=== PATIENT | female | born 1945 | race Caucasian/White ===

== ENCOUNTER 2017-03-13 08:06 | Inpatient (IN) | payer MEDICARE, MEDICAID ==
[~2017-03-13] VITALS: Ht 162.6 cm; Wt 52.6 kg
[~2017-03-13 08:06] MED LIST: ACETAMINOPHEN325 M1 ORAL; ADVAIR 250/501 PUFFS INH; ADVAIR 500-501 EACH INH; ATIVAN0.5 MG ORAL; ATORVASTATIN CA10 MG ORAL; AUGMENTIN 875-1 EAC1 ORAL; CARAFATE1 G1 GT; CARAFATE1 GM/10 M1 ORAL; CIPRO500 MG PO; COLACE100 MG ORAL; COLACE100 MG/10 NG; FLEET ENEMA133 ML RECTAL; FOLIC ACID1 MG ORAL; FOSAMAX70 MG ORAL; HEPARIN SO5000 UNIT2 SUBQ; HEPARIN SO5000 UNIT4 SQ; HYDROCHLOROTHIA25 MG PO; INVANZ1 GM IVPB; LEVAQUIN500 MG ORAL; LINZESS145 MCG PO; LIPITOR10 MG ORAL; LISINOPRIL10 MG ORAL; LORATADINE10 M1 PO; MAGNESIUM CITR296 M1 PO; MEDROL DOSEPAK4 MG ORAL; MEROPENEM500 MG IV; MIRALAX17 G2 ORAL; MORPHINE 44 MG/1 ML IM; MULTIVITAMINS1 EAC8 PO; MYLANTA II30 ML ORAL; NICODERM 21MG/241 EA TD; NICODERM TOPIC; NORCO 5-325 TA1 EACH ORAL; PREDNISONE20 M1 PO; PREDNISONE20 MG ORAL; PRO-STAT 64 LI887 ML PO; PROBIOTIC1 EAC2 PO; PROMETHAZINE-C118 M1 ORAL; PROTONIX40 MG ORAL; RANITIDINE HCL150 MG ORAL; SENNA8.6 M3 PO; SPIRIVA18 MCG INH; TRAMADOL HCL50 MG GT; VANCOMYCIN1 GM/2502 IVPB; VITAMIN B12-FO1 EAC1 PO; VITAMIN D22000 UNIT PO; VITAMIN D250000 UNI1 GT; XOPENEX0.5 MG HHN; XOPENEX1.25 MG/3 HHN; ZESTRIL20 MG ORAL
[2017-03-13] MEDS ORDERED: Solu-MEDROL 125mg Inj IVP ONE (08:15)
[2017-03-13] MEDS ORDERED: Levalbuterol Inh UD 1.25mg/0.5ml HHN ONE (08:15)
[2017-03-13] MEDS ORDERED: Ipratropium 0.02% Inh Soln 2.5ml UD HHN ONE (08:15)
--- NOTE | 2017-03-13 08:24 | Emergency Room Report ---
History of Present Illness General Chief Complaint: Dyspnea/Respdistress Source: Patient Present Illness HPI The patient presents with dyspnea. She has a history of COPD and has nebulizer and oxygen at home. Her oxygen saturations were 91% in the field. She refused albuterol treatments because it causes her to get to jitters. The patient is also withdrawing from alcohol and had some alcohol last night she is worried about withdrawing at this time and is a significant component. She drinks daily - Scotch- will not quantify. Denies SI or HI. The patient denies any fevers. The paramedics noted a ronchorous cough but she states it's not been productive. She denies any chest pain, nausea, vomiting, diarrhea. No dysuria. + recent weight loss. She's not been taking prednisone at this time. In the past when she is in the hospital she's been on Solu-Medrol Allergies: Coded Allergies: ADHESIVE (Unverified Allergy, Severe, 08/16/13) ADHESIVE TAPE (Verified Allergy, Unknown, SURGICAL TAPE - RASH, 07/28/11) ALBUTEROL (Verified Adverse Reaction, Unknown, ANXIETY, 07/28/11) Uncoded Allergies: METAL (?) (Allergy, Unknown, RASH, 07/28/11) metal (Allergy, Unknown, 03/30/15) Patient History Past Medical History: see triage record Past Surgical History: other - prior G tube Social History: Reports: alcohol use, smoking Social History Narrative at home Reviewed Nursing Documentation: PMH: Agreed, PSxH: Agreed Nursing Documentation-PMH Hx Cardiac Problems: No Hx Hypertension: No Hx Pacemaker: No Hx Asthma: Yes Hx COPD: Yes Hx Diabetes: No Hx Cancer: No Hx Gastrointestinal Problems: No Hx Dialysis: No History Of Psychiatric Problem: No Hx Neurological Problems: No Hx Cerebrovascular Accident: No Hx Seizures: No Hx Tremors: Yes Hx Vertigo: Yes Hx Dizziness: Yes Hx Syncope: Yes Hx Weakness: Yes Hx Fatigue: Yes Review of Systems All Other Systems: negative except mentioned in HPI Physical Exam Vital Signs Date Time Temp Pulse Resp B/P Pulse Ox O2 Delivery O2 Flow Rate FiO2 03/13/17 08:04 97.9 96 24 119/72 95 Nasal Cannula 2.0 Sp02 EP Interpretation: reviewed, abnormal - as interpreted by me = low General Appearance: no apparent distress, thin, Chronically Ill Head: normocephalic Eyes: bilateral eye PERRL, bilateral eye normal inspection ENT: moist mucus membranes Neck: supple Respiratory: chest non-tender, wheezing, expiration, inspiration Cardiovascular #1: regular rate, rhythm Cardiovascular #2: 2+ radial (R) Gastrointestinal: normal inspection, normal bowel sounds, non tender, no mass, non-distended Musculoskeletal: back normal, normal range of motion, no calf tenderness Neurologic: alert, oriented x3, grossly normal Psychiatric: anxious Skin: normal inspection, warm/dry Medical Decision Making Diagnostic Impression: Primary Impression: COPD exacerbation Additional Impression: Alcohol withdrawal Qualified Codes: F10.239 - Alcohol dependence with withdrawal, unspecified ER Course Patient presents with dyspnea with history of COPD. She also has a rhonchorous cough. Differential is acute myocardial infarction, COPD exacerbation, pneumonia, bronchitis, alcohol withdrawal, anxiety amongst others. Evaluation with be with blood cultures lactate and other labs. Also a chest x-ray and EKG will be obtained. EKG shows sinus rhythm with left axis deviation. Chest x-ray is COPD without infiltrate. Labs are significant for a white count with eosinophilia. In addition to that her blood alcohol is 41. The patient is improved but needs further treatment and observation for possible development of DTs. She is several comorbidities that puts her at high risk. Improved. Admit tele Dr. Bianchi. Laboratory Tests Test 03/13/17 08:13 White Blood Count 5.8 K/UL (4.8-10.8) Red Blood Count 3.89 M/UL (4.20-5.40) L Hemoglobin 13.0 G/DL (12.0-16.0) Hematocrit 40.7 % (37.0-47.0) Mean Corpuscular Volume 105 FL (80-99) H Mean Corpuscular Hemoglobin 33.5 PG (27.0-31.0) H Mean Corpuscular Hemoglobin Concent 32.0 G/DL (32.0-36.0) Red Cell Distribution Width 13.3 % (11.6-14.8) Platelet Count 205 K/UL (150-450) Mean Platelet Volume 7.3 FL (6.5-10.1) Neutrophils (%) (Auto) 51.3 % (45.0-75.0) Lymphocytes (%) (Auto) 32.4 % (20.0-45.0) Monocytes (%) (Auto) 11.8 % (1.0-10.0) H Eosinophils (%) (Auto) 3.3 % (0.0-3.0) H Basophils (%) (Auto) 1.3 % (0.0-2.0) Prothrombin Time 9.7 SEC (9.30-11.50) Prothrombin Time INR 1.0 (0.9-1.1) PTT 26 SEC (23-33) Sodium Level 131 mEQ/L (135-145) L Potassium Level 4.2 mEQ/L (3.4-4.9) Chloride Level 86 mEQ/L (98-107) L Carbon Dioxide Level 26 mEQ/L (20-30) Anion Gap 19 (5-15) H Blood Urea Nitrogen 10 mg/dL (7-23) Creatinine 0.6 mg/dL (0.5-0.9) Estimate Glomerular Filtration Rate > 60 mL/min (>60) Glucose Level 71 mg/dL (74-106) L Lactic Acid Level 2.10 mmol/L (0.66-2.22) Calcium Level 9.6 mg/dL (8.6-10.2) Total Bilirubin 1.0 mg/dL (0.0-1.2) Aspartate Amino Transferase (AST) 63 U/L (5-40) H Alanine Aminotransferase (ALT) 29 U/L (3-33) Alkaline Phosphatase 89 U/L (35-104) Total Creatine Kinase 29 U/L (26-140) Pro-B-Type Natriuretic Peptide 120 pg/mL (0-125) Total Protein 6.8 g/dL (6.6-8.7) Albumin 4.3 g/dL (3.5-5.2) Globulin 2.5 g/dL Albumin/Globulin Ratio 1.7 (1.0-2.7) Serum Alcohol 41 mg/dL EKG Diagnostic Results Rate: normal Rhythm: NSR ST Segments: no acute changes Rhythm Strip Diag. Results EP Interpretation: yes Rhythm: NSR, no PVC's, no ectopy Chest X-Ray Diagnostic Results EP Interpretation: Yes Findings: no consolidation, no effusion, no pneumothorax, other - COPD Number of Views: 1 Last Vital Signs Date Time Temp Pulse Resp B/P Pulse Ox O2 Delivery O2 Flow Rate FiO2 03/13/17 15:49 96.8 91 21 97/67 97 Nasal Cannula 2.0 03/13/17 09:12 98 Status: improved Disposition: ADMITTED INPATIENT Condition: Serious Referrals: YNES BIANCHI (PCP) Nahid Manzano M.D. March 13, 2017 08:24
[2017-03-13 08:38] LABS: BASOPHILS % (AUTO) 1.3 % (0.0-2.0); EOSINOPHILS % (AUTO) 3.3 % (0.0-3.0); LYMPHOCYTES % (AUTO) 32.4 % (20.0-45.0); MEAN CORPUSCULAR HEMOGLOBIN 33.5 PG (27.0-31.0); MEAN CORPUSCULAR VOLUME 105 FL (80-99); MEAN PLATELET VOLUME 7.3 FL (6.5-10.1); MONOCYTES % (AUTO) 11.8 % (1.0-10.0); NEUTROPHILS % (AUTO) 51.3 % (45.0-75.0); PLATELET COUNT 205 K/UL (150-450); RED BLOOD COUNT 3.89 M/UL (4.20-5.40); RED CELL DISTRIBUTION WIDTH 13.3 % (11.6-14.8); WHITE BLOOD COUNT 5.8 K/UL (4.8-10.8)
[2017-03-13 08:45] LABS: ALANINE AMINOTRANSFERASE 29 U/L (3-33); ALBUMIN/GLOBULIN RATIO 1.7 (1.0-2.7); ALCOHOL 41 mg/dL; ANION GAP 19 (5-15); ASPARTATE AMINO TRANSFERASE 63 U/L (5-40); CALCIUM 9.6 mg/dL (8.6-10.2); CARBON DIOXIDE 26 mEQ/L (20-30); CHLORIDE 86 mEQ/L (98-107); CREATININE 0.6 mg/dL (0.5-0.9); GLOMERULAR FILTRATION RATE > 60 mL/min (>60); HEMOLYSIS 4; POTASSIUM 4.2 mEQ/L (3.4-4.9); SODIUM 131 mEQ/L (135-145); TOTAL PROTEIN 6.8 g/dL (6.6-8.7)
[2017-03-13 08:47] LABS: REFLEX LACTIC ACID YES OR NO YES
[2017-03-13 09:00] VITALS: BP 107/73
[2017-03-13 09:02] LABS: PROTHROMBIN TIME 9.7 SEC (9.30-11.50)
[2017-03-13] MEDS ORDERED: LORazepam Inj 2mg/ml 1ml IV ONE (10:15)
[2017-03-13] MEDS ORDERED: Promethazine/Codeine 5ml UD ORAL PRN ×2 (11:45)
[2017-03-13] MEDS ORDERED: chlordiazePOXIDE 25mg Cap ORAL PRN (11:45)
[2017-03-13] MEDS ORDERED: Nitroglycerin Subl 0.4mg tab (Bottle Of 25) SL PRN (11:45)
[2017-03-13] MEDS ORDERED: Morphine Sulfate 2mg/ml Inj IVP PRN (11:45)
[2017-03-13] MEDS ORDERED: Ketorolac 30mg Inj IV PRN (11:45)
[2017-03-13 12:30] VITALS: BP 114/68
[2017-03-13] MEDS: Folic Acid 1 MG, Magnesium Sulfate 2,000 MG, Multivitamin - 12 Injection 10 ML in NS w/... IV SCH (13:15)
[2017-03-13] MEDS: Thiamine 100 MG ivpb IVPB SCH ×2 (13:15)
[2017-03-13] MEDS: Solu-MEDROL 125mg Inj IV SCH ×2 (13:15→18:22)
[2017-03-13] MEDS ORDERED: Piperacillin/Tazobactam 2.25 GM in D5W 55 ML IV SCH (14:00)
[2017-03-13] MEDS: Zosyn 3.375gm q8h **Extended infusion IVPB SCH ×4 (14:53→22:16)
[2017-03-13 15:49] VITALS: BP 97/67
[2017-03-13] MEDS ORDERED: Miralax 17gm pkt ORAL PRN (18:15)
[2017-03-13] MEDS ORDERED: Levalbuterol Inh UD 1.25mg/0.5ml HHN SCH (18:15)
[2017-03-13] MEDS: LORazepam Inj 2mg/ml 1ml IV PRN (18:22)
[2017-03-13] MEDS: Docusate 100mg cap ORAL SCH (18:36)
[2017-03-13 20:00] VITALS: BP 102/64
[2017-03-13] MEDS: Theophylline ER 100mg ORAL SCH (20:48)
[2017-03-13] MEDS: Heparin 5000 units/ml inj SUBQ SCH (20:48)
[2017-03-13] MEDS ORDERED: Ipratropium 0.02% Inh Soln 2.5ml UD ONE (20:59)
[2017-03-13] MEDS: Levalbuterol Inh UD 1.25mg/0.5ml HHN PRN (21:03)
--- NOTE | 2017-03-13 22:33 | History and Physical ---
History of Present Illness General Date patient seen: March 13, 2017 Reason for Hospitalization: Dyspnea/Respdistress Present Illness HPI 71 year old female with hx of a COPD and oxygen at home BIBA with CC of dyspnea She refused albuterol treatments from paramedics because it causes her to get to jitters. The patient is also withdrawing from alcohol and had some alcohol last night she is worried about withdrawing at this time. she was in mild respiratory failure and admitted to telemetry for further work up. Allergies: Coded Allergies: ADHESIVE (Unverified Allergy, Severe, 08/16/13) ADHESIVE TAPE (Verified Allergy, Unknown, SURGICAL TAPE - RASH, 07/28/11) ALBUTEROL (Verified Adverse Reaction, Unknown, ANXIETY, 07/28/11) Uncoded Allergies: METAL (?) (Allergy, Unknown, RASH, 07/28/11) metal (Allergy, Unknown, 03/30/15) Medication History Scheduled Alendronate Sodium* (Fosamax*), 70 MG ORAL QWEEK Atorvastatin Calcium* (Lipitor*), 10 MG ORAL BEDTIME Atorvastatin Calcium* (Lipitor*), 10 MG ORAL BEDTIME, (Reported) Docusate Sodium* (Colace*), 100 MG ORAL TWICE A DAY, (Reported) Ergocalciferol (Vitamin D2)* (Vitamin D*), 50,000 UNIT GT ONCE A WEEK, (Reported ) Ertapenem Sodium* (INVanz*), 1 GM IVPB Q24H Fluticasone/Salmeterol (Advair 500-50 Diskus), 1 PUFF INH Q12H, (Reported) Fluticasone/Salmeterol (Advair 250-50 Diskus), 1 PUFF INH EVERY 12 HOURS, ( Reported) Folic Acid* (Folic Acid*), 1 MG ORAL DAILY, (Reported) Heparin Sodium,Porcine/Pf (Heparin Sod 5,000 Unit/0.5 ml), 5,000 UNIT SQ BID, ( Reported) Levalbuterol HCl (Xopenex Concentrate), 1.25 MG HHN TIDRT Levalbuterol Hcl (Xopenex*), 1.25 MG HHN Q4H, (Reported) Lisinopril* (Zestril*), 20 MG ORAL DAILY, (Reported) Multivitamin With Minerals (Multivitamins With Minerals*), 1 EACH PO DAILY, ( Reported) Pantoprazole* (Protonix*), 40 MG ORAL Q12HR, (Reported) Sucralfate* (Carafate*), 1 GM GT FOUR TIMES A DAY, (Reported) Tiotropium Bailey* (Spiriva*), 1 PUFF INH DAILY, (Reported) Scheduled PRN Acetaminophen* (Acetaminophen 325MG Tablet*), 650 MG ORAL Q4H PRN for fever Codeine/Promethazine Hcl* (Promethazine-Codeine Syrup*), 5 ML ORAL EVERY 6 HOURS PRN for cough Linaclotide (Linzess), 145 MCG PO for Constipation, (Reported) Lorazepam* (Ativan*), 0.5 MG ORAL THREE TIMES A DAY PRN for For Anxiety, ( Reported) Tramadol Hcl* (Ultram*), 50 MG GT Q6H PRN for For Pain, (Reported) Discontinued Medications Al Hydroxide/mg Hydroxide (Mag-Al Plus Suspension), 30 ML ORAL Q6H PRN for dyspepsia Discontinued Reason: Therapy completed Amoxicillin/Potassium Clav 875-125* (Augmentin 875-125 Tablet*), 1 TAB ORAL TWICE A DAY Discontinued Reason: Therapy completed Codeine/Promethazine Hcl* (Promethazine-Codeine Syrup*), 5 ML ORAL Q6H PRN for For Cough, (Reported) Discontinued Reason: Therapy completed Ergocalciferol (Vitamin D2) (Vitamin D2), 50,000 UNIT PO ONCE A WEEK, (Reported) Discontinued Reason: Therapy completed Fluticasone/Salmeterol (Advair 250-50 Diskus), 1 PUFFS INH BID Discontinued Reason: Therapy completed Lactobacillus Acidophilus (Probiotic), 1 EACH PO BID Discontinued Reason: Therapy completed Levofloxacin* (Levaquin*), 500 MG ORAL DAILY Discontinued Reason: Therapy completed Lisinopril* (Lisinopril*), 20 MG ORAL DAILY, (Reported) Discontinued Reason: Therapy completed Methylprednisolone (Methylprednisolone*), 4 MG ORAL .as directed Discontinued Reason: Therapy completed Morphine Sulfate/Pf (Morphine 4 Mg/Ml Carpuject), 2 MG IM EVERY 12 HOURS PRN Discontinued Reason: Therapy completed Polyethylene Glycol 3350* (Miralax*), 17 GM ORAL BEDTIME Discontinued Reason: Therapy completed Prednisone (Prednisone), 20 MG PO DAILY Discontinued Reason: Therapy completed Prednisone* (Prednisone*), 40 MG ORAL DAILY Discontinued Reason: Therapy completed Ranitidine Hcl* (Zantac*), 150 MG ORAL TWICE A DAY Discontinued Reason: Therapy completed Sennosides (Senna), 8.6 MG PO DAILY PRN Discontinued Reason: Therapy completed Sucralfate (Carafate), 1 GM ORAL FOUR TIMES A DAY, (Reported) Discontinued Reason: Therapy completed Tiotropium Bailey* (Spiriva*), 1 PUFF INH DAILY, (Reported) Discontinued Reason: Therapy completed Patient History Healthcare decision maker Resuscitation status Full Code Advanced Directive on File Past Medical/Surgical History Past Medical/Surgical History: (1) HTN (hypertension) (2) Emphysema of lung (3) Anemia Review of Systems All Other Systems: negative except mentioned in HPI Physical Exam General Appearance: cachetic Lines, tubes and drains: peripheral, central line HEENT: normocephalic, atraumatic Neck: non-tender, normal alignment Respiratory/Chest: chest wall non-tender, lungs clear, normal breath sounds Cardiovascular/Chest: normal peripheral pulses, normal rate Abdomen: normal bowel sounds Genitourinary/Rectal: normal genital exam Extremities: normal range of motion, non-tender Neurologic: stencil cutter II-XII grossly normal Last 24 Hour Vital Signs Date Time Temp Pulse Resp B/P Pulse Ox O2 Delivery O2 Flow Rate FiO2 03/13/17 21:14 82 20 99 Nasal Cannula 2.0 28 03/13/17 21:13 78 20 96 Nasal Cannula 2.0 28 03/13/17 20:00 84 03/13/17 20:00 97.4 84 21 102/64 96 Nasal Cannula 2.0 03/13/17 19:30 94 Nasal Cannula 2.0 28 03/13/17 19:30 Nasal Cannula 2.0 28 03/13/17 15:49 96.8 91 21 97/67 97 Nasal Cannula 2.0 03/13/17 14:52 Nasal Cannula 2.0 03/13/17 14:52 Nasal Cannula 2.0 03/13/17 13:02 99 03/13/17 12:30 97.7 95 20 114/68 94 Nasal Cannula 2.0 03/13/17 12:02 20 96/64 94 Nasal Cannula 2.0 03/13/17 11:05 80 20 94 Nasal Cannula 2.0 03/13/17 09:12 Nasal Cannula 2.0 98 03/13/17 09:00 96 22 107/73 94 Nasal Cannula 2.0 03/13/17 08:31 89 22 100 3.0 32 03/13/17 08:21 32 03/13/17 08:21 89 27 Nasal Cannula 3.0 32 03/13/17 08:21 89 27 99 Nasal Cannula 3.0 32 03/13/17 08:04 97.9 96 24 119/72 95 Nasal Cannula 2.0 Laboratory Tests Test 03/13/17 08:13 03/13/17 10:30 White Blood Count 5.8 K/UL (4.8-10.8) Red Blood Count 3.89 M/UL (4.20-5.40) L Hemoglobin 13.0 G/DL (12.0-16.0) Hematocrit 40.7 % (37.0-47.0) Mean Corpuscular Volume 105 FL (80-99) H Mean Corpuscular Hemoglobin 33.5 PG (27.0-31.0) H Mean Corpuscular Hemoglobin Concent 32.0 G/DL (32.0-36.0) Red Cell Distribution Width 13.3 % (11.6-14.8) Platelet Count 205 K/UL (150-450) Mean Platelet Volume 7.3 FL (6.5-10.1) Neutrophils (%) (Auto) 51.3 % (45.0-75.0) Lymphocytes (%) (Auto) 32.4 % (20.0-45.0) Monocytes (%) (Auto) 11.8 % (1.0-10.0) H Eosinophils (%) (Auto) 3.3 % (0.0-3.0) H Basophils (%) (Auto) 1.3 % (0.0-2.0) Prothrombin Time 9.7 SEC (9.30-11.50) Prothromb Time International Ratio 1.0 (0.9-1.1) Activated Partial Thromboplast Time 26 SEC (23-33) Sodium Level 131 mEQ/L (135-145) L Potassium Level 4.2 mEQ/L (3.4-4.9) Chloride Level 86 mEQ/L (98-107) L Carbon Dioxide Level 26 mEQ/L (20-30) Anion Gap 19 (5-15) H Blood Urea Nitrogen 10 mg/dL (7-23) Creatinine 0.6 mg/dL (0.5-0.9) Estimat Glomerular Filtration Rate > 60 mL/min (>60) Glucose Level 71 mg/dL (74-106) L Lactic Acid Level 2.10 mmol/L (0.66-2.22) 1.40 mmol/L (0.66-2.22) Calcium Level 9.6 mg/dL (8.6-10.2) Total Bilirubin 1.0 mg/dL (0.0-1.2) Aspartate Amino Transf (AST/SGOT) 63 U/L (5-40) H Alanine Aminotransferase (ALT/SGPT) 29 U/L (3-33) Alkaline Phosphatase 89 U/L (35-104) Total Creatine Kinase 29 U/L (26-140) Pro-B-Type Natriuretic Peptide 120 pg/mL (0-125) Total Protein 6.8 g/dL (6.6-8.7) Albumin 4.3 g/dL (3.5-5.2) Globulin 2.5 g/dL Albumin/Globulin Ratio 1.7 (1.0-2.7) Serum Alcohol 41 mg/dL Height (Feet): 5 Height (Inches): 4.00 Weight (Pounds): 116 Medications Current Medications Medications (Trade) Dose Ordered Sig/Nahum Route PRN Reason Start Time Stop Time Status Last Admin Dose Admin Atorvastatin Calcium (Lipitor) 10 mg BEDTIME ORAL 03/13/17 21:00 04/12/17 20:59 Chlordiazepoxide 25 mg 25 mg Q6H PRN ORAL Agitation 03/13/17 11:45 03/20/17 11:44 Dextrose STAT PRN IV Hypoglycemia 03/13/17 11:45 04/12/17 11:44 Docusate Sodium (Colace) 100 mg THREE TIMES A DAY ORAL 03/13/17 19:00 04/12/17 18:59 03/13/17 18:36 Folic Acid/ Magnesium Sulfate/ Multivitamins/ Sodium Chloride (Folvite/ Magnesium Sulfate/ M.v.i.-12/NS w/ KCl 20mEq) 1,014.2 ml @ 125 mls/ hr Q24H IV 03/13/17 13:30 04/12/17 13:29 03/13/17 13:15 Heparin Sodium (Porcine) (Heparin 5000 units/ml) 5,000 units EVERY 12 HOURS SUBQ 03/13/17 21:00 04/12/17 20:59 03/13/17 20:48 Ketorolac Tromethamine (Toradol 30mg) 30 mg Q8H PRN IV Moderate Pain (Pain Scale 4-6) 03/13/17 11:45 03/18/17 11:44 Levalbuterol HCl (Xopenex) 1.25 mg Q4H PRN HHN Shortness of Breath 03/13/17 18:30 03/18/17 18:29 03/13/17 21:03 Lisinopril (Prinivil) 20 mg DAILY ORAL 03/14/17 09:00 04/13/17 08:59 Lorazepam (Ativan 2mg/ml 1ml) 0.5 mg Q4H PRN IV For Anxiety 03/13/17 11:45 03/20/17 11:44 03/13/17 18:22 Methylprednisolone Sodium Succinate (Solu-MEDROL) 60 mg EVERY 6 HOURS IV 03/13/17 12:00 04/12/17 11:59 03/13/17 18:22 Morphine Sulfate (Morphine Sulfate) 2 mg Q4H PRN IVP Severe Pain (Pain Scale 7-10) 03/13/17 11:45 03/20/17 11:44 Nitroglycerin (Ntg) 0.4 mg Q5M X 3 DOSES PRN SL Prn Chest Pain 03/13/17 11:45 04/12/17 11:44 Ondansetron HCl (Zofran) 4 mg Q6H PRN IVP Nausea & Vomiting 03/13/17 11:45 04/12/17 11:44 Piperacillin Sod/ Tazobactam Sod/ Dextrose (Zosyn/D5W) 110 ml @ 27.5 mls/hr EVERY 8 HOURS IVPB 03/13/17 14:00 03/18/17 13:59 03/13/17 22:16 Polyethylene Glycol (Miralax) 17 gm DAILYPRN PRN ORAL Constipation 03/13/17 18:15 04/12/17 18:14 Promethazine HCl/ Codeine (Phenergan with Codeine) 5 ml Q6H PRN ORAL For Cough 03/13/17 11:45 04/12/17 11:44 Temazepam (Restoril) 15 mg HSPRN PRN ORAL Insomnia 03/13/17 21:00 03/20/17 20:59 Theophylline (Aman-Dur) 100 mg EVERY 12 HOURS ORAL 03/13/17 21:00 04/12/17 20:59 03/13/17 20:48 Thiamine HCl 100 mg/Dextrose 56 ml @ 112 mls/hr Q24H IVPB 03/13/17 13:30 04/12/17 13:29 03/13/17 13:15 Assessment/Plan Problem List: (1) COPD exacerbation ICD Codes: J44.1 - Chronic obstructive pulmonary disease with (acute) exacerbation SNOMED: 662255366 (2) Alcohol withdrawal ICD Codes: F10.239 - Alcohol dependence with withdrawal, unspecified SNOMED: 482336369 Qualifiers: Qualified Codes: F10.239 - Alcohol dependence with withdrawal, unspecified (3) HTN (hypertension) ICD Codes: I10 - Essential (primary) hypertension SNOMED: 85435949 (4) Anemia ICD Codes: D64.9 - Anemia SNOMED: 419274952 (5) Emphysema of lung ICD Codes: J43.9 - Emphysema, unspecified SNOMED: 76477306 Assessment/Plan respiratory treatment IV steroids check sputum nicotine patch lilbirum fo rETOH withdrawl dvt prophylaxis YNES BREWSTER March 13, 2017 22:33
[2017-03-14] VITALS (8 sets, daily range): BP systolic 91–106; BP diastolic 56–73
[2017-03-14] MEDS: Solu-MEDROL 125mg Inj IV SCH ×3 (00:30→12:25)
[2017-03-14] MEDS: Zosyn 3.375gm q8h **Extended infusion IVPB SCH ×6 (05:29→22:29)
[2017-03-14] MEDS: LORazepam Inj 2mg/ml 1ml IV PRN ×4 (05:29→22:00)
[2017-03-14] MEDS ORDERED: Lisinopril 20mg tab ORAL SCH (09:00)
[2017-03-14] MEDS: Theophylline ER 100mg ORAL SCH ×2 (09:30→21:58)
[2017-03-14] MEDS: Docusate 100mg cap ORAL SCH ×3 (09:30→17:46)
[2017-03-14] MEDS: Heparin 5000 units/ml inj SUBQ SCH ×2 (09:33→21:59)
[2017-03-14] MEDS: Levalbuterol Inh UD 1.25mg/0.5ml HHN PRN ×2 (09:47→14:53)
--- NOTE | 2017-03-14 12:46 | Pulmonology Progress Note ---
Assessment/Plan Problems: (1) COPD exacerbation (2) Alcohol withdrawal (3) HTN (hypertension) (4) Anemia (5) Emphysema of lung Assessment/Plan improving decrease steroids check sputum monitor bp banana bag Subjective ROS Limited/Unobtainable: No Constitutional: Reports: no symptoms HEENT: Repors: no symptoms Respiratory: Reports: no symptoms Allergies: Coded Allergies: ADHESIVE (Unverified Allergy, Severe, 08/16/13) ADHESIVE TAPE (Verified Allergy, Unknown, SURGICAL TAPE - RASH, 07/28/11) ALBUTEROL (Verified Adverse Reaction, Unknown, ANXIETY, 07/28/11) Uncoded Allergies: METAL (?) (Allergy, Unknown, RASH, 07/28/11) metal (Allergy, Unknown, 03/30/15) Objective Last 24 Hour Vital Signs Date Time Temp Pulse Resp B/P Pulse Ox O2 Delivery O2 Flow Rate FiO2 03/14/17 11:52 97.0 92 20 95/62 95 Nasal Cannula 2.0 03/14/17 09:49 77 20 99 Nasal Cannula 2.0 03/14/17 09:48 76 20 96 Nasal Cannula 2.0 28 03/14/17 08:05 Nasal Cannula 2.0 28 03/14/17 08:05 96 Nasal Cannula 2.0 28 03/14/17 07:57 97.0 97 22 101/73 94 Nasal Cannula 2.0 03/14/17 04:00 83 03/14/17 04:00 96.1 81 20 106/70 94 Nasal Cannula 03/14/17 00:00 97.2 75 18 94/61 93 Room Air 03/14/17 00:00 73 03/13/17 21:14 82 20 99 Nasal Cannula 2.0 28 03/13/17 21:13 78 20 96 Nasal Cannula 2.0 28 03/13/17 20:00 84 03/13/17 20:00 97.4 84 21 102/64 96 Nasal Cannula 2.0 03/13/17 19:30 94 Nasal Cannula 2.0 28 03/13/17 19:30 Nasal Cannula 2.0 28 03/13/17 15:49 96.8 91 21 97/67 97 Nasal Cannula 2.0 03/13/17 14:52 Nasal Cannula 2.0 03/13/17 14:52 Nasal Cannula 2.0 03/13/17 13:02 99 Intake and Output 03/13/17 03/14/17 19:00 07:00 Intake Total 763.5 ml 615.8 ml Balance 763.5 ml 615.8 ml IV Total 763.5 ml 615.8 ml # Voids 2 1 # Bowel Movements 1 General Appearance: cachetic Respiratory/Chest: chest wall non-tender, lungs clear Breasts: no masses Cardiovascular: normal peripheral pulses, normal rate Abdomen: normal bowel sounds, soft, non tender Genitourinary: normal external genitalia Extremities: no clubbing Skin: no rash, no lesions Current Medications Medications (Trade) Dose Ordered Sig/Nahum Route PRN Reason Start Time Stop Time Status Last Admin Dose Admin Atorvastatin Calcium (Lipitor) 10 mg BEDTIME ORAL 03/13/17 21:00 04/12/17 20:59 Chlordiazepoxide 25 mg 25 mg Q6H PRN ORAL Agitation 03/13/17 11:45 03/20/17 11:44 Dextrose STAT PRN IV Hypoglycemia 03/13/17 11:45 04/12/17 11:44 Docusate Sodium (Colace) 100 mg THREE TIMES A DAY ORAL 03/13/17 19:00 04/12/17 18:59 03/14/17 12:24 Folic Acid/ Magnesium Sulfate/ Multivitamins/ Sodium Chloride (Folvite/ Magnesium Sulfate/ M.v.i.-12/NS w/ KCl 20mEq) 1,014.2 ml @ 125 mls/ hr Q24H IV 03/13/17 13:30 04/12/17 13:29 03/13/17 13:15 Heparin Sodium (Porcine) (Heparin 5000 units/ml) 5,000 units EVERY 12 HOURS SUBQ 03/13/17 21:00 04/12/17 20:59 03/14/17 09:33 Ketorolac Tromethamine (Toradol 30mg) 30 mg Q8H PRN IV Moderate Pain (Pain Scale 4-6) 03/13/17 11:45 03/18/17 11:44 Levalbuterol HCl (Xopenex) 1.25 mg Q4H PRN HHN Shortness of Breath 03/13/17 18:30 03/18/17 18:29 03/14/17 09:47 Lisinopril (Prinivil) 20 mg DAILY ORAL 03/14/17 09:00 04/13/17 08:59 Lorazepam (Ativan 2mg/ml 1ml) 0.5 mg Q4H PRN IV For Anxiety 03/13/17 11:45 03/20/17 11:44 03/14/17 12:25 Methylprednisolone Sodium Succinate (Solu-MEDROL) 60 mg EVERY 2 HOURS IV 03/14/17 14:00 04/13/17 13:59 UNV Morphine Sulfate (Morphine Sulfate) 2 mg Q4H PRN IVP Severe Pain (Pain Scale 7-10) 03/13/17 11:45 03/20/17 11:44 Nicotine (Nicoderm) 1 patch Q24H TDERMAL 03/14/17 12:00 04/13/17 11:59 03/14/17 12:24 Nitroglycerin (Ntg) 0.4 mg Q5M X 3 DOSES PRN SL Prn Chest Pain 03/13/17 11:45 04/12/17 11:44 Ondansetron HCl (Zofran) 4 mg Q6H PRN IVP Nausea & Vomiting 03/13/17 11:45 04/12/17 11:44 Piperacillin Sod/ Tazobactam Sod/ Dextrose (Zosyn/D5W) 110 ml @ 27.5 mls/hr EVERY 8 HOURS IVPB 03/13/17 14:00 03/18/17 13:59 03/14/17 05:29 Polyethylene Glycol (Miralax) 17 gm DAILYPRN PRN ORAL Constipation 03/13/17 18:15 04/12/17 18:14 Promethazine HCl/ Codeine (Phenergan with Codeine) 5 ml Q6H PRN ORAL For Cough 03/13/17 11:45 04/12/17 11:44 Temazepam (Restoril) 15 mg HSPRN PRN ORAL Insomnia 03/13/17 21:00 03/20/17 20:59 Theophylline (Aman-Dur) 100 mg EVERY 12 HOURS ORAL 03/13/17 21:00 04/12/17 20:59 03/14/17 09:30 Thiamine HCl 100 mg/Dextrose 56 ml @ 112 mls/hr Q24H IVPB 03/13/17 13:30 04/12/17 13:29 03/13/17 13:15 Tiotropium [place] (Spiriva Inhaler) 1 puff DAILY INH 03/15/17 09:00 04/14/17 08:59 YNES BREWSTER March 14, 2017 12:46
[2017-03-14] MEDS: Folic Acid 1 MG, Magnesium Sulfate 2,000 MG, Multivitamin - 12 Injection 10 ML in NS w/... IV SCH (13:48)
[2017-03-14] MEDS: Thiamine 100 MG ivpb IVPB SCH ×2 (13:48)
[2017-03-14] MEDS ORDERED: Solu-MEDROL 125mg Inj IV SCH (21:00)
[2017-03-15] MEDS ORDERED: Nitroglycerin Subl 0.4mg tab (Bottle Of 25) SL PRN (00:15)
[2017-03-15 01:13] VITALS: BP 104/68
[2017-03-15] MEDS: LORazepam Inj 2mg/ml 1ml IV PRN ×5 (02:08→23:31)
[2017-03-15] MEDS: Levalbuterol Inh UD 1.25mg/0.5ml HHN PRN ×4 (02:14→23:31)
[2017-03-15] MEDS ORDERED: Ketorolac 30mg Inj IV PRN (03:45)
[2017-03-15] MEDS ORDERED: Morphine Sulfate 2mg/ml Inj IVP PRN (03:45)
[2017-03-15] MEDS ORDERED: chlordiazePOXIDE 25mg Cap ORAL PRN (05:45)
[2017-03-15] MEDS ORDERED: Promethazine/Codeine 5ml UD ORAL PRN (05:45)
[2017-03-15] MEDS: Piperacillin/Tazobactam 3.375 GM in D5W 110 ML IVPB SCH ×3 (06:24→22:30)
[2017-03-15 08:15] VITALS: BP 84/48
[2017-03-15] MEDS: Lisinopril 20mg tab ORAL SCH (08:49)
[2017-03-15] MEDS ORDERED: Solu-MEDROL 125mg Inj IV SCH (09:00)
[2017-03-15] MEDS ORDERED: Tubing IV Secondary IV ONE (09:26)
[2017-03-15] MEDS ORDERED: NS 275ml ONE ×2 (09:26→22:29)
[2017-03-15] MEDS: Docusate 100mg cap ORAL SCH ×3 (09:46→18:36)
[2017-03-15] MEDS: Theophylline ER 100mg ORAL SCH ×2 (09:46→22:27)
[2017-03-15] MEDS: Heparin 5000 units/ml inj SUBQ SCH ×2 (09:47→22:28)
[2017-03-15 11:46] VITALS: BP 96/62
[2017-03-15] MEDS ORDERED: Folic Acid 1 MG, Magnesium Sulfate 2,000 MG, Multivitamin - 12 Injection 10 ML in NS w/... IV SCH (13:30)
[2017-03-15] MEDS ORDERED: Thiamine HCl 100 MG in D5W 55 ML IVPB SCH (13:30)
[2017-03-15 15:53] VITALS: BP 97/64
--- NOTE | 2017-03-15 17:41 | Cardiology Report ---
APPROVED REPORT EKG Measurement Heart [id number] Normal sinus rhythm Left axis deviation Anteroseptal infarct, age undetermined Abnormal ECG
[2017-03-15] MEDS ORDERED: Miralax 17gm pkt ORAL PRN (18:15)
[2017-03-15 20:00] VITALS: BP 84/49
[2017-03-16] VITALS (7 sets, daily range): BP systolic 84–101; BP diastolic 52–67
[2017-03-16] MEDS: Piperacillin/Tazobactam 3.375 GM in D5W 110 ML IVPB SCH ×2 (05:55→13:44)
[2017-03-16] MEDS: LORazepam Inj 2mg/ml 1ml IV PRN (05:55)
--- NOTE | 2017-03-16 08:19 | Pulmonology Progress Note ---
Assessment/Plan Assessment/Plan ASSESSMENT COPD exacerbation ETOH withdrawal emphysema HTN smoker PLAN OF CARE MS floor s/p banana bag Librium prn change IV thiamine and Folic acid to po O2 HHN prn taper steroids and change to po in am sputum cx , blood cx preliminary negative empiric abx CXR no acute process antitussive prn continue Theophylline monitor HH at baseline BP management with PAULY and optimize as needed PT eval and Rx if safe to return home DVT prophylaxis pain management Nicotine patch student success counselor on smoking cessations and abstinence from alcohol case discussed and evaluated by supervising physician Subjective Allergies: Coded Allergies: ADHESIVE (Unverified Allergy, Severe, 08/16/13) ADHESIVE TAPE (Verified Allergy, Unknown, SURGICAL TAPE - RASH, 07/28/11) ALBUTEROL (Verified Adverse Reaction, Unknown, ANXIETY, 07/28/11) Uncoded Allergies: METAL (?) (Allergy, Unknown, RASH, 07/28/11) metal (Allergy, Unknown, 03/30/15) Subjective denies SOB, chest pain still shaky and unsteady when walking admits to drinking 1/2 gallon scotch q week Objective Last 24 Hour Vital Signs Date Time Temp Pulse Resp B/P Pulse Ox O2 Delivery O2 Flow Rate FiO2 03/16/17 04:00 97.9 90 19 101/59 99 Room Air 03/16/17 00:00 97.0 91 18 91/57 92 Nasal Cannula 03/15/17 23:45 90 20 100 Nasal Cannula 2.0 03/15/17 23:32 91 18 97 Nasal Cannula 2.0 03/15/17 20:00 97.7 95 18 84/49 93 Room Air 03/15/17 18:52 98 Nasal Cannula 2.0 03/15/17 18:52 88 18 97 Nasal Cannula 2.0 03/15/17 18:52 Nasal Cannula 2.0 03/15/17 15:53 98.2 89 20 97/64 97 Nasal Cannula 2.0 89 03/15/17 11:46 97.5 87 23 96/62 97 Nasal Cannula 2.0 87 03/15/17 09:36 Nasal Cannula 03/15/17 09:35 Nasal Cannula 03/15/17 08:49 84/48 03/15/17 08:15 97.2 107 22 84/48 95 Nasal Cannula 2.0 107 Intake and Output 03/15/17 03/16/17 19:00 07:00 Intake Total 1458.5 ml 165.0 ml Balance 1458.5 ml 165.0 ml Intake Oral 820 ml IV Total 638.5 ml 165.0 ml # Voids 5 2 # Bowel Movements 1 General Appearance: no acute distress HEENT: normocephalic, atraumatic, anicteric, mucous membranes moist, PERRL Respiratory/Chest: decreased breath sounds Cardiovascular: normal peripheral pulses, normal rate, regular rhythm Abdomen: normal bowel sounds, soft, non tender Genitourinary: normal external genitalia Extremities: no edema, pedal pulses normal Neurologic/Psychiatric: abnormal gait - unsteady , alert, oriented x 3, responsive, normal mood/affect Musculoskeletal: normal muscle bulk Microbiology Date/Time Source Procedure Growth Status 03/13/17 10:30 Blood Blood Culture - Preliminary NO GROWTH AFTER 48 HOURS Resulted 03/13/17 14:00 Sputum Gram Stain - Final Resulted 03/13/17 14:00 Sputum Sputum Culture Pending Resulted Current Medications Medications (Trade) Dose Ordered Sig/Nahum Route PRN Reason Start Time Stop Time Status Last Admin Dose Admin Atorvastatin Calcium (Lipitor) 10 mg BEDTIME ORAL 03/15/17 21:00 04/14/17 20:59 03/15/17 22:27 Chlordiazepoxide (Librium) 25 mg Q6H PRN ORAL Agitation 03/15/17 05:45 03/22/17 05:44 Dextrose (Dextrose 50%) STAT PRN IV Hypoglycemia 03/15/17 11:45 04/14/17 11:44 Docusate Sodium (Colace) 100 mg THREE TIMES A DAY ORAL 03/15/17 09:00 04/14/17 08:59 03/15/17 18:36 Folic Acid 1 mg/ Magnesium Sulfate 2000 mg/ Multivitamins 10 ml/Sodium Chloride 1,014.2 ml @ 125 mls/ hr Q24H IV 03/15/17 13:30 04/14/17 13:29 03/15/17 13:46 Heparin Sodium (Porcine) (Heparin 5000 units/ml) 5,000 units EVERY 12 HOURS SUBQ 03/15/17 09:00 04/14/17 08:59 03/15/17 22:28 Ketorolac Tromethamine (Toradol 30mg) 30 mg Q8H PRN IV Moderate Pain (Pain Scale 4-6) 03/15/17 03:45 03/20/17 03:44 Levalbuterol HCl (Xopenex) 1.25 mg Q4H PRN HHN Shortness of Breath 03/15/17 02:30 03/20/17 02:29 03/15/17 23:31 Lisinopril (Prinivil) 20 mg DAILY ORAL 03/15/17 09:00 04/14/17 08:59 Lorazepam (Ativan 2mg/ml 1ml) 0.5 mg Q4H PRN IV For Anxiety 03/15/17 03:45 03/22/17 03:44 03/16/17 05:55 Methylprednisolone Sodium Succinate (Solu-MEDROL) 60 mg DAILY IV 03/16/17 09:00 04/15/17 08:59 Morphine Sulfate (Morphine Sulfate) 2 mg Q4H PRN IVP Severe Pain (Pain Scale 7-10) 03/15/17 03:45 03/22/17 03:44 Nicotine (Nicoderm) 1 patch Q24H TDERMAL 03/15/17 12:00 04/14/17 11:59 03/15/17 12:03 Nitroglycerin (Ntg) 0.4 mg Q5M X 3 DOSES PRN SL Prn Chest Pain 03/15/17 00:15 04/14/17 00:14 Ondansetron HCl (Zofran) 4 mg Q6H PRN IVP Nausea & Vomiting 03/15/17 05:45 04/14/17 05:44 Piperacillin Sod/ Tazobactam Sod 3.375 gm/Dextrose 110 ml @ 27.5 mls/hr EVERY 8 HOURS IVPB 03/15/17 06:00 03/22/17 05:59 03/16/17 05:55 Polyethylene Glycol (Miralax) 17 gm DAILYPRN PRN ORAL Constipation 03/15/17 18:15 04/14/17 18:14 Promethazine HCl/ Codeine (Phenergan with Codeine) 5 ml Q6H PRN ORAL For Cough 03/15/17 05:45 04/14/17 05:44 Temazepam (Restoril) 15 mg HSPRN PRN ORAL Insomnia 03/15/17 21:00 03/22/17 20:59 Theophylline (Aman-Dur) 100 mg EVERY 12 HOURS ORAL 03/15/17 09:00 04/14/17 08:59 03/15/17 22:27 Thiamine HCl/ Dextrose (Vitamin B1/D5W) 56 ml @ 112 mls/hr Q24H IVPB 03/15/17 13:30 04/14/17 13:29 03/15/17 13:46 Tiotropium [place] (Spiriva Inhaler) 1 puff DAILY INH 03/15/17 09:00 04/14/17 08:59 Ramon ([facility])Haylie NP March 16, 2017 08:19
[2017-03-16] MEDS: Docusate 100mg cap ORAL SCH ×3 (08:34→17:51)
[2017-03-16] MEDS: Theophylline ER 100mg ORAL SCH ×2 (08:34→20:43)
[2017-03-16] MEDS: Heparin 5000 units/ml inj SUBQ SCH ×2 (08:38→20:45)
[2017-03-16] MEDS: Lisinopril 20mg tab ORAL SCH (09:00)
[2017-03-16] MEDS ORDERED: Solu-MEDROL 125mg Inj IV SCH (09:00)
[2017-03-16] MEDS: Augmentin 875mg Tab ORAL SCH (17:51)
[2017-03-16] MEDS: Levalbuterol Inh UD 1.25mg/0.5ml HHN PRN (18:11)
[2017-03-16] MEDS: LORazepam 0.5mg tab ORAL PRN (23:39)
[2017-03-17] VITALS (8 sets, daily range): BP systolic 91–120; BP diastolic 50–76
[2017-03-17] MEDS: Levalbuterol Inh UD 1.25mg/0.5ml HHN PRN (03:54)
[2017-03-17 06:35] LABS: BASOPHILS % (AUTO) 0.9 % (0.0-2.0); LYMPHOCYTES % (AUTO) 33.6 % (20.0-45.0); MEAN CORPUSCULAR HGB CONC 32.1 G/DL (32.0-36.0); MEAN CORPUSCULAR VOLUME 106 FL (80-99); MEAN PLATELET VOLUME 7.5 FL (6.5-10.1); MONOCYTES % (AUTO) 10.8 % (1.0-10.0); NEUTROPHILS % (AUTO) 51.7 % (45.0-75.0); PLATELET COUNT 179 K/UL (150-450); RED CELL DISTRIBUTION WIDTH 13.5 % (11.6-14.8); WHITE BLOOD COUNT 5.9 K/UL (4.8-10.8)
[2017-03-17 06:47] LABS: ALANINE AMINOTRANSFERASE 27 U/L (3-33); ALBUMIN/GLOBULIN RATIO 1.7 (1.0-2.7); ANION GAP 11 (5-15); ASPARTATE AMINO TRANSFERASE 50 U/L (5-40); CALCIUM 8.9 mg/dL (8.6-10.2); CARBON DIOXIDE 31 mEQ/L (20-30); CHLORIDE 100 mEQ/L (98-107); CREATININE 0.5 mg/dL (0.5-0.9); GLOMERULAR FILTRATION RATE > 60 mL/min (>60); HEMOLYSIS 9; SODIUM 142 mEQ/L (135-145)
[2017-03-17] MEDS: Lisinopril 20mg tab ORAL SCH (09:00)
[2017-03-17] MEDS ORDERED: PredniSONE 20mg tab ORAL SCH (09:00)
[2017-03-17] MEDS: Docusate 100mg cap ORAL SCH ×3 (09:05→18:00)
[2017-03-17] MEDS: Thiamine 100mg tab ORAL SCH (09:05)
[2017-03-17] MEDS: Augmentin 875mg Tab ORAL SCH ×2 (09:06→20:38)
[2017-03-17] MEDS: Theophylline ER 100mg ORAL SCH ×2 (09:06→20:39)
[2017-03-17] MEDS: Heparin 5000 units/ml inj SUBQ SCH ×2 (09:08→20:44)
[2017-03-17] MEDS: LORazepam 0.5mg tab ORAL PRN ×2 (12:01→18:00)
--- NOTE | 2017-03-17 12:27 | Pulmonology Progress Note ---
Assessment/Plan Assessment/Plan ASSESSMENT COPD exacerbation ETOH withdrawal emphysema HTN smoker PLAN OF CARE MS floor s/p banana bag Librium prn po thiamine and Folic acid O2 HHN prn taper po steroids sputum cx , blood cx preliminary negative empiric abx CXR no acute process antitussive prn continue Theophylline monitor HH at baseline BP management with PAULY and optimize as needed PT eval and Rx if safe to return home DVT prophylaxis pain management Nicotine patch financial counselor on smoking cessations and abstinence from alcohol with referral to AA ( declined) dc tomorrow case discussed and evaluated by supervising physician Subjective Allergies: Coded Allergies: ADHESIVE (Unverified Allergy, Severe, 08/16/13) ADHESIVE TAPE (Verified Allergy, Unknown, SURGICAL TAPE - RASH, 07/28/11) ALBUTEROL (Verified Adverse Reaction, Unknown, ANXIETY, 07/28/11) Uncoded Allergies: METAL (?) (Allergy, Unknown, RASH, 07/28/11) metal (Allergy, Unknown, 03/30/15) Subjective denies SOB, chest pain still unsteady when walking , tremors /shakiness gradually resolving admits to drinking 1/2 gallon scotch q week Objective Last 24 Hour Vital Signs Date Time Temp Pulse Resp B/P Pulse Ox O2 Delivery O2 Flow Rate FiO2 03/17/17 11:53 97.5 89 19 118/67 95 Nasal Cannula 2.0 03/17/17 08:59 97.0 90 19 91/58 95 Nasal Cannula 2.0 03/17/17 08:32 88 20 98 Nasal Cannula 2.0 28 03/17/17 08:31 85 20 98 Nasal Cannula 2.0 28 03/17/17 08:31 Nasal Cannula 2.0 28 03/17/17 08:31 98 Nasal Cannula 2.0 28 03/17/17 04:03 88 18 99 Nasal Cannula 2.0 28 03/17/17 04:00 97.7 90 19 112/72 93 Nasal Cannula 03/17/17 03:54 89 18 97 Nasal Cannula 2.0 28 03/17/17 00:00 97.3 95 18 108/76 95 Nasal Cannula 03/16/17 20:00 97.7 89 18 95/61 95 Nasal Cannula 03/16/17 18:12 Nasal Cannula 2.0 28 03/16/17 18:12 97 Nasal Cannula 2.0 28 03/16/17 18:05 84 18 100 Nasal Cannula 2.0 28 03/16/17 18:00 86 18 97 Nasal Cannula 2.0 28 03/16/17 16:00 97.0 94 20 91/67 95 Nasal Cannula 2.0 Intake and Output 03/16/17 03/17/17 19:00 07:00 Intake Total 720 ml Balance 720 ml Intake Oral 720 ml # Voids 4 2 Objective General Appearance: no acute distress HEENT: normocephalic, atraumatic, anicteric, mucous membranes moist, PERRL Respiratory/Chest: decreased breath sounds Cardiovascular: normal peripheral pulses, normal rate, regular rhythm Abdomen: normal bowel sounds, soft, non tender Genitourinary: normal external genitalia Extremities: no edema, pedal pulses normal Neurologic/Psychiatric: abnormal gait - unsteady , alert, oriented x 3, responsive, normal mood/affect Musculoskeletal: normal muscle bulk Laboratory Tests 03/17/17 05:35: White Blood Count 5.9, Red Blood Count 3.10L, Hemoglobin 10.5L, Hematocrit 32.9L , Mean Corpuscular Volume 106H, Mean Corpuscular Hemoglobin 34.0H, Mean Corpuscular Hemoglobin Concent 32.1, Red Cell Distribution Width 13.5, Platelet Count 179, Mean Platelet Volume 7.5, Neutrophils (%) (Auto) 51.7, Lymphocytes (% ) (Auto) 33.6, Monocytes (%) (Auto) 10.8H, Eosinophils (%) (Auto) 3.0, Basophils (%) (Auto) 0.9, Sodium Level 142, Potassium Level 4.0, Chloride Level 100, Carbon Dioxide Level 31H, Anion Gap 11, Blood Urea Nitrogen 8, Creatinine 0.5, Estimat Glomerular Filtration Rate > 60, Glucose Level 87, Calcium Level 8.9, Total Bilirubin 0.3, Aspartate Amino Transf (AST/SGOT) 50H, Alanine Aminotransferase (ALT/SGPT) 27, Alkaline Phosphatase 50, Total Protein 5.0L, Albumin 3.2L, Globulin 1.8, Albumin/Globulin Ratio 1.7 Current Medications Medications (Trade) Dose Ordered Sig/Nahum Route PRN Reason Start Time Stop Time Status Last Admin Dose Admin Amoxicillin/ Clavulanate Potassium (Augmentin) 875 mg EVERY 12 HOURS ORAL 03/16/17 18:00 03/23/17 17:59 03/17/17 09:06 Atorvastatin Calcium (Lipitor) 10 mg BEDTIME ORAL 03/15/17 21:00 04/14/17 20:59 03/15/17 22:27 Chlordiazepoxide (Librium) 25 mg Q6H PRN ORAL Agitation 03/15/17 05:45 03/22/17 05:44 Dextrose (Dextrose 50%) STAT PRN IV Hypoglycemia 03/15/17 11:45 04/14/17 11:44 Docusate Sodium (Colace) 100 mg THREE TIMES A DAY ORAL 03/15/17 09:00 04/14/17 08:59 03/17/17 12:01 Folic Acid (Folate) 1 mg DAILY ORAL 03/17/17 09:00 04/16/17 08:59 03/17/17 09:06 Heparin Sodium (Porcine) (Heparin 5000 units/ml) 5,000 units EVERY 12 HOURS SUBQ 03/15/17 09:00 04/14/17 08:59 03/17/17 09:08 Ketorolac Tromethamine (Toradol 30mg) 30 mg Q8H PRN IV Moderate Pain (Pain Scale 4-6) 03/15/17 03:45 03/20/17 03:44 Levalbuterol HCl (Xopenex) 1.25 mg Q4H PRN HHN Shortness of Breath 03/15/17 02:30 03/20/17 02:29 03/17/17 03:54 Lisinopril (Prinivil) 20 mg DAILY ORAL 03/15/17 09:00 04/14/17 08:59 Lorazepam (Ativan) 0.5 mg Q4H PRN ORAL For Anxiety 03/16/17 15:45 03/23/17 15:44 03/17/17 12:01 Morphine Sulfate (Morphine Sulfate) 2 mg Q4H PRN IVP Severe Pain (Pain Scale 7-10) 03/15/17 03:45 03/22/17 03:44 Nicotine (Nicoderm) 1 patch Q24H TDERMAL 03/15/17 12:00 04/14/17 11:59 03/17/17 12:01 Nitroglycerin (Ntg) 0.4 mg Q5M X 3 DOSES PRN SL Prn Chest Pain 03/15/17 00:15 04/14/17 00:14 Ondansetron HCl (Zofran) 4 mg Q6H PRN IVP Nausea & Vomiting 03/15/17 05:45 04/14/17 05:44 Polyethylene Glycol (Miralax) 17 gm DAILYPRN PRN ORAL Constipation 03/15/17 18:15 04/14/17 18:14 Prednisone (predniSONE) 60 mg DAILY ORAL 03/17/17 09:00 04/16/17 08:59 03/17/17 09:05 Promethazine HCl/ Codeine (Phenergan with Codeine) 5 ml Q6H PRN ORAL For Cough 03/15/17 05:45 04/14/17 05:44 Temazepam (Restoril) 15 mg HSPRN PRN ORAL Insomnia 03/15/17 21:00 03/22/17 20:59 Theophylline (Aman-Dur) 100 mg EVERY 12 HOURS ORAL 03/15/17 09:00 04/14/17 08:59 03/17/17 09:06 Thiamine HCl (Vitamin B1) 100 mg DAILY ORAL 03/17/17 09:00 04/16/17 08:59 03/17/17 09:05 Tiotropium [place] (Spiriva Inhaler) 1 puff DAILY INH 03/15/17 09:00 04/14/17 08:59 03/17/17 08:31 [facility] Russell NP March 17, 2017 12:27
[2017-03-18] VITALS: BP 127/76
[2017-03-18] MEDS: Levalbuterol Inh UD 1.25mg/0.5ml HHN PRN ×2 (03:16→14:09)
[2017-03-18 04:00] VITALS: BP 116/70
[2017-03-18 08:00] VITALS: BP 91/51
[2017-03-18] MEDS ORDERED: PredniSONE 20mg tab ORAL SCH (09:00)
[2017-03-18] MEDS: Lisinopril 20mg tab ORAL SCH (09:00)
[2017-03-18] MEDS: Theophylline ER 100mg ORAL SCH (09:02)
[2017-03-18] MEDS: Docusate 100mg cap ORAL SCH ×2 (09:02→12:18)
[2017-03-18] MEDS: Thiamine 100mg tab ORAL SCH (09:02)
[2017-03-18] MEDS: Augmentin 875mg Tab ORAL SCH (09:02)
[2017-03-18] MEDS: LORazepam 0.5mg tab ORAL PRN (09:03)
[2017-03-18] MEDS: Heparin 5000 units/ml inj SUBQ SCH (09:03)
--- NOTE | 2017-03-18 11:28 | Pulmonology Progress Note ---
Assessment/Plan Assessment/Plan ASSESSMENT COPD exacerbation ETOH withdrawal emphysema HTN smoker PLAN OF CARE MS floor s/p banana bag Librium prn po thiamine and Folic acid O2 HHN prn taper po steroids sputum cx , blood cx preliminary negative empiric abx CXR no acute process antitussive prn continue Theophylline monitor HH at baseline BP management with PAULY and optimize as needed PT eval and Rx if safe to return home DVT prophylaxis pain management Nicotine patch grief counselor on smoking cessations and abstinence from alcohol with referral to AA ( declined) dc today scripts provided for oral steroids with tapering and inhalers lactulose x1 prior to dc , no BM , hx of chronci constipation, home on Linzess ( has at home) case discussed and evaluated by supervising physician Subjective Allergies: Coded Allergies: ADHESIVE (Unverified Allergy, Severe, 08/16/13) ADHESIVE TAPE (Verified Allergy, Unknown, SURGICAL TAPE - RASH, 07/28/11) ALBUTEROL (Verified Adverse Reaction, Unknown, ANXIETY, 07/28/11) Uncoded Allergies: METAL (?) (Allergy, Unknown, RASH, 07/28/11) metal (Allergy, Unknown, 03/30/15) Subjective denies SOB, chest pain tremors /shakiness resolved ambulates Objective Last 24 Hour Vital Signs Date Time Temp Pulse Resp B/P Pulse Ox O2 Delivery O2 Flow Rate FiO2 03/18/17 09:00 91/51 03/18/17 08:00 97.5 100 20 91/51 93 Nasal Cannula 2.0 03/18/17 07:58 Nasal Cannula 2.0 28 03/18/17 07:11 86 20 95 Nasal Cannula 2.0 28 03/18/17 07:10 86 20 95 Nasal Cannula 2.0 28 03/18/17 07:09 95 Nasal Cannula 2.0 28 03/18/17 04:00 97.7 86 20 116/70 94 Nasal Cannula 2.0 03/18/17 03:25 84 18 99 Nasal Cannula 2.0 28 03/18/17 03:17 85 18 97 Nasal Cannula 2.0 28 03/18/17 00:00 97.9 74 20 127/76 95 Nasal Cannula 2.0 03/17/17 20:00 98.2 83 20 120/71 96 Nasal Cannula 03/17/17 19:07 99 Nasal Cannula 2.0 28 03/17/17 19:07 Nasal Cannula 2.0 28 03/17/17 15:58 97.0 75 20 101/65 95 Nasal Cannula 2.0 03/17/17 11:53 97.5 89 19 118/67 95 Nasal Cannula 2.0 Intake and Output 03/17/17 03/18/17 19:00 07:00 Intake Total 720 ml Balance 720 ml Intake Oral 720 ml # Voids 4 4 # Bowel Movements 1 Objective General Appearance: no acute distress HEENT: normocephalic, atraumatic, anicteric, mucous membranes moist, PERRL Respiratory/Chest: decreased breath sounds Cardiovascular: normal peripheral pulses, normal rate, regular rhythm Abdomen: normal bowel sounds, soft, non tender Genitourinary: normal external genitalia Extremities: no edema, pedal pulses normal Neurologic/Psychiatric: abnormal gait - unsteady , alert, oriented x 3, responsive, normal mood/affect Musculoskeletal: normal muscle bulk Current Medications Medications (Trade) Dose Ordered Sig/Nahum Route PRN Reason Start Time Stop Time Status Last Admin Dose Admin Amoxicillin/ Clavulanate Potassium (Augmentin) 875 mg EVERY 12 HOURS ORAL 03/16/17 18:00 03/23/17 17:59 03/18/17 09:02 Atorvastatin Calcium (Lipitor) 10 mg BEDTIME ORAL 03/15/17 21:00 04/14/17 20:59 03/15/17 22:27 Chlordiazepoxide (Librium) 25 mg Q6H PRN ORAL Agitation 03/15/17 05:45 03/22/17 05:44 Dextrose (Dextrose 50%) STAT PRN IV Hypoglycemia 03/15/17 11:45 04/14/17 11:44 Docusate Sodium (Colace) 100 mg THREE TIMES A DAY ORAL 03/15/17 09:00 04/14/17 08:59 03/18/17 09:02 Folic Acid (Folate) 1 mg DAILY ORAL 03/17/17 09:00 04/16/17 08:59 03/18/17 09:02 Heparin Sodium (Porcine) (Heparin 5000 units/ml) 5,000 units EVERY 12 HOURS SUBQ 03/15/17 09:00 04/14/17 08:59 03/18/17 09:03 Ketorolac Tromethamine (Toradol 30mg) 30 mg Q8H PRN IV Moderate Pain (Pain Scale 4-6) 03/15/17 03:45 03/20/17 03:44 Lactulose (Cephulac) 45 gm ONCE ONCE ORAL 03/18/17 12:00 03/18/17 12:01 Levalbuterol HCl (Xopenex) 1.25 mg Q4H PRN HHN Shortness of Breath 03/15/17 02:30 03/20/17 02:29 03/18/17 03:16 Lisinopril (Prinivil) 20 mg DAILY ORAL 03/15/17 09:00 04/14/17 08:59 Lorazepam (Ativan) 0.5 mg Q4H PRN ORAL For Anxiety 03/16/17 15:45 03/23/17 15:44 03/18/17 09:03 Morphine Sulfate (Morphine Sulfate) 2 mg Q4H PRN IVP Severe Pain (Pain Scale 7-10) 03/15/17 03:45 03/22/17 03:44 Nicotine (Nicoderm) 1 patch Q24H TDERMAL 03/15/17 12:00 04/14/17 11:59 03/17/17 12:01 Nitroglycerin (Ntg) 0.4 mg Q5M X 3 DOSES PRN SL Prn Chest Pain 03/15/17 00:15 04/14/17 00:14 Ondansetron HCl (Zofran) 4 mg Q6H PRN IVP Nausea & Vomiting 03/15/17 05:45 04/14/17 05:44 Polyethylene Glycol (Miralax) 17 gm DAILYPRN PRN ORAL Constipation 03/15/17 18:15 04/14/17 18:14 Prednisone (predniSONE) 50 mg DAILY ORAL 03/18/17 09:00 04/17/17 08:59 03/18/17 09:03 Promethazine HCl/ Codeine (Phenergan with Codeine) 5 ml Q6H PRN ORAL For Cough 03/15/17 05:45 04/14/17 05:44 Temazepam (Restoril) 15 mg HSPRN PRN ORAL Insomnia 03/15/17 21:00 03/22/17 20:59 Theophylline (Aman-Dur) 100 mg EVERY 12 HOURS ORAL 03/15/17 09:00 04/14/17 08:59 03/18/17 09:02 Thiamine HCl (Vitamin B1) 100 mg DAILY ORAL 03/17/17 09:00 04/16/17 08:59 03/18/17 09:02 Tiotropium [place] (Spiriva Inhaler) 1 puff DAILY INH 03/15/17 09:00 04/14/17 08:59 03/18/17 07:10 Ramon ([facility])Haylie NP March 18, 2017 11:28
[2017-03-18 12:00] VITALS: BP 109/69
[2017-03-18] MEDS ORDERED: Lactulose 20gm/30ml UDC ORAL ONE (12:00)
[2017-03-18 16:00] VITALS: BP 104/70
--- NOTE | 2017-03-19 14:29 | Discharge Summary ---
Discharge Summary Hospital Course Date of Admission March 13, 2017 at 08:26 Date of Discharge March 18, 2017 at 16:53 Admitting Diagnosis COPD EXACEBRATION HPI Miguelina Mills is a 71 year old female who was admitted on March 13, 2017 at 08: 26 for Chronic Obstructive Pulmonary Disease Exacerbation Hospital Course dc summary #[id number] Discharge Medications Continued Medications: Alendronate Sodium* (Fosamax*) 70 Mg Tab 70 MG ORAL QWEEK, #4 TAB Atorvastatin Calcium* (Lipitor*) 10 Mg Tablet 10 MG ORAL BEDTIME, #30 TAB Docusate Sodium* (Colace*) 100 Mg Capsule 100 MG ORAL TWICE A DAY, CAP Ergocalciferol (Vitamin D2)* (Vitamin D*) 50,000 Unit Capsule 46215 UNIT GT ONCE A WEEK, CAP Fluticasone/Salmeterol (Advair 500-50 Diskus) 1 Each Disk.w.dev 1 PUFF INH Q12H Folic Acid* (Folic Acid*) 1 Mg Tablet 1 MG ORAL DAILY, TAB Linaclotide (Linzess) 145 Mcg Capsule 145 MCG PO PRN for Constipation, CAP Lorazepam* (Ativan*) 0.5 Mg Tablet 0.5 MG ORAL THREE TIMES A DAY PRN for For Anxiety, TAB Sucralfate* (Carafate*) 1 Gm Tablet 1 GM GT FOUR TIMES A DAY Tiotropium [place]* (Spiriva*) 18 Mcg Cap.w.dev 1 PUFF INH DAILY, EA Discharge Condition Upon Discharge: stable Discharge Disposition Patient was discharged to Home (01) Discharge Diagnoses: Ramon (Haylie Grant NP March 19, 2017 14:29
--- NOTE | 2017-03-20 11:31 | Discharge Summary 2 SIG ---
DATE OF ADMISSION: 03/13/2017 DATE OF DISCHARGE: 03/18/2017 The patient admitted under Dr. Bianchi REASON FOR ADMISSION: This is a 71-year-old female, presented with dyspnea to the emergency department. The patient has underlying history of COPD, emphysema, chronically oxygen dependent and still smoker. Her oxygen saturation was 91% in the field. She refused albuterol treatment because it causes her to get the jitter. She usually takes Xopenex. The patient was also withdrawn from alcohol and had some alcohol last night and worried about withdrawal and that is a significant component. The patient drinks daily Scotch about half gallon a week. She denies suicidal or homicidal ideation. She denied fever. The patient with a productive cough. No hemoptysis and no wheezing. Occasional chest tightness. The patient denied chest pain, nausea, vomiting, diarrhea, or dysuria. Emergency room workup revealed the patient was afebrile. Vital signs were stable. No leukocytosis. Initially stable hemoglobin and hematocrit. Sodium 131, chloride 86, anion gap 19, stable renal parameters. Lactic acid within normal limits 2.1. Glucose level within normal limits. AST 63, ALT 29, CK 29, proBNP 120, and serum alcohol of 41. EKG revealed normal sinus rhythm. No acute changes. Chest x-ray was consistent with COPD. The patient was admitted for further management. ADMITTING DIAGNOSES: Includes 1. Chronic obstructive pulmonary disease exacerbation. 2. Alcohol withdrawal. 3. smoker. HOSPITAL STAY: The patient was admitted. The patient was started on supplemental oxygen and pulmonary toilet. The patient was started on the banana bag. Librium was provided as needed for withdrawal with anxiety. Sputum culture was negative. Blood cultures were negative. The patient was on empiric antibiotics, which were discontinued. Again chest x-ray revealed no acute process, but shows chronic changes compatible with COPD. The patient was on theophylline and antitussive provided as needed. Next day, hemoglobin had small trend down. No further trend down. Hemoglobin and hematocrit remained at the baseline. The patient was offered nicotine patch, which she accepted. Pain management provided as needed. The patient was working with physical therapy. The patient initially shaky and unsteady, but after a few days steady and to go home. DVT prophylaxis provided. The patient was counseled on smoking cessation and abstinence from the alcohol with referral to alcoholic which she declined. Scripts provided for oral steroids with tapering and inhaler. The patient has a history of chronic constipation getting for chronic constipation. No bowel movement. As per, the patient lactulose x1 given along with the other bowel regimen medication. The patient was stable to have bowel movement. The patient was discharged home. DISCHARGE DIAGNOSES: 1. Acute chronic obstructive pulmonary disease exacerbation and emphysema. Acute alcohol withdrawal. Of note, banana bag discontinued. The patient to be continued on oral folic acid and thiamine. 2. Hypertension, of note, blood pressure was stable without any antihypertensive regimen. Hold PAULY inhibitor for now and follow up with the primary medical doctor. 3. Smoker. 4. Constipation, resolved. 5. Anemia, stable at baseline. DISCHARGE MEDICATIONS: See medication reconciliation list. DISCHARGE INSTRUCTIONS: The patient discharged home. Follow up with primary medical doctor. Robbie Bianchi M.D. I have been assigned to dictate discharge summary on this account and I was not involved in the patient's management. Haylie CastrowmchealthYvonne N.PMere DR: Yojana JOB#: [id number] CC:
== END 2017-03-18 16:53 | disposition home or self-care (01) | DRG 191 ==
LOC: EDBD 08:06 → EDBEDREQ 08:14 → EMR 08:21 → 2E 08:26 → EDBEDREQ 09:25 → 4E 03-14 23:54
DX: J44.1 Chronic obstructive pulmonary disease with (acute) exacerbation (principal); F10.239 Alcohol dependence with withdrawal, unspecified; Z99.81 Dependence on supplemental oxygen; D64.9 Anemia, unspecified; I10 Essential (primary) hypertension; Z88.8 Allergy status to other drugs, medicaments and biological substances; F17.200 Nicotine dependence, unspecified, uncomplicated; K59.09 Other constipation
CPT/HCPCS: 36415; 71010; 80053; 80329; 82550; 83605; 83880; 85025; 85610; 85730; 87040; 87070; 87205; 93005; 94640; 94664; 94760

== ENCOUNTER 2017-05-23 20:10 | Inpatient (IN) | payer MEDICARE, MEDICAID ==
[~2017-05-23] VITALS: Ht 165.1 cm; Wt 54.0 kg
--- NOTE | 2017-05-23 20:07 | Emergency Room Report ---
History of Present Illness General Source: Patient, EMS Present Illness HPI 71YOF known COPD, on 3L NC at home, c/o SOB for 2 days with chills and "mild cough." Still smoking Denies chest pain, ABd pain, urinary complaints PMD is Dr Bianchi Allergies: Coded Allergies: ADHESIVE (Unverified Allergy, Severe, 08/16/13) ADHESIVE TAPE (Verified Allergy, Unknown, SURGICAL TAPE - RASH, 07/28/11) ALBUTEROL (Verified Adverse Reaction, Unknown, ANXIETY, 07/28/11) Uncoded Allergies: METAL (?) (Allergy, Unknown, RASH, 07/28/11) metal (Allergy, Unknown, 03/30/15) Patient History Past Medical History: COPD Past Surgical History: none Pertinent Family History: none Social History: Denies: alcohol use, drug use, smoking Now: No Immunizations: UTD Reviewed Nursing Documentation: PMH: Agreed, PSxH: Agreed Review of Systems All Other Systems: negative except mentioned in HPI Physical Exam Sp02 EP Interpretation: reviewed, normal General Appearance: normal inspection, well appearing, no apparent distress, alert, GCS 15, non-toxic Head: normocephalic, atraumatic Eyes: bilateral eye EOMI, bilateral eye PERRL ENT: normal ENT inspection, hearing grossly normal, normal voice Neck: normal inspection, full range of motion, supple, no bony tend Respiratory: normal inspection, lungs clear, normal breath sounds, no respiratory distress, no retraction, decreased breath sounds, accessory muscle use, wheezing Cardiovascular #1: regular rate, rhythm, no edema Gastrointestinal: normal inspection, normal bowel sounds, non tender, soft, no guarding, no hernia Genitourinary: no CVA tenderness Musculoskeletal: normal inspection, back normal, normal range of motion, Beatriz' s Sign negative Neurologic: normal inspection, alert, oriented x3, responsive, intervention manager III-XII nml as tested, motor strength/tone normal, speech normal Psychiatric: normal inspection, judgement/insight normal, mood/affect normal Skin: normal inspection, normal color, no rash Lymphatic: normal inspection Medical Decision Making Medicare Attestation I Jayden French MD hereby attest that the medical record entry for date of service, 10/02/16 accurately reflects signatures/notations that I made in my capacity as MD when I treated/diagnosed the above listed Medicare beneficiary. I attest that this information is true, accurate and complete to the best of my knowledge. I understand that any falsification, omission, or concealment of material fact may subject me to administrative, civil, or criminal liability. This patient warrants hospital admission for extreme of age and has a condition that cannot be treated as outpatient. Diagnostic Impression: Primary Impression: SOB (shortness of breath) ER Course COPD exac - VSS. Afebrile - Labs: H&H stable. No leuks. AG elevated but no other significant metabolic abnormalities - CXR: No lobar PNA. Improved with nebs, steroids, azithro Blood Cx pending No fever or leuks or obvious PNA so additional Abx not given Endorsed to Dr Bianchi at 825pm for tele admit EKG Diagnostic Results Rate: tachycardiac Rhythm: NSR ST Segments: no acute changes ASA given to the pt in ED: No Rhythm Strip Diag. Results EP Interpretation: yes Rate: 105 Rhythm: NSR, no PVC's, no ectopy Chest X-Ray Diagnostic Results Chest X-Ray Diagnostic Results : Chest X-Ray Ordered: Yes # of Views/Limited/Complete: 1 View Indication: Shortness of Breath EP Interpretation: Yes Interpretation: no consolidation, no pneumothorax Impression: No acute disease Interpreting ER Provider: Electronically signed by Dr French Status: improved Disposition: ADMITTED INPATIENT Condition: Serious JAYDEN FRENCH M.D. May 23, 2017 20:07
[2017-05-23] MEDS ORDERED: Solu-MEDROL 125mg Inj IVP ONE (20:15)
[2017-05-23] MEDS ORDERED: Azithromycin 500 MG in NS 275 ML IV ONE (20:15)
[2017-05-23] MEDS ORDERED: Levalbuterol Inh UD 1.25mg/0.5ml HHN ONE (20:15)
[2017-05-23] MEDS: Ipratropium 0.02% Inh Soln 2.5ml UD HHN SCH ×3 (20:24→20:41)
[2017-05-23] MEDS ORDERED: Azithromycin 500mg Inj IV ONE (20:50)
[2017-05-23 21:00] VITALS: BP 89/63
[2017-05-23 21:01] LABS: EOSINOPHILS % (AUTO) 3.3 % (0.0-3.0); MEAN CORPUSCULAR HGB CONC 32.1 G/DL (32.0-36.0); MEAN CORPUSCULAR VOLUME 109 FL (80-99); MEAN PLATELET VOLUME 6.7 FL (6.5-10.1); MONOCYTES % (AUTO) 9.5 % (1.0-10.0); NEUTROPHILS % (AUTO) 37.1 % (45.0-75.0); PLATELET COUNT 242 K/UL (150-450); RED BLOOD COUNT 3.78 M/UL (4.20-5.40); RED CELL DISTRIBUTION WIDTH 13.8 % (11.6-14.8); WHITE BLOOD COUNT 6.3 K/UL (4.8-10.8)
[2017-05-23] MEDS ORDERED: LORazepam 0.5mg tab ORAL ONE (21:15)
[2017-05-23 21:21] LABS: TROPONIN I < 0.30 ng/mL (<=0.30)
[2017-05-23 21:24] LABS: ALANINE AMINOTRANSFERASE 15 U/L (3-33); ALBUMIN/GLOBULIN RATIO 1.7 (1.0-2.7); ANION GAP 27 (5-15); ASPARTATE AMINO TRANSFERASE 45 U/L (5-40); CARBON DIOXIDE 21 mEQ/L (20-30); CHLORIDE 87 mEQ/L (98-107); CREATININE 0.8 mg/dL (0.5-0.9); GLOMERULAR FILTRATION RATE > 60 mL/min (>60); HEMOLYSIS 6; POTASSIUM 4.5 mEQ/L (3.4-4.9); SODIUM 135 mEQ/L (135-145); TOTAL PROTEIN 7.3 g/dL (6.6-8.7)
[2017-05-23 21:35] LABS: CKMB 1.8 ng/mL (< 3.8)
[2017-05-23 22:02] VITALS: BP 91/68
[2017-05-23] MEDS ORDERED: CLARITIN10 M2 ORAL (22:14)
[2017-05-24 00:01] VITALS: BP 99/58
[2017-05-24] MEDS ORDERED: Ketorolac 30mg Inj IV PRN ×2 (00:15→00:30)
[2017-05-24] MEDS ORDERED: traMADol 50mg tab ORAL PRN (00:15)
[2017-05-24] MEDS ORDERED: LORazepam 0.5mg tab ORAL PRN (00:15)
[2017-05-24] MEDS ORDERED: Nitroglycerin Subl 0.4mg tab (Bottle Of 25) SL PRN (00:15)
[2017-05-24] MEDS ORDERED: Morphine Sulfate 2mg/ml Inj IVP PRN (00:15)
[2017-05-24] MEDS ORDERED: LORazepam Inj 2mg/ml 1ml IV PRN (00:15)
[2017-05-24] MEDS ORDERED: Promethazine/Codeine 5ml UD ORAL PRN (00:15)
[2017-05-24] MEDS ORDERED: Zosyn 3.375gm q8h **Extended infusion IVPB SCH ×2 (02:00)
[2017-05-24 03:58] VITALS: BP 91/57
[2017-05-24] MEDS ORDERED: Zosyn 3.375gm inj ONE (04:07)
[2017-05-24] MEDS: Zosyn 3.375gm q8h **Extended infusion IVPB SCH ×6 (04:32→21:08)
[2017-05-24] MEDS ORDERED: Piperacillin/Tazobactam 2.25 GM in D5W 55 ML IV SCH (06:00)
[2017-05-24 07:44] VITALS: BP 101/65
[2017-05-24] MEDS: Solu-MEDROL 125mg Inj IV SCH ×3 (07:54→17:47)
[2017-05-24] MEDS: Theophylline ER 100mg ORAL SCH ×3 (08:25→21:08)
[2017-05-24] MEDS: Sucralfate 1gm tab ORAL SCH ×5 (08:25→21:09)
[2017-05-24] MEDS: Heparin 5000 units/ml inj SUBQ SCH ×2 (08:26→21:21)
[2017-05-24] MEDS ORDERED: Docusate 100mg cap ORAL SCH (09:00)
[2017-05-24] MEDS: Lisinopril 20mg tab ORAL SCH (09:00)
[2017-05-24] MEDS: LORazepam 0.5mg tab ORAL PRN ×3 (09:13→18:20)
[2017-05-24] MEDS: DuoNeb 0.5-3(2.5)mg/3ml neb HHN PRN ×2 (09:38→20:04)
[2017-05-24 11:54] VITALS: BP 91/59
--- NOTE | 2017-05-24 13:43 | Diagnostic Imaging Report ---
Indications: Shortness of breath Technique: Portable AP chest Findings: Comparison: 03/13/17 Cardiac silhouette remains normal in size. Pulmonary vasculature remains within normal limits. Lungs remain symmetrically hyperinflated. Lungs and pleura remain clear. Mild calcification of the aortic arch, chronic posttraumatic deformity proximal left humerus, epigastric surgical clips again noted.. IMPRESSION: No evidence of acute disease, unchanged Stable chronic changes as described
--- NOTE | 2017-05-24 14:41 | History and Physical ---
History of Present Illness General Date patient seen: May 24, 2017 Reason for Hospitalization: Dyspnea/Respdistress Present Illness HPI 71 year old female with hx of [id number], htn, still smoking, presented to hospital with CC of abdominal pain, sob, constipation for 10 days, chest tightness with productive cough. Getting SOB on slight movement. Allergies: Coded Allergies: ADHESIVE (Unverified Allergy, Severe, 08/16/13) ADHESIVE TAPE (Verified Allergy, Unknown, SURGICAL TAPE - RASH, 07/28/11) ALBUTEROL (Verified Adverse Reaction, Unknown, ANXIETY, 07/28/11) Uncoded Allergies: METAL (?) (Allergy, Unknown, RASH, 07/28/11) metal (Allergy, Unknown, 03/30/15) Medication History Scheduled Alendronate Sodium* (Fosamax*), 70 MG ORAL QWEEK Atorvastatin Calcium* (Lipitor*), 10 MG ORAL BEDTIME Atorvastatin Calcium* (Lipitor*), 10 MG ORAL BEDTIME, (Reported) Docusate Sodium* (Colace*), 100 MG ORAL TWICE A DAY, (Reported) Ergocalciferol (Vitamin D2)* (Vitamin D*), 50,000 UNIT GT ONCE A WEEK, (Reported ) Ertapenem Sodium* (INVanz*), 1 GM IVPB Q24H Fluticasone/Salmeterol (Advair 500-50 Diskus), 1 PUFF INH Q12H, (Reported) Fluticasone/Salmeterol (Advair 250-50 Diskus), 1 PUFF INH EVERY 12 HOURS, ( Reported) Folic Acid* (Folic Acid*), 1 MG ORAL DAILY, (Reported) Heparin Sodium,Porcine/Pf (Heparin Sod 5,000 Unit/0.5 ml), 5,000 UNIT SQ BID, ( Reported) Levalbuterol HCl (Xopenex Concentrate), 1.25 MG HHN TIDRT Levalbuterol Hcl (Xopenex*), 1.25 MG HHN Q4H, (Reported) Lisinopril* (Zestril*), 20 MG ORAL DAILY, (Reported) Loratadine (Claritin), 10 MG ORAL DAILY, (Reported) Multivitamin With Minerals (Multivitamins With Minerals*), 1 EACH PO DAILY, ( Reported) Pantoprazole* (Protonix*), 40 MG ORAL Q12HR, (Reported) Sucralfate* (Carafate*), 1 GM GT FOUR TIMES A DAY, (Reported) Tiotropium Cortez* (Spiriva*), 1 PUFF INH DAILY, (Reported) Scheduled PRN Acetaminophen* (Acetaminophen 325MG Tablet*), 650 MG ORAL Q4H PRN for fever Codeine/Promethazine Hcl* (Promethazine-Codeine Syrup*), 5 ML ORAL EVERY 6 HOURS PRN for cough Linaclotide (Linzess), 145 MCG PO for Constipation, (Reported) Lorazepam* (Ativan*), 0.5 MG ORAL THREE TIMES A DAY PRN for For Anxiety, ( Reported) Tramadol Hcl* (Ultram*), 50 MG GT Q6H PRN for For Pain, (Reported) Patient History Healthcare decision maker Resuscitation status Advanced Directive on File No Past Medical/Surgical History Past Medical/Surgical History: (1) HTN (hypertension) (2) Emphysema of lung (3) A-fib Review of Systems Respiratory: Reports: cough, shortness of breath Gastrointestinal: Reports: constipation Musculoskeletal: Reports: no symptoms Skin: Reports: no symptoms Physical Exam General Appearance: cachetic Lines, tubes and drains: peripheral HEENT: normocephalic, atraumatic Neck: non-tender, normal alignment Respiratory/Chest: chest wall non-tender, lungs clear, decreased breath sounds , rhonchi - left, rhonchi - right Breasts: no masses Cardiovascular/Chest: normal peripheral pulses Abdomen: normal bowel sounds, non tender Genitourinary/Rectal: normal genital exam Extremities: normal range of motion Skin Exam: normal pigmentation Last 24 Hour Vital Signs Date Time Temp Pulse Resp B/P Pulse Ox O2 Delivery O2 Flow Rate FiO2 05/24/17 12:00 89 05/24/17 11:54 97.0 89 20 91/59 95 Nasal Cannula 2.0 05/24/17 09:47 93 18 97 Nasal Cannula 2.0 05/24/17 09:39 95 20 96 Nasal Cannula 2.0 05/24/17 09:00 101/65 05/24/17 08:00 96 05/24/17 07:58 Nasal Cannula 2.0 28 05/24/17 07:55 96 Nasal Cannula 2.0 28 05/24/17 07:44 97.0 100 20 101/65 96 Nasal Cannula 2.0 05/24/17 06:45 97 20 Nasal Cannula 2.0 05/24/17 04:00 94 05/24/17 03:58 97.8 69 17 91/57 96 Nasal Cannula 3.0 05/24/17 01:00 97 Nasal Cannula 2.0 28 05/24/17 01:00 Nasal Cannula 2.0 28 05/24/17 00:01 96.6 49 18 99/58 97 Nasal Cannula 3.0 05/24/17 00:00 98 05/23/17 23:00 107 05/23/17 22:35 100 15 99/61 100 Nasal Cannula 2.0 05/23/17 22:02 100 20 91/68 100 Nasal Cannula 2.0 05/23/17 21:00 102 22 Nasal Cannula 2.0 05/23/17 21:00 98.0 105 21 89/63 100 Nasal Cannula 2.0 05/23/17 20:41 Nasal Cannula 3.0 32 05/23/17 20:40 105 19 100 Nasal Cannula 3.0 32 05/23/17 20:40 Nasal Cannula 3.0 32 05/23/17 20:30 105 26 100 Nasal Cannula 3.0 32 05/23/17 20:29 106 26 100 Nasal Cannula 3.0 32 05/23/17 20:20 107 21 Nasal Cannula 3.0 32 05/23/17 20:20 107 21 100 Nasal Cannula 3.0 32 05/23/17 20:11 98.4 73 20 114/73 100 Simple Mask Intake and Output 05/23/17 05/24/17 19:00 07:00 Intake Total 1275 ml Output Total 0 ml Balance 1275 ml Intake Oral 0 ml IV Total 1275 ml Output Urine Total 0 ml # Voids 1 Laboratory Tests Test 05/23/17 20:45 White Blood Count 6.3 K/UL (4.8-10.8) Red Blood Count 3.78 M/UL (4.20-5.40) L Hemoglobin 13.2 G/DL (12.0-16.0) Hematocrit 41.2 % (37.0-47.0) Mean Corpuscular Volume 109 FL (80-99) H Mean Corpuscular Hemoglobin 35.0 PG (27.0-31.0) H Mean Corpuscular Hemoglobin Concent 32.1 G/DL (32.0-36.0) Red Cell Distribution Width 13.8 % (11.6-14.8) Platelet Count 242 K/UL (150-450) Mean Platelet Volume 6.7 FL (6.5-10.1) Neutrophils (%) (Auto) 37.1 % (45.0-75.0) L Lymphocytes (%) (Auto) 48.0 % (20.0-45.0) H Monocytes (%) (Auto) 9.5 % (1.0-10.0) Eosinophils (%) (Auto) 3.3 % (0.0-3.0) H Basophils (%) (Auto) 2.0 % (0.0-2.0) Sodium Level 135 mEQ/L (135-145) Potassium Level 4.5 mEQ/L (3.4-4.9) Chloride Level 87 mEQ/L (98-107) L Carbon Dioxide Level 21 mEQ/L (20-30) Anion Gap 27 (5-15) H Blood Urea Nitrogen 9 mg/dL (7-23) Creatinine 0.8 mg/dL (0.5-0.9) Estimat Glomerular Filtration Rate > 60 mL/min (>60) Glucose Level 86 mg/dL (74-106) Calcium Level 10.0 mg/dL (8.6-10.2) Total Bilirubin 0.9 mg/dL (0.0-1.2) Aspartate Amino Transf (AST/SGOT) 45 U/L (5-40) H Alanine Aminotransferase (ALT/SGPT) 15 U/L (3-33) Alkaline Phosphatase 99 U/L (35-104) Total Creatine Kinase 29 U/L (26-140) Creatine Kinase MB 1.8 ng/mL (< 3.8) Creatine Kinase MB Relative Index 6.2 Troponin I < 0.30 ng/mL (<=0.30) Pro-B-Type Natriuretic Peptide 192 pg/mL (0-125) H Total Protein 7.3 g/dL (6.6-8.7) Albumin 4.6 g/dL (3.5-5.2) Globulin 2.7 g/dL Albumin/Globulin Ratio 1.7 (1.0-2.7) Height (Feet): 5 Height (Inches): 5.00 Weight (Pounds): 119 Medications Current Medications Medications (Trade) Dose Ordered Sig/Nahum Route PRN Reason Start Time Stop Time Status Last Admin Dose Admin Albuterol/ Ipratropium (DuoNeb 0.5-3(2.5)mg/3ml) 3 ml Q4H PRN HHN dyspnea 05/24/17 00:15 8 00:14 05/24/17 09:38 Atorvastatin Calcium (Lipitor) 10 mg BEDTIME ORAL 05/24/17 21:00 06/23/17 20:59 Cetylpyridinium Chloride (Cepacol) 1 lozenge Q2H PRN DOMINGA sore throat 05/24/17 12:30 06/23/17 12:29 05/24/17 12:45 Dextrose (Dextrose 50%) STAT PRN IV Hypoglycemia 05/24/17 00:15 06/23/17 00:14 Docusate Sodium (Colace) 100 mg TWICE A DAY ORAL 05/24/17 09:00 06/23/17 08:59 05/24/17 08:25 Heparin Sodium (Porcine) (Heparin 5000 units/ml) 5,000 units EVERY 12 HOURS SUBQ 05/24/17 09:00 06/23/17 08:59 05/24/17 08:26 Ketorolac Tromethamine 15 mg 15 mg Q6H PRN IV moderate pain 4-6 05/24/17 00:30 05/29/17 00:14 Lisinopril (Prinivil) 20 mg DAILY ORAL 05/24/17 09:00 06/23/17 08:59 Lorazepam (Ativan 2mg/ml 1ml) 0.5 mg Q4H PRN IV For Anxiety 05/24/17 08:15 05/31/17 08:14 Lorazepam (Ativan) 0.5 mg TIDPRN PRN ORAL For Anxiety 05/24/17 07:00 05/31/17 06:59 05/24/17 13:33 Methylprednisolone Sodium Succinate (Solu-MEDROL) 60 mg EVERY 6 HOURS IV 05/24/17 06:00 06/23/17 05:59 05/24/17 12:45 Morphine Sulfate (Morphine Sulfate) 2 mg Q4H PRN IVP severe pain 7-10 05/24/17 00:15 05/31/17 00:14 Nicotine (Nicoderm) 1 patch DAILY@0800 TDERMAL 05/24/17 08:15 06/23/17 08:14 05/24/17 08:24 Nitroglycerin (Ntg) 0.4 mg Q5M X 3 DOSES PRN SL Prn Chest Pain 05/24/17 00:15 06/23/17 00:14 Ondansetron HCl (Zofran) 4 mg Q6H PRN IVP Nausea & Vomiting 05/24/17 00:15 06/23/17 00:14 Piperacillin Sod/ Tazobactam Sod/ Dextrose (Zosyn/D5W) 110 ml @ 27.5 mls/hr Q8H IVPB 05/24/17 04:00 05/31/17 03:59 05/24/17 12:44 Promethazine HCl/ Codeine (Phenergan with Codeine) 5 ml Q6H PRN ORAL cough 05/24/17 00:15 06/23/17 00:14 Sucralfate (Carafate) 1 gm FOUR TIMES A DAY ORAL 05/24/17 09:00 06/23/17 08:59 Temazepam (Restoril) 15 mg HSPRN PRN ORAL Insomnia 05/24/17 00:15 05/31/17 00:14 Theophylline (Aman-Dur) 100 mg EVERY 12 HOURS ORAL 05/24/17 09:00 06/23/17 08:59 Tramadol HCl (Ultram) 50 mg Q6H PRN ORAL Breakthrough Pain 05/24/17 00:15 05/31/17 00:14 Assessment/Plan Problem List: (1) Acute respiratory failure ICD Codes: J96.00 - Acute respiratory failure, unspecified whether with hypoxia or hypercapnia SNOMED: 60529766 (2) COPD exacerbation ICD Codes: J44.1 - Obstructive chronic bronchitis with exacerbation SNOMED: 165176358 (3) HTN (hypertension) ICD Codes: I10 - Essential (primary) hypertension SNOMED: 28185097 (4) Constipation ICD Codes: K59.00 - Constipation, unspecified SNOMED: 25329632 (5) Protein-calorie malnutrition, severe ICD Codes: E43 - Unspecified severe protein-calorie malnutrition SNOMED: 329655540 (6) Emphysema of lung ICD Codes: J43.9 - Emphysema, unspecified SNOMED: 35337011 (7) Nicotine addiction ICD Codes: F17.200 - Nicotine dependence, unspecified, uncomplicated SNOMED: 52842559 Assessment/Plan respiratory treatment Iv steroids iv abx chest pt laxatives Nicotine patch YNES BREWSTER May 24, 2017 14:41
[2017-05-24 15:38] VITALS: BP 128/79
[2017-05-24] MEDS: Docusate 100mg cap ORAL SCH (17:47)
[2017-05-24] MEDS: Miralax 17gm pkt ORAL SCH (18:15)
[2017-05-24 20:23] VITALS: BP 100/65
[2017-05-24] MEDS: LORazepam Inj 2mg/ml 1ml IV PRN (21:51)
[2017-05-25] VITALS: BP 119/75
[2017-05-25] MEDS: Solu-MEDROL 125mg Inj IV SCH ×4 (00:06→18:08)
[2017-05-25] MEDS: DuoNeb 0.5-3(2.5)mg/3ml neb HHN PRN (00:39)
[2017-05-25] MEDS: LORazepam Inj 2mg/ml 1ml IV PRN ×4 (01:53→17:53)
[2017-05-25] MEDS: Zosyn 3.375gm q8h **Extended infusion IVPB SCH ×6 (03:35→21:35)
[2017-05-25 04:00] VITALS: BP 97/59
[2017-05-25 08:15] VITALS: BP 124/85
[2017-05-25] MEDS: Docusate 100mg cap ORAL SCH ×3 (08:41→18:08)
[2017-05-25] MEDS: Sucralfate 1gm tab ORAL SCH ×4 (08:41→21:35)
[2017-05-25] MEDS: Theophylline ER 100mg ORAL SCH ×2 (08:41→21:36)
[2017-05-25] MEDS: Heparin 5000 units/ml inj SUBQ SCH ×2 (08:47→21:38)
[2017-05-25] MEDS: Lisinopril 20mg tab ORAL SCH (09:00)
[2017-05-25 11:46] VITALS: BP 106/73
--- NOTE | 2017-05-25 11:54 | Consultation ---
Consult Note Consult Note ID CONSULT: Dict# [id number] Assessment/Plan ASSESSMENT: 71 y/o female with: // GPC clusters bacteremia /, m/l contaminant - C&S pending // Afebrile without leukocytosis ( on steroids ) // COPD exacerbation // Chronic hypoxemic respiratory failure, home O2-dependent // Constipation // HTN // No ABX allergies // Full Code PLAN: - continue zosyn d# 2 / 5 - taper steroids per pulm - f/u cultures - monitor CBC, temperatures - monitor CXR Thanks! Will follow BRIDGER WALLACE May 25, 2017 11:54
[2017-05-25] MEDS: Levalbuterol Inh UD 1.25mg/0.5ml HHN SCH ×2 (13:15→22:08)
--- NOTE | 2017-05-25 14:23 | Consultation ---
History of Present Illness General Chief Complaint: Dyspnea/Respdistress Present Illness HPI 1 year old female with hx of [id number], htn, still smoking, presented to hospital with CC of abdominal pain, sob, pw anxiety and depressive sxs. 5-7 glasses of scotch daily, feels lonely. mixes alcohol with ativan. the pt is hopeless. agreed to take prozac. educated her about ativan Allergies: Coded Allergies: ADHESIVE (Unverified Allergy, Severe, 08/16/13) ADHESIVE TAPE (Verified Allergy, Unknown, SURGICAL TAPE - RASH, 07/28/11) ALBUTEROL (Verified Adverse Reaction, Unknown, ANXIETY, 07/28/11) Uncoded Allergies: METAL (?) (Allergy, Unknown, RASH, 07/28/11) metal (Allergy, Unknown, 03/30/15) Medication History Scheduled Alendronate Sodium* (Fosamax*), 70 MG ORAL QWEEK Atorvastatin Calcium* (Lipitor*), 10 MG ORAL BEDTIME Atorvastatin Calcium* (Lipitor*), 10 MG ORAL BEDTIME, (Reported) Docusate Sodium* (Colace*), 100 MG ORAL TWICE A DAY, (Reported) Ergocalciferol (Vitamin D2)* (Vitamin D*), 50,000 UNIT GT ONCE A WEEK, (Reported ) Ertapenem Sodium* (INVanz*), 1 GM IVPB Q24H Fluticasone/Salmeterol (Advair 500-50 Diskus), 1 PUFF INH Q12H, (Reported) Fluticasone/Salmeterol (Advair 250-50 Diskus), 1 PUFF INH EVERY 12 HOURS, ( Reported) Folic Acid* (Folic Acid*), 1 MG ORAL DAILY, (Reported) Heparin Sodium,Porcine/Pf (Heparin Sod 5,000 Unit/0.5 ml), 5,000 UNIT SQ BID, ( Reported) Levalbuterol HCl (Xopenex Concentrate), 1.25 MG HHN TIDRT Levalbuterol Hcl (Xopenex*), 1.25 MG HHN Q4H, (Reported) Lisinopril* (Zestril*), 20 MG ORAL DAILY, (Reported) Loratadine (Claritin), 10 MG ORAL DAILY, (Reported) Multivitamin With Minerals (Multivitamins With Minerals*), 1 EACH PO DAILY, ( Reported) Pantoprazole* (Protonix*), 40 MG ORAL Q12HR, (Reported) Sucralfate* (Carafate*), 1 GM GT FOUR TIMES A DAY, (Reported) Tiotropium Clayton* (Spiriva*), 1 PUFF INH DAILY, (Reported) Scheduled PRN Acetaminophen* (Acetaminophen 325MG Tablet*), 650 MG ORAL Q4H PRN for fever Codeine/Promethazine Hcl* (Promethazine-Codeine Syrup*), 5 ML ORAL EVERY 6 HOURS PRN for cough Linaclotide (Linzess), 145 MCG PO for Constipation, (Reported) Lorazepam* (Ativan*), 0.5 MG ORAL THREE TIMES A DAY PRN for For Anxiety, ( Reported) Tramadol Hcl* (Ultram*), 50 MG GT Q6H PRN for For Pain, (Reported) Patient History History Provided By: Patient, Medical Record, PMD Healthcare decision maker Resuscitation status Advanced Directive on File No Past Medical/Surgical History Past Medical/Surgical History: (1) ACS (acute coronary syndrome) (2) Ileus (3) acute lower urinary tract infection (4) Hypovolemic shock (5) Tachycardia (6) Leukocytosis (7) Hypoalbuminemia (8) Hyperglycemia (9) UGI bleed (10) Respiratory distress (11) Cellulitis (12) Ventilator dependent (13) Pleural effusion (14) Cellulitis (15) Sepsis (16) Leukocytosis (17) Abdominal pain (18) On tube feeding diet (19) Cholelithiasis (20) Respiratory distress (21) Pelvic mass in female (22) Tobacco abuse (23) Anemia (24) SBO (small bowel obstruction) (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 (26) Abdominal pain (27) Constipation (28) Dysphagia (29) Abdominal pain (30) Respiratory distress (31) Status post tracheostomy (32) Anemia (33) COPD exacerbation (34) SOB (shortness of breath) (35) Dyspnea (36) Emphysema of lung (37) A-fib (38) HTN (hypertension) (39) Acute respiratory failure (40) COPD exacerbation (41) Protein-calorie malnutrition, severe (42) Constipation (43) Nicotine addiction Review of Systems Psychiatric: Reports: anxiety, depressed feelings, emotional problems, prior hx Physical Exam General Appearance: alert, mild distress, thin Neurologic: alert, oriented x 3, responsive, depressed affect Last 24 Hour Vital Signs Date Time Temp Pulse Resp B/P Pulse Ox O2 Delivery O2 Flow Rate FiO2 05/25/17 13:22 97 18 97 Nasal Cannula 2.0 05/25/17 13:14 93 20 94 Nasal Cannula 2.0 05/25/17 11:46 97.6 91 20 106/73 96 Nasal Cannula 2.0 05/25/17 09:00 124/85 05/25/17 08:15 97.7 103 20 124/85 97 Nasal Cannula 2.0 05/25/17 07:06 103 20 Nasal Cannula 2.0 05/25/17 07:06 98 Nasal Cannula 2.0 05/25/17 07:06 Nasal Cannula 2.0 05/25/17 04:00 97.9 89 20 97/59 96 Nasal Cannula 05/25/17 00:49 90 16 97 Nasal Cannula 2.0 05/25/17 00:38 91 18 95 Nasal Cannula 2.0 05/25/17 00:00 97.3 90 21 119/75 93 Nasal Cannula 05/24/17 20:23 97.9 90 19 100/65 94 Nasal Cannula 2.0 05/24/17 20:15 93 18 98 Nasal Cannula 2.0 05/24/17 20:10 92 18 Nasal Cannula 2.0 05/24/17 20:07 Nasal Cannula 2.0 05/24/17 20:06 96 Nasal Cannula 2.0 05/24/17 20:06 92 18 96 Nasal Cannula 2.0 05/24/17 16:00 90 05/24/17 15:38 98.6 91 20 128/79 100 Room Air Intake and Output 05/24/17 05/25/17 19:00 07:00 Intake Total 880 ml 216.3 ml Output Total 300 ml Balance 880 ml -83.7 ml Intake Oral 880 ml IV Total 216.3 ml Output Urine Total 300 ml # Bowel Movements 1 1 Height (Feet): 5 Height (Inches): 5.00 Weight (Pounds): 119 Medications Current Medications Medications (Trade) Dose Ordered Sig/Nahum Route PRN Reason Start Time Stop Time Status Last Admin Dose Admin Albuterol/ Ipratropium (DuoNeb 0.5-3(2.5)mg/3ml) 3 ml Q4H PRN HHN dyspnea 05/24/17 00:15 05/29/17 00:14 05/25/17 00:39 Atorvastatin Calcium (Lipitor) 10 mg BEDTIME ORAL 05/24/17 21:00 06/23/17 20:59 05/24/17 21:09 Cetirizine HCl (ZyrTEC) 10 mg DAILY ORAL 05/25/17 13:00 06/24/17 12:59 05/25/17 13:24 Cetylpyridinium Chloride (Cepacol) 1 lozenge Q2H PRN DOMINGA sore throat 05/24/17 12:30 06/23/17 12:29 05/24/17 12:45 Dextrose (Dextrose 50%) STAT PRN IV Hypoglycemia 05/24/17 00:15 06/23/17 00:14 Docusate Sodium (Colace) 100 mg THREE TIMES A DAY ORAL 05/24/17 18:00 06/23/17 17:59 05/25/17 13:10 Heparin Sodium (Porcine) (Heparin 5000 units/ml) 5,000 units EVERY 12 HOURS SUBQ 05/24/17 09:00 06/23/17 08:59 05/25/17 08:47 Ketorolac Tromethamine 15 mg 15 mg Q6H PRN IV moderate pain 4-6 05/24/17 00:30 05/29/17 00:14 Levalbuterol HCl (Xopenex) 1.25 mg TIDRT HHN 05/25/17 13:00 05/30/17 12:59 05/25/17 13:15 Lisinopril (Prinivil) 20 mg DAILY ORAL 05/24/17 09:00 06/23/17 08:59 Lorazepam (Ativan 2mg/ml 1ml) 0.5 mg Q4H PRN IV For Anxiety 05/24/17 08:15 05/31/17 08:14 05/25/17 13:38 Lorazepam (Ativan) 0.5 mg TIDPRN PRN ORAL For Anxiety 05/24/17 07:00 05/31/17 06:59 05/24/17 18:20 Methylprednisolone Sodium Succinate (Solu-MEDROL) 60 mg EVERY 6 HOURS IV 05/24/17 06:00 06/23/17 05:59 05/25/17 13:11 Mineral Oil (Fleet's Mineral Oil Enema) 133 ml EVERY OTHER DAY RECTAL 05/26/17 09:00 06/25/17 08:59 Morphine Sulfate (Morphine Sulfate) 2 mg Q4H PRN IVP severe pain 7-05/24/17 00:15 05/31/17 00:14 Nicotine (Nicoderm) 1 patch DAILY@0800 TDERMAL 05/24/17 08:15 06/23/17 08:14 05/25/17 08:42 Nitroglycerin (Ntg) 0.4 mg Q5M X 3 DOSES PRN SL Prn Chest Pain 05/24/17 00:15 06/23/17 00:14 Ondansetron HCl (Zofran) 4 mg Q6H PRN IVP Nausea & Vomiting 05/24/17 00:15 06/23/17 00:14 Piperacillin Sod/ Tazobactam Sod/ Dextrose (Zosyn/D5W) 110 ml @ 27.5 mls/hr Q8H IVPB 05/24/17 04:00 05/31/17 03:59 05/25/17 13:12 Polyethylene Glycol (Miralax) 17 gm BEDTIME ORAL 05/24/17 21:00 06/23/17 20:59 05/24/17 18:15 Promethazine HCl/ Codeine (Phenergan with Codeine) 5 ml Q6H PRN ORAL cough 05/24/17 00:15 06/23/17 00:14 Sennosides (Senokot) 8.6 mg DAILY ORAL 05/25/17 09:00 06/24/17 08:59 05/25/17 08:41 Sucralfate (Carafate) 1 gm FOUR TIMES A DAY ORAL 05/24/17 09:00 06/23/17 08:59 05/25/17 13:10 Temazepam (Restoril) 15 mg HSPRN PRN ORAL Insomnia 05/24/17 00:15 05/31/17 00:14 Theophylline (Aman-Dur) 100 mg EVERY 12 HOURS ORAL 05/24/17 09:00 06/23/17 08:59 05/25/17 08:41 Tiotropium Clayton (Spiriva Inhaler) 1 puff DAILY INH 05/25/17 14:00 06/24/17 13:59 Tramadol HCl (Ultram) 50 mg Q6H PRN ORAL Breakthrough Pain 05/24/17 00:15 05/31/17 00:14 Assessment/Plan Status: stable Assessment/Plan alcohol depen mdd fluoxetine 20mg qam changed ativan iv to Juvenal Palmer M.D. May 25, 2017 14:23
[2017-05-25 15:44] VITALS: BP 102/65
--- NOTE | 2017-05-25 19:55 | Pulmonology Progress Note ---
Assessment/Plan Problems: (1) Acute respiratory failure (2) COPD exacerbation (3) HTN (hypertension) (4) Constipation (5) Protein-calorie malnutrition, severe (6) Emphysema of lung (7) Nicotine addiction Assessment/Plan improving check sputum steroids symptomatic treatment pt/ot Subjective ROS Limited/Unobtainable: No Constitutional: Reports: no symptoms HEENT: Repors: no symptoms Respiratory: Reports: no symptoms Allergies: Coded Allergies: ADHESIVE (Unverified Allergy, Severe, 08/16/13) ADHESIVE TAPE (Verified Allergy, Unknown, SURGICAL TAPE - RASH, 07/28/11) ALBUTEROL (Verified Adverse Reaction, Unknown, ANXIETY, 07/28/11) Uncoded Allergies: METAL (?) (Allergy, Unknown, RASH, 07/28/11) metal (Allergy, Unknown, 03/30/15) Objective Last 24 Hour Vital Signs Date Time Temp Pulse Resp B/P Pulse Ox O2 Delivery O2 Flow Rate FiO2 05/25/17 15:44 97.6 107 19 102/65 95 Nasal Cannula 2.0 05/25/17 13:22 97 18 97 Nasal Cannula 2.0 05/25/17 13:14 93 20 94 Nasal Cannula 2.0 05/25/17 11:46 97.6 91 20 106/73 96 Nasal Cannula 2.0 05/25/17 09:00 124/85 05/25/17 08:15 97.7 103 20 124/85 97 Nasal Cannula 2.0 05/25/17 07:06 103 20 Nasal Cannula 2.0 05/25/17 07:06 98 Nasal Cannula 2.0 05/25/17 07:06 Nasal Cannula 2.0 05/25/17 04:00 97.9 89 20 97/59 96 Nasal Cannula 05/25/17 00:49 90 16 97 Nasal Cannula 2.0 05/25/17 00:38 91 18 95 Nasal Cannula 2.0 05/25/17 00:00 97.3 90 21 119/75 93 Nasal Cannula 05/24/17 20:23 97.9 90 19 100/65 94 Nasal Cannula 2.0 05/24/17 20:15 93 18 98 Nasal Cannula 2.0 05/24/17 20:10 92 18 Nasal Cannula 2.0 05/24/17 20:07 Nasal Cannula 2.0 05/24/17 20:06 96 Nasal Cannula 2.0 28 05/24/17 20:06 92 18 96 Nasal Cannula 2.0 28 Intake and Output 05/24/17 05/25/17 19:00 07:00 Intake Total 880 ml 216.3 ml Output Total 300 ml Balance 880 ml -83.7 ml Intake Oral 880 ml IV Total 216.3 ml Output Urine Total 300 ml # Bowel Movements 1 1 General Appearance: cachetic HEENT: normocephalic, atraumatic Respiratory/Chest: chest wall non-tender, lungs clear Breasts: no masses Cardiovascular: normal peripheral pulses Abdomen: normal bowel sounds, soft, non tender Genitourinary: normal external genitalia Skin: no rash 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 Lymphatic: no neck adenopathy Microbiology Date/Time Source Procedure Growth Status 05/23/17 20:30 Blood Blood Culture - Preliminary NO GROWTH AFTER 24 HOURS Resulted 05/23/17 20:30 Blood Blood Culture - Preliminary Resulted Current Medications Medications (Trade) Dose Ordered Sig/Nahum Route PRN Reason Start Time Stop Time Status Last Admin Dose Admin Al Hydroxide/Mg Hydroxide (Mylanta) 30 ml Q8H PRN ORAL Dyspepsia/Upset stomach 05/25/17 19:45 06/24/17 19:44 Albuterol/ Ipratropium (DuoNeb 0.5-3(2.5)mg/3ml) 3 ml Q4H PRN HHN dyspnea 05/24/17 00:15 05/29/17 00:14 05/25/17 00:39 Atorvastatin Calcium (Lipitor) 10 mg BEDTIME ORAL 05/24/17 21:00 06/23/17 20:59 05/24/17 21:09 Cetirizine HCl (ZyrTEC) 10 mg DAILY ORAL 05/25/17 13:00 06/24/17 12:59 05/25/17 13:24 Cetylpyridinium Chloride (Cepacol) 1 lozenge Q2H PRN DOMINGA sore throat 05/24/17 12:30 06/23/17 12:29 05/24/17 12:45 Dextrose (Dextrose 50%) STAT PRN IV Hypoglycemia 05/24/17 00:15 06/23/17 00:14 Docusate Sodium (Colace) 100 mg THREE TIMES A DAY ORAL 05/24/17 18:00 06/23/17 17:59 05/25/17 18:08 Fluoxetine HCl (PROzac) 20 mg DAILY ORAL 05/25/17 16:00 06/24/17 15:59 05/25/17 18:08 Heparin Sodium (Porcine) (Heparin 5000 units/ml) 5,000 units EVERY 12 HOURS SUBQ 05/24/17 09:00 06/23/17 08:59 05/25/17 08:47 Ketorolac Tromethamine 15 mg 15 mg Q6H PRN IV moderate pain 4-6 05/24/17 00:30 05/29/17 00:14 Levalbuterol HCl (Xopenex) 1.25 mg TIDRT HHN 05/25/17 13:00 05/30/17 12:59 05/25/17 13:15 Lisinopril (Prinivil) 20 mg DAILY ORAL 05/24/17 09:00 06/23/17 08:59 Lorazepam (Ativan 2mg/ml 1ml) 0.5 mg Q4H PRN IV For Anxiety 05/24/17 08:15 05/31/17 08:14 05/25/17 17:53 Lorazepam (Ativan) 0.5 mg TIDPRN PRN ORAL For Anxiety 05/24/17 07:00 05/31/17 06:59 05/24/17 18:20 Methylprednisolone Sodium Succinate (Solu-MEDROL) 60 mg EVERY 6 HOURS IV 05/24/17 06:00 06/23/17 05:59 05/25/17 18:08 Mineral Oil (Fleet's Mineral Oil Enema) 133 ml EVERY OTHER DAY RECTAL 05/26/17 09:00 06/25/17 08:59 Morphine Sulfate (Morphine Sulfate) 2 mg Q4H PRN IVP severe pain 7-10 05/24/17 00:15 05/31/17 00:14 Nicotine (Nicoderm) 1 patch DAILY@0800 TDERMAL 05/24/17 08:15 06/23/17 08:14 05/25/17 08:42 Nitroglycerin (Ntg) 0.4 mg Q5M X 3 DOSES PRN SL Prn Chest Pain 05/24/17 00:15 06/23/17 00:14 Ondansetron HCl (Zofran) 4 mg Q6H PRN IVP Nausea & Vomiting 05/24/17 00:15 06/23/17 00:14 Piperacillin Sod/ Tazobactam Sod/ Dextrose (Zosyn/D5W) 110 ml @ 27.5 mls/hr Q8H IVPB 05/24/17 04:00 05/31/17 03:59 05/25/17 13:12 Polyethylene Glycol (Miralax) 17 gm BEDTIME ORAL 05/24/17 21:00 06/23/17 20:59 05/24/17 18:15 Promethazine HCl/ Codeine (Phenergan with Codeine) 5 ml Q6H PRN ORAL cough 05/24/17 00:15 06/23/17 00:14 Sennosides (Senokot) 8.6 mg DAILY ORAL 05/25/17 09:00 06/24/17 08:59 05/25/17 08:41 Sucralfate (Carafate) 1 gm FOUR TIMES A DAY ORAL 05/24/17 09:00 06/23/17 08:59 05/25/17 18:08 Temazepam (Restoril) 15 mg HSPRN PRN ORAL Insomnia 05/24/17 00:15 05/31/17 00:14 Theophylline (Aman-Dur) 100 mg EVERY 12 HOURS ORAL 05/24/17 09:00 06/23/17 08:59 05/25/17 08:41 Tiotropium [place] (Spiriva Inhaler) 1 puff DAILY INH 05/25/17 14:00 06/24/17 13:59 Tramadol HCl (Ultram) 50 mg Q6H PRN ORAL Breakthrough Pain 05/24/17 00:15 05/31/17 00:14 YNES BREWSTER May 25, 2017 19:55
[2017-05-25 20:00] VITALS: BP 93/62
[2017-05-25] MEDS: Miralax 17gm pkt ORAL SCH (21:36)
--- NOTE | 2017-05-25 22:32 | Consultation ---
DATE OF CONSULTATION: 05/25/2017 REQUESTING PHYSICIAN: Robbie Bianchi M.D. REASON FOR CONSULTATION: Bacteremia. HISTORY OF PRESENT ILLNESS: This is a 71-year-old female with a history of chronic oxygen dependent respiratory failure and chronic obstructive pulmonary disease admitted on 05/23/2017 with shortness of breath and cough. Chest x-ray shows no acute cardiopulmonary findings and stable chronic changes. She is afebrile without leukocytosis. A surveillance blood cultures are growing gram-positive cocci in 1/4 bottles and the patient has been started on empiric Zosyn and steroids. ID now consulted to assist in management. PAST MEDICAL HISTORY: 1. Oxygen-dependent chronic obstructive pulmonary disease. 2. Hypertension. 3. Chronic hypoxemic respiratory failure. FAMILY HISTORY: Reviewed and noncontributory. SOCIAL HISTORY: The patient is still smoking. Lives locally. ALLERGIES: 1. Tape. 2. Albuterol. 3. Metal. MEDICATIONS: 1. Zosyn day #2. 2. Solu-Medrol. 3. Lipitor. 4. Senokot. 5. MiraLAX. 6. Colace. 7. Lisinopril. 8. Carafate. 9. Heparin. 10. Theophylline. 11. Nicotine patch. REVIEW OF SYSTEMS: As per the history of present illness. Ten systems reviewed. All pertinent positives and negatives noted. PHYSICAL EXAMINATION: VITAL SIGNS: Maximum temperature 98.6, blood pressure 124/85, heart rate 103, respiratory rate 20, and saturating 97% on two liters nasal cannula. GENERAL: No apparent distress, nontoxic appearing. HEENT: No thrush or oral lesions. CARDIOVASCULAR: Regular rate and rhythm. No murmurs. PULMONARY: Distant breath sounds. No rhonchi. ABDOMEN: Bowel sounds present. Soft, nondistended, and nontender. EXTREMITIES: No edema. SKIN: No rash. NEUROLOGICAL: Alert and oriented x3, nonfocal. LABORATORY DATA: White blood cell count 6.3, hemoglobin 13.2, platelets 242,000. Sodium 135, potassium 4.5, chloride 87, bicarbonate 21, BUN 9, and creatinine 0.8. Troponin negative x1. BNP 192. MICROBIOLOGY: 1. 05/23/2017, blood culture gram-positive cocci in 1/4 bottles. 2. 05/23/2017, sputum culture pending. IMAGIN05/23/2017, chest x-ray no acute cardiopulmonary findings, stable chronic changes. ASSESSMENT: 1. Gram-positive cocci in clusters and bacteremia in 1/4 bottles, most likely contaminant. Culture and sensitivity is pending. 2. Afebrile without leukocytosis, on steroids. 3. Chronic obstructive pulmonary disease exacerbation. 4. Chronic hypoxemic respiratory failure, home oxygen dependent. 5. Constipation. 6. Hypertension. 7. No antibiotic allergies. 8. Full Code. PLAN: 1. Continue Zosyn day #12/03 2. Taper steroids per Pulmonary. 3. Followup cultures. 4. Monitor CBC and temperatures. 5. Monitor chest x-ray. Thank you. We will follow. Gordon Waller M.D. DR: Corbin JOB#: [id number] CC: Robbie Bianchi M.D.; Fax#: [phone] Boles M.D; Fax#: [phone]
[2017-05-26] VITALS: BP 97/63
[2017-05-26] MEDS: Solu-MEDROL 125mg Inj IV SCH ×3 (00:32→13:22)
[2017-05-26] MEDS: LORazepam Inj 2mg/ml 1ml IV PRN ×4 (03:00→21:03)
[2017-05-26] MEDS: Zosyn 3.375gm q8h **Extended infusion IVPB SCH ×6 (03:58→20:17)
[2017-05-26 04:00] VITALS: BP 107/75
[2017-05-26] MEDS: Levalbuterol Inh UD 1.25mg/0.5ml HHN SCH ×3 (07:35→19:00)
[2017-05-26 08:00] VITALS: BP 99/66
[2017-05-26 08:05] LABS: MEAN CORPUSCULAR HEMOGLOBIN 36.5 PG (27.0-31.0); MEAN CORPUSCULAR HGB CONC 33.8 G/DL (32.0-36.0); MEAN CORPUSCULAR VOLUME 108 FL (80-99); MEAN PLATELET VOLUME 7.2 FL (6.5-10.1); PLATELET COUNT 152 K/UL (150-450); RED BLOOD COUNT 3.02 M/UL (4.20-5.40); RED CELL DISTRIBUTION WIDTH 13.4 % (11.6-14.8); WHITE BLOOD COUNT 4.4 K/UL (4.8-10.8)
[2017-05-26 08:16] LABS: ALANINE AMINOTRANSFERASE 9 U/L (3-33); ALBUMIN/GLOBULIN RATIO 1.8 (1.0-2.7); ANION GAP 13 (5-15); ASPARTATE AMINO TRANSFERASE 20 U/L (5-40); CARBON DIOXIDE 28 mEQ/L (20-30); CHLORIDE 95 mEQ/L (98-107); CREATININE 0.7 mg/dL (0.5-0.9); GLOMERULAR FILTRATION RATE > 60 mL/min (>60); HEMOLYSIS 6; POTASSIUM 3.7 mEQ/L (3.4-4.9); SODIUM 136 mEQ/L (135-145); TOTAL PROTEIN 5.5 g/dL (6.6-8.7)
[2017-05-26] MEDS: Docusate 100mg cap ORAL SCH ×3 (08:37→18:14)
[2017-05-26] MEDS: Sucralfate 1gm tab ORAL SCH ×4 (08:37→21:27)
[2017-05-26] MEDS: Theophylline ER 100mg ORAL SCH ×2 (08:39→21:27)
[2017-05-26] MEDS: Heparin 5000 units/ml inj SUBQ SCH ×2 (08:42→21:28)
[2017-05-26] MEDS: Lisinopril 20mg tab ORAL SCH (08:43)
[2017-05-26] MEDS: Fleet's Mineral Oil Enema RECTAL SCH (09:00)
[2017-05-26 10:32] LABS: BAND NEUTROPHILS % (MANUAL) 0 % (0-8); BASOPHILS % (MANUAL) 0 % (0-2); EOSINOPHILS % (MANUAL) 2 % (0-3); LYMPHOCYTES % (MANUAL) 11 % (20-45); NEUTROPHILS % (MANUAL) 83 % (45-75); PLATELET ESTIMATE ADEQUATE; PLATELET MORPHOLOGY NORMAL; TOTAL CELLS COUNTED 100
--- NOTE | 2017-05-26 10:32 | Diagnostic Imaging Report ---
Indication: DYSPNEA Technique: One view of the chest Comparison: 05/23/2017 Findings: The lungs are mildly hyperinflated. The lungs and pleural spaces are clear. Heart size is normal. Old healed left humeral fracture deformity is noted. No significant interim change Impression: No acute process.
[2017-05-26 12:00] VITALS: BP 99/72
[2017-05-26] MEDS ORDERED: Tubing IV Secondary IV ONE (13:55)
[2017-05-26] MEDS ORDERED: NS 275ml ONE (13:55)
[2017-05-26 16:27] VITALS: BP 99/74
--- NOTE | 2017-05-26 16:31 | Pulmonology Progress Note ---
Assessment/Plan Problems: (1) Acute respiratory failure (2) COPD exacerbation (3) HTN (hypertension) (4) Constipation (5) Protein-calorie malnutrition, severe (6) Emphysema of lung (7) Nicotine addiction Assessment/Plan improving check sputum joselito steroids symptomatic treatment abx by iD pt/ot Subjective ROS Limited/Unobtainable: No Allergies: Coded Allergies: ADHESIVE (Unverified Allergy, Severe, 08/16/13) ADHESIVE TAPE (Verified Allergy, Unknown, SURGICAL TAPE - RASH, 07/28/11) ALBUTEROL (Verified Adverse Reaction, Unknown, ANXIETY, 07/28/11) Uncoded Allergies: METAL (?) (Allergy, Unknown, RASH, 07/28/11) metal (Allergy, Unknown, 03/30/15) Objective Last 24 Hour Vital Signs Date Time Temp Pulse Resp B/P Pulse Ox O2 Delivery O2 Flow Rate FiO2 05/26/17 16:27 97.0 93 20 99/74 95 Nasal Cannula 2.0 05/26/17 13:20 93 18 100 Nasal Cannula 2.0 05/26/17 13:13 84 18 96 Nasal Cannula 2.0 05/26/17 12:00 97.7 101 18 99/72 96 Nasal Cannula 2.0 05/26/17 11:16 96.3 05/26/17 08:43 99/66 05/26/17 08:00 97.2 90 20 99/66 95 Nasal Cannula 2.0 05/26/17 07:30 96 18 100 Nasal Cannula 2.0 05/26/17 07:25 88 20 Nasal Cannula 2.0 05/26/17 07:25 96 Nasal Cannula 2.0 05/26/17 07:25 Nasal Cannula 2.0 05/26/17 07:25 88 18 96 Nasal Cannula 2.0 05/26/17 04:00 96.3 87 18 107/75 94 Nasal Cannula 2.0 05/26/17 00:00 97.7 87 16 97/63 94 Room Air 05/25/17 22:10 86 20 Nasal Cannula 2.0 05/25/17 22:09 96 Nasal Cannula 2.0 05/25/17 20:00 97.0 87 16 93/62 96 Room Air 05/25/17 19:56 99 18 100 Nasal Cannula 2.0 05/25/17 19:47 Nasal Cannula 2.0 05/25/17 19:46 86 16 96 Nasal Cannula 2.0 Intake and Output 05/25/17 05/26/17 19:00 07:00 Intake Total 830.0 ml 442.5 ml Balance 830.0 ml 442.5 ml Intake Oral 720 ml 240 ml IV Total 110.0 ml 202.5 ml # Voids 2 # Bowel Movements 1 Objective General Appearance: cachetic HEENT: normocephalic, atraumatic Respiratory/Chest: chest wall non-tender, lungs clear Breasts: no masses Cardiovascular: normal peripheral pulses Abdomen: normal bowel sounds, soft, non tender Genitourinary: normal external genitalia Skin: no rash 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 Lymphatic: no neck adenopathy Microbiology Date/Time Source Procedure Growth Status 05/23/17 20:30 Blood Blood Culture - Preliminary NO GROWTH AFTER 48 HOURS Resulted 05/23/17 20:30 Blood Blood Culture - Preliminary Staphylococcus Sp Coag Neg Resulted Laboratory Tests 05/26/17 06:25: White Blood Count 4.4L, Red Blood Count 3.02L, Hemoglobin 11.0L, Hematocrit 32.6L, Mean Corpuscular Volume 108H, Mean Corpuscular Hemoglobin 36.5H, Mean Corpuscular Hemoglobin Concent 33.8, Red Cell Distribution Width 13.4, Platelet Count 152, Mean Platelet Volume 7.2, Neutrophils (%) (Auto) , Lymphocytes (%) ( Auto) , Monocytes (%) (Auto) , Eosinophils (%) (Auto) , Basophils (%) (Auto) , Differential Total Cells Counted 100, Neutrophils % (Manual) 83H, Lymphocytes % (Manual) 11L, Monocytes % (Manual) 4, Eosinophils % (Manual) 2, Basophils % ( Manual) 0, Band Neutrophils 0, Platelet Estimate Adequate, Platelet Morphology Normal, Red Blood Cell Morphology Normal, Sodium Level 136, Potassium Level 3.7 , Chloride Level 95L, Carbon Dioxide Level 28, Anion Gap 13, Blood Urea Nitrogen 9, Creatinine 0.7, Estimat Glomerular Filtration Rate > 60, Glucose Level 169H, Calcium Level 9.0, Total Bilirubin 0.5, Aspartate Amino Transf (AST/ SGOT) 20, Alanine Aminotransferase (ALT/SGPT) 9, Alkaline Phosphatase 58, Pro-B- Type Natriuretic Peptide 527H, Total Protein 5.5L, Albumin 3.6, Globulin 1.9, Albumin/Globulin Ratio 1.8 Current Medications Medications (Trade) Dose Ordered Sig/Nahum Route PRN Reason Start Time Stop Time Status Last Admin Dose Admin Al Hydroxide/Mg Hydroxide (Mylanta) 30 ml Q8H PRN ORAL Dyspepsia/Upset stomach 05/25/17 19:45 06/24/17 19:44 Albuterol/ Ipratropium (DuoNeb 0.5-3(2.5)mg/3ml) 3 ml Q4H PRN HHN dyspnea 05/24/17 00:15 05/29/17 00:14 05/25/17 00:39 Atorvastatin Calcium (Lipitor) 10 mg BEDTIME ORAL 05/24/17 21:00 06/23/17 20:59 05/25/17 21:36 Cetirizine HCl (ZyrTEC) 10 mg DAILY ORAL 05/25/17 13:00 06/24/17 12:59 05/26/17 08:39 Cetylpyridinium Chloride (Cepacol) 1 lozenge Q2H PRN DOMINGA sore throat 05/24/17 12:30 06/23/17 12:29 05/26/17 08:39 Dextrose (Dextrose 50%) STAT PRN IV Hypoglycemia 05/24/17 00:15 06/23/17 00:14 Docusate Sodium (Colace) 100 mg THREE TIMES A DAY ORAL 05/24/17 18:00 06/23/17 17:59 05/26/17 13:56 Fluoxetine HCl (PROzac) 20 mg DAILY ORAL 05/25/17 16:00 06/24/17 15:59 05/26/17 08:39 Heparin Sodium (Porcine) (Heparin 5000 units/ml) 5,000 units EVERY 12 HOURS SUBQ 05/24/17 09:00 06/23/17 08:59 05/26/17 08:42 Ketorolac Tromethamine 15 mg 15 mg Q6H PRN IV moderate pain 4-6 05/24/17 00:30 05/29/17 00:14 Levalbuterol HCl (Xopenex) 1.25 mg TIDRT HHN 05/25/17 13:00 05/30/17 12:59 05/26/17 13:12 Lisinopril (Prinivil) 20 mg DAILY ORAL 05/24/17 09:00 06/23/17 08:59 Lorazepam (Ativan 2mg/ml 1ml) 0.5 mg Q4H PRN IV For Anxiety 05/24/17 08:15 05/31/17 08:14 05/26/17 16:13 Lorazepam (Ativan) 0.5 mg TIDPRN PRN ORAL For Anxiety 05/24/17 07:00 05/31/17 06:59 05/24/17 18:20 Methylprednisolone Sodium Succinate (Solu-MEDROL) 60 mg EVERY 6 HOURS IV 05/24/17 06:00 06/23/17 05:59 05/26/17 13:22 Mineral Oil (Fleet's Mineral Oil Enema) 133 ml EVERY OTHER DAY RECTAL 05/26/17 09:00 06/25/17 08:59 Morphine Sulfate (Morphine Sulfate) 2 mg Q4H PRN IVP severe pain 7-05/24/17 00:15 05/31/17 00:14 Nicotine (Nicoderm) 1 patch DAILY@0800 TDERMAL 05/24/17 08:15 06/23/17 08:14 05/26/17 08:36 Nitroglycerin (Ntg) 0.4 mg Q5M X 3 DOSES PRN SL Prn Chest Pain 05/24/17 00:15 06/23/17 00:14 Ondansetron HCl (Zofran) 4 mg Q6H PRN IVP Nausea & Vomiting 05/24/17 00:15 06/23/17 00:14 Piperacillin Sod/ Tazobactam Sod/ Dextrose (Zosyn/D5W) 110 ml @ 27.5 mls/hr Q8H IVPB 05/24/17 04:00 05/31/17 03:59 05/26/17 13:22 Polyethylene Glycol (Miralax) 17 gm BEDTIME ORAL 05/24/17 21:00 06/23/17 20:59 05/25/17 21:36 Promethazine HCl/ Codeine (Phenergan with Codeine) 5 ml Q6H PRN ORAL cough 05/24/17 00:15 06/23/17 00:14 05/26/17 08:36 Sennosides (Senokot) 8.6 mg DAILY ORAL 05/25/17 09:00 06/24/17 08:59 05/26/17 08:39 Sucralfate (Carafate) 1 gm FOUR TIMES A DAY ORAL 05/24/17 09:00 06/23/17 08:59 05/26/17 13:56 Temazepam (Restoril) 15 mg HSPRN PRN ORAL Insomnia 05/24/17 00:15 05/31/17 00:14 Theophylline (Aman-Dur) 100 mg EVERY 12 HOURS ORAL 05/24/17 09:00 06/23/17 08:59 05/26/17 08:39 Tiotropium [place] (Spiriva Inhaler) 1 puff DAILY INH 05/25/17 14:00 06/24/17 13:59 05/26/17 07:37 Tramadol HCl (Ultram) 50 mg Q6H PRN ORAL Breakthrough Pain 05/24/17 00:15 05/31/17 00:14 05/26/17 08:38 YNES BREWSTER May 26, 2017 16:31
--- NOTE | 2017-05-26 18:47 | General Progress Note ---
Assessment/Plan Status: stable Assessment/Plan Alcohol dependence. anxiety d/o. depression -prozac 20mg qam -ativan for alcohol w/d Subjective Constitutional: Reports: weakness Neurologic/Psychiatric: Reports: anxiety, emotional problems Allergies: Coded Allergies: ADHESIVE (Unverified Allergy, Severe, 08/16/13) ADHESIVE TAPE (Verified Allergy, Unknown, SURGICAL TAPE - RASH, 07/28/11) ALBUTEROL (Verified Adverse Reaction, Unknown, ANXIETY, 07/28/11) Uncoded Allergies: METAL (?) (Allergy, Unknown, RASH, 07/28/11) metal (Allergy, Unknown, 03/30/15) All Systems: reviewed and negative except above Objective Last 24 Hour Vital Signs Date Time Temp Pulse Resp B/P Pulse Ox O2 Delivery O2 Flow Rate FiO2 05/26/17 16:27 97.0 93 20 99/74 95 Nasal Cannula 2.0 05/26/17 13:20 93 18 100 Nasal Cannula 2.0 05/26/17 13:13 84 18 96 Nasal Cannula 2.0 05/26/17 12:00 97.7 101 18 99/72 96 Nasal Cannula 2.0 05/26/17 11:16 96.3 05/26/17 08:43 99/66 05/26/17 08:00 97.2 90 20 99/66 95 Nasal Cannula 2.0 05/26/17 07:30 96 18 100 Nasal Cannula 2.0 05/26/17 07:25 88 20 Nasal Cannula 2.0 05/26/17 07:25 96 Nasal Cannula 2.0 05/26/17 07:25 Nasal Cannula 2.0 05/26/17 07:25 88 18 96 Nasal Cannula 2.0 05/26/17 04:00 96.3 87 18 107/75 94 Nasal Cannula 2.0 05/26/17 00:00 97.7 87 16 97/63 94 Room Air 05/25/17 22:10 86 20 Nasal Cannula 2.0 05/25/17 22:09 96 Nasal Cannula 2.0 05/25/17 20:00 97.0 87 16 93/62 96 Room Air 05/25/17 19:56 99 18 100 Nasal Cannula 2.0 05/25/17 19:47 Nasal Cannula 2.0 05/25/17 19:46 86 16 96 Nasal Cannula 2.0 Intake and Output 05/25/17 05/26/17 19:00 07:00 Intake Total 830.0 ml 442.5 ml Balance 830.0 ml 442.5 ml Intake Oral 720 ml 240 ml IV Total 110.0 ml 202.5 ml # Voids 2 # Bowel Movements 1 Laboratory Tests 05/26/17 06:25: White Blood Count 4.4L, Red Blood Count 3.02L, Hemoglobin 11.0L, Hematocrit 32.6L, Mean Corpuscular Volume 108H, Mean Corpuscular Hemoglobin 36.5H, Mean Corpuscular Hemoglobin Concent 33.8, Red Cell Distribution Width 13.4, Platelet Count 152, Mean Platelet Volume 7.2, Neutrophils (%) (Auto) , Lymphocytes (%) ( Auto) , Monocytes (%) (Auto) , Eosinophils (%) (Auto) , Basophils (%) (Auto) , Differential Total Cells Counted 100, Neutrophils % (Manual) 83H, Lymphocytes % (Manual) 11L, Monocytes % (Manual) 4, Eosinophils % (Manual) 2, Basophils % ( Manual) 0, Band Neutrophils 0, Platelet Estimate Adequate, Platelet Morphology Normal, Red Blood Cell Morphology Normal, Sodium Level 136, Potassium Level 3.7 , Chloride Level 95L, Carbon Dioxide Level 28, Anion Gap 13, Blood Urea Nitrogen 9, Creatinine 0.7, Estimat Glomerular Filtration Rate > 60, Glucose Level 169H, Calcium Level 9.0, Total Bilirubin 0.5, Aspartate Amino Transf (AST/ SGOT) 20, Alanine Aminotransferase (ALT/SGPT) 9, Alkaline Phosphatase 58, Pro-B- Type Natriuretic Peptide 527H, Total Protein 5.5L, Albumin 3.6, Globulin 1.9, Albumin/Globulin Ratio 1.8 Height (Feet): 5 Height (Inches): 5.00 Weight (Pounds): 119 General Appearance: no apparent distress, alert, thin Neurologic: alert, oriented x 3, responsive, depressed affect Juvenal Alvarado M.D. May 26, 2017 18:47
[2017-05-26] MEDS: DuoNeb 0.5-3(2.5)mg/3ml neb HHN PRN (19:20)
[2017-05-26 19:55] VITALS: BP 104/70
[2017-05-26] MEDS: Miralax 17gm pkt ORAL SCH (21:27)
[2017-05-27] VITALS (7 sets, daily range): BP systolic 91–107; BP diastolic 57–95
[2017-05-27] MEDS: LORazepam Inj 2mg/ml 1ml IV PRN (01:53)
[2017-05-27] MEDS: Zosyn 3.375gm q8h **Extended infusion IVPB SCH ×6 (03:11→20:36)
[2017-05-27] MEDS: DuoNeb 0.5-3(2.5)mg/3ml neb HHN PRN (05:27)
[2017-05-27] MEDS: Levalbuterol Inh UD 1.25mg/0.5ml HHN SCH ×3 (08:03→19:29)
[2017-05-27] MEDS: Docusate 100mg cap ORAL SCH ×3 (08:26→17:14)
[2017-05-27] MEDS: Sucralfate 1gm tab ORAL SCH ×4 (08:26→21:50)
[2017-05-27] MEDS: Theophylline ER 100mg ORAL SCH ×2 (08:26→21:50)
[2017-05-27] MEDS: Lisinopril 20mg tab ORAL SCH (08:27)
[2017-05-27] MEDS: Heparin 5000 units/ml inj SUBQ SCH ×2 (08:29→21:58)
[2017-05-27] MEDS: Solu-MEDROL 125mg Inj IV SCH (10:12)
--- NOTE | 2017-05-27 13:32 | Infectious Diseases Prog Note ---
Assessment/Plan Assessment/Plan A; COPD exacerbation Positive blood culture/ contamination Nicotine dependence Chronic respiratory failure P; Continue Zosyn Subjective ROS Limited/Unobtainable: No Respiratory: Reports: productive cough, shortness of breath Gastrointestinal/Abdominal: Reports: no symptoms Genitourinary: Reports: no symptoms Allergies: Coded Allergies: ADHESIVE (Unverified Allergy, Severe, 08/16/13) ADHESIVE TAPE (Verified Allergy, Unknown, SURGICAL TAPE - RASH, 07/28/11) ALBUTEROL (Verified Adverse Reaction, Unknown, ANXIETY, 07/28/11) Uncoded Allergies: METAL (?) (Allergy, Unknown, RASH, 07/28/11) metal (Allergy, Unknown, 03/30/15) Objective Vital Signs Last 24 Hour Vital Signs Date Time Temp Pulse Resp B/P Pulse Ox O2 Delivery O2 Flow Rate FiO2 05/27/17 12:00 97.3 100 20 107/72 95 Nasal Cannula 2.0 05/27/17 08:27 97/63 05/27/17 08:00 97.5 100 20 98/57 94 Nasal Cannula 3.0 05/27/17 07:46 116 20 98 Nasal Cannula 2.0 05/27/17 07:46 Nasal Cannula 2.0 05/27/17 07:36 114 23 94 Nasal Cannula 2.0 05/27/17 07:35 94 Nasal Cannula 2.0 05/27/17 05:37 105 18 98 Nasal Cannula 2.0 05/27/17 05:27 106 20 95 Nasal Cannula 2.0 05/27/17 04:30 102/71 05/27/17 04:00 97.5 96 20 91/67 Room Air 05/27/17 00:00 97.7 97 20 107/69 94 Nasal Cannula 2.0 05/26/17 19:55 97.0 100 20 104/70 95 Room Air 05/26/17 19:26 96 20 98 Nasal Cannula 2.0 05/26/17 19:22 Nasal Cannula 2.0 05/26/17 19:22 91 18 95 Nasal Cannula 2.0 05/26/17 19:22 95 Nasal Cannula 2.0 05/26/17 19:22 91 20 Nasal Cannula 2.0 05/26/17 16:27 97.0 93 20 99/74 95 Nasal Cannula 2.0 Height (Feet): 5 Height (Inches): 5.00 Weight (Pounds): 119 General Appearance: cachetic HEENT: mucous membranes moist Respiratory/Chest: decreased breath sounds, other - kyphosis Cardiovascular: tachycardia Abdomen: soft, non tender Extremities: no edema Neurologic/Psychiatric: alert, responsive Current Medications Medications (Trade) Dose Ordered Sig/Nahum Route PRN Reason Start Time Stop Time Status Last Admin Dose Admin Al Hydroxide/Mg Hydroxide (Mylanta) 30 ml Q8H PRN ORAL Dyspepsia/Upset stomach 05/25/17 19:45 06/24/17 19:44 Albuterol/ Ipratropium (DuoNeb 0.5-3(2.5)mg/3ml) 3 ml Q4H PRN HHN dyspnea 05/24/17 00:15 05/29/17 00:14 05/27/17 05:27 Atorvastatin Calcium (Lipitor) 10 mg BEDTIME ORAL 05/24/17 21:00 06/23/17 20:59 05/26/17 21:27 Cetirizine HCl (ZyrTEC) 10 mg DAILY ORAL 05/25/17 13:00 06/24/17 12:59 05/27/17 08:26 Cetylpyridinium Chloride (Cepacol) 1 lozenge Q2H PRN DOMINGA sore throat 05/24/17 12:30 06/23/17 12:29 05/26/17 08:39 Dextrose STAT PRN IV Hypoglycemia 05/24/17 00:15 06/23/17 00:14 Docusate Sodium (Colace) 100 mg THREE TIMES A DAY ORAL 05/24/17 18:00 06/23/17 17:59 05/27/17 08:26 Fluoxetine HCl (PROzac) 20 mg DAILY ORAL 05/25/17 16:00 06/24/17 15:59 05/26/17 08:39 Heparin Sodium (Porcine) (Heparin 5000 units/ml) 5,000 units EVERY 12 HOURS SUBQ 05/24/17 09:00 06/23/17 08:59 05/27/17 08:29 Levalbuterol HCl (Xopenex) 1.25 mg TIDRT HHN 05/25/17 13:00 05/30/17 12:59 05/27/17 08:03 Lisinopril (Prinivil) 20 mg DAILY ORAL 05/24/17 09:00 06/23/17 08:59 Lorazepam (Ativan 2mg/ml 1ml) 0.5 mg Q4H PRN IV For Anxiety 05/24/17 08:15 05/31/17 08:14 05/27/17 01:53 Lorazepam (Ativan) 0.5 mg TIDPRN PRN ORAL For Anxiety 05/24/17 07:00 05/31/17 06:59 05/24/17 18:20 Methylprednisolone Sodium Succinate (Solu-MEDROL) 60 mg DAILY IV 05/27/17 09:00 06/26/17 08:59 05/27/17 10:12 Mineral Oil (Fleet's Mineral Oil Enema) 133 ml EVERY OTHER DAY RECTAL 05/26/17 09:00 06/25/17 08:59 Morphine Sulfate (Morphine Sulfate) 2 mg Q4H PRN IVP severe pain 7-05/24/17 00:15 05/31/17 00:14 Nicotine (Nicoderm) 1 patch DAILY@0800 TDERMAL 05/24/17 08:15 06/23/17 08:14 05/27/17 08:26 Nitroglycerin (Ntg) 0.4 mg Q5M X 3 DOSES PRN SL Prn Chest Pain 05/24/17 00:15 06/23/17 00:14 Ondansetron HCl (Zofran) 4 mg Q6H PRN IVP Nausea & Vomiting 05/24/17 00:15 06/23/17 00:14 Piperacillin Sod/ Tazobactam Sod/ Dextrose (Zosyn/D5W) 110 ml @ 27.5 mls/hr Q8H IVPB 05/24/17 04:00 05/31/17 03:59 05/27/17 12:38 Polyethylene Glycol (Miralax) 17 gm BEDTIME ORAL 05/24/17 21:00 06/23/17 20:59 05/26/17 21:27 Promethazine HCl/ Codeine (Phenergan with Codeine) 5 ml Q6H PRN ORAL cough 05/24/17 00:15 06/23/17 00:14 05/26/17 08:36 Sennosides (Senokot) 8.6 mg DAILY ORAL 05/25/17 09:00 06/24/17 08:59 05/27/17 08:26 Sucralfate (Carafate) 1 gm FOUR TIMES A DAY ORAL 05/24/17 09:00 06/23/17 08:59 05/27/17 08:26 Temazepam (Restoril) 15 mg HSPRN PRN ORAL Insomnia 05/24/17 00:15 05/31/17 00:14 Theophylline (Aman-Dur) 100 mg EVERY 12 HOURS ORAL 05/24/17 09:00 06/23/17 08:59 05/27/17 08:26 Tiotropium [place] (Spiriva Inhaler) 1 puff DAILY INH 05/25/17 14:00 06/24/17 13:59 05/27/17 08:03 Tramadol HCl (Ultram) 50 mg Q6H PRN ORAL Breakthrough Pain 05/24/17 00:15 05/31/17 00:14 05/26/17 08:38 LISA MARCUS May 27, 2017 13:32
--- NOTE | 2017-05-27 14:27 | Pulmonology Progress Note ---
Assessment/Plan Problems: (1) Acute respiratory failure (2) COPD exacerbation (3) HTN (hypertension) (4) Constipation (5) Protein-calorie malnutrition, severe (6) Emphysema of lung (7) Nicotine addiction Assessment/Plan improving check sputum joselito steroids symptomatic treatment abx by iD pt/ot dc planning Subjective ROS Limited/Unobtainable: No Interval Events: poor appetite Allergies: Coded Allergies: ADHESIVE (Unverified Allergy, Severe, 08/16/13) ADHESIVE TAPE (Verified Allergy, Unknown, SURGICAL TAPE - RASH, 07/28/11) ALBUTEROL (Verified Adverse Reaction, Unknown, ANXIETY, 07/28/11) Uncoded Allergies: METAL (?) (Allergy, Unknown, RASH, 07/28/11) metal (Allergy, Unknown, 03/30/15) Objective Last 24 Hour Vital Signs Date Time Temp Pulse Resp B/P Pulse Ox O2 Delivery O2 Flow Rate FiO2 05/27/17 13:48 106 20 Nasal Cannula 2.0 05/27/17 13:37 100 20 Nasal Cannula 2.0 05/27/17 12:00 97.3 100 20 107/72 95 Nasal Cannula 2.0 05/27/17 08:27 97/63 05/27/17 08:00 97.5 100 20 98/57 94 Nasal Cannula 3.0 05/27/17 07:46 116 20 98 Nasal Cannula 2.0 05/27/17 07:46 Nasal Cannula 2.0 05/27/17 07:36 114 23 94 Nasal Cannula 2.0 05/27/17 07:35 94 Nasal Cannula 2.0 05/27/17 05:37 105 18 98 Nasal Cannula 2.0 05/27/17 05:27 106 20 95 Nasal Cannula 2.0 05/27/17 04:30 102/71 05/27/17 04:00 97.5 96 20 91/67 Room Air 05/27/17 00:00 97.7 97 20 107/69 94 Nasal Cannula 2.0 05/26/17 19:55 97.0 100 20 104/70 95 Room Air 05/26/17 19:26 96 20 98 Nasal Cannula 2.0 05/26/17 19:22 Nasal Cannula 2.0 05/26/17 19:22 91 18 95 Nasal Cannula 2.0 05/26/17 19:22 95 Nasal Cannula 2.0 28 05/26/17 19:22 91 20 Nasal Cannula 2.0 28 05/26/17 16:27 97.0 93 20 99/74 95 Nasal Cannula 2.0 Intake and Output 05/26/17 05/27/17 19:00 07:00 Intake Total 600 ml 552.5 ml Balance 600 ml 552.5 ml Intake Oral 600 ml 360 ml IV Total 192.5 ml # Voids 2 2 Objective General Appearance: cachetic HEENT: normocephalic, atraumatic Respiratory/Chest: chest wall non-tender, lungs clear Breasts: no masses Cardiovascular: normal peripheral pulses Abdomen: normal bowel sounds, soft, non tender Genitourinary: normal external genitalia Skin: no rash 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 Lymphatic: no neck adenopathy Current Medications Medications (Trade) Dose Ordered Sig/Nahum Route PRN Reason Start Time Stop Time Status Last Admin Dose Admin Al Hydroxide/Mg Hydroxide (Mylanta) 30 ml Q8H PRN ORAL Dyspepsia/Upset stomach 05/25/17 19:45 06/24/17 19:44 Albuterol/ Ipratropium (DuoNeb 0.5-3(2.5)mg/3ml) 3 ml Q4H PRN HHN dyspnea 05/24/17 00:15 05/29/17 00:14 05/27/17 05:27 Atorvastatin Calcium (Lipitor) 10 mg BEDTIME ORAL 05/24/17 21:00 06/23/17 20:59 05/26/17 21:27 Cetirizine HCl (ZyrTEC) 10 mg DAILY ORAL 05/25/17 13:00 06/24/17 12:59 05/27/17 08:26 Cetylpyridinium Chloride (Cepacol) 1 lozenge Q2H PRN DOMINGA sore throat 05/24/17 12:30 06/23/17 12:29 05/26/17 08:39 Dextrose STAT PRN IV Hypoglycemia 05/24/17 00:15 06/23/17 00:14 Docusate Sodium (Colace) 100 mg THREE TIMES A DAY ORAL 05/24/17 18:00 06/23/17 17:59 05/27/17 13:57 Fluoxetine HCl (PROzac) 20 mg DAILY ORAL 05/25/17 16:00 06/24/17 15:59 05/26/17 08:39 Heparin Sodium (Porcine) (Heparin 5000 units/ml) 5,000 units EVERY 12 HOURS SUBQ 05/24/17 09:00 06/23/17 08:59 05/27/17 08:29 Levalbuterol HCl (Xopenex) 1.25 mg TIDRT HHN 05/25/17 13:00 05/30/17 12:59 05/27/17 13:43 Lisinopril (Prinivil) 20 mg DAILY ORAL 05/24/17 09:00 06/23/17 08:59 Lorazepam (Ativan 2mg/ml 1ml) 0.5 mg Q4H PRN IV For Anxiety 05/24/17 08:15 05/31/17 08:14 05/27/17 01:53 Lorazepam (Ativan) 0.5 mg TIDPRN PRN ORAL For Anxiety 05/24/17 07:00 05/31/17 06:59 05/24/17 18:20 Methylprednisolone Sodium Succinate (Solu-MEDROL) 60 mg DAILY IV 05/27/17 09:00 06/26/17 08:59 05/27/17 10:12 Mineral Oil (Fleet's Mineral Oil Enema) 133 ml EVERY OTHER DAY RECTAL 05/26/17 09:00 06/25/17 08:59 Morphine Sulfate (Morphine Sulfate) 2 mg Q4H PRN IVP severe pain 7-05/24/17 00:15 05/31/17 00:14 Nicotine (Nicoderm) 1 patch DAILY@0800 TDERMAL 05/24/17 08:15 06/23/17 08:14 05/27/17 08:26 Nitroglycerin (Ntg) 0.4 mg Q5M X 3 DOSES PRN SL Prn Chest Pain 05/24/17 00:15 06/23/17 00:14 Ondansetron HCl (Zofran) 4 mg Q6H PRN IVP Nausea & Vomiting 05/24/17 00:15 06/23/17 00:14 Piperacillin Sod/ Tazobactam Sod/ Dextrose (Zosyn/D5W) 110 ml @ 27.5 mls/hr Q8H IVPB 05/24/17 04:00 05/31/17 03:59 05/27/17 12:38 Polyethylene Glycol (Miralax) 17 gm BEDTIME ORAL 05/24/17 21:00 06/23/17 20:59 05/26/17 21:27 Promethazine HCl/ Codeine (Phenergan with Codeine) 5 ml Q6H PRN ORAL cough 05/24/17 00:15 06/23/17 00:14 05/26/17 08:36 Sennosides (Senokot) 8.6 mg DAILY ORAL 05/25/17 09:00 06/24/17 08:59 05/27/17 08:26 Sucralfate (Carafate) 1 gm FOUR TIMES A DAY ORAL 05/24/17 09:00 06/23/17 08:59 05/27/17 13:57 Temazepam (Restoril) 15 mg HSPRN PRN ORAL Insomnia 05/24/17 00:15 05/31/17 00:14 Theophylline (Aman-Dur) 100 mg EVERY 12 HOURS ORAL 05/24/17 09:00 06/23/17 08:59 05/27/17 08:26 Tiotropium [place] (Spiriva Inhaler) 1 puff DAILY INH 05/25/17 14:00 06/24/17 13:59 05/27/17 08:03 Tramadol HCl (Ultram) 50 mg Q6H PRN ORAL Breakthrough Pain 05/24/17 00:15 05/31/17 00:14 05/26/17 08:38 YNES BREWSTER May 27, 2017 14:27
--- NOTE | 2017-05-27 21:18 | General Progress Note ---
Assessment/Plan Assessment/Plan Alcohol dependence. anxiety d/o. depression -prozac 20mg qam -ativan for alcohol w/d Subjective Neurologic/Psychiatric: Reports: anxiety, depressed, emotional problems Allergies: Coded Allergies: ADHESIVE (Unverified Allergy, Severe, 08/16/13) ADHESIVE TAPE (Verified Allergy, Unknown, SURGICAL TAPE - RASH, 07/28/11) ALBUTEROL (Verified Adverse Reaction, Unknown, ANXIETY, 07/28/11) Uncoded Allergies: METAL (?) (Allergy, Unknown, RASH, 07/28/11) metal (Allergy, Unknown, 03/30/15) All Systems: reviewed and negative except above Subjective spoke about her excessive drinking and smoking Objective Last 24 Hour Vital Signs Date Time Temp Pulse Resp B/P Pulse Ox O2 Delivery O2 Flow Rate FiO2 05/27/17 20:13 96 Nasal Cannula 2.0 05/27/17 20:13 94 18 Nasal Cannula 2.0 05/27/17 20:13 Nasal Cannula 2.0 05/27/17 20:13 94 18 Nasal Cannula 2.0 05/27/17 20:00 97.9 92 20 104/59 97 Nasal Cannula 2.0 05/27/17 16:00 97.3 94 20 100/95 95 Room Air 05/27/17 13:48 106 20 Nasal Cannula 2.0 05/27/17 13:37 100 20 Nasal Cannula 2.0 05/27/17 12:00 97.3 100 20 107/72 95 Nasal Cannula 2.0 05/27/17 08:27 97/63 05/27/17 08:00 97.5 100 20 98/57 94 Nasal Cannula 3.0 05/27/17 07:46 116 20 98 Nasal Cannula 2.0 05/27/17 07:46 Nasal Cannula 2.0 05/27/17 07:36 114 23 94 Nasal Cannula 2.0 05/27/17 07:35 94 Nasal Cannula 2.0 05/27/17 05:37 105 18 98 Nasal Cannula 2.0 05/27/17 05:27 106 20 95 Nasal Cannula 2.0 05/27/17 04:30 102/71 05/27/17 04:00 97.5 96 20 91/67 Room Air 05/27/17 00:00 97.7 97 20 107/69 94 Nasal Cannula 2.0 Intake and Output 05/26/17 05/27/17 19:00 07:00 Intake Total 600 ml 552.5 ml Balance 600 ml 552.5 ml Intake Oral 600 ml 360 ml IV Total 192.5 ml # Voids 2 2 Height (Feet): 5 Height (Inches): 5.00 Weight (Pounds): 119 General Appearance: no apparent distress, alert, thin Neurologic: alert, oriented x 3, responsive, depressed affect Juvenal Alvarado M.D. May 27, 2017 21:18
[2017-05-27] MEDS: Miralax 17gm pkt ORAL SCH (21:50)
[2017-05-28] VITALS: BP 104/63
[2017-05-28] MEDS: Zosyn 3.375gm q8h **Extended infusion IVPB SCH ×6 (03:10→21:39)
[2017-05-28 04:00] VITALS: BP 109/77
[2017-05-28 07:03] LABS: BASOPHILS % (AUTO) 0.7 % (0.0-2.0); EOSINOPHILS % (AUTO) 1.4 % (0.0-3.0); LYMPHOCYTES % (AUTO) 45.5 % (20.0-45.0); MEAN CORPUSCULAR HEMOGLOBIN 36.9 PG (27.0-31.0); MEAN CORPUSCULAR HGB CONC 33.7 G/DL (32.0-36.0); MEAN CORPUSCULAR VOLUME 109 FL (80-99); MEAN PLATELET VOLUME 7.3 FL (6.5-10.1); MONOCYTES % (AUTO) 7.9 % (1.0-10.0); NEUTROPHILS % (AUTO) 44.5 % (45.0-75.0); PLATELET COUNT 151 K/UL (150-450); RED BLOOD COUNT 3.25 M/UL (4.20-5.40); WHITE BLOOD COUNT 6.4 K/UL (4.8-10.8)
[2017-05-28] MEDS: Levalbuterol Inh UD 1.25mg/0.5ml HHN SCH ×3 (07:34→19:07)
[2017-05-28 08:28] LABS: ALANINE AMINOTRANSFERASE 19 U/L (3-33); ALBUMIN/GLOBULIN RATIO 2.3 (1.0-2.7); ANION GAP 9 (5-15); ASPARTATE AMINO TRANSFERASE 48 U/L (5-40); CALCIUM 9.1 mg/dL (8.6-10.2); CARBON DIOXIDE 33 mEQ/L (20-30); CHLORIDE 94 mEQ/L (98-107); CREATININE 0.6 mg/dL (0.5-0.9); GLOMERULAR FILTRATION RATE > 60 mL/min (>60); HEMOLYSIS 10; POTASSIUM 3.2 mEQ/L (3.4-4.9); SODIUM 136 mEQ/L (135-145); TOTAL PROTEIN 5.4 g/dL (6.6-8.7)
[2017-05-28] MEDS: Fleet's Mineral Oil Enema RECTAL SCH ×2 (09:00→09:35)
[2017-05-28] MEDS: Solu-MEDROL 125mg Inj IV SCH (09:25)
[2017-05-28] MEDS: Sucralfate 1gm tab ORAL SCH ×4 (09:25→21:00)
[2017-05-28] MEDS: Docusate 100mg cap ORAL SCH ×3 (09:26→17:59)
[2017-05-28] MEDS: Theophylline ER 100mg ORAL SCH ×2 (09:26→21:39)
[2017-05-28] MEDS: Heparin 5000 units/ml inj SUBQ SCH ×2 (09:30→21:45)
[2017-05-28] MEDS: Lisinopril 20mg tab ORAL SCH (09:30)
--- NOTE | 2017-05-28 09:46 | Infectious Diseases Prog Note ---
Assessment/Plan Assessment/Plan ASSESSMENT: 71 y/o female with: // CONS bacteremia 1/, c/w contaminant // Afebrile without leukocytosis ( on steroids ) // COPD exacerbation // Chronic hypoxemic respiratory failure, home O2-dependent // Constipation // HTN // Tobacco abuse // No ABX allergies // Full Code PLAN: - limit zosyn after today d# 5 / 5, monitor pt off of ABX - taper steroids per pulm - f/u cultures - monitor CBC, temperatures - monitor CXR Subjective Allergies: Coded Allergies: ADHESIVE (Unverified Allergy, Severe, 08/16/13) ADHESIVE TAPE (Verified Allergy, Unknown, SURGICAL TAPE - RASH, 07/28/11) ALBUTEROL (Verified Adverse Reaction, Unknown, ANXIETY, 07/28/11) Uncoded Allergies: METAL (?) (Allergy, Unknown, RASH, 07/28/11) metal (Allergy, Unknown, 03/30/15) Subjective remains afebrile. no new complaint Objective Vital Signs Last 24 Hour Vital Signs Date Time Temp Pulse Resp B/P Pulse Ox O2 Delivery O2 Flow Rate FiO2 05/28/17 07:40 96 18 Nasal Cannula 2.0 05/28/17 07:35 97 Nasal Cannula 2.0 05/28/17 07:35 Nasal Cannula 2.0 05/28/17 07:35 95 16 Nasal Cannula 2.0 05/28/17 04:00 97.2 93 20 109/77 95 Nasal Cannula 2.0 05/28/17 00:00 97.5 92 20 104/63 96 Room Air 05/27/17 20:13 96 Nasal Cannula 2.0 05/27/17 20:13 94 18 Nasal Cannula 2.0 05/27/17 20:13 Nasal Cannula 2.0 05/27/17 20:13 94 18 Nasal Cannula 2.0 05/27/17 20:00 97.9 92 20 104/59 97 Nasal Cannula 2.0 05/27/17 16:00 97.3 94 20 100/95 95 Room Air 05/27/17 13:48 106 20 Nasal Cannula 2.0 05/27/17 13:37 100 20 Nasal Cannula 2.0 05/27/17 12:00 97.3 100 20 107/72 95 Nasal Cannula 2.0 Height (Feet): 5 Height (Inches): 5.00 Weight (Pounds): 119 General Appearance: no acute distress Respiratory/Chest: no respiratory distress Cardiovascular: normal rate, regular rhythm Abdomen: normal bowel sounds, soft, non tender, non distended Laboratory Tests Test 05/28/17 06:10 White Blood Count 6.4 K/UL (4.8-10.8) Red Blood Count 3.25 M/UL (4.20-5.40) L Hemoglobin 12.0 G/DL (12.0-16.0) Hematocrit 35.5 % (37.0-47.0) L Mean Corpuscular Volume 109 FL (80-99) H Mean Corpuscular Hemoglobin 36.9 PG (27.0-31.0) H Mean Corpuscular Hemoglobin Concent 33.7 G/DL (32.0-36.0) Red Cell Distribution Width 13.0 % (11.6-14.8) Platelet Count 151 K/UL (150-450) Mean Platelet Volume 7.3 FL (6.5-10.1) Neutrophils (%) (Auto) 44.5 % (45.0-75.0) L Lymphocytes (%) (Auto) 45.5 % (20.0-45.0) H Monocytes (%) (Auto) 7.9 % (1.0-10.0) Eosinophils (%) (Auto) 1.4 % (0.0-3.0) Basophils (%) (Auto) 0.7 % (0.0-2.0) Sodium Level 136 mEQ/L (135-145) Potassium Level 3.2 mEQ/L (3.4-4.9) L Chloride Level 94 mEQ/L (98-107) L Carbon Dioxide Level 33 mEQ/L (20-30) H Anion Gap 9 (5-15) Blood Urea Nitrogen 10 mg/dL (7-23) Creatinine 0.6 mg/dL (0.5-0.9) Estimat Glomerular Filtration Rate > 60 mL/min (>60) Glucose Level 82 mg/dL (74-106) Calcium Level 9.1 mg/dL (8.6-10.2) Total Bilirubin 0.4 mg/dL (0.0-1.2) Aspartate Amino Transf (AST/SGOT) 48 U/L (5-40) H Alanine Aminotransferase (ALT/SGPT) 19 U/L (3-33) Alkaline Phosphatase 52 U/L (35-104) Pro-B-Type Natriuretic Peptide 545 pg/mL (0-125) H Total Protein 5.4 g/dL (6.6-8.7) L Albumin 3.8 g/dL (3.5-5.2) Globulin 1.6 g/dL Albumin/Globulin Ratio 2.3 (1.0-2.7) Current Medications Medications (Trade) Dose Ordered Sig/Nahum Route PRN Reason Start Time Stop Time Status Last Admin Dose Admin Al Hydroxide/Mg Hydroxide (Mylanta) 30 ml Q8H PRN ORAL Dyspepsia/Upset stomach 05/25/17 19:45 06/24/17 19:44 Albuterol/ Ipratropium (DuoNeb 0.5-3(2.5)mg/3ml) 3 ml Q4H PRN HHN dyspnea 05/24/17 00:15 05/29/17 00:14 05/27/17 05:27 Atorvastatin Calcium (Lipitor) 10 mg BEDTIME ORAL 05/24/17 21:00 06/23/17 20:59 05/27/17 21:50 Cetirizine HCl (ZyrTEC) 10 mg DAILY ORAL 05/25/17 13:00 06/24/17 12:59 05/27/17 08:26 Cetylpyridinium Chloride (Cepacol) 1 lozenge Q2H PRN DOMINGA sore throat 05/24/17 12:30 06/23/17 12:29 05/26/17 08:39 Dextrose STAT PRN IV Hypoglycemia 05/24/17 00:15 06/23/17 00:14 Docusate Sodium (Colace) 100 mg THREE TIMES A DAY ORAL 05/24/17 18:00 06/23/17 17:59 05/27/17 17:14 Fluoxetine HCl (PROzac) 20 mg DAILY ORAL 05/25/17 16:00 06/24/17 15:59 05/26/17 08:39 Heparin Sodium (Porcine) (Heparin 5000 units/ml) 5,000 units EVERY 12 HOURS SUBQ 05/24/17 09:00 06/23/17 08:59 05/27/17 21:58 Levalbuterol HCl (Xopenex) 1.25 mg TIDRT HHN 05/25/17 13:00 05/30/17 12:59 05/28/17 07:34 Lisinopril (Prinivil) 20 mg DAILY ORAL 05/24/17 09:00 06/23/17 08:59 Lorazepam (Ativan 2mg/ml 1ml) 0.5 mg Q4H PRN IV For Anxiety 05/24/17 08:15 05/31/17 08:14 05/27/17 01:53 Lorazepam (Ativan) 0.5 mg TIDPRN PRN ORAL For Anxiety 05/24/17 07:00 05/31/17 06:59 05/24/17 18:20 Methylprednisolone Sodium Succinate (Solu-MEDROL) 60 mg DAILY IV 05/27/17 09:00 06/26/17 08:59 05/27/17 10:12 Mineral Oil (Fleet's Mineral Oil Enema) 133 ml EVERY OTHER DAY RECTAL 05/26/17 09:00 06/25/17 08:59 Morphine Sulfate (Morphine Sulfate) 2 mg Q4H PRN IVP severe pain 7-05/24/17 00:15 05/31/17 00:14 Nicotine (Nicoderm) 1 patch DAILY@0800 TDERMAL 05/24/17 08:15 06/23/17 08:14 05/27/17 08:26 Nitroglycerin (Ntg) 0.4 mg Q5M X 3 DOSES PRN SL Prn Chest Pain 05/24/17 00:15 06/23/17 00:14 Ondansetron HCl (Zofran) 4 mg Q6H PRN IVP Nausea & Vomiting 05/24/17 00:15 06/23/17 00:14 Piperacillin Sod/ Tazobactam Sod/ Dextrose (Zosyn/D5W) 110 ml @ 27.5 mls/hr Q8H IVPB 05/24/17 04:00 05/31/17 03:59 05/28/17 03:10 Polyethylene Glycol (Miralax) 17 gm BEDTIME ORAL 05/24/17 21:00 06/23/17 20:59 05/27/17 21:50 Promethazine HCl/ Codeine (Phenergan with Codeine) 5 ml Q6H PRN ORAL cough 05/24/17 00:15 06/23/17 00:14 05/26/17 08:36 Sennosides (Senokot) 8.6 mg DAILY ORAL 05/25/17 09:00 06/24/17 08:59 05/27/17 08:26 Sucralfate (Carafate) 1 gm FOUR TIMES A DAY ORAL 05/24/17 09:00 06/23/17 08:59 05/27/17 21:50 Temazepam (Restoril) 15 mg HSPRN PRN ORAL Insomnia 05/24/17 00:15 05/31/17 00:14 Theophylline (Aman-Dur) 100 mg EVERY 12 HOURS ORAL 05/24/17 09:00 06/23/17 08:59 05/27/17 21:50 Tiotropium [place] (Spiriva Inhaler) 1 puff DAILY INH 05/25/17 14:00 06/24/17 13:59 05/27/17 08:03 Tramadol HCl (Ultram) 50 mg Q6H PRN ORAL Breakthrough Pain 05/24/17 00:15 05/31/17 00:14 05/26/17 08:38 BRIDGER WALLACE May 28, 2017 09:46
--- NOTE | 2017-05-28 11:02 | Diagnostic Imaging Report ---
Indication: DYSPNEA Technique: One view of the chest Comparison: 05/26/2017 Findings: Lungs and pleural spaces are clear. Heart size is normal. Surgical staple line is seen in the epigastric region Impression: No acute process. No significant interim change
[2017-05-28 12:00] VITALS: BP 106/61
[2017-05-28 16:00] VITALS: BP 98/58
[2017-05-28] MEDS: Lactulose 20gm/30ml UDC ORAL SCH (17:59)
[2017-05-28] MEDS ORDERED: Docusate 100mg cap ORAL SCH (18:00)
[2017-05-28] MEDS: LORazepam 0.5mg tab ORAL PRN (19:51)
--- NOTE | 2017-05-28 19:55 | General Progress Note ---
Assessment/Plan Status: stable, progressing Assessment/Plan Alcohol dependence. anxiety d/o. depression -prozac 20mg qam -ativan for alcohol w/d Subjective Neurologic/Psychiatric: Reports: anxiety, depressed, emotional problems Allergies: Coded Allergies: ADHESIVE (Unverified Allergy, Severe, 08/16/13) ADHESIVE TAPE (Verified Allergy, Unknown, SURGICAL TAPE - RASH, 07/28/11) ALBUTEROL (Verified Adverse Reaction, Unknown, ANXIETY, 07/28/11) Uncoded Allergies: METAL (?) (Allergy, Unknown, RASH, 07/28/11) metal (Allergy, Unknown, 03/30/15) Subjective the pt is doing well. less anxious. Objective Last 24 Hour Vital Signs Date Time Temp Pulse Resp B/P Pulse Ox O2 Delivery O2 Flow Rate FiO2 05/28/17 16:00 97.5 94 18 98/58 99 Nasal Cannula 05/28/17 13:46 91 18 Nasal Cannula 2.0 05/28/17 13:37 94 16 Nasal Cannula 2.0 05/28/17 12:00 97.7 90 14 106/61 96 Room Air 05/28/17 09:30 93/56 05/28/17 07:40 96 18 Nasal Cannula 2.0 05/28/17 07:35 97 Nasal Cannula 2.0 05/28/17 07:35 Nasal Cannula 2.0 05/28/17 07:35 95 16 Nasal Cannula 2.0 05/28/17 04:00 97.2 93 20 109/77 95 Nasal Cannula 2.0 05/28/17 00:00 97.5 92 20 104/63 96 Room Air 05/27/17 20:13 96 Nasal Cannula 2.0 05/27/17 20:13 94 18 Nasal Cannula 2.0 05/27/17 20:13 Nasal Cannula 2.0 05/27/17 20:13 94 18 Nasal Cannula 2.0 05/27/17 20:00 97.9 92 20 104/59 97 Nasal Cannula 2.0 Intake and Output 05/27/17 05/28/17 19:00 07:00 Intake Total 387.5 ml 525.0 ml Balance 387.5 ml 525.0 ml Intake Oral 360 ml 360 ml IV Total 27.5 ml 165.0 ml # Voids 2 Laboratory Tests 05/28/17 06:10: White Blood Count 6.4, Red Blood Count 3.25L, Hemoglobin 12.0, Hematocrit 35.5L , Mean Corpuscular Volume 109H, Mean Corpuscular Hemoglobin 36.9H, Mean Corpuscular Hemoglobin Concent 33.7, Red Cell Distribution Width 13.0, Platelet Count 151, Mean Platelet Volume 7.3, Neutrophils (%) (Auto) 44.5L, Lymphocytes ( %) (Auto) 45.5H, Monocytes (%) (Auto) 7.9, Eosinophils (%) (Auto) 1.4, Basophils (%) (Auto) 0.7, Sodium Level 136, Potassium Level 3.2L, Chloride Level 94L, Carbon Dioxide Level 33H, Anion Gap 9, Blood Urea Nitrogen 10, Creatinine 0.6, Estimat Glomerular Filtration Rate > 60, Glucose Level 82, Calcium Level 9.1, Total Bilirubin 0.4, Aspartate Amino Transf (AST/SGOT) 48H, Alanine Aminotransferase (ALT/SGPT) 19, Alkaline Phosphatase 52, Pro-B-Type Natriuretic Peptide 545H, Total Protein 5.4L, Albumin 3.8, Globulin 1.6, Albumin /Globulin Ratio 2.3 Height (Feet): 5 Height (Inches): 5.00 Weight (Pounds): 119 General Appearance: no apparent distress, alert, thin Neurologic: alert, oriented x 3, responsive, depressed affect Juvenal Alvarado M.D. May 28, 2017 19:55
[2017-05-28 20:00] VITALS: BP 108/62
[2017-05-28] MEDS: Miralax 17gm pkt ORAL SCH (21:00)
[2017-05-28] MEDS ORDERED: Miralax 17gm pkt ORAL SCH (21:00)
--- NOTE | 2017-05-28 21:52 | Pulmonology Progress Note ---
Assessment/Plan Problems: (1) Acute respiratory failure (2) COPD exacerbation (3) HTN (hypertension) (4) Constipation (5) Protein-calorie malnutrition, severe (6) Emphysema of lung (7) Nicotine addiction Assessment/Plan improving start laxatives check sputum joselito steroids symptomatic treatment abx by iD pt/ot dc planning Subjective ROS Limited/Unobtainable: No Interval Events: improvng, still constipated Allergies: Coded Allergies: ADHESIVE (Unverified Allergy, Severe, 08/16/13) ADHESIVE TAPE (Verified Allergy, Unknown, SURGICAL TAPE - RASH, 07/28/11) ALBUTEROL (Verified Adverse Reaction, Unknown, ANXIETY, 07/28/11) Uncoded Allergies: METAL (?) (Allergy, Unknown, RASH, 07/28/11) metal (Allergy, Unknown, 03/30/15) Objective Last 24 Hour Vital Signs Date Time Temp Pulse Resp B/P Pulse Ox O2 Delivery O2 Flow Rate FiO2 05/28/17 20:48 91 18 Nasal Cannula 2.0 05/28/17 20:48 92 16 Nasal Cannula 2.0 05/28/17 20:44 Nasal Cannula 2.0 05/28/17 20:44 95 Nasal Cannula 2.0 05/28/17 20:00 97.5 95 20 108/62 94 Nasal Cannula 05/28/17 16:00 97.5 94 18 98/58 99 Nasal Cannula 05/28/17 13:46 91 18 Nasal Cannula 2.0 05/28/17 13:37 94 16 Nasal Cannula 2.0 05/28/17 12:00 97.7 90 14 106/61 96 Room Air 05/28/17 09:30 93/56 05/28/17 07:40 96 18 Nasal Cannula 2.0 05/28/17 07:35 97 Nasal Cannula 2.0 05/28/17 07:35 Nasal Cannula 2.0 05/28/17 07:35 95 16 Nasal Cannula 2.0 05/28/17 04:00 97.2 93 20 109/77 95 Nasal Cannula 2.0 05/28/17 00:00 97.5 92 20 104/63 96 Room Air Intake and Output 05/27/17 05/28/17 19:00 07:00 Intake Total 387.5 ml 525.0 ml Balance 387.5 ml 525.0 ml Intake Oral 360 ml 360 ml IV Total 27.5 ml 165.0 ml # Voids 2 Objective General Appearance: cachetic HEENT: normocephalic, atraumatic Respiratory/Chest: chest wall non-tender, lungs clear Breasts: no masses Cardiovascular: normal peripheral pulses Abdomen: normal bowel sounds, soft, non tender Genitourinary: normal external genitalia Skin: no rash 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 normal Lymphatic: no neck adenopathy General Appearance: WD/WN HEENT: normocephalic, atraumatic Respiratory/Chest: chest wall non-tender, lungs clear, normal breath sounds Cardiovascular: normal peripheral pulses, normal rate Abdomen: normal bowel sounds, soft, non tender Genitourinary: normal external genitalia Extremities: no cyanosis Skin: no rash 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 normal, no motor/sensory deficits Laboratory Tests 05/28/17 06:10: White Blood Count 6.4, Red Blood Count 3.25L, Hemoglobin 12.0, Hematocrit 35.5L , Mean Corpuscular Volume 109H, Mean Corpuscular Hemoglobin 36.9H, Mean Corpuscular Hemoglobin Concent 33.7, Red Cell Distribution Width 13.0, Platelet Count 151, Mean Platelet Volume 7.3, Neutrophils (%) (Auto) 44.5L, Lymphocytes ( %) (Auto) 45.5H, Monocytes (%) (Auto) 7.9, Eosinophils (%) (Auto) 1.4, Basophils (%) (Auto) 0.7, Sodium Level 136, Potassium Level 3.2L, Chloride Level 94L, Carbon Dioxide Level 33H, Anion Gap 9, Blood Urea Nitrogen 10, Creatinine 0.6, Estimat Glomerular Filtration Rate > 60, Glucose Level 82, Calcium Level 9.1, Total Bilirubin 0.4, Aspartate Amino Transf (AST/SGOT) 48H, Alanine Aminotransferase (ALT/SGPT) 19, Alkaline Phosphatase 52, Pro-B-Type Natriuretic Peptide 545H, Total Protein 5.4L, Albumin 3.8, Globulin 1.6, Albumin /Globulin Ratio 2.3 Current Medications Medications (Trade) Dose Ordered Sig/Nahum Route PRN Reason Start Time Stop Time Status Last Admin Dose Admin Al Hydroxide/Mg Hydroxide (Mylanta) 30 ml Q8H PRN ORAL Dyspepsia/Upset stomach 05/25/17 19:45 06/24/17 19:44 Albuterol/ Ipratropium (DuoNeb 0.5-3(2.5)mg/3ml) 3 ml Q4H PRN HHN dyspnea 05/24/17 00:15 05/29/17 00:14 05/27/17 05:27 Atorvastatin Calcium (Lipitor) 10 mg BEDTIME ORAL 05/24/17 21:00 06/23/17 20:59 05/27/17 21:50 Cetirizine HCl (ZyrTEC) 10 mg DAILY ORAL 05/25/17 13:00 06/24/17 12:59 05/28/17 09:27 Cetylpyridinium Chloride (Cepacol) 1 lozenge Q2H PRN DOMINGA sore throat 05/24/17 12:30 06/23/17 12:29 05/26/17 08:39 Dextrose STAT PRN IV Hypoglycemia 05/24/17 00:15 06/23/17 00:14 Docusate Sodium (Colace) 100 mg THREE TIMES A DAY ORAL 05/24/17 18:00 06/23/17 17:59 05/28/17 17:59 Fluoxetine HCl (PROzac) 20 mg DAILY ORAL 05/25/17 16:00 06/24/17 15:59 05/26/17 08:39 Heparin Sodium (Porcine) (Heparin 5000 units/ml) 5,000 units EVERY 12 HOURS SUBQ 05/24/17 09:00 06/23/17 08:59 05/28/17 09:30 Lactulose (Cephulac) 30 gm THREE TIMES A DAY ORAL 05/28/17 18:00 06/27/17 17:59 05/28/17 17:59 Levalbuterol HCl (Xopenex) 1.25 mg TIDRT HHN 05/25/17 13:00 05/30/17 12:59 05/28/17 19:07 Lisinopril (Prinivil) 20 mg DAILY ORAL 05/24/17 09:00 06/23/17 08:59 Lorazepam (Ativan 2mg/ml 1ml) 0.5 mg Q4H PRN IV For Anxiety 05/24/17 08:15 05/31/17 08:14 05/27/17 01:53 Lorazepam (Ativan) 0.5 mg TIDPRN PRN ORAL For Anxiety 05/24/17 07:00 05/31/17 06:59 05/28/17 19:51 Methylprednisolone Sodium Succinate (Solu-MEDROL) 60 mg DAILY IV 05/27/17 09:00 06/26/17 08:59 05/28/17 09:25 Mineral Oil (Fleet's Mineral Oil Enema) 133 ml EVERY OTHER DAY RECTAL 05/26/17 09:00 06/25/17 08:59 Mineral Oil (Fleet's Mineral Oil Enema) 133 ml EVERY OTHER DAY RECTAL 05/30/17 09:00 06/29/17 08:59 Morphine Sulfate (Morphine Sulfate) 2 mg Q4H PRN IVP severe pain 05-0705/24/17 00:15 05/31/17 00:14 Nicotine (Nicoderm) 1 patch DAILY@0800 TDERMAL 05/24/17 08:15 06/23/17 08:14 05/28/17 09:27 Nitroglycerin (Ntg) 0.4 mg Q5M X 3 DOSES PRN SL Prn Chest Pain 05/24/17 00:15 06/23/17 00:14 Ondansetron HCl (Zofran) 4 mg Q6H PRN IVP Nausea & Vomiting 05/24/17 00:15 06/23/17 00:14 Piperacillin Sod/ Tazobactam Sod/ Dextrose (Zosyn/D5W) 110 ml @ 27.5 mls/hr Q8H IVPB 05/24/17 04:00 05/28/17 23:59 05/28/17 12:11 Polyethylene Glycol (Miralax) 17 gm BEDTIME ORAL 05/24/17 21:00 06/23/17 20:59 05/27/17 21:50 Promethazine HCl/ Codeine (Phenergan with Codeine) 5 ml Q6H PRN ORAL cough 05/24/17 00:15 06/23/17 00:14 05/26/17 08:36 Sennosides (Senokot) 8.6 mg DAILY ORAL 05/25/17 09:00 06/24/17 08:59 05/28/17 09:25 Sucralfate (Carafate) 1 gm FOUR TIMES A DAY ORAL 05/24/17 09:00 06/23/17 08:59 05/28/17 17:59 Temazepam (Restoril) 15 mg HSPRN PRN ORAL Insomnia 05/24/17 00:15 05/31/17 00:14 Theophylline (Aman-Dur) 100 mg EVERY 12 HOURS ORAL 05/24/17 09:00 06/23/17 08:59 05/28/17 09:26 Tiotropium P[place]ell (Spiriva Inhaler) 1 puff DAILY INH 05/25/17 14:00 06/24/17 13:59 05/28/17 10:08 Tramadol HCl (Ultram) 50 mg Q6H PRN ORAL Breakthrough Pain 05/24/17 00:15 05/31/17 00:14 05/26/17 08:38 YNES BREWSTER May 28, 2017 21:52
[2017-05-29] VITALS: BP 108/73
[2017-05-29 04:00] VITALS: BP 111/63
[2017-05-29 07:38] VITALS: BP 115/70
[2017-05-29] MEDS: Levalbuterol Inh UD 1.25mg/0.5ml HHN SCH ×2 (07:42→13:00)
[2017-05-29] MEDS: Solu-MEDROL 125mg Inj IV SCH (08:39)
[2017-05-29] MEDS: Theophylline ER 100mg ORAL SCH (08:39)
[2017-05-29] MEDS: Sucralfate 1gm tab ORAL SCH ×2 (08:39→13:00)
[2017-05-29] MEDS: Lactulose 20gm/30ml UDC ORAL SCH ×2 (08:39→13:00)
[2017-05-29] MEDS: Docusate 100mg cap ORAL SCH ×2 (08:39→13:00)
[2017-05-29] MEDS: Heparin 5000 units/ml inj SUBQ SCH (08:40)
[2017-05-29] MEDS: Lisinopril 20mg tab ORAL SCH (08:41)
[2017-05-29] MEDS: LORazepam 0.5mg tab ORAL PRN (10:20)
[2017-05-29 11:24] VITALS: BP 97/65
--- NOTE | 2017-05-29 14:30 | Infectious Diseases Prog Note ---
Assessment/Plan Assessment/Plan ASSESSMENT: 71 y/o female with: // CONS bacteremia 11/01 - another BCx now positive GPC clusters ( C&S pending ) // Afebrile without leukocytosis ( on steroids ) // COPD exacerbation // Chronic hypoxemic respiratory failure, home O2-dependent // Constipation // HTN // Tobacco abuse // No ABX allergies // Full Code PLAN: - monitor pt off of ABX for now ( 05/28 SP zosyn d# 5 / 5 ) - taper steroids per pulm - f/u final cultures - monitor CBC, temperatures - monitor CXR Subjective Allergies: Coded Allergies: ADHESIVE (Unverified Allergy, Severe, 08/16/13) ADHESIVE TAPE (Verified Allergy, Unknown, SURGICAL TAPE - RASH, 07/28/11) ALBUTEROL (Verified Adverse Reaction, Unknown, ANXIETY, 07/28/11) Uncoded Allergies: METAL (?) (Allergy, Unknown, RASH, 07/28/11) metal (Allergy, Unknown, 03/30/15) Subjective remains afebrile. no new complaint another BCx + Objective Vital Signs Last 24 Hour Vital Signs Date Time Temp Pulse Resp B/P Pulse Ox O2 Delivery O2 Flow Rate FiO2 05/29/17 13:00 Nasal Cannula 05/29/17 13:00 Nasal Cannula 05/29/17 11:24 98.2 87 20 97/65 95 Nasal Cannula 2.0 05/29/17 08:41 115/70 05/29/17 07:38 97.8 89 20 115/70 97 Nasal Cannula 2.0 05/29/17 07:30 102 18 Nasal Cannula 2.0 05/29/17 07:25 96 Nasal Cannula 2.0 05/29/17 07:25 Nasal Cannula 2.0 28 05/29/17 07:25 100 16 Nasal Cannula 2.0 05/29/17 04:00 97.7 81 20 111/63 94 Room Air 05/29/17 00:00 97.7 82 20 108/73 96 Room Air 05/28/17 20:48 91 18 Nasal Cannula 2.0 05/28/17 20:48 92 16 Nasal Cannula 2.0 05/28/17 20:44 Nasal Cannula 2.0 05/28/17 20:44 95 Nasal Cannula 2.0 05/28/17 20:00 97.5 95 20 108/62 94 Nasal Cannula 05/28/17 16:00 97.5 94 18 98/58 99 Nasal Cannula Height (Feet): 5 Height (Inches): 5.00 Weight (Pounds): 119 General Appearance: no acute distress Respiratory/Chest: no respiratory distress Cardiovascular: normal rate, regular rhythm Abdomen: normal bowel sounds, soft, non tender, non distended Current Medications Medications (Trade) Dose Ordered Sig/Nahum Route PRN Reason Start Time Stop Time Status Last Admin Dose Admin Al Hydroxide/Mg Hydroxide (Mylanta) 30 ml Q8H PRN ORAL Dyspepsia/Upset stomach 05/25/17 19:45 06/24/17 19:44 Atorvastatin Calcium (Lipitor) 10 mg BEDTIME ORAL 05/24/17 21:00 06/23/17 20:59 05/28/17 21:39 Cetirizine HCl (ZyrTEC) 10 mg DAILY ORAL 05/25/17 13:00 06/24/17 12:59 05/29/17 08:38 Cetylpyridinium Chloride (Cepacol) 1 lozenge Q2H PRN DOMINGA sore throat 05/24/17 12:30 06/23/17 12:29 05/26/17 08:39 Dextrose (Dextrose 50%) STAT PRN IV Hypoglycemia 05/24/17 00:15 06/23/17 00:14 Docusate Sodium (Colace) 100 mg THREE TIMES A DAY ORAL 05/24/17 18:00 06/23/17 17:59 05/29/17 08:39 Fluoxetine HCl (PROzac) 20 mg DAILY ORAL 05/25/17 16:00 06/24/17 15:59 05/26/17 08:39 Heparin Sodium (Porcine) (Heparin 5000 units/ml) 5,000 units EVERY 12 HOURS SUBQ 05/24/17 09:00 06/23/17 08:59 05/29/17 08:40 Lactulose (Cephulac) 30 gm THREE TIMES A DAY ORAL 05/28/17 18:00 06/27/17 17:59 05/29/17 08:39 Levalbuterol HCl (Xopenex) 1.25 mg TIDRT HHN 05/25/17 13:00 05/30/17 12:59 05/29/17 07:42 Lisinopril (Prinivil) 20 mg DAILY ORAL 05/24/17 09:00 06/23/17 08:59 Lorazepam (Ativan 2mg/ml 1ml) 0.5 mg Q4H PRN IV For Anxiety 05/24/17 08:15 05/31/17 08:14 05/27/17 01:53 Lorazepam (Ativan) 0.5 mg TIDPRN PRN ORAL For Anxiety 05/24/17 07:00 05/31/17 06:59 05/29/17 10:20 Methylprednisolone Sodium Succinate (Solu-MEDROL) 60 mg DAILY IV 05/27/17 09:00 06/26/17 08:59 05/29/17 08:39 Mineral Oil (Fleet's Mineral Oil Enema) 133 ml EVERY OTHER DAY RECTAL 05/26/17 09:00 06/25/17 08:59 Mineral Oil (Fleet's Mineral Oil Enema) 133 ml EVERY OTHER DAY RECTAL 05/30/17 09:00 06/29/17 08:59 Morphine Sulfate (Morphine Sulfate) 2 mg Q4H PRN IVP severe pain 7-05/24/17 00:15 05/31/17 00:14 Nicotine (Nicoderm) 1 patch DAILY@0800 TDERMAL 05/24/17 08:15 06/23/17 08:14 05/29/17 08:41 Nitroglycerin (Ntg) 0.4 mg Q5M X 3 DOSES PRN SL Prn Chest Pain 05/24/17 00:15 06/23/17 00:14 Ondansetron HCl (Zofran) 4 mg Q6H PRN IVP Nausea & Vomiting 05/24/17 00:15 06/23/17 00:14 Polyethylene Glycol (Miralax) 17 gm BEDTIME ORAL 05/24/17 21:00 06/23/17 20:59 05/27/17 21:50 Promethazine HCl/ Codeine (Phenergan with Codeine) 5 ml Q6H PRN ORAL cough 05/24/17 00:15 06/23/17 00:14 05/26/17 08:36 Sennosides (Senokot) 8.6 mg DAILY ORAL 05/25/17 09:00 06/24/17 08:59 05/29/17 08:39 Sucralfate (Carafate) 1 gm FOUR TIMES A DAY ORAL 05/24/17 09:00 06/23/17 08:59 05/29/17 08:39 Temazepam (Restoril) 15 mg HSPRN PRN ORAL Insomnia 05/24/17 00:15 05/31/17 00:14 Theophylline (Aman-Dur) 100 mg EVERY 12 HOURS ORAL 05/24/17 09:00 06/23/17 08:59 05/29/17 08:39 Tiotropium [place] (Spiriva Inhaler) 1 puff DAILY INH 05/25/17 14:00 06/24/17 13:59 05/29/17 09:22 Tramadol HCl (Ultram) 50 mg Q6H PRN ORAL Breakthrough Pain 05/24/17 00:15 05/31/17 00:14 05/26/17 08:38 BRIDGER WALLACE May 29, 2017 14:30
[2017-05-29 14:40] VITALS: BP 105/68
--- NOTE | 2017-05-29 15:45 | General Progress Note ---
Assessment/Plan Assessment/Plan Alcohol dependence. anxiety d/o. depression -prozac 20mg qam -ativan for alcohol w/d Subjective Allergies: Coded Allergies: ADHESIVE (Unverified Allergy, Severe, 08/16/13) ADHESIVE TAPE (Verified Allergy, Unknown, SURGICAL TAPE - RASH, 07/28/11) ALBUTEROL (Verified Adverse Reaction, Unknown, ANXIETY, 07/28/11) Uncoded Allergies: METAL (?) (Allergy, Unknown, RASH, 07/28/11) metal (Allergy, Unknown, 03/30/15) Subjective the pt is doing well. less anxious. does not want to take prozac. advised her not to mix ativan with alcohol didnt give ativan script Objective Last 24 Hour Vital Signs Date Time Temp Pulse Resp B/P Pulse Ox O2 Delivery O2 Flow Rate FiO2 05/29/17 14:40 98.0 82 20 105/68 95 Nasal Cannula 2.0 05/29/17 13:00 Nasal Cannula 05/29/17 13:00 Nasal Cannula 05/29/17 11:24 98.2 87 20 97/65 95 Nasal Cannula 2.0 05/29/17 08:41 115/70 05/29/17 07:38 97.8 89 20 115/70 97 Nasal Cannula 2.0 05/29/17 07:30 102 18 Nasal Cannula 2.0 28 05/29/17 07:25 96 Nasal Cannula 2.0 28 05/29/17 07:25 Nasal Cannula 2.0 28 05/29/17 07:25 100 16 Nasal Cannula 2.0 28 05/29/17 04:00 97.7 81 20 111/63 94 Room Air 05/29/17 00:00 97.7 82 20 108/73 96 Room Air 05/28/17 20:48 91 18 Nasal Cannula 2.0 28 05/28/17 20:48 92 16 Nasal Cannula 2.0 05/28/17 20:44 Nasal Cannula 2.0 28 05/28/17 20:44 95 Nasal Cannula 2.0 28 05/28/17 20:00 97.5 95 20 108/62 94 Nasal Cannula 05/28/17 16:00 97.5 94 18 98/58 99 Nasal Cannula Intake and Output 05/28/17 05/29/17 19:00 07:00 Intake Total 110.0 ml 350.0 ml Balance 110.0 ml 350.0 ml Intake Oral 240 ml IV Total 110.0 ml 110.0 ml # Voids 3 3 # Bowel Movements 1 Height (Feet): 5 Height (Inches): 5.00 Weight (Pounds): 119 Juvenal Alvarado M.D. May 29, 2017 15:44
--- NOTE | 2017-05-29 15:58 | Pulmonology Progress Note ---
Assessment/Plan Problems: (1) Acute respiratory failure (2) COPD exacerbation (3) HTN (hypertension) (4) Constipation (5) Protein-calorie malnutrition, severe (6) Emphysema of lung (7) Nicotine addiction Assessment/Plan improving start laxatives check sputum joselito steroids fast symptomatic treatment dc planning for today Subjective ROS Limited/Unobtainable: No Interval Events: was seen ealier today, ready to be discharged Allergies: Coded Allergies: ADHESIVE (Unverified Allergy, Severe, 08/16/13) ADHESIVE TAPE (Verified Allergy, Unknown, SURGICAL TAPE - RASH, 07/28/11) ALBUTEROL (Verified Adverse Reaction, Unknown, ANXIETY, 07/28/11) Uncoded Allergies: METAL (?) (Allergy, Unknown, RASH, 07/28/11) metal (Allergy, Unknown, 03/30/15) Objective Last 24 Hour Vital Signs Date Time Temp Pulse Resp B/P Pulse Ox O2 Delivery O2 Flow Rate FiO2 05/29/17 14:40 98.0 82 20 105/68 95 Nasal Cannula 2.0 05/29/17 13:00 Nasal Cannula 05/29/17 13:00 Nasal Cannula 05/29/17 11:24 98.2 87 20 97/65 95 Nasal Cannula 2.0 05/29/17 08:41 115/70 05/29/17 07:38 97.8 89 20 115/70 97 Nasal Cannula 2.0 05/29/17 07:30 102 18 Nasal Cannula 2.0 05/29/17 07:25 96 Nasal Cannula 2.0 28 05/29/17 07:25 Nasal Cannula 2.0 28 05/29/17 07:25 100 16 Nasal Cannula 2.0 05/29/17 04:00 97.7 81 20 111/63 94 Room Air 05/29/17 00:00 97.7 82 20 108/73 96 Room Air 05/28/17 20:48 91 18 Nasal Cannula 2.0 05/28/17 20:48 92 16 Nasal Cannula 2.0 05/28/17 20:44 Nasal Cannula 2.0 05/28/17 20:44 95 Nasal Cannula 2.0 28 05/28/17 20:00 97.5 95 20 108/62 94 Nasal Cannula 05/28/17 16:00 97.5 94 18 98/58 99 Nasal Cannula Intake and Output 05/28/17 05/29/17 19:00 07:00 Intake Total 110.0 ml 350.0 ml Balance 110.0 ml 350.0 ml Intake Oral 240 ml IV Total 110.0 ml 110.0 ml # Voids 3 3 # Bowel Movements 1 Objective General Appearance: cachetic HEENT: normocephalic, atraumatic Respiratory/Chest: chest wall non-tender, lungs clear Breasts: no masses Cardiovascular: normal peripheral pulses Abdomen: normal bowel sounds, soft, non tender Genitourinary: normal external genitalia Skin: no rash Neurologic/Psychiatric: concrete sculptor II-XII grossly normal Lymphatic: no neck adenopathy YNES BREWSTER May 29, 2017 15:58
[2017-05-30] MEDS ORDERED: Fleet's Mineral Oil Enema RECTAL SCH (09:00)
--- NOTE | 2017-05-31 15:56 | Discharge Summary ---
Discharge Summary Hospital Course Date of Admission May 23, 2017 at 21:01 Date of Discharge May 29, 2017 at 14:40 Admitting Diagnosis copd exacerbation HPI Miguelina Mills is a 71 year old female who was admitted on May 23, 2017 at 21: 01 for Chronic Obstructive Pulmonary Disease Exacerbation Hospital Course [id number] Discharge Discharge Disposition Patient was discharged to Home (01) Discharge Diagnoses: Eufemia Daily NP May 31, 2017 15:56
--- NOTE | 2017-06-01 04:00 | Discharge Summary 2 SIG ---
DATE OF ADMISSION: 05/23/2017 DATE OF DISCHARGE: 05/29/2017 CONSULTANTS: 1. Juvenal Alvarado M.D. 2. Gordon Waller M.D. BRIEF HOSPITAL COURSE: The patient is a 71-year-old female with history of end-stage chronic obstructive pulmonary disease, hypertension, and smoker, who presented to the hospital with a chief complaint of abdominal pain, shortness of breath, and constipation for 10 days with chest tightness and productive cough. She has a known chronic obstructive pulmonary disease and has been on 3 liters nasal cannula at home. On evaluation at ED, there was no leukocytosis. Chest x-ray showed no evidence of acute disease. She was given nebulizer treatments and was admitted to Med/Surg for acute chronic obstructive pulmonary disease exacerbation. She was started on IV Zosyn and steroids. Blood culture showed coagulase-negative Staph 1/4. She was also seen by Dr. Alvarado, as the patient presented with anxiety and depressive symptoms and with history of alcohol dependency. She was started on fluoxetine 20 mg and was given Ativan for alcohol withdrawal symptoms. She was advised not to mix Ativan with alcohol. The patient had been refusing to take Prozac. Steroids were tapered. She was given laxatives for constipation. She was eventually discharged home, follow-up with PMD. FINAL DIAGNOSES: 1. Acute chronic obstructive pulmonary disease in exacerbation. 2. Hypertension. 3. Constipation. 4. Severe protein-calorie malnutrition. 5. Emphysema of the lung. 6. Nicotine addiction. 7. Alcohol dependency. 8. Major depressive disorder. 9. Anxiety disorder. 10. Coagulase-negative Staph bacteremia. Robbie Bianchi M.D. I have been assigned to dictate discharge summary on this account and I was not involved in the patient's management. Eufemia Daily N.P. DR: SYBIL JOB#: [id number] CC: ZARIA
== END 2017-05-29 14:40 | disposition home or self-care (01) | DRG 190 ==
LOC: EDBD 20:10 → EMR 20:32 → EDBEDREQ 20:56 → 2E 21:01 → EDBEDREQ 21:31 → 2E 22:33 → 4E 05-24 23:12
DX: J44.1 Chronic obstructive pulmonary disease with (acute) exacerbation (principal); E43 Unspecified severe protein-calorie malnutrition; J96.21 Acute and chronic respiratory failure with hypoxia; I48.91 Unspecified atrial fibrillation; B95.7 Other staphylococcus as the cause of diseases classified elsewhere; J96.11 Chronic respiratory failure with hypoxia; Z68.1 Body mass index [BMI] 19.9 or less, adult; K59.00 Constipation, unspecified; I10 Essential (primary) hypertension; F17.200 Nicotine dependence, unspecified, uncomplicated; Z88.8 Allergy status to other drugs, medicaments and biological substances; F32.9 Major depressive disorder, single episode, unspecified; F41.9 Anxiety disorder, unspecified; F10.20 Alcohol dependence, uncomplicated
CPT/HCPCS: 36415; 71010; 80053; 82550; 82553; 83880; 84484; 85007; 85025; 87040; 87181; 93005; 94640; 94664; 94760; J7620; J8499

== ENCOUNTER 2017-08-19 08:58 | Inpatient (IN) | payer MEDICARE, MEDICAID ==
[~2017-08-19] VITALS: Ht 165.1 cm; Wt 49.0 kg
[~2017-08-19 08:58] MED LIST changes: +CLARITIN10 M2 ORAL
[2017-08-19 12:00] VITALS: BP 89/63
[2017-08-19] MEDS ORDERED: LORazepam Inj 2mg/ml 1ml IV PRN (12:00)
[2017-08-19] MEDS ORDERED: Zolpidem 5mg tab ORAL PRN (12:00)
[2017-08-19] MEDS ORDERED: Mylanta II UD 30ml ORAL PRN (12:00)
[2017-08-19] MEDS ORDERED: chlordiazePOXIDE 25mg Cap ORAL PRN (12:00)
[2017-08-19] MEDS ORDERED: Miralax 17gm pkt ORAL PRN (12:00)
--- NOTE | 2017-08-19 14:42 | Neurology Progress Note ---
Impression/Recommendations Problems: (1) ETOH abuse (2) pending DT (3) Nicotine addiction (4) Protein-calorie malnutrition, severe (5) COPD exacerbation Status: unchanged Recommendations @ [id number] YASMANI AMBROCIO Aug 19, 2017 14:42
[2017-08-19] MEDS ORDERED: Lisinopril 20mg tab ORAL PRN (15:30)
[2017-08-19 16:00] VITALS: BP 85/57
[2017-08-19] MEDS ORDERED: Folic Acid 1 MG, Magnesium Sulfate 2,000 MG, Multivitamin - 12 Injection 10 ML in NS w/... IV SCH (17:00)
[2017-08-19] MEDS: Thiamine 100mg in D5W 55ml IVPB SCH (17:17)
[2017-08-19] MEDS ORDERED: Sucralfate 1gm tab GT SCH (18:00)
--- NOTE | 2017-08-19 18:26 | History and Physical ---
History of Present Illness General Date patient seen: Aug 19, 2017 Reason for Hospitalization: delirium Present Illness HPI 71 year old female with hx of end-stage COPD, on home oxygen, cachectic was taken by paramedics because of pending Delirium. She drinks daily and wanted to stop drinking, but then she got anxious that she might get chills, and tremors. she was evaluated at [facility] and was found that she has bronchitis as well. she is transferred to [facility] for further evaluation. Allergies: Coded Allergies: ADHESIVE (Unverified Allergy, Severe, 08/16/13) ADHESIVE TAPE (Verified Allergy, Unknown, SURGICAL TAPE - RASH, 07/28/11) ALBUTEROL (Verified Adverse Reaction, Unknown, ANXIETY, 07/28/11) Uncoded Allergies: METAL (?) (Allergy, Unknown, RASH, 07/28/11) metal (Allergy, Unknown, 03/30/15) Medication History Scheduled Alendronate Sodium* (Fosamax*), 70 MG ORAL QWEEK Atorvastatin Calcium* (Lipitor*), 10 MG ORAL BEDTIME Atorvastatin Calcium* (Lipitor*), 10 MG ORAL BEDTIME, (Reported) Docusate Sodium* (Colace*), 100 MG ORAL TWICE A DAY, (Reported) Ergocalciferol (Vitamin D2)* (Vitamin D*), 50,000 UNIT GT ONCE A WEEK, (Reported ) Ertapenem Sodium* (INVanz*), 1 GM IVPB Q24H Fluticasone/Salmeterol (Advair 500-50 Diskus), 1 PUFF INH Q12H, (Reported) Fluticasone/Salmeterol (Advair 250-50 Diskus), 1 PUFF INH EVERY 12 HOURS, ( Reported) Folic Acid* (Folic Acid*), 1 MG ORAL DAILY, (Reported) Heparin Sodium,Porcine/Pf (Heparin Sod 5,000 Unit/0.5 ml), 5,000 UNIT SQ BID, ( Reported) Levalbuterol HCl (Xopenex Concentrate), 1.25 MG HHN TIDRT Levalbuterol Hcl (Xopenex*), 1.25 MG HHN Q4H, (Reported) Lisinopril* (Zestril*), 20 MG ORAL DAILY, (Reported) Loratadine (Claritin), 10 MG ORAL DAILY, (Reported) Multivitamin With Minerals (Multivitamins With Minerals*), 1 EACH PO DAILY, ( Reported) Pantoprazole* (Protonix*), 40 MG ORAL Q12HR, (Reported) Sucralfate* (Carafate*), 1 GM GT FOUR TIMES A DAY, (Reported) Tiotropium [place]* (Spiriva*), 1 PUFF INH DAILY, (Reported) Scheduled PRN Acetaminophen* (Acetaminophen 325MG Tablet*), 650 MG ORAL Q4H PRN for fever Codeine/Promethazine Hcl* (Promethazine-Codeine Syrup*), 5 ML ORAL EVERY 6 HOURS PRN for cough Linaclotide (Linzess), 145 MCG PO for Constipation, (Reported) Lorazepam* (Ativan*), 0.5 MG ORAL THREE TIMES A DAY PRN for For Anxiety, ( Reported) Tramadol Hcl* (Ultram*), 50 MG GT Q6H PRN for For Pain, (Reported) Patient History Healthcare decision maker Resuscitation status Full Code Advanced Directive on File Past Medical/Surgical History Past Medical/Surgical History: (1) EtOH dependence (2) Emphysema of lung (3) Status post tracheostomy (4) Nicotine addiction (5) Depression Review of Systems Constitutional: Reports: malaise, weakness Eye: Reports: no symptoms ENT: Reports: no symptoms Respiratory: Reports: shortness of breath, sputum Cardiovascular: Reports: no symptoms Gastrointestinal: Reports: no symptoms Genitourinary: Reports: no symptoms Musculoskeletal: Reports: no symptoms Neurological: Reports: no symptoms Physical Exam Lines, tubes and drains: peripheral HEENT: normocephalic, anicteric Neck: non-tender, normal alignment Respiratory/Chest: chest wall non-tender, normal breath sounds, no respiratory distress Cardiovascular/Chest: normal peripheral pulses, normal rate Abdomen: normal bowel sounds Genitourinary/Rectal: normal genital exam, heme negative stool Extremities: normal range of motion Neurologic: superintendent commissary II-XII grossly normal Lymphatic: anterior cervical Last 24 Hour Vital Signs Date Time Temp Pulse Resp B/P (MAP) Pulse Ox O2 Delivery O2 Flow Rate FiO2 08/19/17 16:00 97.2 96 20 85/57 96 Nasal Cannula 2.0 08/19/17 12:00 96.4 98 20 89/63 96 Room Air Intake and Output 08/19/17 08/20/17 19:00 07:00 Intake Total 200 ml Balance 200 ml Intake Oral 200 ml Height (Feet): 5 Height (Inches): 5.00 Weight (Pounds): 108 Medications Current Medications Medications (Trade) Dose Ordered Sig/Nahum Route PRN Reason Start Time Stop Time Status Last Admin Dose Admin Acetaminophen (Tylenol) 650 mg Q4H PRN ORAL fever 08/19/17 12:00 09/18/17 11:59 Al Hydroxide/Mg Hydroxide (Mylanta II) 30 ml Q6H PRN ORAL dyspepsia 08/19/17 12:00 09/18/17 11:59 Chlordiazepoxide (Librium) 25 mg Q6H PRN ORAL Agitation 08/19/17 12:00 08/26/17 11:59 Dextrose (Dextrose 50%) STAT PRN IV Hypoglycemia 08/19/17 12:00 09/18/17 11:59 Folic Acid 1 mg/ Magnesium Sulfate 2000 mg/ Multivitamins 10 ml/Sodium Chloride 1,014.2 ml @ 124.876 mls/hr Q24H IV 08/19/17 17:00 09/18/17 16:59 08/19/17 17:16 Heparin Sodium (Porcine) (Heparin 5000 units/ml) 5,000 units EVERY 12 HOURS SUBQ 08/19/17 21:00 09/18/17 20:59 Lisinopril (Prinivil) 20 mg DAILYPRN PRN ORAL SBP > 150 08/19/17 15:30 09/18/17 15:29 Lorazepam (Ativan 2mg/ml 1ml) 0.5 mg Q1H PRN IV seizures 08/19/17 14:45 08/26/17 14:44 Morphine Sulfate (Morphine Sulfate) 1 mg Q4H PRN IVP For Pain 4-10 08/19/17 12:00 08/26/17 11:59 Ondansetron HCl (Zofran) 4 mg Q6H PRN IVP Nausea & Vomiting 08/19/17 12:00 09/18/17 11:59 Pantoprazole (Protonix) 40 mg Q12HR ORAL 08/19/17 21:00 09/18/17 20:59 Polyethylene Glycol (Miralax) 17 gm HSPRN PRN ORAL Constipation 08/19/17 12:00 11/21/17 11:59 Sucralfate (Carafate) 1 gm FOUR TIMES A DAY GT 08/19/17 18:00 09/18/17 17:59 08/19/17 17:17 Thiamine HCl 100 mg/Dextrose 56 ml @ 112 mls/hr Q24H IVPB 08/19/17 17:00 09/18/17 16:59 08/19/17 17:17 Zolpidem Tartrate (Ambien) 5 mg HSPRN PRN ORAL Insomnia 08/19/17 12:00 08/26/17 11:59 Assessment/Plan Problem List: (1) COPD exacerbation ICD Codes: J44.1 - Obstructive chronic bronchitis with exacerbation SNOMED: 878293259 (2) Anemia ICD Codes: D64.9 - Anemia SNOMED: 052003082 (3) pending DT (4) ETOH abuse ICD Codes: F10.10 - Alcohol abuse, uncomplicated SNOMED: 87303666 (5) Generalized weakness ICD Codes: R53.1 - Weakness SNOMED: 46777081 (6) Protein-calorie malnutrition, severe ICD Codes: E43 - Unspecified severe protein-calorie malnutrition SNOMED: 106314127 Assessment/Plan respiratory treatment [facility] bag neuro and psych evaluation YNES BREWSTER Aug 19, 2017 18:26
[2017-08-19 20:00] VITALS: BP 90/53
[2017-08-19] MEDS: Heparin 5000 units/ml inj SUBQ SCH (21:00)
[2017-08-19] MEDS: Sucralfate 1gm tab ORAL SCH (21:10)
[2017-08-19] MEDS: LORazepam Inj 2mg/ml 1ml IV PRN (21:23)
[2017-08-19] MEDS ORDERED: [UNRECOGNIZED DRUG - OTHER] INH SCH (22:00)
[2017-08-20] VITALS (7 sets, daily range): BP systolic 80–100; BP diastolic 53–57
--- NOTE | 2017-08-20 00:30 | Consultation ---
DATE OF CONSULTATION: 08/19/2017 NEUROLOGICAL CONSULTATION CONSULTING PHYSICIAN: Marcus Fierro M.D. REQUESTING PHYSICIAN: Robbie Bianchi M.D. HISTORY OF PRESENT ILLNESS: This 71-year-old female seen in neurological consultation to evaluate the impending delirium, inability to ambulate, and profound generalized weakness. The patient informed me that she has a long-term history of COPD. She is on 2 liters of oxygen daily. In addition, she developed significant alcohol abuse in the last year and half. She usually uses continuously whiskey, which is diluted with water. She noticed when she would stop drinking, she would get confused, hallucinating, and shaking. To avoid such condition, she would have to keep drinking daily. She developed profound generalized weakness and inability to ambulate over the last few months. So, she is bedridden at least for the last 6 weeks. Her caregiver comes for 3 hours a day, helps her with activities. The patient decided that this "no longer can continue". With this, she called paramedics, was brought to [facility] Emergency Room where her blood pressure was 84/63, heart rate of 105, but pulse oximetry was 100%. She was described with no neurological deficit. Laboratory work was obtained revealing CBC studies with mild anemia, hemoglobin 11.9, and hematocrit 32.1. Chemistry panel with total bilirubin 1.7, anion gap of 24, sodium 130, and chloride 86. Normal liver enzymes. The patient was described as being agitated and restless. She was brought to this facility for further assessment and treatment. PAST MEDICAL HISTORY: The patient has a history of COPD, history of profound weight loss, lack of appetite, generalized weakness, inability to ambulate in the last few months, and alcohol abuse. She is a smoker approximately pack per day. She denies any seizure activities. The patient was recently diagnosed with depression and placed on Prozac. SOCIAL HISTORY: The patient lives alone. She has a daughter, who is in [place]. She has a caregiver that comes for 3 hours a day. FAMILY HISTORY: Noncontributory. REVIEW OF SYSTEMS: Generalized weakness, lack of appetite, food causing her nausea. Denies urine or bowel incontinence. No abdominal pain or discomfort. PHYSICAL EXAMINATION: GENERAL: A well-developed, cachectic female, currently weighing 108 pounds. VITAL SIGNS: Stable. Blood pressure 94/67 and respirations 18. HEENT: Head, normocephalic. No evidence of trauma. Eyes, ears, and throat are clear. NECK: Supple. No meningeal signs. MUSCULOSKELETAL: There is swelling, acute tenderness, and some redness in the left forearm region. Diffuse tenderness when palpated or examined her upper and lower extremities. Deep tendon reflexes depressed bilaterally. Plantar responses flexor. Sensory examination normal to pin sensation. Reduced proprioception in both feet. Strength 5/5 in both upper extremities, 3/5 both lower extremities. Gait not tested. IMPRESSION: 1. Alcohol abuse, rule out impending delirium tremens. 2. Nicotine dependency. 3. Cachexia with significant generalized weakness, inability to ambulate. 4. Depression. 5. Chronic obstructive pulmonary disease. RECOMMENDATIONS: Delirium protocol including banana bag. She is on Librium 25 mg q.6 h. p.r.n., lorazepam p.r.n. for seizures, pantoprazole, MiraLax, Carafate, and p.r.n. Ambien. Obtain nutritional evaluation to start on nutritional support. Meanwhile, she is on normal diet. I will follow with you. Thank you for allowing me to see this interesting patient in neurological consultation. Marcus Fierro M.D. DR: [facility] JOB#: [id number] CC:
[2017-08-20 08:18] LABS: MEAN CORPUSCULAR HEMOGLOBIN 35.5 PG (27.0-31.0); MEAN CORPUSCULAR HGB CONC 32.6 G/DL (32.0-36.0); MEAN CORPUSCULAR VOLUME 109 FL (80-99); MEAN PLATELET VOLUME 6.7 FL (6.5-10.1); PLATELET COUNT 239 K/UL (150-450); RED BLOOD COUNT 2.75 M/UL (4.20-5.40); RED CELL DISTRIBUTION WIDTH 15.1 % (11.6-14.8); WHITE BLOOD COUNT 5.2 K/UL (4.8-10.8)
[2017-08-20 08:38] LABS: INR 0.9 (0.9-1.1); PROTHROMBIN TIME 9.4 SEC (9.30-11.50)
[2017-08-20 08:41] LABS: ALANINE AMINOTRANSFERASE 25 U/L (12-78); ALBUMIN/GLOBULIN RATIO 0.7 (1.0-2.7); ANION GAP 3 mmol/L (5-15); ASPARTATE AMINO TRANSFERASE 20 U/L (15-37); CALCIUM 7.4 MG/DL (8.5-10.1); CARBON DIOXIDE 30 MMOL/L (21-32); CHLORIDE 104 MMOL/L (98-107); CREATININE 0.4 MG/DL (0.55-1.30); GLOMERULAR FILTRATION RATE > 60 mL/min (>60); POTASSIUM 3.3 MMOL/L (3.5-5.1); SODIUM 137 MMOL/L (136-145); TOTAL PROTEIN 4.7 G/DL (6.4-8.2)
[2017-08-20] MEDS ORDERED: Lisinopril 20mg tab ORAL SCH (09:00)
[2017-08-20] MEDS: Sucralfate 1gm tab ORAL SCH ×4 (09:17→20:48)
[2017-08-20] MEDS: Heparin 5000 units/ml inj SUBQ SCH ×2 (09:18→20:51)
[2017-08-20 09:22] LABS: FOLIC ACID 18.6 NG/ML (3.1-17.5)
[2017-08-20 09:33] LABS: LACTATE DEHYDROGENASE 142 U/L (81-234)
[2017-08-20] MEDS: LORazepam Inj 2mg/ml 1ml IV PRN (09:34)
--- NOTE | 2017-08-20 09:46 | Diagnostic Imaging Report ---
Indication: DYSPNEA Technique: One view of the chest Comparison: 05/28/2017 Findings: There is blunting of left costophrenic sulcus. The lungs and pleural spaces are otherwise clear. Heart size is normal. Surgical anastomotic randall are seen in the epigastric region. Impression: Left costophrenic angle blunting, could indicate a small pleural effusion No other acute process
[2017-08-20 09:49] LABS: ERYTHROCYTE SEDIMENTATION RATE 27 MM/HR (0-30); PATH BLOOD SMEAR/OMC SENT TO PATHOLOGIST
[2017-08-20 09:57] LABS: BAND NEUTROPHILS % (MANUAL) 0 % (0-8); BASOPHILS % (MANUAL) 0 % (0-2); EOSINOPHILS % (MANUAL) 0 % (0-3); LYMPHOCYTES % (MANUAL) 19 % (20-45); NEUTROPHILS % (MANUAL) 75 % (45-75); PLATELET ESTIMATE ADEQUATE; TOTAL CELLS COUNTED 100
[2017-08-20 09:58] LABS: ANISOCYTOSIS 1+; MACROCYTES 1+; PLATELET MORPHOLOGY NORMAL
[2017-08-20 10:09] LABS: IRON 40 ug/dL (50-175); TOTAL IRON BINDING CAPACITY 93 ug/dL (250-450)
[2017-08-20 10:38] LABS: RETICULOCYTE COUNT 1.1 % (0.0-2.0)
--- NOTE | 2017-08-20 11:53 | Pulmonology Progress Note ---
Assessment/Plan Problems: (1) COPD exacerbation (2) Anemia (3) pending DT (4) ETOH abuse (5) Generalized weakness (6) Protein-calorie malnutrition, severe Assessment/Plan slightly better wants spiriav and Advair check sputum psych and neuro to see. Subjective ROS Limited/Unobtainable: No Interval Events: constipated, still feeling weak Constitutional: Reports: no symptoms Allergies: Coded Allergies: ADHESIVE (Unverified Allergy, Severe, 08/16/13) ADHESIVE TAPE (Verified Allergy, Unknown, SURGICAL TAPE - RASH, 07/28/11) ALBUTEROL (Verified Adverse Reaction, Unknown, ANXIETY, 07/28/11) Uncoded Allergies: METAL (?) (Allergy, Unknown, RASH, 07/28/11) metal (Allergy, Unknown, 03/30/15) Objective Last 24 Hour Vital Signs Date Time Temp Pulse Resp B/P (MAP) Pulse Ox O2 Delivery O2 Flow Rate FiO2 08/20/17 09:45 100 18 Nasal Cannula 2.0 28 08/20/17 09:40 100 20 99 Nasal Cannula 2.0 28 08/20/17 09:40 100 18 99 Nasal Cannula 28 08/20/17 09:40 28 08/20/17 08:00 96.9 101 19 100/56 96 Nasal Cannula 3.0 08/20/17 06:00 96.4 95 20 92/55 96 Nasal Cannula 3.0 08/20/17 04:00 96.4 95 20 80/53 96 Nasal Cannula 3.0 08/20/17 04:00 90 08/20/17 00:00 97.7 92 20 85/54 98 3.0 08/20/17 00:00 92 08/19/17 20:00 97.3 93 20 90/53 100 Nasal Cannula 3.0 08/19/17 16:00 94 08/19/17 16:00 97.2 96 20 85/57 96 Nasal Cannula 2.0 08/19/17 12:00 96.4 98 20 89/63 96 Room Air Intake and Output 08/20/17 08/21/17 19:00 07:00 # Bowel Movements 1 General Appearance: cachetic HEENT: normocephalic, atraumatic Respiratory/Chest: chest wall non-tender, decreased breath sounds Cardiovascular: normal peripheral pulses, normal rate Abdomen: normal bowel sounds, soft, non tender Genitourinary: normal external genitalia 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 normal Lymphatic: no neck adenopathy Laboratory Tests 08/20/17 07:35: White Blood Count 5.2, Red Blood Count 2.75L, Hemoglobin 9.8L, Hematocrit 30.0L , Mean Corpuscular Volume 109H, Mean Corpuscular Hemoglobin 35.5H, Mean Corpuscular Hemoglobin Concent 32.6, Red Cell Distribution Width 15.1H, Platelet Count 239, Mean Platelet Volume 6.7, Neutrophils (%) (Auto) , Lymphocytes (%) (Auto) , Monocytes (%) (Auto) , Eosinophils (%) (Auto) , Basophils (%) (Auto) , Differential Total Cells Counted 100, Neutrophils % ( Manual) 75, Lymphocytes % (Manual) 19L, Monocytes % (Manual) 6, Eosinophils % ( Manual) 0, Basophils % (Manual) 0, Band Neutrophils 0, Platelet Estimate Adequate, Platelet Morphology Normal, Anisocytosis 1+, Macrocytosis 1+, Erythrocyte Sedimentation Rate 27, Reticulocyte Count 1.1, Prothrombin Time 9.4 , Prothromb Time International Ratio 0.9, Activated Partial Thromboplast Time 29 , Sodium Level 137, Potassium Level 3.3L, Chloride Level 104, Carbon Dioxide Level 30, Anion Gap 3L, Blood Urea Nitrogen 5L, Creatinine 0.4L, Estimat Glomerular Filtration Rate > 60, Glucose Level 179H, Calcium Level 7.4L, Iron Level 40L, Total Iron Binding Capacity 93L, Percent Iron Saturation 43, Unsaturated Iron Binding 53L, Total Bilirubin 0.5, Aspartate Amino Transf (AST/ SGOT) 20, Alanine Aminotransferase (ALT/SGPT) 25, Alkaline Phosphatase 104, Lactate Dehydrogenase 142, Pro-B-Type Natriuretic Peptide 818H, Total Protein 4.7L, Albumin 2.0L, Globulin 2.7, Albumin/Globulin Ratio 0.7L, Vitamin B12 Level 564, Folate 18.6H Current Medications Medications (Trade) Dose Ordered Sig/Nahum Route PRN Reason Start Time Stop Time Status Last Admin Dose Admin Acetaminophen (Tylenol) 650 mg Q4H PRN ORAL fever 08/19/17 12:00 09/18/17 11:59 Al Hydroxide/Mg Hydroxide (Mylanta II) 30 ml Q6H PRN ORAL dyspepsia 08/19/17 12:00 09/18/17 11:59 Chlordiazepoxide (Librium) 25 mg Q6H PRN ORAL Agitation 08/19/17 12:00 08/26/17 11:59 Dextrose (Dextrose 50%) STAT PRN IV Hypoglycemia 08/19/17 12:00 09/18/17 11:59 Folic Acid 1 mg/ Magnesium Sulfate 2000 mg/ Multivitamins 10 ml/Sodium Chloride 1,014.2 ml @ 124.876 mls/hr Q24H IV 08/19/17 17:00 09/18/17 16:59 08/19/17 17:16 Heparin Sodium (Porcine) (Heparin 5000 units/ml) 5,000 units EVERY 12 HOURS SUBQ 08/19/17 21:00 09/18/17 20:59 08/20/17 09:18 Iron Sucrose 100 mg/Sodium Chloride 60 ml @ 240 mls/hr BEDTIME IVPB 08/20/17 21:00 08/24/17 21:14 UNV Lisinopril (Prinivil) 20 mg DAILYPRN PRN ORAL SBP > 150 08/19/17 15:30 09/18/17 15:29 Lorazepam (Ativan 2mg/ml 1ml) 0.5 mg Q1H PRN IV seizures 08/19/17 14:45 08/26/17 14:44 08/20/17 09:34 Morphine Sulfate (Morphine Sulfate) 1 mg Q4H PRN IVP For Pain 4-10 08/19/17 12:00 08/26/17 11:59 Nicotine (Nicoderm) 1 patch Q24H TDERMAL 08/19/17 21:00 09/18/17 20:59 08/19/17 21:11 Ondansetron HCl (Zofran) 4 mg Q6H PRN IVP Nausea & Vomiting 08/19/17 12:00 09/18/17 11:59 Pantoprazole (Protonix) 40 mg Q12HR ORAL 08/19/17 21:00 09/18/17 20:59 08/20/17 09:16 Polyethylene Glycol (Miralax) 17 gm HSPRN PRN ORAL Constipation 08/19/17 12:00 09/18/17 11:59 Potassium Chloride 100 ml @ 100 mls/hr Q1HR IVPB 08/20/17 12:00 08/20/17 15:59 Sucralfate (Carafate) 1 gm FOUR TIMES A DAY ORAL 08/19/17 21:00 09/18/17 20:59 08/20/17 09:17 Thiamine HCl 100 mg/Dextrose 56 ml @ 112 mls/hr Q24H IVPB 08/19/17 17:00 09/18/17 16:59 08/19/17 17:17 Zolpidem Tartrate (Ambien) 5 mg HSPRN PRN ORAL Insomnia 08/19/17 12:00 08/26/17 11:59 08/20/17 03:01 YNES BREWSTER Aug 20, 2017 11:53
--- NOTE | 2017-08-20 12:18 | Wound Care Consultation ---
Wound Assessment Wound Assessment #1: Wound Number: 1 Wound Present on Admission: Yes New Wound: No Status Change of Wound: No Wound Location Body Site Modif: mid Wound Location Body Site: sacral Wound Type: pressure ulcer Reina Test: Does not Reina Pressure Ulcer Stage: Unstageable Wound Thickness: Full Thickness Wound Length: 7.5 Wound Width: 6.0 Wound Depth: utd Percent of Wound [place]/Red: 30 Percent of Wound Bed Yellow/Wh: 70 Wound Drainage Description: Serosanguineous Wound Drainage Amount: Moderate Wound Drainage Odor: None/Absent Tissue Surrounding Wound: Macerated Wound General Appearance: Reddened, Draining, Necrotic Wound Assessment #2: Wound Number: 2 Wound Present on Admission: Yes New Wound: No Status Change of Wound: No Wound Location Body Site Modif: mid Wound Location Body Site: sacral Wound Type: pressure ulcer Reina Test: Does not Reina Pressure Ulcer Stage: III - scattered Wound Thickness: Full Thickness Percent of Wound [place]/Red: 100 Other Colors Identified: surrounding tissue noted maroon in color at risk for further skin breakdown Wound Drainage Description: Serosanguineous Wound Drainage Amount: Moderate Wound Drainage Odor: None/Absent Tissue Surrounding Wound: Macerated Wound General Appearance: Reddened, Draining Wound Assessment #3: Wound Number: 3 Wound Present on Admission: Yes New Wound: No Status Change of Wound: No Wound Location Body Site Modif: left Wound Location Body Site: heel - extending to lateral side entire foot Wound Type: pressure ulcer Reina Test: Does not Reina Pressure Ulcer Stage: Deep Tissue Injury Wound Thickness: Full Thickness Wound Length: 13.0 Wound Width: 5.0 Wound Depth: utd Percent of Wound Purple/Maroon: 100 Wound Drainage Amount: None Wound Drainage Odor: None/Absent Tissue Surrounding Wound: Erythemic Wound General Appearance: Reddened Wound Assessment #4: Wound Number: 4 Wound Present on Admission: Yes New Wound: No Status Change of Wound: No Wound Location Body Site Modif: right Wound Location Body Site: heel - extending to lateral side of foot Wound Type: pressure ulcer Reina Test: Does not Reina Pressure Ulcer Stage: Deep Tissue Injury Wound Thickness: Full Thickness Wound Length: 13.0 Wound Width: 5.0 Wound Depth: utd Percent of Wound Purple/Maroon: 100 Wound Drainage Amount: None Wound Drainage Odor: None/Absent Tissue Surrounding Wound: Erythemic Wound General Appearance: Reddened Wound Comment #1 Mid Sacral unstageable pressure ulcer. #2 Sacral scattered stage 3 with surrounding tissue sdti. #3 right heel extending to lateral side of foot deep tissue injury. #4 left heel extending to lateral side of foot deep tissue injury. Upon assessment patient refused having any heel protectors or any preventative offloading measures on feet, explained risks and benefits, stated " i don't want anything on my feet". Recommendation. -Local wound care as ordered. -Apply low air loss mattress for wound care management and prevention. -Keep clean and dry. -Optimize nutrition. -Avoid shear and friction. -Heel protectors. -Offload affected pressure sites. -Turn and reposition. -Assess and notify MD for any further changes in skin. -Encourage repositioning. ZARIA MONTOYA Aug 20, 2017 12:18
[2017-08-20] MEDS: Docusate 100mg cap ORAL SCH ×2 (12:58→18:07)
[2017-08-20] MEDS: Lactulose 20gm/30ml UDC ORAL SCH ×2 (12:58→18:08)
[2017-08-20] MEDS ORDERED: Advair 250/50 Inhaler - 14 dose INH SCH ×2 (13:00→22:00)
[2017-08-20] MEDS: Morphine Sulfate 2mg/ml Inj IVP PRN ×2 (13:11→17:58)
[2017-08-20] MEDS: Thiamine 100mg in D5W 55ml IVPB SCH (18:15)
[2017-08-20] MEDS ORDERED: Albuterol/Ipratropium 3ml neb HHN SCH (19:00)
[2017-08-20] MEDS: Albuterol/Ipratropium 3ml neb HHN SCH ×2 (19:10→23:00)
[2017-08-20] MEDS ORDERED: chlordiazePOXIDE 25mg Cap ORAL PRN (19:30)
[2017-08-20] MEDS ORDERED: Mylanta II UD 30ml ORAL PRN (19:30)
[2017-08-20] MEDS ORDERED: Morphine Sulfate 2mg/ml Inj IVP PRN (19:30)
[2017-08-20] MEDS ORDERED: LORazepam Inj 2mg/ml 1ml IV PRN (19:30)
[2017-08-20] MEDS ORDERED: Zolpidem 5mg tab ORAL PRN (19:30)
[2017-08-20] MEDS ORDERED: Lisinopril 20mg tab ORAL PRN (19:30)
[2017-08-20] MEDS: Iron Sucrose 100 MG in NS 55 ML IV SCH (20:48)
[2017-08-20] MEDS: Miralax 17gm pkt ORAL SCH (20:49)
[2017-08-20] MEDS ORDERED: Iron Sucrose 100 MG in NS 55 ML IV SCH (21:00)
[2017-08-20] MEDS ORDERED: Miralax 17gm pkt ORAL PRN (21:00)
[2017-08-20] MEDS ORDERED: Miralax 17gm pkt ORAL SCH (21:00)
[2017-08-20] MEDS: Advair 250/50 Inhaler - 14 dose INH SCH (22:00)
[2017-08-21] MEDS: Albuterol/Ipratropium 3ml neb HHN SCH ×6 (03:00→23:00)
[2017-08-21 04:00] VITALS: BP 90/52
[2017-08-21] MEDS: Heparin 5000 units/ml inj SUBQ SCH ×2 (08:20→21:04)
[2017-08-21] MEDS: Lactulose 20gm/30ml UDC ORAL SCH ×4 (08:22→17:32)
[2017-08-21] MEDS: Docusate 100mg cap ORAL SCH ×4 (08:22→17:32)
[2017-08-21] MEDS: Sucralfate 1gm tab ORAL SCH ×5 (08:23→21:00)
[2017-08-21] MEDS: Sennosides 8.6mg ORAL SCH (08:24)
[2017-08-21] MEDS ORDERED: Sennosides 8.6mg ORAL SCH (09:00)
[2017-08-21] MEDS: Advair 250/50 Inhaler - 14 dose INH SCH ×3 (10:00→23:25)
[2017-08-21 12:15] VITALS: BP 103/75
[2017-08-21] MEDS ORDERED: LORazepam 0.5mg tab ORAL PRN (14:15)
[2017-08-21] MEDS ORDERED: Tubing IV Secondary IV ONE (14:23)
--- NOTE | 2017-08-21 14:44 | Pulmonology Progress Note ---
Assessment/Plan Problems: (1) COPD exacerbation (2) Anemia (3) pending DT (4) ETOH abuse (5) Generalized weakness (6) Protein-calorie malnutrition, severe Assessment/Plan slightly better wants michael and Adv check sputum psych and neuro to see. doesn't eat enough considering PEG tube , Dr. vazquez informed. Subjective ROS Limited/Unobtainable: No Constitutional: Reports: no symptoms HEENT: Repors: no symptoms Respiratory: Reports: no symptoms Cardiovascular: Reports: no symptoms Allergies: Coded Allergies: ADHESIVE (Unverified Allergy, Severe, 08/16/13) ADHESIVE TAPE (Verified Allergy, Unknown, SURGICAL TAPE - RASH, 07/28/11) ALBUTEROL (Verified Adverse Reaction, Unknown, ANXIETY, 07/28/11) Uncoded Allergies: METAL (?) (Allergy, Unknown, RASH, 07/28/11) metal (Allergy, Unknown, 03/30/15) Objective Last 24 Hour Vital Signs Date Time Temp Pulse Resp B/P (MAP) Pulse Ox O2 Delivery O2 Flow Rate FiO2 08/21/17 14:33 103 18 96 Nasal Cannula 2.0 08/21/17 12:15 97.5 105 21 103/75 97 Nasal Cannula 2.0 08/21/17 11:28 100 18 99 Nasal Cannula 2.0 08/21/17 11:09 96 18 96 Nasal Cannula 2.0 08/21/17 07:17 99 18 100 Nasal Cannula 2.0 08/21/17 07:05 98 18 99 Nasal Cannula 2.0 08/21/17 07:05 Nasal Cannula 2.0 08/21/17 07:05 99 Nasal Cannula 2.0 08/21/17 04:00 97.7 97 20 90/52 98 Nasal Cannula 2.0 08/21/17 03:36 Nasal Cannula 2.0 08/21/17 03:35 Nasal Cannula 2.0 08/20/17 23:00 Nasal Cannula 2.0 08/20/17 23:00 Nasal Cannula 2.0 08/20/17 20:00 97.2 100 19 86/57 100 Nasal Cannula 2.0 08/20/17 19:08 98 Nasal Cannula 2.0 08/20/17 19:08 Nasal Cannula 2.0 08/20/17 19:06 110 20 99 Nasal Cannula 2.0 28 08/20/17 19:05 108 20 98 Nasal Cannula 2.0 28 08/20/17 15:33 98.0 101 18 94/56 95 Room Air Intake and Output 08/21/17 08/22/17 19:00 07:00 # Voids 3 # Bowel Movements 1 General Appearance: WD/WN Respiratory/Chest: chest wall non-tender, lungs clear Breasts: no masses Cardiovascular: normal peripheral pulses, normal rate Abdomen: normal bowel sounds, soft, non tender, no scars Extremities: no cyanosis Skin: no lesions Lymphatic: no neck adenopathy Current Medications Medications (Trade) Dose Ordered Sig/Nahum Route PRN Reason Start Time Stop Time Status Last Admin Dose Admin Acetaminophen (Tylenol) 650 mg Q4H PRN ORAL fever 08/20/17 19:30 09/18/17 19:29 Al Hydroxide/Mg Hydroxide (Mylanta II) 30 ml Q6H PRN ORAL dyspepsia 08/20/17 19:30 09/19/17 19:29 Albuterol/ Ipratropium (DuoNeb 0.5-3(2.5)mg/3ml) 3 ml Q4HRT HHN 08/20/17 23:00 08/25/17 22:59 08/21/17 14:34 Chlordiazepoxide (Librium) 25 mg Q6H PRN ORAL Agitation 08/20/17 19:30 08/27/17 19:29 Dextrose (Dextrose 50%) STAT PRN IV Hypoglycemia 08/20/17 19:30 09/19/17 19:29 Docusate Sodium (Colace) 100 mg THREE TIMES A DAY ORAL 08/21/17 09:00 09/19/17 12:59 08/21/17 12:35 Folic Acid 1 mg/ Magnesium Sulfate 2000 mg/ Multivitamins 10 ml/Sodium Chloride 1,014.2 ml @ 124.876 mls/hr Q24H IV 08/21/17 17:00 09/18/17 16:59 Heparin Sodium (Porcine) (Heparin 5000 units/ml) 5,000 units EVERY 12 HOURS SUBQ 08/20/17 21:00 09/18/17 20:59 08/20/17 20:51 Iron Sucrose 100 mg/Sodium Chloride 60 ml @ 240 mls/hr BEDTIME IV 08/20/17 21:00 08/24/17 21:01 08/20/17 20:48 Lactulose (Cephulac) 30 gm THREE TIMES A DAY ORAL 08/21/17 09:00 09/19/17 12:59 Lisinopril (Prinivil) 20 mg DAILYPRN PRN ORAL SBP > 150 08/20/17 19:30 09/19/17 19:29 Lorazepam (Ativan 2mg/ml 1ml) 0.5 mg Q1H PRN IV seizures 08/20/17 19:30 08/26/17 19:29 08/20/17 20:47 Lorazepam (Ativan) 0.5 mg Q6H PRN ORAL For Anxiety 08/21/17 14:15 08/28/17 14:14 Mineral Oil (Fleet's Mineral Oil Enema) 133 ml EVERY OTHER DAY RECTAL 08/22/17 09:00 09/21/17 08:59 Morphine Sulfate (Morphine Sulfate) 1 mg Q4H PRN IVP For Pain 4-10 08/20/17 19:30 08/26/17 19:29 Nicotine (Nicoderm) 1 patch Q24H TDERMAL 08/20/17 21:00 09/18/17 20:59 08/20/17 20:49 Ondansetron HCl (Zofran) 4 mg Q6H PRN IVP Nausea & Vomiting 08/20/17 19:30 09/19/17 19:29 Pantoprazole (Protonix) 40 mg Q12HR ORAL 08/20/17 21:00 09/18/17 20:59 08/21/17 08:23 Polyethylene Glycol (Miralax) 17 gm BEDTIME ORAL 08/20/17 21:00 09/19/17 20:59 08/20/17 20:49 Polyethylene Glycol (Miralax) 17 gm HSPRN PRN ORAL Constipation 08/20/17 21:00 09/19/17 20:59 Salmeterol Xinafoate/ Fluticasone (Advair 250/50 Diskus) 1 puffs BIDRT INH 08/20/17 22:00 09/19/17 12:59 Sennosides (Senokot) 8.6 mg DAILY ORAL 08/21/17 09:00 09/20/17 08:59 08/21/17 08:24 Sucralfate (Carafate) 1 gm FOUR TIMES A DAY ORAL 08/20/17 21:00 09/18/17 20:59 08/21/17 12:35 Thiamine HCl 100 mg/Dextrose 56 ml @ 112 mls/hr Q24H IVPB 08/21/17 17:00 09/18/17 16:59 Tiotropium [place] (Spiriva Inhaler) 1 puff BIDRT INH 08/20/17 22:00 09/19/17 12:29 Zolpidem Tartrate (Ambien) 5 mg HSPRN PRN ORAL Insomnia 08/20/17 19:30 08/27/17 19:29 YNES BREWSTER Aug 21, 2017 14:44
--- NOTE | 2017-08-21 15:43 | GI Initial Consult Note ---
ShereenDai Rodrigo N.P. 08/21/17 1543: History of Present Illness General Date patient seen: Aug 21, 2017 Time patient seen: 15:38 Referring physician: YNES DIA Reason for Consultation: PEG EVALUATION Present Illness HPI 71 year old female with hx of end-stage COPD, on home oxygen, cachectic was taken by paramedics because of pending Delirium. She drinks daily and wanted to stop drinking, but then she got anxious that she might get chills, and tremors. [facility] and was found that she has bronchitis as well. [place] [facility] GI consulted for PEG evaluation. HPI as noted above. Pt seen on floor, awake A &Ox3 NAD with no active s/sx of N/V/D. ST evaluation noted patient recommended to have mcc non oral feeding. Patient presents today with anemia and dysphagia. The patient states she's had a GT in the past and wants to have time to think about having another one placed. Home Meds Active Scripts Codeine/Promethazine Hcl* (PROMETHAZINE-CODEINE SYRUP*) 118 Ml Syrup, 5 ML ORAL EVERY 6 HOURS Y for cough, #15 OZ Prov:Haylie Navarro NP (Vanchtein) 02/29/16 Atorvastatin Calcium* (LIPITOR*) 10 Mg Tablet, 10 MG ORAL BEDTIME, #30 TAB Prov:Haylie Navarro NP (Vanchtein) 02/29/16 Ertapenem Sodium* (INVanz*) 1 Gm Vial.port, 1 GM IVPB Q24H, #10 VIAL Prov:Haylie Navarro NP (Vanchtein) 05/26/15 Levalbuterol HCl (Xopenex Concentrate) 0.5 Mg Inha, 1.25 MG HHN TIDRT, #30 UNIT Prov:Haylie Navarro NP (Vanchtein) 05/26/15 Acetaminophen* (ACETAMINOPHEN 325MG TABLET*) 325 Mg Tab, 650 MG ORAL Q4H Y for fever, #30 TAB Prov:Haylie Navarro NP (Vanchtein) 05/26/15 Alendronate Sodium* (FOSAMAX*) 70 Mg Tab, 70 MG ORAL QWEEK, #4 TAB Prov:Haylie Navarro NP (Vanchtein) 05/26/15 Reported Medications Loratadine (CLARITIN) 10 Mg Capsule, 10 MG ORAL DAILY, CAP 05/23/17 Linaclotide (LINZESS) 145 Mcg Capsule, 145 MCG PO Y for Constipation, CAP 06/30/16 Atorvastatin Calcium* (LIPITOR*) 10 Mg Tablet, 10 MG ORAL BEDTIME, TAB 06/30/16 Levalbuterol Hcl (XOPENEX*) 1.25 Mg/3 Ml Vial.neb, 1.25 MG HHN Q4H for 30 Days, VIAL 02/26/16 Fluticasone/Salmeterol (Advair 250-50 Diskus) 1 Puffs Puffs, 1 PUFF INH EVERY 12 HOURS, EA 02/26/16 Tiotropium [place]* (SPIRIVA*) 18 Mcg Cap.w.dev, 1 PUFF INH DAILY, EA 02/26/16 Ergocalciferol (Vitamin D2)* (VITAMIN D*) 50,000 Unit Capsule, 71303 UNIT GT ONCE A WEEK, CAP 06/16/15 Tramadol Hcl* (ULTRAM*) 50 Mg Tablet, 50 MG GT Q6H Y for For Pain, #30 TAB 0 Refills 05/12/15 Lorazepam* (ATIVAN*) 0.5 Mg Tablet, 0.5 MG ORAL THREE TIMES A DAY Y for For Anxiety, TAB 05/12/15 Sucralfate* (CARAFATE*) 1 Gm Tablet, 1 GM GT FOUR TIMES A DAY 08/16/13 Pantoprazole* (PROTONIX*) 40 Mg Tablet.dr, 40 MG ORAL Q12HR, #30 TAB 0 Refills 08/16/13 Heparin Sodium,Porcine/Pf (Heparin Sod 5,000 Unit/0.5 ml) 5,000 Unit/0.5 Ml Disp.syrin, 5000 UNIT SQ BID 08/16/13 Folic Acid* (FOLIC ACID*) 1 Mg Tablet, 1 MG ORAL DAILY, TAB 08/16/13 Docusate Sodium* (COLACE*) 100 Mg Capsule, 100 MG ORAL TWICE A DAY, CAP 08/16/13 Fluticasone/Salmeterol (Advair 500-50 Diskus) 1 Each Disk.w.dev, 1 PUFF INH Q12H 12/01/12 Lisinopril* (ZESTRIL*) 20 Mg Tablet, 20 MG ORAL DAILY, #10 TAB Take 1 tablet by mouth every day. 10/24/12 Multivitamin With Minerals (MULTIVITAMINS WITH MINERALS*) 1 Each Tablet, 1 EACH PO DAILY, TAB 10/24/12 Med list reviewed/reconciled: Yes Allergies: Coded Allergies: ADHESIVE (Unverified Allergy, Severe, 08/16/13) ADHESIVE TAPE (Verified Allergy, Unknown, SURGICAL TAPE - RASH, 07/28/11) ALBUTEROL (Verified Adverse Reaction, Unknown, ANXIETY, 07/28/11) Uncoded Allergies: METAL (?) (Allergy, Unknown, RASH, 07/28/11) metal (Allergy, Unknown, 03/30/15) Patient History History Provided By: Patient PMH Narrative (1) EtOH dependence (2) Emphysema of lung (3) Status post tracheostomy (4) Nicotine addiction (5) Depression Social History: Reports: smoking Review of Systems All Other Systems: negative except mentioned in HPI Physical Exam Vital Signs Date Time Temp Pulse Resp B/P (MAP) Pulse Ox O2 Delivery O2 Flow Rate FiO2 08/19/17 12:00 96.4 98 20 89/63 96 Room Air 08/19/17 16:00 2.0 08/20/17 09:40 28 General Appearance: no apparent distress, alert, thin Head: normocephalic EENT: normal ENT inspection Neck: supple Respiratory: normal breath sounds, no respiratory distress Cardiovascular: normal rate Gastrointestinal: normal inspection, non tender, soft Neurologic: alert, oriented x3 Psychiatric: normal inspection, judgement/insight normal Skin: normal inspection, normal color, no rash, warm/dry Lymphatic: normal inspection, no adenopathy Current Medications Current Medications Medications (Trade) Dose Ordered Sig/Nahum Route PRN Reason Start Time Stop Time Status Last Admin Dose Admin Acetaminophen (Tylenol) 650 mg Q4H PRN ORAL fever 08/20/17 19:30 09/18/17 19:29 Al Hydroxide/Mg Hydroxide (Mylanta II) 30 ml Q6H PRN ORAL dyspepsia 08/20/17 19:30 09/19/17 19:29 Albuterol/ Ipratropium (DuoNeb 0.5-3(2.5)mg/3ml) 3 ml Q4HRT HHN 08/20/17 23:00 08/25/17 22:59 08/21/17 14:34 Chlordiazepoxide (Librium) 25 mg Q6H PRN ORAL Agitation 08/20/17 19:30 08/27/17 19:29 Dextrose (Dextrose 50%) STAT PRN IV Hypoglycemia 08/20/17 19:30 09/19/17 19:29 Docusate Sodium (Colace) 100 mg THREE TIMES A DAY ORAL 08/21/17 09:00 09/19/17 12:59 08/21/17 12:35 Folic Acid 1 mg/ Magnesium Sulfate 2000 mg/ Multivitamins 10 ml/Sodium Chloride 1,014.2 ml @ 124.876 mls/hr Q24H IV 08/21/17 17:00 09/18/17 16:59 Heparin Sodium (Porcine) (Heparin 5000 units/ml) 5,000 units EVERY 12 HOURS SUBQ 08/20/17 21:00 09/18/17 20:59 08/20/17 20:51 Iron Sucrose 100 mg/Sodium Chloride 60 ml @ 240 mls/hr BEDTIME IV 08/20/17 21:00 08/24/17 21:01 08/20/17 20:48 Lactulose (Cephulac) 30 gm THREE TIMES A DAY ORAL 08/21/17 09:00 09/19/17 12:59 Lisinopril (Prinivil) 20 mg DAILYPRN PRN ORAL SBP > 150 08/20/17 19:30 09/19/17 19:29 Lorazepam (Ativan 2mg/ml 1ml) 0.5 mg Q1H PRN IV seizures 08/20/17 19:30 08/26/17 19:29 08/20/17 20:47 Lorazepam (Ativan) 0.5 mg Q6H PRN ORAL For Anxiety 08/21/17 14:15 08/28/17 14:14 08/21/17 14:49 Mineral Oil (Fleet's Mineral Oil Enema) 133 ml EVERY OTHER DAY RECTAL 08/22/17 09:00 09/21/17 08:59 Morphine Sulfate (Morphine Sulfate) 1 mg Q4H PRN IVP For Pain 4-10 08/20/17 19:30 08/26/17 19:29 Nicotine (Nicoderm) 1 patch Q24H TDERMAL 08/20/17 21:00 09/18/17 20:59 08/20/17 20:49 Ondansetron HCl (Zofran) 4 mg Q6H PRN IVP Nausea & Vomiting 08/20/17 19:30 09/19/17 19:29 Pantoprazole (Protonix) 40 mg Q12HR ORAL 08/20/17 21:00 09/18/17 20:59 08/21/17 08:23 Polyethylene Glycol (Miralax) 17 gm BEDTIME ORAL 08/20/17 21:00 09/19/17 20:59 08/20/17 20:49 Polyethylene Glycol (Miralax) 17 gm HSPRN PRN ORAL Constipation 08/20/17 21:00 09/19/17 20:59 Salmeterol Xinafoate/ Fluticasone (Advair 250/50 Diskus) 1 puffs BIDRT INH 08/20/17 22:00 09/19/17 12:59 Sennosides (Senokot) 8.6 mg DAILY ORAL 08/21/17 09:00 09/20/17 08:59 08/21/17 08:24 Sucralfate (Carafate) 1 gm FOUR TIMES A DAY ORAL 08/20/17 21:00 09/18/17 20:59 08/21/17 12:35 Thiamine HCl 100 mg/Dextrose 56 ml @ 112 mls/hr Q24H IVPB 08/21/17 17:00 09/18/17 16:59 Tiotropium [place] (Spiriva Inhaler) 1 puff BIDRT INH 08/20/17 22:00 09/19/17 12:29 Zolpidem Tartrate (Ambien) 5 mg HSPRN PRN ORAL Insomnia 08/20/17 19:30 08/27/17 19:29 GI: Plan Problems: (1) Encounter for PEG (percutaneous endoscopic gastrostomy) (2) Generalized weakness (3) Anemia (4) Protein-calorie malnutrition, severe (5) Dysphagia Plan ST evaluation reviewed >> WILL CONSIDER PEG PLACEMENT PRIMARY SOURCE OF NUTRITION/HYDRATION. - diet for oral grat PEG, patient refuses to have one placed at this time states she would like the day to consider it. OB stool r/o GI bleed monitor H&H, prn transfusions bowel regime ppi fu labs Discussed with Dr. Reddy. Thank you for this patient referral, we will follow. FRANCY REDDY 08/22/17 0927: History of Present Illness Present Illness Home Meds Active Scripts Codeine/Promethazine Hcl* (PROMETHAZINE-CODEINE SYRUP*) 118 Ml Syrup, 5 ML ORAL EVERY 6 HOURS Y for cough, #15 OZ Prov:Ramon CastroBurke Rehabilitation HospitalHaylie Russell NP 02/29/16 Atorvastatin Calcium* (LIPITOR*) 10 Mg Tablet, 10 MG ORAL BEDTIME, #30 TAB Prov:Ramon CastroMorgan Stanley Children'S HospitalHaylie adamson NP 02/29/16 Ertapenem Sodium* (INVanz*) 1 Gm Vial.port, 1 GM IVPB Q24H, #10 VIAL Prov:Ramon CastroBur[facility] HospitalHaylie Russell NP 05/26/15 Levalbuterol HCl (Xopenex Concentrate) 0.5 Mg Inha, 1.25 MG HHN TIDRT, #30 UNIT Prov:Ramon CastroBur[facility] HospitalHaylie Russell NP 05/26/15 Acetaminophen* (ACETAMINOPHEN 325MG TABLET*) 325 Mg Tab, 650 MG ORAL Q4H Y for fever, #30 TAB Prov:Ramon CastroBur[facility] HospitalHaylie Russell NP 05/26/15 Alendronate Sodium* (FOSAMAX*) 70 Mg Tab, 70 MG ORAL QWEEK, #4 TAB Prov:Ramon CastroBurke Rehabilitation HospitalHaylie Russell NP 05/26/15 Reported Medications Loratadine (CLARITIN) 10 Mg Capsule, 10 MG ORAL DAILY, CAP 05/23/17 Linaclotide (LINZESS) 145 Mcg Capsule, 145 MCG PO Y for Constipation, CAP 06/30/16 Atorvastatin Calcium* (LIPITOR*) 10 Mg Tablet, 10 MG ORAL BEDTIME, TAB 06/30/16 Levalbuterol Hcl (XOPENEX*) 1.25 Mg/3 Ml Vial.neb, 1.25 MG HHN Q4H for 30 Days, VIAL 02/26/16 Fluticasone/Salmeterol (Advair 250-50 Diskus) 1 Puffs Puffs, 1 PUFF INH EVERY 12 HOURS, EA 02/26/16 Tiotropium [place]* (SPIRIVA*) 18 Mcg Cap.w.dev, 1 PUFF INH DAILY, EA 02/26/16 Ergocalciferol (Vitamin D2)* (VITAMIN D*) 50,000 Unit Capsule, 97900 UNIT GT ONCE A WEEK, CAP 06/16/15 Tramadol Hcl* (ULTRAM*) 50 Mg Tablet, 50 MG GT Q6H Y for For Pain, #30 TAB 0 Refills 05/12/15 Lorazepam* (ATIVAN*) 0.5 Mg Tablet, 0.5 MG ORAL THREE TIMES A DAY Y for For Anxiety, TAB 05/12/15 Sucralfate* (CARAFATE*) 1 Gm Tablet, 1 GM GT FOUR TIMES A DAY 08/16/13 Pantoprazole* (PROTONIX*) 40 Mg Tablet.dr, 40 MG ORAL Q12HR, #30 TAB 0 Refills 08/16/13 Heparin Sodium,Porcine/Pf (Heparin Sod 5,000 Unit/0.5 ml) 5,000 Unit/0.5 Ml Disp.syrin, 5000 UNIT SQ BID 08/16/13 Folic Acid* (FOLIC ACID*) 1 Mg Tablet, 1 MG ORAL DAILY, TAB 08/16/13 Docusate Sodium* (COLACE*) 100 Mg Capsule, 100 MG ORAL TWICE A DAY, CAP 08/16/13 Fluticasone/Salmeterol (Advair 500-50 Diskus) 1 Each Disk.w.dev, 1 PUFF INH Q12H 12/01/12 Lisinopril* (ZESTRIL*) 20 Mg Tablet, 20 MG ORAL DAILY, #10 TAB Take 1 tablet by mouth every day. 10/24/12 Multivitamin With Minerals (MULTIVITAMINS WITH MINERALS*) 1 Each Tablet, 1 EACH PO DAILY, TAB 10/24/12 Allergies: Coded Allergies: ADHESIVE (Unverified Allergy, Severe, 08/16/13) ADHESIVE TAPE (Verified Allergy, Unknown, SURGICAL TAPE - RASH, 07/28/11) ALBUTEROL (Verified Adverse Reaction, Unknown, ANXIETY, 07/28/11) Uncoded Allergies: METAL (?) (Allergy, Unknown, RASH, 07/28/11) metal (Allergy, Unknown, 03/30/15) GI: Plan Plan The patient was seen and examined at bedside and all new and available data was reviewed in the patients chart. I agree with the above findings, impression and plan. (Patient seen earlier today. Signature stamp does not reflect patient encounter time.). - MD Shereen FlahertyBanner Md [facility] Center Rodrigo Conn Aug 21, 2017 15:43 FRANCY REDDY Aug 22, 2017 09:27
[2017-08-21 15:44] VITALS: BP 90/49
[2017-08-21] MEDS: Folic Acid 1 MG, Magnesium Sulfate 2,000 MG, Multivitamin - 12 Injection 10 ML in NS w/... IV SCH (17:23)
[2017-08-21] MEDS: Thiamine HCl 100 MG in D5W 55 ML IVPB SCH (17:29)
--- NOTE | 2017-08-21 19:34 | Consultation ---
History of Present Illness General Referring physician: YNES DIA Reason for Consultation: PEG EVALUATION Present Illness HPI 71-year-old female with alcohol use, delirium, inability to ambulate, and profound generalized weakness. The patient informed me that she has a long- term history of COPD. she developed significant alcohol abuse in the last year and half. She usually uses continuously whiskey, which is diluted with water. She noticed when she would stop drinking, she would get confused, hallucinating, and shaking. To avoid such condition, she would have to keep drinking daily. the pt is severely anxious Allergies: Coded Allergies: ADHESIVE (Unverified Allergy, Severe, 08/16/13) ADHESIVE TAPE (Verified Allergy, Unknown, SURGICAL TAPE - RASH, 07/28/11) ALBUTEROL (Verified Adverse Reaction, Unknown, ANXIETY, 07/28/11) Uncoded Allergies: METAL (?) (Allergy, Unknown, RASH, 07/28/11) metal (Allergy, Unknown, 03/30/15) Medication History Scheduled Alendronate Sodium* (Fosamax*), 70 MG ORAL QWEEK Atorvastatin Calcium* (Lipitor*), 10 MG ORAL BEDTIME Atorvastatin Calcium* (Lipitor*), 10 MG ORAL BEDTIME, (Reported) Docusate Sodium* (Colace*), 100 MG ORAL TWICE A DAY, (Reported) Ergocalciferol (Vitamin D2)* (Vitamin D*), 50,000 UNIT GT ONCE A WEEK, (Reported ) Ertapenem Sodium* (INVanz*), 1 GM IVPB Q24H Fluticasone/Salmeterol (Advair 500-50 Diskus), 1 PUFF INH Q12H, (Reported) Fluticasone/Salmeterol (Advair 250-50 Diskus), 1 PUFF INH EVERY 12 HOURS, ( Reported) Folic Acid* (Folic Acid*), 1 MG ORAL DAILY, (Reported) Heparin Sodium,Porcine/Pf (Heparin Sod 5,000 Unit/0.5 ml), 5,000 UNIT SQ BID, ( Reported) Levalbuterol HCl (Xopenex Concentrate), 1.25 MG HHN TIDRT Levalbuterol Hcl (Xopenex*), 1.25 MG HHN Q4H, (Reported) Lisinopril* (Zestril*), 20 MG ORAL DAILY, (Reported) Loratadine (Claritin), 10 MG ORAL DAILY, (Reported) Multivitamin With Minerals (Multivitamins With Minerals*), 1 EACH PO DAILY, ( Reported) Pantoprazole* (Protonix*), 40 MG ORAL Q12HR, (Reported) Sucralfate* (Carafate*), 1 GM GT FOUR TIMES A DAY, (Reported) Tiotropium Kevin* (Spiriva*), 1 PUFF INH DAILY, (Reported) Scheduled PRN Acetaminophen* (Acetaminophen 325MG Tablet*), 650 MG ORAL Q4H PRN for fever Codeine/Promethazine Hcl* (Promethazine-Codeine Syrup*), 5 ML ORAL EVERY 6 HOURS PRN for cough Linaclotide (Linzess), 145 MCG PO for Constipation, (Reported) Lorazepam* (Ativan*), 0.5 MG ORAL THREE TIMES A DAY PRN for For Anxiety, ( Reported) Tramadol Hcl* (Ultram*), 50 MG GT Q6H PRN for For Pain, (Reported) Patient History History Provided By: Patient, Medical Record, PMD Healthcare decision maker Resuscitation status Full Code Advanced Directive on File Past Medical/Surgical History Past Medical/Surgical History: (1) A-fib (2) HTN (hypertension) (3) Acute respiratory failure (4) Constipation (5) Hypovolemic shock (6) Cholelithiasis (7) Anemia (8) Cellulitis (9) Cellulitis (10) Dyspnea (11) Respiratory distress (12) Respiratory distress (13) Respiratory distress (14) Hyperglycemia (15) Ileus (16) Leukocytosis (17) Leukocytosis (18) Pleural effusion (19) Tachycardia (20) Hypoalbuminemia (21) Sepsis (22) SBO (small bowel obstruction) (23) Abdominal pain (24) UGI bleed (25) Ventilator dependent (26) ACS (acute coronary syndrome) (27) COPD exacerbation (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 (29) Pelvic mass in female (30) On tube feeding diet (31) Abdominal pain (32) Abdominal pain (33) Constipation (34) acute lower urinary tract infection (35) Nicotine addiction (36) COPD exacerbation (37) Protein-calorie malnutrition, severe (38) pending DT (39) Emphysema of lung (40) Depression (41) Status post tracheostomy (42) EtOH dependence (43) Anemia (44) Generalized weakness (45) Tobacco abuse (46) Dysphagia (47) Encounter for PEG (percutaneous endoscopic gastrostomy) Review of Systems Psychiatric: Reports: prior hx, anxiety, depressed feelings, emotional problems , hallucinations Physical Exam General Appearance: no apparent distress, alert, thin Neurologic: alert, oriented x 3, responsive, depressed affect Last 24 Hour Vital Signs Date Time Temp Pulse Resp B/P (MAP) Pulse Ox O2 Delivery O2 Flow Rate FiO2 08/21/17 15:44 97.6 104 20 90/49 97 Nasal Cannula 2.0 08/21/17 14:44 106 20 99 Nasal Cannula 2.0 28 08/21/17 14:33 103 18 96 Nasal Cannula 2.0 28 08/21/17 12:15 97.5 105 21 103/75 97 Nasal Cannula 2.0 08/21/17 11:28 100 18 99 Nasal Cannula 2.0 28 08/21/17 11:09 96 18 96 Nasal Cannula 2.0 28 08/21/17 07:17 99 18 100 Nasal Cannula 2.0 28 08/21/17 07:05 98 18 99 Nasal Cannula 2.0 28 08/21/17 07:05 Nasal Cannula 2.0 28 08/21/17 07:05 99 Nasal Cannula 2.0 28 08/21/17 04:00 97.7 97 20 90/52 98 Nasal Cannula 2.0 08/21/17 03:36 Nasal Cannula 2.0 28 08/21/17 03:35 Nasal Cannula 2.0 28 08/20/17 23:00 Nasal Cannula 2.0 28 08/20/17 23:00 Nasal Cannula 2.0 28 08/20/17 20:00 97.2 100 19 86/57 100 Nasal Cannula 2.0 28 Intake and Output 08/21/17 08/22/17 19:00 07:00 Intake Total 200 ml Output Total 250 ml Balance -50 ml Intake Oral 200 ml Output Urine Total 250 ml # Voids 3 # Bowel Movements 2 Height (Feet): 5 Height (Inches): 5.00 Weight (Pounds): 108 Medications Current Medications Medications (Trade) Dose Ordered Sig/Nahum Route PRN Reason Start Time Stop Time Status Last Admin Dose Admin Acetaminophen (Tylenol) 650 mg Q4H PRN ORAL fever 08/20/17 19:30 09/18/17 19:29 Al Hydroxide/Mg Hydroxide (Mylanta II) 30 ml Q6H PRN ORAL dyspepsia 08/20/17 19:30 09/19/17 19:29 Albuterol/ Ipratropium (DuoNeb 0.5-3(2.5)mg/3ml) 3 ml Q4HRT HHN 08/20/17 23:00 08/25/17 22:59 08/21/17 14:34 Chlordiazepoxide (Librium) 25 mg Q6H PRN ORAL Agitation 08/20/17 19:30 08/27/17 19:29 Dextrose (Dextrose 50%) STAT PRN IV Hypoglycemia 08/20/17 19:30 09/19/17 19:29 Docusate Sodium (Colace) 100 mg THREE TIMES A DAY ORAL 08/21/17 09:00 09/19/17 12:59 08/21/17 12:35 Folic Acid 1 mg/ Magnesium Sulfate 2000 mg/ Multivitamins 10 ml/Sodium Chloride 1,014.2 ml @ 124.876 mls/hr Q24H IV 08/21/17 17:00 09/18/17 16:59 08/21/17 17:23 Heparin Sodium (Porcine) (Heparin 5000 units/ml) 5,000 units EVERY 12 HOURS SUBQ 08/20/17 21:00 09/18/17 20:59 08/20/17 20:51 Iron Sucrose 100 mg/Sodium Chloride 60 ml @ 240 mls/hr BEDTIME IV 08/20/17 21:00 08/24/17 21:01 08/20/17 20:48 Lactulose (Cephulac) 30 gm THREE TIMES A DAY ORAL 08/21/17 09:00 09/19/17 12:59 Lisinopril (Prinivil) 20 mg DAILYPRN PRN ORAL SBP > 150 08/20/17 19:30 09/19/17 19:29 Lorazepam (Ativan 2mg/ml 1ml) 0.5 mg Q1H PRN IV seizures 08/20/17 19:30 08/26/17 19:29 08/20/17 20:47 Lorazepam (Ativan) 0.5 mg Q6H PRN ORAL For Anxiety 08/21/17 14:15 08/28/17 14:14 08/21/17 14:49 Mineral Oil (Fleet's Mineral Oil Enema) 133 ml EVERY OTHER DAY RECTAL 08/22/17 09:00 09/21/17 08:59 Morphine Sulfate (Morphine Sulfate) 1 mg Q4H PRN IVP For Pain 4-10 08/20/17 19:30 08/26/17 19:29 Nicotine (Nicoderm) 1 patch Q24H TDERMAL 08/20/17 21:00 09/18/17 20:59 08/20/17 20:49 Ondansetron HCl (Zofran) 4 mg Q6H PRN IVP Nausea & Vomiting 08/20/17 19:30 09/19/17 19:29 Pantoprazole (Protonix) 40 mg Q12HR ORAL 08/20/17 21:00 09/18/17 20:59 08/21/17 08:23 Polyethylene Glycol (Miralax) 17 gm BEDTIME ORAL 08/20/17 21:00 09/19/17 20:59 08/20/17 20:49 Polyethylene Glycol (Miralax) 17 gm HSPRN PRN ORAL Constipation 08/20/17 21:00 09/19/17 20:59 Salmeterol Xinafoate/ Fluticasone (Advair 250/50 Diskus) 1 puffs BIDRT INH 08/20/17 22:00 09/19/17 12:59 Sennosides (Senokot) 8.6 mg DAILY ORAL 08/21/17 09:00 09/20/17 08:59 08/21/17 08:24 Sucralfate (Carafate) 1 gm FOUR TIMES A DAY ORAL 08/20/17 21:00 09/18/17 20:59 08/21/17 12:35 Thiamine HCl 100 mg/Dextrose 56 ml @ 112 mls/hr Q24H IVPB 08/21/17 17:00 09/18/17 16:59 08/21/17 17:29 Tiotropium Kevin (Spiriva Inhaler) 1 puff BIDRT INH 08/20/17 22:00 09/19/17 12:29 Zolpidem Tartrate (Ambien) 5 mg HSPRN PRN ORAL Insomnia 08/20/17 19:30 08/27/17 19:29 Assessment/Plan Status: unchanged Assessment/Plan mdd alcohol dependecne -lexapro 10mg -busoar 5mg bid -valium 10q 3hr prn dc Juvenal Walls dc, M.D. Aug 21, 2017 19:34
[2017-08-21 20:11] VITALS: BP 84/59
[2017-08-21] MEDS: Miralax 17gm pkt ORAL SCH (21:00)
[2017-08-21] MEDS: Iron Sucrose 100 MG in NS 55 ML IV SCH (21:01)
[2017-08-22 00:05] VITALS: BP 88/60
[2017-08-22] MEDS: Albuterol/Ipratropium 3ml neb HHN SCH ×6 (03:00→23:00)
[2017-08-22 04:27] VITALS: BP 90/72
[2017-08-22] MEDS: Advair 250/50 Inhaler - 14 dose INH SCH ×2 (06:42→19:58)
[2017-08-22 08:00] VITALS: BP 83/66
[2017-08-22] MEDS: BusPIRone 5mg Tab ORAL SCH ×3 (08:16→18:00)
[2017-08-22] MEDS: Sucralfate 1gm tab ORAL SCH ×4 (08:16→20:57)
[2017-08-22] MEDS: Sennosides 8.6mg ORAL SCH (08:16)
[2017-08-22] MEDS: Docusate 100mg cap ORAL SCH ×3 (08:16→18:00)
[2017-08-22] MEDS: Lactulose 20gm/30ml UDC ORAL SCH ×3 (08:17→18:00)
[2017-08-22] MEDS: Heparin 5000 units/ml inj SUBQ SCH ×2 (08:20→20:58)
[2017-08-22 08:37] LABS: BASOPHILS % (AUTO) 0.4 % (0.0-2.0); LYMPHOCYTES % (AUTO) 11.7 % (20.0-45.0); MEAN CORPUSCULAR HGB CONC 32.7 G/DL (32.0-36.0); MEAN CORPUSCULAR VOLUME 110 FL (80-99); MEAN PLATELET VOLUME 6.4 FL (6.5-10.1); MONOCYTES % (AUTO) 5.9 % (1.0-10.0); PLATELET COUNT 245 K/UL (150-450); RED BLOOD COUNT 2.92 M/UL (4.20-5.40); RED CELL DISTRIBUTION WIDTH 15.2 % (11.6-14.8); WHITE BLOOD COUNT 12.3 K/UL (4.8-10.8)
[2017-08-22] MEDS ORDERED: Fleet's Mineral Oil Enema RECTAL SCH (09:00)
[2017-08-22 09:02] LABS: ANION GAP 6 mmol/L (5-15); CALCIUM 8.2 MG/DL (8.5-10.1); CARBON DIOXIDE 26 MMOL/L (21-32); CHLORIDE 108 MMOL/L (98-107); CREATININE 0.2 MG/DL (0.55-1.30); GLOMERULAR FILTRATION RATE > 60 mL/min (>60); POTASSIUM 4.2 MMOL/L (3.5-5.1); SODIUM 140 MMOL/L (136-145)
[2017-08-22] MEDS: Fleet's Mineral Oil Enema RECTAL SCH (09:02)
[2017-08-22 12:00] VITALS: BP 76/51
[2017-08-22 12:19] LABS: OTHERS PATHOLOGIST COMMENT
--- NOTE | 2017-08-22 14:38 | GI Progress Note ---
Assessment/Plan Problems: (1) Gastrostomy tube dependent ICD Codes: Z93.1 - Gastrostomy tube dependent SNOMED: 718892637 (2) Abdominal pain (3) Hypoalbuminemia ICD Codes: E88.09 - Hypoalbuminemia SNOMED: 198874101 (4) Dysphagia ICD Codes: R13.10 - Dysphagia, unspecified SNOMED: 39949729, 935441003 (5) Anemia ICD Codes: D64.9 - Anemia SNOMED: 262984667 (6) Protein-calorie malnutrition, severe ICD Codes: E43 - Unspecified severe protein-calorie malnutrition SNOMED: 582177854 Status: unchanged Status Narrative Discussed with Dr. Sinha. Assessment/Plan ST evaluation reviewed >> PEG PLACEMENT PRIMARY SOURCE OF NUTRITION/ HYDRATION. - diet for oral grat PEG tentatively scheduled for tomorrow if patient agrees, she is still indecisive at this time >> now DNR/DNI. - diet now, NPO @ MN. - hold all blood thinners tonight. monitor H&H, prn transfusions bowel regime ppi fu labs The patient was seen and examined at bedside and all new and available data was reviewed in the patients chart. I agree with the above findings, impression and plan. (Patient seen earlier today. Signature stamp does not reflect patient encounter time.). - Bethany Sinha MD Subjective Gastrointestinal/Abdominal: Reports: no symptoms Objective Last 24 Hour Vital Signs Date Time Temp Pulse Resp B/P (MAP) Pulse Ox O2 Delivery O2 Flow Rate FiO2 08/22/17 12:00 97.6 100 19 76/51 93 Nasal Cannula 2.0 08/22/17 10:56 113 20 98 Nasal Cannula 2.0 08/22/17 10:42 104 20 Nasal Cannula 2.0 08/22/17 08:00 98.2 115 36 83/66 92 Nasal Cannula 2.0 08/22/17 06:50 114 20 98 Nasal Cannula 2.0 08/22/17 06:47 110 22 Nasal Cannula 2.0 08/22/17 06:47 Nasal Cannula 2.0 08/22/17 06:40 110 22 91 Nasal Cannula 2.0 08/22/17 06:39 91 Nasal Cannula 2.0 08/22/17 04:27 98.2 95 18 90/72 95 Room Air 08/22/17 03:40 Nasal Cannula 2.0 28 08/22/17 03:39 Nasal Cannula 2.0 28 08/22/17 00:05 98.1 92 17 88/60 97 Nasal Cannula 2.0 08/21/17 23:17 Nasal Cannula 2.0 28 08/21/17 23:14 Nasal Cannula 2.0 28 08/21/17 20:11 97.9 102 20 84/59 96 Nasal Cannula 2.0 08/21/17 19:51 101 20 96 Nasal Cannula 2.0 28 08/21/17 19:51 108 20 98 Nasal Cannula 2.0 28 08/21/17 19:50 Nasal Cannula 2.0 28 08/21/17 19:50 96 Nasal Cannula 2.0 28 08/21/17 15:44 97.6 104 20 90/49 97 Nasal Cannula 2.0 08/21/17 14:44 106 20 99 Nasal Cannula 2.0 28 Intake and Output 08/22/17 08/23/17 19:00 07:00 Intake Total 150 ml Balance 150 ml Intake Oral 150 ml # Bowel Movements 3 Laboratory Tests Test 08/22/17 07:30 White Blood Count 12.3 K/UL (4.8-10.8) H Red Blood Count 2.92 M/UL (4.20-5.40) L Hemoglobin 10.5 G/DL (12.0-16.0) L Hematocrit 32.2 % (37.0-47.0) L Mean Corpuscular Volume 110 FL (80-99) H Mean Corpuscular Hemoglobin 36.0 PG (27.0-31.0) H Mean Corpuscular Hemoglobin Concent 32.7 G/DL (32.0-36.0) Red Cell Distribution Width 15.2 % (11.6-14.8) H Platelet Count 245 K/UL (150-450) Mean Platelet Volume 6.4 FL (6.5-10.1) L Neutrophils (%) (Auto) 82.0 % (45.0-75.0) H Lymphocytes (%) (Auto) 11.7 % (20.0-45.0) L Monocytes (%) (Auto) 5.9 % (1.0-10.0) Eosinophils (%) (Auto) 0.0 % (0.0-3.0) Basophils (%) (Auto) 0.4 % (0.0-2.0) Sodium Level 140 MMOL/L (136-145) Potassium Level 4.2 MMOL/L (3.5-5.1) Chloride Level 108 MMOL/L (98-107) H Carbon Dioxide Level 26 MMOL/L (21-32) Anion Gap 6 mmol/L (5-15) Blood Urea Nitrogen 9 mg/dL (7-18) Creatinine 0.2 MG/DL (0.55-1.30) L Estimat Glomerular Filtration Rate > 60 mL/min (>60) Glucose Level 158 MG/DL (74-106) H Calcium Level 8.2 MG/DL (8.5-10.1) L Phosphorus Level 1.0 MG/DL (2.5-4.9) L Magnesium Level 2.0 MG/DL (1.8-2.4) Height (Feet): 5 Height (Inches): 5.00 Weight (Pounds): 108 General Appearance: WD/WN, no apparent distress, alert Cardiovascular: normal rate Respiratory/Chest: normal breath sounds, no respiratory distress Abdominal Exam: normal bowel sounds, non tender, soft Dai Regan NEnrique Aug 22, 2017 14:38 FRANCY SINHA Aug 23, 2017 07:23
--- NOTE | 2017-08-22 15:14 | Pulmonology Progress Note ---
Assessment/Plan Problems: (1) COPD exacerbation (2) Anemia (3) pending DT (4) ETOH abuse (5) Generalized weakness (6) Protein-calorie malnutrition, severe Assessment/Plan albumin 25% to support BP wants spiriva and Advair Ns bolus check sputum doesn't eat enough doesn't want PEG Subjective ROS Limited/Unobtainable: No Interval Events: feels week, doen't want to be moved to telemetry, wants to be DNr Allergies: Coded Allergies: ADHESIVE (Unverified Allergy, Severe, 08/16/13) ADHESIVE TAPE (Verified Allergy, Unknown, SURGICAL TAPE - RASH, 07/28/11) ALBUTEROL (Verified Adverse Reaction, Unknown, ANXIETY, 07/28/11) Uncoded Allergies: METAL (?) (Allergy, Unknown, RASH, 07/28/11) metal (Allergy, Unknown, 03/30/15) Objective Last 24 Hour Vital Signs Date Time Temp Pulse Resp B/P (MAP) Pulse Ox O2 Delivery O2 Flow Rate FiO2 08/22/17 15:00 100 20 Nasal Cannula 2.0 08/22/17 12:00 97.6 100 19 76/51 93 Nasal Cannula 2.0 08/22/17 10:56 113 20 98 Nasal Cannula 2.0 08/22/17 10:42 104 20 Nasal Cannula 2.0 08/22/17 08:00 98.2 115 36 83/66 92 Nasal Cannula 2.0 08/22/17 06:50 114 20 98 Nasal Cannula 2.0 08/22/17 06:47 110 22 Nasal Cannula 2.0 08/22/17 06:47 Nasal Cannula 2.0 08/22/17 06:40 110 22 91 Nasal Cannula 2.0 08/22/17 06:39 91 Nasal Cannula 2.0 08/22/17 04:27 98.2 95 18 90/72 95 Room Air 08/22/17 03:40 Nasal Cannula 2.0 08/22/17 03:39 Nasal Cannula 2.0 08/22/17 00:05 98.1 92 17 88/60 97 Nasal Cannula 2.0 08/21/17 23:17 Nasal Cannula 2.0 08/21/17 23:14 Nasal Cannula 2.0 08/21/17 20:11 97.9 102 20 84/59 96 Nasal Cannula 2.0 08/21/17 19:51 101 20 96 Nasal Cannula 2.0 28 08/21/17 19:51 108 20 98 Nasal Cannula 2.0 28 08/21/17 19:50 Nasal Cannula 2.0 28 08/21/17 19:50 96 Nasal Cannula 2.0 28 08/21/17 15:44 97.6 104 20 90/49 97 Nasal Cannula 2.0 Intake and Output 08/22/17 08/23/17 19:00 07:00 Intake Total 150 ml Balance 150 ml Intake Oral 150 ml # Bowel Movements 3 General Appearance: cachetic HEENT: normocephalic, atraumatic Respiratory/Chest: chest wall non-tender, normal breath sounds Breasts: no masses Cardiovascular: normal peripheral pulses Abdomen: normal bowel sounds, soft, non tender Genitourinary: normal external genitalia Skin: no rash Laboratory Tests 08/22/17 07:30: White Blood Count 12.3H, Red Blood Count 2.92L, Hemoglobin 10.5L, Hematocrit 32.2L, Mean Corpuscular Volume 110H, Mean Corpuscular Hemoglobin 36.0H, Mean Corpuscular Hemoglobin Concent 32.7, Red Cell Distribution Width 15.2H, Platelet Count 245, Mean Platelet Volume 6.4L, Neutrophils (%) (Auto) 82.0H, Lymphocytes (%) (Auto) 11.7L, Monocytes (%) (Auto) 5.9, Eosinophils (%) (Auto) 0.0, Basophils (%) (Auto) 0.4, Sodium Level 140, Potassium Level 4.2, Chloride Level 108H, Carbon Dioxide Level 26, Anion Gap 6, Blood Urea Nitrogen 9, Creatinine 0.2L, Estimat Glomerular Filtration Rate > 60, Glucose Level 158H, Calcium Level 8.2L, Phosphorus Level 1.0L, Magnesium Level 2.0 Current Medications Medications (Trade) Dose Ordered Sig/Nahum Route PRN Reason Start Time Stop Time Status Last Admin Dose Admin Acetaminophen (Tylenol) 650 mg Q4H PRN ORAL fever 08/20/17 19:30 09/18/17 19:29 Al Hydroxide/Mg Hydroxide (Mylanta II) 30 ml Q6H PRN ORAL dyspepsia 08/20/17 19:30 09/19/17 19:29 Albumin Human 50 ml @ 50 mls/hr ONCE ONCE IV 10/25/17 15:00 08/22/17 15:59 Albuterol/ Ipratropium (DuoNeb 0.5-3(2.5)mg/3ml) 3 ml Q4HRT HHN 08/20/17 23:00 08/25/17 22:59 08/22/17 15:04 Buspirone HCl (Buspar) 5 mg THREE TIMES A DAY ORAL 08/22/17 09:00 09/21/17 08:59 08/22/17 08:16 Cefoxitin Sodium 1 gm/Dextrose 55 ml @ 110 mls/hr ONCE ONCE IV 08/23/17 07:30 08/23/17 07:59 Dextrose (Dextrose 50%) STAT PRN IV Hypoglycemia 08/20/17 19:30 09/19/17 19:29 Diazepam (Valium) 10 mg Q3H PRN ORAL anxiety / alcohol withdrawal 08/21/17 19:30 08/28/17 19:29 08/22/17 08:15 Docusate Sodium (Colace) 100 mg THREE TIMES A DAY ORAL 08/21/17 09:00 09/19/17 12:59 08/22/17 08:16 Escitalopram Oxalate (Lexapro) 10 mg DAILY ORAL 08/22/17 09:00 09/21/17 08:59 08/22/17 08:16 Folic Acid 1 mg/ Magnesium Sulfate 2000 mg/ Multivitamins 10 ml/Sodium Chloride 1,014.2 ml @ 124.876 mls/hr Q24H IV 08/21/17 17:00 09/18/17 16:59 08/21/17 17:23 Heparin Sodium (Porcine) (Heparin 5000 units/ml) 5,000 units EVERY 12 HOURS SUBQ 08/20/17 21:00 09/18/17 20:59 08/22/17 08:20 Iron Sucrose 100 mg/Sodium Chloride 60 ml @ 240 mls/hr BEDTIME IV 08/20/17 21:00 08/24/17 21:01 08/21/17 21:01 Lactulose (Cephulac) 30 gm THREE TIMES A DAY ORAL 08/21/17 09:00 09/19/17 12:59 08/22/17 08:17 Lisinopril (Prinivil) 20 mg DAILYPRN PRN ORAL SBP > 150 08/20/17 19:30 09/19/17 19:29 Mineral Oil (Fleet's Mineral Oil Enema) 133 ml EVERY OTHER DAY RECTAL 08/22/17 09:00 09/21/17 08:59 08/22/17 09:02 Morphine Sulfate (Morphine Sulfate) 1 mg Q4H PRN IVP For Pain 4-10 08/20/17 19:30 08/26/17 19:29 Nicotine (Nicoderm) 1 patch Q24H TDERMAL 08/20/17 21:00 09/18/17 20:59 08/21/17 21:02 Ondansetron HCl (Zofran) 4 mg Q6H PRN IVP Nausea & Vomiting 08/20/17 19:30 09/19/17 19:29 Pantoprazole (Protonix) 40 mg Q12HR ORAL 08/20/17 21:00 09/18/17 20:59 08/22/17 08:16 Polyethylene Glycol (Miralax) 17 gm BEDTIME ORAL 08/20/17 21:00 09/19/17 20:59 08/20/17 20:49 Polyethylene Glycol (Miralax) 17 gm HSPRN PRN ORAL Constipation 08/20/17 21:00 09/19/17 20:59 Salmeterol Xinafoate/ Fluticasone (Advair 250/50 Diskus) 1 puffs BIDRT INH 08/20/17 22:00 09/19/17 12:59 08/22/17 06:42 Sennosides (Senokot) 8.6 mg DAILY ORAL 08/21/17 09:00 09/20/17 08:59 08/22/17 08:16 Sucralfate (Carafate) 1 gm FOUR TIMES A DAY ORAL 08/20/17 21:00 09/18/17 20:59 08/22/17 08:16 Thiamine HCl 100 mg/Dextrose 56 ml @ 112 mls/hr Q24H IVPB 08/21/17 17:00 09/18/17 16:59 08/21/17 17:29 Tiotropium [place] (Spiriva Inhaler) 1 puff BIDRT INH 08/20/17 22:00 09/19/17 12:29 08/22/17 06:42 YNES BREWSTER Aug 22, 2017 15:14
[2017-08-22 16:00] VITALS: BP 69/46
[2017-08-22] MEDS: Thiamine HCl 100 MG in D5W 55 ML IVPB SCH (18:08)
[2017-08-22] MEDS: Folic Acid 1 MG, Magnesium Sulfate 2,000 MG, Multivitamin - 12 Injection 10 ML in NS w/... IV SCH (18:08)
[2017-08-22 20:33] VITALS: BP 71/50
[2017-08-22] MEDS: Iron Sucrose 100 MG in NS 55 ML IV SCH (20:56)
[2017-08-22] MEDS: Miralax 17gm pkt ORAL SCH (20:57)
--- NOTE | 2017-08-22 22:22 | Geriatric Progress Note ---
Assessment/Plan Assessment/Plan Alcohol depence and withdrawal mdd cont current meds referred to reflection Discussed with: patient Subjective Interval Events the pt is weak and has anxiety Mood/Memory: Reports: prior hx, anxiety, depressed feelings, emotional problems Sleep: Reports: doesn't sleep well Geriatric Geriatric Last 24 Hour Vital Signs Date Time Temp Pulse Resp B/P (MAP) Pulse Ox O2 Delivery O2 Flow Rate FiO2 08/22/17 20:33 97.3 94 18 71/50 94 Nasal Cannula 2.0 08/22/17 20:00 106 20 93 Nasal Cannula 2.0 28 08/22/17 19:59 Nasal Cannula 2.0 28 08/22/17 19:59 101 20 92 Nasal Cannula 2.0 28 08/22/17 19:59 92 Nasal Cannula 2.0 28 08/22/17 16:00 96.2 102 20 69/46 95 Nasal Cannula 2.0 08/22/17 15:20 105 20 98 Nasal Cannula 2.0 28 08/22/17 15:00 100 20 Nasal Cannula 2.0 28 08/22/17 12:00 97.6 100 19 76/51 93 Nasal Cannula 2.0 08/22/17 10:56 113 20 98 Nasal Cannula 2.0 28 08/22/17 10:42 104 20 Nasal Cannula 2.0 28 08/22/17 08:00 98.2 115 36 83/66 92 Nasal Cannula 2.0 08/22/17 06:50 114 20 98 Nasal Cannula 2.0 28 08/22/17 06:47 110 22 Nasal Cannula 2.0 28 08/22/17 06:47 Nasal Cannula 2.0 28 08/22/17 06:40 110 22 91 Nasal Cannula 2.0 28 08/22/17 06:39 91 Nasal Cannula 2.0 28 08/22/17 04:27 98.2 95 18 90/72 95 Room Air 08/22/17 03:40 Nasal Cannula 2.0 28 08/22/17 03:39 Nasal Cannula 2.0 28 08/22/17 00:05 98.1 92 17 88/60 97 Nasal Cannula 2.0 08/21/17 23:17 Nasal Cannula 2.0 28 08/21/17 23:14 Nasal Cannula 2.0 28 Intake and Output 08/22/17 08/23/17 19:00 07:00 Intake Total 450 ml Balance 450 ml Intake Oral 450 ml # Voids 1 # Bowel Movements 4 Laboratory Tests Test 08/22/17 07:30 White Blood Count 12.3 K/UL (4.8-10.8) H Red Blood Count 2.92 M/UL (4.20-5.40) L Hemoglobin 10.5 G/DL (12.0-16.0) L Hematocrit 32.2 % (37.0-47.0) L Mean Corpuscular Volume 110 FL (80-99) H Mean Corpuscular Hemoglobin 36.0 PG (27.0-31.0) H Mean Corpuscular Hemoglobin Concent 32.7 G/DL (32.0-36.0) Red Cell Distribution Width 15.2 % (11.6-14.8) H Platelet Count 245 K/UL (150-450) Mean Platelet Volume 6.4 FL (6.5-10.1) L Neutrophils (%) (Auto) 82.0 % (45.0-75.0) H Lymphocytes (%) (Auto) 11.7 % (20.0-45.0) L Monocytes (%) (Auto) 5.9 % (1.0-10.0) Eosinophils (%) (Auto) 0.0 % (0.0-3.0) Basophils (%) (Auto) 0.4 % (0.0-2.0) Sodium Level 140 MMOL/L (136-145) Potassium Level 4.2 MMOL/L (3.5-5.1) Chloride Level 108 MMOL/L (98-107) H Carbon Dioxide Level 26 MMOL/L (21-32) Anion Gap 6 mmol/L (5-15) Blood Urea Nitrogen 9 mg/dL (7-18) Creatinine 0.2 MG/DL (0.55-1.30) L Estimat Glomerular Filtration Rate > 60 mL/min (>60) Glucose Level 158 MG/DL (74-106) H Calcium Level 8.2 MG/DL (8.5-10.1) L Phosphorus Level 1.0 MG/DL (2.5-4.9) L Magnesium Level 2.0 MG/DL (1.8-2.4) Current Medications Medications (Trade) Dose Ordered Sig/Nahum Route PRN Reason Start Time Stop Time Status Last Admin Dose Admin Acetaminophen (Tylenol) 650 mg Q4H PRN ORAL fever 08/20/17 19:30 09/18/17 19:29 Al Hydroxide/Mg Hydroxide (Mylanta II) 30 ml Q6H PRN ORAL dyspepsia 08/20/17 19:30 09/19/17 19:29 Albuterol/ Ipratropium (Albuterol/ Ipratropium) 3 ml Q4HRT HHN 08/20/17 23:00 08/25/17 22:59 08/22/17 19:58 Buspirone HCl (Buspar) 5 mg THREE TIMES A DAY ORAL 08/22/17 09:00 09/21/17 08:59 08/22/17 08:16 Cefoxitin Sodium 1 gm/Dextrose 55 ml @ 110 mls/hr ONCE ONCE IV 08/23/17 07:30 08/23/17 07:59 Dextrose (Dextrose 50%) STAT PRN IV Hypoglycemia 08/20/17 19:30 09/19/17 19:29 Diazepam (Valium) 10 mg Q3H PRN ORAL anxiety / alcohol withdrawal 08/21/17 19:30 08/28/17 19:29 08/22/17 08:15 Docusate Sodium (Colace) 100 mg THREE TIMES A DAY ORAL 08/21/17 09:00 09/19/17 12:59 08/22/17 08:16 Escitalopram Oxalate (Lexapro) 10 mg DAILY ORAL 08/22/17 09:00 09/21/17 08:59 08/22/17 08:16 Folic Acid 1 mg/ Magnesium Sulfate 2000 mg/ Multivitamins 10 ml/Sodium Chloride 1,014.2 ml @ 124.876 mls/hr Q24H IV 08/21/17 17:00 09/18/17 16:59 08/22/17 18:08 Heparin Sodium (Porcine) (Heparin 5000 units/ml) 5,000 units EVERY 12 HOURS SUBQ 08/20/17 21:00 09/18/17 20:59 08/22/17 20:58 Iron Sucrose 100 mg/Sodium Chloride 60 ml @ 240 mls/hr BEDTIME IV 08/20/17 21:00 08/24/17 21:01 08/22/17 20:56 Lactulose (Cephulac) 30 gm THREE TIMES A DAY ORAL 08/21/17 09:00 09/19/17 12:59 08/22/17 08:17 Lisinopril (Prinivil) 20 mg DAILYPRN PRN ORAL SBP > 150 08/20/17 19:30 09/19/17 19:29 Mineral Oil (Fleet's Mineral Oil Enema) 133 ml EVERY OTHER DAY RECTAL 08/22/17 09:00 09/21/17 08:59 08/22/17 09:02 Morphine Sulfate (Morphine Sulfate) 1 mg Q4H PRN IVP For Pain 4-10 08/20/17 19:30 08/26/17 19:29 Nicotine (Nicoderm) 1 patch Q24H TDERMAL 08/20/17 21:00 09/18/17 20:59 08/22/17 20:56 Ondansetron HCl (Zofran) 4 mg Q6H PRN IVP Nausea & Vomiting 08/20/17 19:30 09/19/17 19:29 Pantoprazole (Protonix) 40 mg Q12HR ORAL 08/20/17 21:00 09/18/17 20:59 08/22/17 08:16 Polyethylene Glycol (Miralax) 17 gm BEDTIME ORAL 08/20/17 21:00 09/19/17 20:59 08/20/17 20:49 Polyethylene Glycol (Miralax) 17 gm HSPRN PRN ORAL Constipation 08/20/17 21:00 09/19/17 20:59 Salmeterol Xinafoate/ Fluticasone (Advair 250/50 Diskus) 1 puffs BIDRT INH 08/20/17 22:00 09/19/17 12:59 08/22/17 19:58 Sennosides (Senokot) 8.6 mg DAILY ORAL 08/21/17 09:00 09/20/17 08:59 08/22/17 08:16 Sucralfate (Carafate) 1 gm FOUR TIMES A DAY ORAL 08/20/17 21:00 09/18/17 20:59 08/22/17 08:16 Thiamine HCl 100 mg/Dextrose 56 ml @ 112 mls/hr Q24H IVPB 08/21/17 17:00 09/18/17 16:59 08/22/17 18:08 Tiotropium [place] (Spiriva Inhaler) 1 puff BIDRT INH 08/20/17 22:00 09/19/17 12:29 08/22/17 19:58 Height (Feet): 5 Height (Inches): 5.00 Weight (Pounds): 108 Psychiatric Behavior: cooperative, psychomotor agitation Language/Speech: intact, slow Orientation: person, place, time, situation Affect: appropriate, restricted Insight: good Juvenal Alvarado M.D. Aug 22, 2017 22:22
--- NOTE | 2017-08-22 22:23 | General Progress Note ---
Assessment/Plan Status: stable, progressing Subjective Date patient seen: Aug 20, 2017 Neurologic/Psychiatric: Reports: anxiety, depressed, emotional problems Allergies: Coded Allergies: ADHESIVE (Unverified Allergy, Severe, 08/16/13) ADHESIVE TAPE (Verified Allergy, Unknown, SURGICAL TAPE - RASH, 07/28/11) ALBUTEROL (Verified Adverse Reaction, Unknown, ANXIETY, 07/28/11) Uncoded Allergies: METAL (?) (Allergy, Unknown, RASH, 07/28/11) metal (Allergy, Unknown, 03/30/15) Objective Last 24 Hour Vital Signs Date Time Temp Pulse Resp B/P (MAP) Pulse Ox O2 Delivery O2 Flow Rate FiO2 08/22/17 20:33 97.3 94 18 71/50 94 Nasal Cannula 2.0 08/22/17 20:00 106 20 93 Nasal Cannula 2.0 08/22/17 19:59 Nasal Cannula 2.0 08/22/17 19:59 101 20 92 Nasal Cannula 2.0 08/22/17 19:59 92 Nasal Cannula 2.0 08/22/17 16:00 96.2 102 20 69/46 95 Nasal Cannula 2.0 08/22/17 15:20 105 20 98 Nasal Cannula 2.0 28 08/22/17 15:00 100 20 Nasal Cannula 2.0 28 08/22/17 12:00 97.6 100 19 76/51 93 Nasal Cannula 2.0 08/22/17 10:56 113 20 98 Nasal Cannula 2.0 08/22/17 10:42 104 20 Nasal Cannula 2.0 08/22/17 08:00 98.2 115 36 83/66 92 Nasal Cannula 2.0 08/22/17 06:50 114 20 98 Nasal Cannula 2.0 28 08/22/17 06:47 110 22 Nasal Cannula 2.0 28 08/22/17 06:47 Nasal Cannula 2.0 28 08/22/17 06:40 110 22 91 Nasal Cannula 2.0 08/22/17 06:39 91 Nasal Cannula 2.0 08/22/17 04:27 98.2 95 18 90/72 95 Room Air 08/22/17 03:40 Nasal Cannula 2.0 28 08/22/17 03:39 Nasal Cannula 2.0 08/22/17 00:05 98.1 92 17 88/60 97 Nasal Cannula 2.0 08/21/17 23:17 Nasal Cannula 2.0 28 08/21/17 23:14 Nasal Cannula 2.0 28 Intake and Output 08/22/17 08/23/17 19:00 07:00 Intake Total 450 ml Balance 450 ml Intake Oral 450 ml # Voids 1 # Bowel Movements 4 Laboratory Tests 08/22/17 07:30: White Blood Count 12.3H, Red Blood Count 2.92L, Hemoglobin 10.5L, Hematocrit 32.2L, Mean Corpuscular Volume 110H, Mean Corpuscular Hemoglobin 36.0H, Mean Corpuscular Hemoglobin Concent 32.7, Red Cell Distribution Width 15.2H, Platelet Count 245, Mean Platelet Volume 6.4L, Neutrophils (%) (Auto) 82.0H, Lymphocytes (%) (Auto) 11.7L, Monocytes (%) (Auto) 5.9, Eosinophils (%) (Auto) 0.0, Basophils (%) (Auto) 0.4, Sodium Level 140, Potassium Level 4.2, Chloride Level 108H, Carbon Dioxide Level 26, Anion Gap 6, Blood Urea Nitrogen 9, Creatinine 0.2L, Estimat Glomerular Filtration Rate > 60, Glucose Level 158H, Calcium Level 8.2L, Phosphorus Level 1.0L, Magnesium Level 2.0 Height (Feet): 5 Height (Inches): 5.00 Weight (Pounds): 108 General Appearance: no apparent distress, alert, thin Neurologic: alert, oriented x 3, responsive, depressed affect Juvenal Alvarado M.D. Aug 22, 2017 22:23
[2017-08-23] VITALS (7 sets, daily range): BP systolic 76–99; BP diastolic 52–59
[2017-08-23] MEDS: Albuterol/Ipratropium 3ml neb HHN SCH ×6 (03:00→23:00)
[2017-08-23 06:58] LABS: MEAN CORPUSCULAR HGB CONC 31.2 G/DL (32.0-36.0); MEAN CORPUSCULAR VOLUME 116 FL (80-99); PLATELET COUNT 173 K/UL (150-450); RED CELL DISTRIBUTION WIDTH 16.3 % (11.6-14.8); WHITE BLOOD COUNT 10.1 K/UL (4.8-10.8)
[2017-08-23 07:08] LABS: ANION GAP 4 mmol/L (5-15); CALCIUM 7.9 MG/DL (8.5-10.1); CARBON DIOXIDE 27 MMOL/L (21-32); CHLORIDE 113 MMOL/L (98-107); CREATININE 0.2 MG/DL (0.55-1.30); GLOMERULAR FILTRATION RATE > 60 mL/min (>60); POTASSIUM 3.7 MMOL/L (3.5-5.1); SODIUM 144 MMOL/L (136-145)
[2017-08-23] MEDS ORDERED: cefOXitin Sod 1 GM in D5W 55 ML IV ONE (07:30)
[2017-08-23] MEDS ORDERED: D5NS 1,000 ML IV SCH (08:00)
[2017-08-23] MEDS: D5NS 1,000 ML IV SCH ×2 (08:00→21:20)
[2017-08-23 08:02] LABS: ANISOCYTOSIS 1+; BAND NEUTROPHILS % (MANUAL) 5 % (0-8); BASOPHILS % (MANUAL) 0 % (0-2); EOSINOPHILS % (MANUAL) 0 % (0-3); HYPOCHROMASIA 1+; LYMPHOCYTES % (MANUAL) 9 % (20-45); MACROCYTES 1+; NEUTROPHILS % (MANUAL) 83 % (45-75); PLATELET ESTIMATE ADEQUATE; PLATELET MORPHOLOGY NORMAL; TOTAL CELLS COUNTED 100
[2017-08-23] MEDS: Sucralfate 1gm tab ORAL SCH ×4 (09:13→20:39)
[2017-08-23] MEDS: Lactulose 20gm/30ml UDC ORAL SCH ×3 (09:13→18:00)
[2017-08-23] MEDS: Sennosides 8.6mg ORAL SCH (09:13)
[2017-08-23] MEDS: BusPIRone 5mg Tab ORAL SCH ×3 (09:14→18:00)
[2017-08-23] MEDS: Docusate 100mg cap ORAL SCH ×3 (09:14→18:00)
[2017-08-23] MEDS: Heparin 5000 units/ml inj SUBQ SCH ×2 (09:16→20:48)
[2017-08-23] MEDS: Advair 250/50 Inhaler - 14 dose INH SCH ×2 (10:11→22:00)
--- NOTE | 2017-08-23 10:22 | GI Progress Note ---
Assessment/Plan Problems: (1) Gastrostomy tube dependent ICD Codes: Z93.1 - Gastrostomy tube dependent SNOMED: 143861704 (2) Abdominal pain (3) Hypoalbuminemia ICD Codes: E88.09 - Hypoalbuminemia SNOMED: 552775591 (4) Dysphagia ICD Codes: R13.10 - Dysphagia, unspecified SNOMED: 97651489, 025605497 (5) Anemia ICD Codes: D64.9 - Anemia SNOMED: 390542735 (6) Protein-calorie malnutrition, severe ICD Codes: E43 - Unspecified severe protein-calorie malnutrition SNOMED: 967275198 Status: unchanged Status Narrative Discussed with Dr. Sinha. Assessment/Plan ST evaluation reviewed >> recommend PEG PLACEMENT PRIMARY SOURCE OF NUTRITION /HYDRATION with oral grat. PEG if patient agrees, she request more time to think about it has refused 3x. on regular diet monitor H&H, prn transfusions bowel regime ppi fu labs The patient was seen and examined at bedside and all new and available data was reviewed in the patients chart. I agree with the above findings, impression and plan. (Patient seen earlier today. Signature stamp does not reflect patient encounter time.). - Bethany Sinha MD Subjective Subjective refusing PEG wants more time to think about it Objective Last 24 Hour Vital Signs Date Time Temp Pulse Resp B/P (MAP) Pulse Ox O2 Delivery O2 Flow Rate FiO2 08/23/17 08:15 97.2 89 19 99/58 96 Nasal Cannula 2.0 08/23/17 07:36 84 20 96 Nasal Cannula 2.0 08/23/17 07:28 82 18 93 Nasal Cannula 2.0 08/23/17 07:27 Nasal Cannula 2.0 28 08/23/17 07:27 93 Nasal Cannula 2.0 28 08/23/17 04:00 97.4 87 18 83/55 94 Nasal Cannula 2.0 08/23/17 03:57 Nasal Cannula 2.0 08/23/17 03:57 Nasal Cannula 2.0 28 08/23/17 00:16 97.2 87 19 80/55 97 Nasal Cannula 2.0 08/22/17 23:26 Nasal Cannula 2.0 28 08/22/17 23:26 Nasal Cannula 2.0 28 08/22/17 20:33 97.3 94 18 71/50 94 Nasal Cannula 2.0 08/22/17 20:00 106 20 93 Nasal Cannula 2.0 28 08/22/17 19:59 Nasal Cannula 2.0 28 08/22/17 19:59 101 20 92 Nasal Cannula 2.0 08/22/17 19:59 92 Nasal Cannula 2.0 28 08/22/17 16:00 96.2 102 20 69/46 95 Nasal Cannula 2.0 08/22/17 15:20 105 20 98 Nasal Cannula 2.0 28 08/22/17 15:00 100 20 Nasal Cannula 2.0 28 08/22/17 12:00 97.6 100 19 76/51 93 Nasal Cannula 2.0 08/22/17 10:56 113 20 98 Nasal Cannula 2.0 08/22/17 10:42 104 20 Nasal Cannula 2.0 28 Laboratory Tests Test 08/23/17 01:15 08/23/17 06:05 Stool Occult Blood Pending White Blood Count 10.1 K/UL (4.8-10.8) Red Blood Count 2.40 M/UL (4.20-5.40) L Hemoglobin 8.7 G/DL (12.0-16.0) L Hematocrit 27.8 % (37.0-47.0) L Mean Corpuscular Volume 116 FL (80-99) H Mean Corpuscular Hemoglobin 36.0 PG (27.0-31.0) H Mean Corpuscular Hemoglobin Concent 31.2 G/DL (32.0-36.0) L Red Cell Distribution Width 16.3 % (11.6-14.8) H Platelet Count 173 K/UL (150-450) Mean Platelet Volume 7.0 FL (6.5-10.1) Neutrophils (%) (Auto) % (45.0-75.0) Lymphocytes (%) (Auto) % (20.0-45.0) Monocytes (%) (Auto) % (1.0-10.0) Eosinophils (%) (Auto) % (0.0-3.0) Basophils (%) (Auto) % (0.0-2.0) Differential Total Cells Counted 100 Neutrophils % (Manual) 83 % (45-75) H Lymphocytes % (Manual) 9 % (20-45) L Monocytes % (Manual) 3 % (1-10) Eosinophils % (Manual) 0 % (0-3) Basophils % (Manual) 0 % (0-2) Band Neutrophils 5 % (0-8) Platelet Estimate Adequate Platelet Morphology Normal Hypochromasia 1+ Anisocytosis 1+ Macrocytosis 1+ Sodium Level 144 MMOL/L (136-145) Potassium Level 3.7 MMOL/L (3.5-5.1) Chloride Level 113 MMOL/L (98-107) H Carbon Dioxide Level 27 MMOL/L (21-32) Anion Gap 4 mmol/L (5-15) L Blood Urea Nitrogen 13 mg/dL (7-18) Creatinine 0.2 MG/DL (0.55-1.30) L Estimat Glomerular Filtration Rate > 60 mL/min (>60) Glucose Level 121 MG/DL (74-106) H Calcium Level 7.9 MG/DL (8.5-10.1) L Height (Feet): 5 Height (Inches): 5.00 Weight (Pounds): 108 General Appearance: WD/WN, no apparent distress, alert, thin Cardiovascular: normal rate Respiratory/Chest: normal breath sounds, no respiratory distress Abdominal Exam: normal bowel sounds, non tender, soft Dai Regan N.P. Aug 23, 2017 10:22 FRANCY SINHA Aug 24, 2017 09:34
[2017-08-23] MEDS ORDERED: Morphine 5mg/2.5ml Oral Soln ORAL PRN (16:00)
--- NOTE | 2017-08-23 16:35 | Diagnostic Imaging Report ---
Indication: Abnormal renal function tests Technique: Grayscale and duplex images of the kidneys, retroperitoneum, and bladder were obtained. Comparison:Reference made to abdomen pelvis CT dated 05/13/2015 Findings: Right kidney measures 10.4 cm in length. Left kidney measures 9.1 cm in length. Both kidneys demonstrate normal echogenicity. No hydronephrosis. The right kidney demonstrates a small upper pole cyst. There is questionably trace perinephric fluid adjacent the right lower pole The left kidney demonstrates equivocal duplicated collecting system. Normal inferior vena cava. Bladder is mildly distended. It contains debris layering dependently. Impression: Negative for hydronephrosis Echogenic debris layering posteriorly within the bladder. Nonspecific, could represent blood or indicate infection. Correlate with laboratory findings Questionable trace right lower pole perinephric fluid. Significance uncertain if real Incidental finding right renal cyst.
[2017-08-23] MEDS: Folic Acid 1 MG, Magnesium Sulfate 2,000 MG, Multivitamin - 12 Injection 10 ML in NS w/... IV SCH (17:00)
[2017-08-23] MEDS: Thiamine HCl 100 MG in D5W 55 ML IVPB SCH (17:00)
[2017-08-23] MEDS: Miralax 17gm pkt ORAL SCH (21:00)
[2017-08-23] MEDS: Iron Sucrose 100 MG in NS 55 ML IV SCH (21:00)
[2017-08-24] VITALS: BP 103/55
[2017-08-24] MEDS: Albuterol/Ipratropium 3ml neb HHN SCH ×6 (02:18→23:00)
[2017-08-24 04:00] VITALS: BP 97/57
--- NOTE | 2017-08-24 07:42 | Pulmonology Progress Note ---
Assessment/Plan Assessment/Plan ASSESSMENT COPD exacerbation end stage COPD Chronic hypoxemic respiratory failure ( home O2 dependent) ETOH abuse with dependency Pending DT Anemia of chronic disease Nicotine dependency with withdrawal Major depressive disorder severe protein calorie malnutrition sacral decub st 3 POA PLAN OF CARE MS floor O2 to keep sat above 92% pulmonary toilet prn + routine inhalers CXR- no acute CP pathology Empiric abx a/tussive prn IVF/banana bag Neuro and psych follow Initially on Librium and Ativan for pending DT Psych diagnosed with major depressive disorder in addition to ETOH dependency and optimized regimen, Off Ativan and Librium and started on Lexapro, Buspar and prn Valium, no DT Monitor HH, on IV venofer anemia w/up c/w anemia of chronic disease , goal to keep Hgb above 8 Encourage oral hydration, poor intake GI follows Declining PEG Monitor oral intake dietary supplements a/emetic prn strict aspiration precautions Beverage Specialist on cessation of ETOH use certified lactation counselor on smoking cessation, on Nicotine patch wound care as per wound nurse recommendations DVT GI prophylaxis Bowel regimen patient choose hospice services dc home today with hospice services to follow replace K prior to dc case discussed and evaluated by supervising physician Subjective Allergies: Coded Allergies: ADHESIVE (Unverified Allergy, Severe, 08/16/13) ADHESIVE TAPE (Verified Allergy, Unknown, SURGICAL TAPE - RASH, 07/28/11) ALBUTEROL (Verified Adverse Reaction, Unknown, ANXIETY, 07/28/11) Uncoded Allergies: METAL (?) (Allergy, Unknown, RASH, 07/28/11) metal (Allergy, Unknown, 03/30/15) Subjective no signs of distress declined G tube choose hospice care at home Objective Last 24 Hour Vital Signs Date Time Temp Pulse Resp B/P (MAP) Pulse Ox O2 Delivery O2 Flow Rate FiO2 08/24/17 07:10 89 20 99 Nasal Cannula 2.0 08/24/17 07:01 Nasal Cannula 2.0 28 08/24/17 07:01 88 18 95 Nasal Cannula 2.0 08/24/17 06:59 95 Nasal Cannula 2.0 28 08/24/17 04:00 97.7 92 18 97/57 94 Room Air 08/24/17 02:19 Nasal Cannula 2.0 28 08/24/17 02:18 Nasal Cannula 2.0 28 08/24/17 00:00 97.7 93 20 103/55 94 Nasal Cannula 2.0 08/23/17 23:25 Nasal Cannula 2.0 28 08/23/17 23:24 Nasal Cannula 2.0 28 08/23/17 21:00 84/59 08/23/17 20:01 97.9 96 19 79/54 97 Room Air 08/23/17 19:54 98 20 98 Nasal Cannula 2.0 28 08/23/17 19:47 Nasal Cannula 2.0 28 08/23/17 19:47 96 Nasal Cannula 2.0 28 08/23/17 19:45 95 18 96 Nasal Cannula 2.0 28 08/23/17 16:00 96.9 94 18 98/52 100 Nasal Cannula 2.0 08/23/17 15:50 Nasal Cannula 2.0 08/23/17 15:47 Nasal Cannula 2.0 08/23/17 12:00 97.5 99 20 76/56 98 Nasal Cannula 2.0 08/23/17 11:05 100 20 98 Nasal Cannula 2.0 08/23/17 10:57 97 18 93 Nasal Cannula 2.0 08/23/17 08:15 97.2 89 19 99/58 96 Nasal Cannula 2.0 General Appearance: no acute distress, cachetic, other - awake, alert, responsive female HEENT: normocephalic Respiratory/Chest: no accessory muscle use, decreased breath sounds Cardiovascular: normal peripheral pulses, normal rate, regular rhythm, no JVD Abdomen: normal bowel sounds, soft, non tender Neurologic/Psychiatric: abnormal gait, alert, responsive Musculoskeletal: atrophy - BLE Current Medications Medications (Trade) Dose Ordered Sig/Nahum Route PRN Reason Start Time Stop Time Status Last Admin Dose Admin Acetaminophen (Tylenol) 650 mg Q4H PRN ORAL fever 08/20/17 19:30 09/18/17 19:29 Al Hydroxide/Mg Hydroxide (Mylanta II) 30 ml Q6H PRN ORAL dyspepsia 08/20/17 19:30 09/19/17 19:29 Albuterol/ Ipratropium (Albuterol/ Ipratropium) 3 ml Q4HRT HHN 08/20/17 23:00 08/25/17 22:59 08/24/17 06:59 Buspirone HCl (Buspar) 5 mg THREE TIMES A DAY ORAL 08/22/17 09:00 09/21/17 08:59 08/23/17 09:14 Dextrose (Dextrose 50%) STAT PRN IV Hypoglycemia 08/20/17 19:30 09/19/17 19:29 Dextrose/Sodium Chloride 1,000 ml @ 75 mls/hr [id number] IV 08/23/17 08:00 09/22/17 07:59 08/23/17 08:00 Diazepam (Valium) 10 mg Q3H PRN ORAL anxiety / alcohol withdrawal 08/21/17 19:30 08/28/17 19:29 08/23/17 16:13 Docusate Sodium (Colace) 100 mg THREE TIMES A DAY ORAL 08/21/17 09:00 09/19/17 12:59 08/23/17 09:14 Escitalopram Oxalate (Lexapro) 10 mg DAILY ORAL 08/22/17 09:00 09/21/17 08:59 08/23/17 09:13 Folic Acid 1 mg/ Magnesium Sulfate 2000 mg/ Multivitamins 10 ml/Sodium Chloride 1,014.2 ml @ 124.876 mls/hr Q24H IV 08/21/17 17:00 09/18/17 16:59 08/22/17 18:08 Heparin Sodium (Porcine) (Heparin 5000 units/ml) 5,000 units EVERY 12 HOURS SUBQ 08/20/17 21:00 09/18/17 20:59 08/23/17 09:16 Iron Sucrose 100 mg/Sodium Chloride 60 ml @ 240 mls/hr BEDTIME IV 08/20/17 21:00 08/24/17 21:01 08/22/17 20:56 Lactulose (Cephulac) 30 gm THREE TIMES A DAY ORAL 08/21/17 09:00 09/19/17 12:59 08/23/17 09:13 Lisinopril (Prinivil) 20 mg DAILYPRN PRN ORAL SBP > 150 08/20/17 19:30 09/19/17 19:29 Mineral Oil (Fleet's Mineral Oil Enema) 133 ml EVERY OTHER DAY RECTAL 08/22/17 09:00 09/21/17 08:59 08/22/17 09:02 Morphine Sulfate (Morphine 5mg/ 2.5ml Oral Soln) 3 mg Q4H PRN ORAL For Pain 08/23/17 16:00 09/22/17 15:59 Nicotine (Nicoderm) 1 patch Q24H TDERMAL 08/20/17 21:00 09/18/17 20:59 08/23/17 20:40 Ondansetron HCl (Zofran) 4 mg Q6H PRN IVP Nausea & Vomiting 08/20/17 19:30 09/19/17 19:29 Pantoprazole (Protonix) 40 mg Q12HR ORAL 08/20/17 21:00 09/18/17 20:59 08/23/17 20:39 Polyethylene Glycol (Miralax) 17 gm BEDTIME ORAL 08/20/17 21:00 09/19/17 20:59 08/20/17 20:49 Polyethylene Glycol (Miralax) 17 gm HSPRN PRN ORAL Constipation 08/20/17 21:00 09/19/17 20:59 Salmeterol Xinafoate/ Fluticasone (Advair 250/50 Diskus) 1 puffs BIDRT INH 08/20/17 22:00 09/19/17 12:59 08/23/17 10:11 Sennosides (Senokot) 8.6 mg DAILY ORAL 08/21/17 09:00 09/20/17 08:59 08/23/17 09:13 Sucralfate (Carafate) 1 gm FOUR TIMES A DAY ORAL 08/20/17 21:00 09/18/17 20:59 08/23/17 20:39 Thiamine HCl 100 mg/Dextrose 56 ml @ 112 mls/hr Q24H IVPB 08/21/17 17:00 09/18/17 16:59 08/22/17 18:08 Tiotropium [place] (Spiriva Inhaler) 1 puff BIDRT INH 08/20/17 22:00 09/19/17 12:29 08/23/17 10:11 Ram[facility] CastroBuffalo [facility] Medical CenterHaylie Russell NP Aug 24, 2017 07:42
[2017-08-24 08:21] VITALS: BP 98/69
[2017-08-24] MEDS: Lactulose 20gm/30ml UDC ORAL SCH ×3 (09:00→17:17)
[2017-08-24] MEDS: Sennosides 8.6mg ORAL SCH (09:00)
[2017-08-24] MEDS: Fleet's Mineral Oil Enema RECTAL SCH (09:00)
[2017-08-24] MEDS: Docusate 100mg cap ORAL SCH ×3 (09:23→17:18)
[2017-08-24] MEDS: Sucralfate 1gm tab ORAL SCH ×4 (09:23→20:45)
[2017-08-24] MEDS: BusPIRone 5mg Tab ORAL SCH ×3 (09:23→17:17)
[2017-08-24] MEDS: Heparin 5000 units/ml inj SUBQ SCH ×2 (09:24→20:46)
[2017-08-24] MEDS: Advair 250/50 Inhaler - 14 dose INH SCH ×2 (09:40→22:00)
--- NOTE | 2017-08-24 09:49 | GI Progress Note ---
Assessment/Plan Problems: (1) Gastrostomy tube dependent ICD Codes: Z93.1 - Gastrostomy tube dependent SNOMED: 627395120 (2) Abdominal pain (3) Hypoalbuminemia ICD Codes: E88.09 - Hypoalbuminemia SNOMED: 329352857 (4) Dysphagia ICD Codes: R13.10 - Dysphagia, unspecified SNOMED: 21864129, 746197602 (5) Anemia ICD Codes: D64.9 - Anemia SNOMED: 625885760 (6) Protein-calorie malnutrition, severe ICD Codes: E43 - Unspecified severe protein-calorie malnutrition SNOMED: 308596856 Status: unchanged Status Narrative Discussed with Dr. Sinha. Assessment/Plan ST evaluation reviewed >> recommend PEG PLACEMENT PRIMARY SOURCE OF NUTRITION /HYDRATION with oral grat. okay for DC per GI standpoint PEG if patient agrees, she continues to request more time to think about it, has refused multiple times. on regular soft diet monitor H&H, prn transfusions bowel regime ppi fu labs Subjective Subjective refusing PEG wants more time to think about it Objective Last 24 Hour Vital Signs Date Time Temp Pulse Resp B/P (MAP) Pulse Ox O2 Delivery O2 Flow Rate FiO2 08/24/17 08:21 97.6 92 20 98/69 98 Nasal Cannula 08/24/17 07:10 89 20 99 Nasal Cannula 2.0 08/24/17 07:01 Nasal Cannula 2.0 08/24/17 07:01 88 18 95 Nasal Cannula 2.0 08/24/17 06:59 95 Nasal Cannula 2.0 08/24/17 04:00 97.7 92 18 97/57 94 Room Air 08/24/17 02:19 Nasal Cannula 2.0 08/24/17 02:18 Nasal Cannula 2.0 28 08/24/17 00:00 97.7 93 20 103/55 94 Nasal Cannula 2.0 08/23/17 23:25 Nasal Cannula 2.0 28 08/23/17 23:24 Nasal Cannula 2.0 28 08/23/17 21:00 84/59 08/23/17 20:01 97.9 96 19 79/54 97 Room Air 08/23/17 19:54 98 20 98 Nasal Cannula 2.0 08/23/17 19:47 Nasal Cannula 2.0 08/23/17 19:47 96 Nasal Cannula 2.0 08/23/17 19:45 95 18 96 Nasal Cannula 2.0 28 08/23/17 16:00 96.9 94 18 98/52 100 Nasal Cannula 2.0 08/23/17 15:50 Nasal Cannula 2.0 08/23/17 15:47 Nasal Cannula 2.0 08/23/17 12:00 97.5 99 20 76/56 98 Nasal Cannula 2.0 08/23/17 11:05 100 20 98 Nasal Cannula 2.0 08/23/17 10:57 97 18 93 Nasal Cannula 2.0 28 Height (Feet): 5 Height (Inches): 5.00 Weight (Pounds): 108 General Appearance: WD/WN, no apparent distress, alert, thin Cardiovascular: normal rate Respiratory/Chest: normal breath sounds, no respiratory distress Abdominal Exam: normal bowel sounds, non tender, soft Extremities: non-tender Dai Regan N.P. Aug 24, 2017 09:49
[2017-08-24 10:12] LABS: MEAN CORPUSCULAR HEMOGLOBIN 35.7 PG (27.0-31.0); MEAN CORPUSCULAR HGB CONC 31.8 G/DL (32.0-36.0); MEAN CORPUSCULAR VOLUME 112 FL (80-99); MEAN PLATELET VOLUME 6.2 FL (6.5-10.1); PLATELET COUNT 181 K/UL (150-450); RED BLOOD COUNT 2.42 M/UL (4.20-5.40); RED CELL DISTRIBUTION WIDTH 16.1 % (11.6-14.8); WHITE BLOOD COUNT 7.7 K/UL (4.8-10.8)
[2017-08-24 10:32] LABS: ANISOCYTOSIS 1+; BAND NEUTROPHILS % (MANUAL) 0 % (0-8); BASOPHILS % (MANUAL) 0 % (0-2); EOSINOPHILS % (MANUAL) 0 % (0-3); HYPOCHROMASIA 1+; LYMPHOCYTES % (MANUAL) 16 % (20-45); MACROCYTES 1+; NEUTROPHILS % (MANUAL) 76 % (45-75); PLATELET ESTIMATE ADEQUATE; PLATELET MORPHOLOGY NORMAL; TOTAL CELLS COUNTED 100
[2017-08-24] MEDS: D5NS 1,000 ML IV SCH (10:33)
[2017-08-24 10:58] LABS: ANION GAP 2 mmol/L (5-15); CALCIUM 7.7 MG/DL (8.5-10.1); CARBON DIOXIDE 32 MMOL/L (21-32); CHLORIDE 113 MMOL/L (98-107); CREATININE 0.4 MG/DL (0.55-1.30); POTASSIUM 3.3 MMOL/L (3.5-5.1); SODIUM 147 MMOL/L (136-145)
[2017-08-24 12:03] VITALS: BP 100/53
--- NOTE | 2017-08-24 12:39 | Diagnostic Imaging Report ---
APPROVED REPORT CPT Code: 91082 Present Symptoms Comments: Swelling and pain (right arm) RIGHT UPPER EXTREMITY: Venous imaging reveals patency of the internal jugular, subclavian, axillary and brachial veins. Doppler indicates normal spontaneous flow within these venous segments. The cephalic vein is also thrombosed. The basilic vein was within normal limits.
--- NOTE | 2017-08-24 14:03 | General Progress Note ---
Assessment/Plan Status: stable, progressing Assessment/Plan alcohol and drug use mdd anxiety d/o -valium prn -cont lexapro -reflection -rec longterm for at least one month -or insurance healthcare consultant 21/05 Subjective Constitutional: Reports: malaise, weakness Neurologic/Psychiatric: Reports: anxiety, depressed, emotional problems Allergies: Coded Allergies: ADHESIVE (Unverified Allergy, Severe, 08/16/13) ADHESIVE TAPE (Verified Allergy, Unknown, SURGICAL TAPE - RASH, 07/28/11) ALBUTEROL (Verified Adverse Reaction, Unknown, ANXIETY, 07/28/11) Uncoded Allergies: METAL (?) (Allergy, Unknown, RASH, 07/28/11) metal (Allergy, Unknown, 03/30/15) Subjective the pt is still irritable and has low energy the pt is wanting to go home. not able to feed self Objective Last 24 Hour Vital Signs Date Time Temp Pulse Resp B/P (MAP) Pulse Ox O2 Delivery O2 Flow Rate FiO2 08/24/17 12:03 97.0 95 20 100/53 98 Nasal Cannula 08/24/17 11:01 93 20 99 Nasal Cannula 2.0 08/24/17 10:52 94 18 97 Nasal Cannula 2.0 08/24/17 08:21 97.6 92 20 98/69 98 Nasal Cannula 08/24/17 07:10 89 20 99 Nasal Cannula 2.0 08/24/17 07:01 Nasal Cannula 2.0 08/24/17 07:01 88 18 95 Nasal Cannula 2.0 08/24/17 06:59 95 Nasal Cannula 2.0 08/24/17 04:00 97.7 92 18 97/57 94 Room Air 08/24/17 02:19 Nasal Cannula 2.0 08/24/17 02:18 Nasal Cannula 2.0 08/24/17 00:00 97.7 93 20 103/55 94 Nasal Cannula 2.0 08/23/17 23:25 Nasal Cannula 2.0 08/23/17 23:24 Nasal Cannula 2.0 08/23/17 21:00 84/59 08/23/17 20:01 97.9 96 19 79/54 97 Room Air 08/23/17 19:54 98 20 98 Nasal Cannula 2.0 08/23/17 19:47 Nasal Cannula 2.0 17 19:47 96 Nasal Cannula 2.0 28 08/23/17 19:45 95 18 96 Nasal Cannula 2.0 28 08/23/17 16:00 96.9 94 18 98/52 100 Nasal Cannula 2.0 08/23/17 15:50 Nasal Cannula 2.0 08/23/17 15:47 Nasal Cannula 2.0 Laboratory Tests 08/24/17 10:00: White Blood Count 7.7, Red Blood Count 2.42L, Hemoglobin 8.6L, Hematocrit 27.2L , Mean Corpuscular Volume 112H, Mean Corpuscular Hemoglobin 35.7H, Mean Corpuscular Hemoglobin Concent 31.8L, Red Cell Distribution Width 16.1H, Platelet Count 181, Mean Platelet Volume 6.2L, Neutrophils (%) (Auto) , Lymphocytes (%) (Auto) , Monocytes (%) (Auto) , Eosinophils (%) (Auto) , Basophils (%) (Auto) , Differential Total Cells Counted 100, Neutrophils % ( Manual) 76H, Lymphocytes % (Manual) 16L, Monocytes % (Manual) 8, Eosinophils % ( Manual) 0, Basophils % (Manual) 0, Band Neutrophils 0, Platelet Estimate Adequate, Platelet Morphology Normal, Hypochromasia 1+, Anisocytosis 1+, Macrocytosis 1+, Sodium Level 147H, Potassium Level 3.3L, Chloride Level 113H, Carbon Dioxide Level 32, Anion Gap 2L, Blood Urea Nitrogen 14, Creatinine 0.4#L , Estimat Glomerular Filtration Rate , Glucose Level 204H, Calcium Level 7.7L Height (Feet): 5 Height (Inches): 5.00 Weight (Pounds): 108 General Appearance: no apparent distress, alert, cachetic Neurologic: alert, oriented x 3, responsive, depressed affect Juvenal Alvarado M.D. Aug 24, 2017 14:03
[2017-08-24 16:16] VITALS: BP 94/63
[2017-08-24] MEDS: Thiamine HCl 100 MG in D5W 55 ML IVPB SCH (17:17)
[2017-08-24] MEDS: Folic Acid 1 MG, Magnesium Sulfate 2,000 MG, Multivitamin - 12 Injection 10 ML in NS w/... IV SCH (17:17)
[2017-08-24 20:00] VITALS: BP 109/59
[2017-08-24] MEDS: Miralax 17gm pkt ORAL SCH (20:45)
[2017-08-24] MEDS: Iron Sucrose 100 MG in NS 55 ML IV SCH (20:45)
[2017-08-25] VITALS: BP 102/60
[2017-08-25] MEDS: Albuterol/Ipratropium 3ml neb HHN SCH ×3 (02:27→11:27)
[2017-08-25 04:00] VITALS: BP 88/60
[2017-08-25] MEDS: D5NS 1,000 ML IV SCH ×2 (05:51)
--- NOTE | 2017-08-25 07:54 | General Progress Note ---
Assessment/Plan Problem List: (1) Constipation (2) Abdominal pain (3) COPD exacerbation ICD Codes: J44.1 - Chronic obstructive pulmonary disease with (acute) exacerbation SNOMED: 329764095 (4) Anemia ICD Codes: D64.9 - Anemia, unspecified SNOMED: 802213038 Assessment/Plan ST evaluation reviewed >> recommend PEG PLACEMENT PRIMARY SOURCE OF NUTRITION /HYDRATION with oral grat. okay for DC per GI standpoint PEG if patient agrees, she continues to request more time to think about it, has refused multiple times. on regular soft diet monitor H&H, prn transfusions bowel regime ppi fu labs Subjective ROS Limited/Unobtainable: Yes Allergies: Coded Allergies: ADHESIVE (Unverified Allergy, Severe, 08/16/13) ADHESIVE TAPE (Verified Allergy, Unknown, SURGICAL TAPE - RASH, 07/28/11) ALBUTEROL (Verified Adverse Reaction, Unknown, ANXIETY, 07/28/11) Uncoded Allergies: METAL (?) (Allergy, Unknown, RASH, 07/28/11) metal (Allergy, Unknown, 03/30/15) Subjective no event eating better Objective Last 24 Hour Vital Signs Date Time Temp Pulse Resp B/P (MAP) Pulse Ox O2 Delivery O2 Flow Rate FiO2 08/25/17 04:00 97.0 104 18 88/60 99 Nasal Cannula 2.0 08/25/17 02:26 Nasal Cannula 2.0 08/25/17 02:26 Nasal Cannula 2.0 08/25/17 00:00 Nasal Cannula 2.0 08/25/17 00:00 Nasal Cannula 2.0 08/25/17 00:00 97.3 104 20 102/60 93 Nasal Cannula 2.0 08/24/17 20:00 97.2 92 20 109/59 100 Nasal Cannula 2.0 08/24/17 19:10 95 Nasal Cannula 2.0 08/24/17 19:10 Nasal Cannula 2.0 08/24/17 19:06 94 16 95 Nasal Cannula 2.0 08/24/17 19:06 Nasal Cannula 2.0 08/24/17 16:16 98.6 96 21 94/63 97 Nasal Cannula 2.0 08/24/17 15:15 94 16 97 Nasal Cannula 2.0 08/24/17 15:04 91 16 96 Nasal Cannula 2.0 08/24/17 12:03 97.0 95 20 100/53 98 Nasal Cannula 08/24/17 11:01 93 20 99 Nasal Cannula 2.0 08/24/17 10:52 94 18 97 Nasal Cannula 2.0 08/24/17 08:21 97.6 92 20 98/69 98 Nasal Cannula Laboratory Tests 08/24/17 10:00: White Blood Count 7.7, Red Blood Count 2.42L, Hemoglobin 8.6L, Hematocrit 27.2L , Mean Corpuscular Volume 112H, Mean Corpuscular Hemoglobin 35.7H, Mean Corpuscular Hemoglobin Concent 31.8L, Red Cell Distribution Width 16.1H, Platelet Count 181, Mean Platelet Volume 6.2L, Neutrophils (%) (Auto) , Lymphocytes (%) (Auto) , Monocytes (%) (Auto) , Eosinophils (%) (Auto) , Basophils (%) (Auto) , Differential Total Cells Counted 100, Neutrophils % ( Manual) 76H, Lymphocytes % (Manual) 16L, Monocytes % (Manual) 8, Eosinophils % ( Manual) 0, Basophils % (Manual) 0, Band Neutrophils 0, Platelet Estimate Adequate, Platelet Morphology Normal, Hypochromasia 1+, Anisocytosis 1+, Macrocytosis 1+, Sodium Level 147H, Potassium Level 3.3L, Chloride Level 113H, Carbon Dioxide Level 32, Anion Gap 2L, Blood Urea Nitrogen 14, Creatinine 0.4#L , Estimat Glomerular Filtration Rate , Glucose Level 204H, Calcium Level 7.7L Height (Feet): 5 Height (Inches): 5.00 Weight (Pounds): 108 General Appearance: alert EENT: normal ENT inspection Neck: supple Cardiovascular: normal rate Respiratory/Chest: decreased breath sounds Abdomen: normal bowel sounds, non tender, soft Extremities: non-tender FRANCY REDDY Aug 25, 2017 07:54
[2017-08-25 08:00] VITALS: BP 86/60
[2017-08-25] MEDS: BusPIRone 5mg Tab ORAL SCH ×2 (09:00→13:00)
[2017-08-25] MEDS: Sennosides 8.6mg ORAL SCH (09:00)
[2017-08-25] MEDS: Sucralfate 1gm tab ORAL SCH ×2 (09:00→13:00)
[2017-08-25] MEDS: Heparin 5000 units/ml inj SUBQ SCH (09:00)
[2017-08-25] MEDS: Lactulose 20gm/30ml UDC ORAL SCH ×2 (09:00→13:00)
[2017-08-25] MEDS: Docusate 100mg cap ORAL SCH ×2 (09:00→13:00)
[2017-08-25] MEDS: Advair 250/50 Inhaler - 14 dose INH SCH (10:01)
[2017-08-25] MEDS ORDERED: D5NS 1000ml IV ONE (10:55)
[2017-08-25] MEDS ORDERED: Tubing IV Secondary IV ONE (10:55)
[2017-08-25] MEDS ORDERED: LEXAPRO10 MG ORAL (11:36)
[2017-08-25] MEDS ORDERED: BUSPAR10 MG ORAL (11:37)
[2017-08-25] MEDS ORDERED: VALIUM10 MG ORAL (11:37)
[2017-08-25] MEDS ORDERED: VITAMIN B-1100 MG ORAL (11:37)
[2017-08-25] MEDS ORDERED: COLACE100 MG ORAL (11:37)
[2017-08-25] MEDS ORDERED: DUONEB 0.5-3(2.53 ML HHN (11:39)
[2017-08-25] MEDS ORDERED: SENNOSIDES8.6 MG ORAL (11:39)
[2017-08-25] MEDS ORDERED: LACTULOSE20 GM/301 ORAL (11:39)
[2017-08-25] MEDS ORDERED: NICOTINE PATCH1 EAC5 TD (11:40)
[2017-08-25] MEDS ORDERED: MIRALAX17 G2 ORAL (11:40)
[2017-08-25] MEDS ORDERED: MORPHINE S10 MG/5 ML ORAL (11:42)
--- NOTE | 2017-08-25 11:42 | Pulmonology Progress Note ---
Assessment/Plan Problems: (1) COPD exacerbation (2) Anemia (3) pending DT (4) ETOH abuse (5) Generalized weakness (6) Protein-calorie malnutrition, severe Assessment/Plan bp better unable to go home b/o weakness respiratory treatment pt/ot Subjective ROS Limited/Unobtainable: No Constitutional: Reports: no symptoms HEENT: Repors: no symptoms Respiratory: Reports: no symptoms Allergies: Coded Allergies: ADHESIVE (Unverified Allergy, Severe, 08/16/13) ADHESIVE TAPE (Verified Allergy, Unknown, SURGICAL TAPE - RASH, 07/28/11) ALBUTEROL (Verified Adverse Reaction, Unknown, ANXIETY, 07/28/11) Uncoded Allergies: METAL (?) (Allergy, Unknown, RASH, 07/28/11) metal (Allergy, Unknown, 03/30/15) Objective Last 24 Hour Vital Signs Date Time Temp Pulse Resp B/P (MAP) Pulse Ox O2 Delivery O2 Flow Rate FiO2 08/25/17 11:37 97 20 100 Nasal Cannula 2.0 08/25/17 11:27 101 18 99 Nasal Cannula 3.0 08/25/17 08:00 96.0 108 18 86/60 97 Nasal Cannula 2.0 08/25/17 07:59 106 18 99 Nasal Cannula 2.0 08/25/17 07:50 106 18 99 Nasal Cannula 3.0 08/25/17 07:49 Nasal Cannula 2.0 08/25/17 07:48 99 Nasal Cannula 3.0 08/25/17 04:00 97.0 104 18 88/60 99 Nasal Cannula 2.0 08/25/17 02:26 Nasal Cannula 2.0 08/25/17 02:26 Nasal Cannula 2.0 08/25/17 00:00 Nasal Cannula 2.0 08/25/17 00:00 Nasal Cannula 2.0 08/25/17 00:00 97.3 104 20 102/60 93 Nasal Cannula 2.0 08/24/17 20:00 97.2 92 20 109/59 100 Nasal Cannula 2.0 08/24/17 19:10 95 Nasal Cannula 2.0 08/24/17 19:10 Nasal Cannula 2.0 08/24/17 19:06 94 16 95 Nasal Cannula 2.0 08/24/17 19:06 Nasal Cannula 2.0 08/24/17 16:16 98.6 96 21 94/63 97 Nasal Cannula 2.0 08/24/17 15:15 94 16 97 Nasal Cannula 2.0 28 08/24/17 15:04 91 16 96 Nasal Cannula 2.0 28 08/24/17 12:03 97.0 95 20 100/53 98 Nasal Cannula General Appearance: WD/WN HEENT: normocephalic, atraumatic Respiratory/Chest: chest wall non-tender, lungs clear Breasts: no masses Cardiovascular: normal peripheral pulses Abdomen: normal bowel sounds, soft, non tender Extremities: no cyanosis, no clubbing Skin: no rash Current Medications Medications (Trade) Dose Ordered Sig/Nahum Route PRN Reason Start Time Stop Time Status Last Admin Dose Admin Acetaminophen (Tylenol) 650 mg Q4H PRN ORAL fever 08/20/17 19:30 09/18/17 19:29 Al Hydroxide/Mg Hydroxide (Mylanta II) 30 ml Q6H PRN ORAL dyspepsia 08/20/17 19:30 09/19/17 19:29 Albuterol/ Ipratropium (Albuterol/ Ipratropium) 3 ml Q4HRT HHN 08/20/17 23:00 08/25/17 22:59 08/25/17 11:27 Buspirone HCl (Buspar) 5 mg THREE TIMES A DAY ORAL 08/22/17 09:00 09/21/17 08:59 08/24/17 13:58 Dextrose (Dextrose 50%) STAT PRN IV Hypoglycemia 08/20/17 19:30 09/19/17 19:29 Dextrose/Sodium Chloride 1,000 ml @ 75 mls/hr [id number] IV 08/23/17 08:00 09/22/17 07:59 08/25/17 05:51 Diazepam (Valium) 10 mg Q3H PRN ORAL anxiety / alcohol withdrawal 08/21/17 19:30 08/28/17 19:29 08/25/17 08:29 Docusate Sodium (Colace) 100 mg THREE TIMES A DAY ORAL 08/21/17 09:00 09/19/17 12:59 08/24/17 13:58 Escitalopram Oxalate (Lexapro) 10 mg DAILY ORAL 08/22/17 09:00 09/21/17 08:59 08/24/17 09:22 Folic Acid 1 mg/ Magnesium Sulfate 2000 mg/ Multivitamins 10 ml/Sodium Chloride 1,014.2 ml @ 124.876 mls/hr Q24H IV 08/21/17 17:00 09/18/17 16:59 08/24/17 17:17 Heparin Sodium (Porcine) (Heparin 5000 units/ml) 5,000 units EVERY 12 HOURS SUBQ 08/20/17 21:00 09/18/17 20:59 08/24/17 09:24 Lactulose (Cephulac) 30 gm THREE TIMES A DAY ORAL 08/21/17 09:00 09/19/17 12:59 08/23/17 09:13 Lisinopril (Prinivil) 20 mg DAILYPRN PRN ORAL SBP > 150 08/20/17 19:30 09/19/17 19:29 Mineral Oil (Fleet's Mineral Oil Enema) 133 ml EVERY OTHER DAY RECTAL 08/22/17 09:00 09/21/17 08:59 08/22/17 09:02 Morphine Sulfate (Morphine 5mg/ 2.5ml Oral Soln) 3 mg Q4H PRN ORAL For Pain 08/23/17 16:00 09/22/17 15:59 Nicotine (Nicoderm) 1 patch Q24H TDERMAL 08/20/17 21:00 09/18/17 20:59 08/23/17 20:40 Ondansetron HCl (Zofran) 4 mg Q6H PRN IVP Nausea & Vomiting 08/20/17 19:30 09/19/17 19:29 Pantoprazole (Protonix) 40 mg Q12HR ORAL 08/20/17 21:00 09/18/17 20:59 08/24/17 09:23 Polyethylene Glycol (Miralax) 17 gm BEDTIME ORAL 08/20/17 21:00 09/19/17 20:59 08/20/17 20:49 Polyethylene Glycol (Miralax) 17 gm HSPRN PRN ORAL Constipation 08/20/17 21:00 09/19/17 20:59 Salmeterol Xinafoate/ Fluticasone (Advair 250/50 Diskus) 1 puffs BIDRT INH 08/20/17 22:00 09/19/17 12:59 08/25/17 10:01 Sennosides (Senokot) 8.6 mg DAILY ORAL 08/21/17 09:00 09/20/17 08:59 08/23/17 09:13 Sucralfate (Carafate) 1 gm FOUR TIMES A DAY ORAL 08/20/17 21:00 09/18/17 20:59 08/24/17 13:58 Thiamine HCl 100 mg/Dextrose 56 ml @ 112 mls/hr Q24H IVPB 08/21/17 17:00 09/18/17 16:59 08/24/17 17:17 Tiotropium [place] (Spiriva Inhaler) 1 puff BIDRT INH 08/20/17 22:00 09/19/17 12:29 08/25/17 09:59 YNES BREWSTER Aug 25, 2017 11:42
[2017-08-25 12:57] VITALS: BP 83/60
--- NOTE | 2017-08-26 23:37 | General Progress Note ---
Assessment/Plan Assessment/Plan alcohol and drug use mdd anxiety d/o -valium prn -cont lexapro -reflection -rec long-term for at least one month -or managed care nurse 21/05 Subjective Date patient seen: Aug 25, 2017 Neurologic/Psychiatric: Reports: anxiety, depressed, emotional problems Allergies: Coded Allergies: ADHESIVE (Unverified Allergy, Severe, 08/16/13) ADHESIVE TAPE (Verified Allergy, Unknown, SURGICAL TAPE - RASH, 07/28/11) ALBUTEROL (Verified Adverse Reaction, Unknown, ANXIETY, 07/28/11) Uncoded Allergies: METAL (?) (Allergy, Unknown, RASH, 07/28/11) metal (Allergy, Unknown, 03/30/15) Subjective the pt is still irritable and has low energy the pt is wanting to go home. not able to feed self Objective Height (Feet): 5 Height (Inches): 5.00 Weight (Pounds): 108 General Appearance: no apparent distress, alert, cachetic Neurologic: alert, oriented x 3, responsive Juvenal Alvarado M.D. Aug 26, 2017 23:37
--- NOTE | 2017-08-27 14:54 | Discharge Summary ---
Discharge Summary Hospital Course Date of Admission Aug 19, 2017 at 11:45 Date of Discharge Aug 25, 2017 at 15:15 Admitting Diagnosis HPI Miguelina Mills is a 72 year old female who was admitted on Aug 19, 2017 at 11: 45 for Pt Transfer From [facility] Course dc summary # [id number] Discharge Medications Continued Medications: Atorvastatin Calcium* (Lipitor*) 10 Mg Tablet 10 MG ORAL BEDTIME, TAB Buspirone Hcl* (Buspar*) 10 Mg Tablet 5 MG ORAL THREE TIMES A DAY, #15 TAB 0 Refills Diazepam* (Valium*) 10 Mg Tablet 10 MG ORAL Q3HR PRN for For Anxiety, #30 TAB 0 Refills Docusate Sodium* (Colace*) 100 Mg Capsule 100 MG ORAL THREE TIMES A DAY, CAP Escitalopram Oxalate* (Lexapro*) 10 Mg Tablet 10 MG ORAL DAILY, TAB Fluticasone/Salmeterol (Advair 500-50 Diskus) 1 Each Disk.w.dev 1 PUFF INH Q12H Folic Acid* (Folic Acid*) 1 Mg Tablet 1 MG ORAL DAILY, TAB Ipratropium/Albuterol Sulfate (DuoNeb 0.5-3(2.5)mg/3ml) 3 Ml Ampul.neb 3 ML HHN Q4HR, EA Lactulose (Lactulose*) 20 Gm/30 Ml Solution 45 ML ORAL THREE TIMES A DAY, ML 0 Refills Levalbuterol HCl (Xopenex Concentrate) 0.5 Mg Inha 1.25 MG HHN TIDRT, #30 UNIT Morphine 10mg/5ml Oral Soln* (Morphine 10mg/5ml Oral Soln*) 10 Mg/5 Ml Solution 3 MG ORAL Q4HR PRN for For Pain, ML 0 Refills Multivitamin With Minerals (Multivitamins With Minerals*) 1 Each Tablet 1 EACH PO DAILY, TAB Nicotine (Nicotine Patch) 1 Each Patch.dysq 1 EACH TD, PATCH Pantoprazole* (Protonix*) 40 Mg Tablet.dr 40 MG ORAL Q12HR, #30 TAB 0 Refills Polyethylene Glycol 3350* (Miralax*) 17 Gm Powd.pack 17 GM ORAL DAILY, PACKET Sennosides* (Sennosides*) 8.6 Mg Tablet 8.6 MG ORAL DAILY, TAB Sucralfate* (Carafate*) 1 Gm Tablet 1 GM GT FOUR TIMES A DAY Thiamine Hcl* (Vitamin B-1*) 100 Mg Tablet 100 MG ORAL DAILY, #30 TAB 0 Refills Tiotropium [place]* (Spiriva*) 18 Mcg Cap.w.dev 1 PUFF INH DAILY, EA Discharge Condition Upon Discharge: stable Discharge Disposition Patient was discharged to SNF/Subacute Facility(03) Discharge Diagnoses: Ramon (Sparkle)Haylie NP Aug 27, 2017 14:54
--- NOTE | 2017-08-28 04:46 | Discharge Summary 2 SIG ---
DATE OF ADMISSION: 08/19/2017 DATE OF DISCHARGE: 08/25/2017 REASON FOR ADMISSION: 71-year-old female with history of end-stage COPD, home oxygen dependent, cachectic, was taken by learning technologist due to the impending delirium. She drinks ETOH on a daily basis and wanted to stop drinking. However, she got anxious that she may get chills and tremors and called paramedics. She was evaluated at [facility] and was found to have bronchitis as well along with impending delirium. Patient was transferred to [facility] for further management. The patient was afebrile. The patient was on two liters of nasal cannula with pulse oximetry of 96%. The patient was admitted with COPD exacerbation, anemia, impending DT, alcohol abuse, generalized weakness, and protein-calorie malnutrition. HOSPITAL STAY: The patient was admitted. The patient was started on the banana bag and Librium as needed. Neurology and Psychiatry evaluations were requested. Supplemental oxygen and pulmonary toilet provided as needed. The patient was started on empiric antibiotics. Antitussives provided as needed. Chest x-ray revealed no acute cardiopulmonary pathology. Pulmonary toilet provided around the clock and as needed. inhalers were resumed. Neurologist and psychiatrist closely followed. The patient initially on Librium and Ativan for impending DT. Psychiatrist diagnosed the patient with major depressive disorder in addition to alcohol dependency and optimized regimen. Ativan and Librium were discontinued. The patient was started on Lexapro, BuSpar, and Valium as needed. No delirium tremens. Hemoglobin and hematocrit were closely monitored. The patient was on IV Venofer. Anemia workup was consistent with anemia of chronic disease. Goal to keep hemoglobin above 8. Oral hydration was encouraged. The patient was noted to have a poor oral intake. GI followed. The patient declined PEG placement. Dietary supplement were provided. Antiemetic given as needed. The patient was able to tolerate and eat about 40% to 50% of the food. Strict aspiration precautions were maintained. The patient was counseled on cessation of alcohol abuse. The patient was also counseled on smoking cessation. The patient was provided nicotine patch while in the hospital. Wound care provided as per wound care nurse recommendation for sacral decubitus stage III, present on admission. DVT and GI prophylaxes were provided. Bowel regimen was instituted. The patient initially wanted to go home with the hospice care. However, the patient was too weak to go home. She lives alone and has no daily caregiver available. The patient subsequently agreed to be transferred to the halfway facility for short term, until she gets better. Potassium was replaced prior to discharge. The patient was stable for discharge. FINAL DIAGNOSES: 1. Acute chronic obstructive pulmonary disease exacerbation 2. End-stage chronic obstructive pulmonary disease 3. Chronic hypoxemic respiratory failure 4. Alcohol abuse with dependency. 5. Impending delirium tremens, resolved. 6. Anemia of chronic disease. 7. Nicotine dependency with withdrawal. 8. Major depressive disorder. 9. Severe protein-calorie malnutrition. 10. Sacral decubitus, stage III, present on admission. DISCHARGE INSTRUCTIONS: The patient was discharged to halfway facility. FOLLOWUP: Follow up with medical doctor at the facility. DISCHARGE MEDICATIONS: Please refer to medication reconciliation list. Robbie Bianchi M.D. Haylie CastroElmhurst Hospital CenterYvonne NMerePMere DR: Mary JOB#: [id number] CC: ZARIA
== END 2017-08-25 15:15 | DRG 190 ==
LOC: 2E 11:45 → 3E 08-20 17:02 → 4E 08-20 23:34
DX: J44.1 Chronic obstructive pulmonary disease with (acute) exacerbation (principal); E43 Unspecified severe protein-calorie malnutrition; J96.11 Chronic respiratory failure with hypoxia; L89.153 Pressure ulcer of sacral region, stage 3; D63.8 Anemia in other chronic diseases classified elsewhere; R13.10 Dysphagia, unspecified; Z99.81 Dependence on supplemental oxygen; Z68.1 Body mass index [BMI] 19.9 or less, adult; Z43.1 Encounter for attention to gastrostomy; F10.239 Alcohol dependence with withdrawal, unspecified; F17.200 Nicotine dependence, unspecified, uncomplicated; F32.9 Major depressive disorder, single episode, unspecified; K59.00 Constipation, unspecified; Z88.8 Allergy status to other drugs, medicaments and biological substances; R26.2 Difficulty in walking, not elsewhere classified; F41.9 Anxiety disorder, unspecified
CPT/HCPCS: 36415; 71010; 76775; 80048; 80053; 82270; 82607; 82728; 82746; 83540; 83550; 83615; 83735; 83880; 84100; 85007; 85025; 85044; 85060; 85610; 85651; 85730; 93005; 93971; 94640; 94664; 94760; J7620; J8499

== ENCOUNTER 2017-08-30 18:51 | Inpatient (IN) | payer MEDICARE, MEDICAID ==
[~2017-08-30] VITALS: Ht 160 cm; Wt 54.9 kg
[~2017-08-30 18:51] MED LIST changes: +BUSPAR10 MG ORAL; +DUONEB 0.5-3(2.53 ML HHN; +LACTULOSE20 GM/301 ORAL; +LEXAPRO10 MG ORAL; +MORPHINE S10 MG/5 ML ORAL; +NICOTINE PATCH1 EAC5 TD; +SENNOSIDES8.6 MG ORAL; +VALIUM10 MG ORAL; +VITAMIN B-1100 MG ORAL
[2017-08-30] MEDS ORDERED: Sodium Chloride 500ML 500 ML IV ONE (18:56)
[2017-08-30] MEDS ORDERED: Ipratropium 0.02% Inh Soln 2.5ml UD ONE (18:57)
[2017-08-30] MEDS ORDERED: Albuterol ud Inhalation ONE (18:57)
[2017-08-30] MEDS ORDERED: Levalbuterol Inh UD 1.25mg/0.5ml HHN ONE (19:00)
[2017-08-30] MEDS ORDERED: Solu-MEDROL 125mg Inj IVP ONE (19:00)
[2017-08-30] MEDS ORDERED: Levalbuterol Inh UD 1.25mg/0.5ml ONE (19:01)
--- NOTE | 2017-08-30 19:05 | Emergency Room Report ---
History of Present Illness General Chief Complaint: Dyspnea/Respdistress Source: Patient, EMS Present Illness HPI Patient presents emergency department today complaining acute onset shortness of breath. Patient states that she has a history alcohol abuse. Review medical record show that in the past was admitted for alcohol withdrawal. Patient also has significant COPD. Patient presents emergency department today with worsening shortness of breath of saturation was noted to be in the 70s at the custodial. Patient was visibly short of breath. Symptoms noted to be severe.No other modifying factors. No other associated signs and symptoms. No other complaints were noted. Allergies: Coded Allergies: ADHESIVE (Unverified Allergy, Severe, 08/16/13) ADHESIVE TAPE (Verified Allergy, Unknown, SURGICAL TAPE - RASH, 07/28/11) ALBUTEROL (Verified Adverse Reaction, Unknown, ANXIETY, 07/28/11) Uncoded Allergies: METAL (Allergy, Unknown, 08/30/17) METAL (?) (Allergy, Unknown, RASH, 07/28/11) metal (Allergy, Unknown, 03/30/15) Patient History Past Medical History: asthma, COPD Past Surgical History: none Pertinent Family History: none Social History: Reports: smoking, alcohol use Reviewed Nursing Documentation: PMH: Agreed, PSxH: Agreed Nursing Documentation-PMH Hx Cardiac Problems: No Hx Hypertension: No Hx Pacemaker: No Hx Asthma: Yes Hx COPD: Yes Hx Diabetes: No Hx Cancer: No Hx Gastrointestinal Problems: Yes Hx Dialysis: No Hx Neurological Problems: Yes Hx Cerebrovascular Accident: No Hx Seizures: No Hx Tremors: Yes Hx Vertigo: Yes Hx Dizziness: Yes Hx Syncope: Yes Hx Weakness: Yes Hx Fatigue: Yes Review of Systems All Other Systems: negative except mentioned in HPI Physical Exam Vital Signs Date Time Temp Pulse Resp B/P (MAP) Pulse Ox O2 Delivery O2 Flow Rate FiO2 08/30/17 18:41 97.5 113 24 88/62 89 Nasal Cannula 3.0 Sp02 EP Interpretation: reviewed, abnormal General Appearance: moderate distress, cachetic, thin, Chronically Ill Head: normocephalic Eyes: bilateral eye normal inspection ENT: normal ENT inspection, hearing grossly normal, normal voice Neck: normal inspection, full range of motion, supple, no bony tend Respiratory: respiratory distress, decreased breath sounds, accessory muscle use, wheezing, expiration, inspiration Cardiovascular #1: no edema, tachycardia Gastrointestinal: normal inspection, normal bowel sounds, non tender, soft, no guarding, no hernia Genitourinary: no CVA tenderness Musculoskeletal: normal inspection, back normal, normal range of motion Neurologic: alert, responsive Psychiatric: depressed affect, anxious Skin: normal inspection, normal color, no rash Procedures Critical Care Time Critical Care Time Patient had a critical medical condition which untreated could potentially result in life or limb threatening injury. Total critical care time excluding procedures was approximately 45 minutes. Medical Decision Making Diagnostic Impression: Primary Impression: Respiratory distress Additional Impressions: COPD exacerbation Pneumonia ER Course Patient presents emergency department today complaining of shortness of breath. Differential diagnoses include acute pneumonia, CHF, acute coronary syndrome, pneumothorax, asthma, COPD flare, just to name a few.Given the severity of the patient's presentation I felt this is a highly complex patient. This patient required extensive workup. Patient laboratory workup shows a mild elevation in white blood cell count. Patient however was severely hypoxic. Pain she was given respiratory treatments with significant improvement in symptoms. Patient chest shows evidence of pneumonia. Given patient's presentation I felt the patient require admission. Case was discussed in detail Dr. Bianchi. Patient will be admitted to the [facility] for further treatment.patient was started on antibiotics Solu-Medrol and respiratory treatments Labs Test 08/30/17 19:35 08/30/17 20:38 White Blood Count 11.9 K/UL (4.8-10.8) Red Blood Count 3.00 M/UL (4.20-5.40) Hemoglobin 10.4 G/DL (12.0-16.0) Hematocrit 32.9 % (37.0-47.0) Mean Corpuscular Volume 110 FL (80-99) Mean Corpuscular Hemoglobin 34.6 PG (27.0-31.0) Mean Corpuscular Hemoglobin Concent 31.5 G/DL (32.0-36.0) Red Cell Distribution Width 15.5 % (11.6-14.8) Platelet Count 310 K/UL (150-450) Mean Platelet Volume 7.3 FL (6.5-10.1) Neutrophils (%) (Auto) % (45.0-75.0) Lymphocytes (%) (Auto) % (20.0-45.0) Monocytes (%) (Auto) % (1.0-10.0) Eosinophils (%) (Auto) % (0.0-3.0) Basophils (%) (Auto) % (0.0-2.0) Differential Total Cells Counted 100 Neutrophils % (Manual) 87 % (45-75) Lymphocytes % (Manual) 9 % (20-45) Monocytes % (Manual) 3 % (1-10) Eosinophils % (Manual) 0 % (0-3) Basophils % (Manual) 0 % (0-2) Band Neutrophils 1 % (0-8) Platelet Estimate Adequate Platelet Morphology Normal Hypochromasia 1+ Anisocytosis 1+ Macrocytosis 1+ Prothrombin Time 10.4 SEC (9.30-11.50) Prothromb Time International Ratio 1.0 (0.9-1.1) Activated Partial Thromboplast Time 30 SEC (23-33) Urine Color Brown Urine Appearance Slightly cloudy Urine pH 9 (4.5-8.0) Urine Specific [place] 1.015 (1.005-1.035) Urine Protein 3+ (NEGATIVE) Urine Glucose (UA) Negative (NEGATIVE) Urine Ketones 1+ (NEGATIVE) Urine Occult Blood 5+ (NEGATIVE) Urine Nitrite Negative (NEGATIVE) Urine Bilirubin 2+ (NEGATIVE) Urine Ictotest Negative Urine Urobilinogen 4 MG/DL (0.0-1.0) Urine Leukocyte Esterase 3+ (NEGATIVE) Urine RBC 10-15 /HPF (0 - 2) Urine WBC 5-10 /HPF (0 - 2) Urine Squamous Epithelial Cells Few /LPF (NONE/OCC) Urine Amorphous Sediment Few /LPF (NONE) Urine Bacteria Many /HPF (NONE) Sodium Level 143 MMOL/L (136-145) Potassium Level 4.0 MMOL/L (3.5-5.1) Chloride Level 105 MMOL/L (98-107) Carbon Dioxide Level 30 MMOL/L (21-32) Anion Gap 8 mmol/L (5-15) Blood Urea Nitrogen 21 mg/dL (7-18) Creatinine 0.4 MG/DL (0.55-1.30) Estimat Glomerular Filtration Rate mL/min (>60) Glucose Level 120 MG/DL (74-106) Lactic Acid Level 1.30 mmol/L (0.66-2.22) Calcium Level 8.4 MG/DL (8.5-10.1) Total Bilirubin 0.7 MG/DL (0.2-1.0) Aspartate Amino Transf (AST/SGOT) 17 U/L (15-37) Alanine Aminotransferase (ALT/SGPT) 21 U/L (12-78) Alkaline Phosphatase 136 U/L (46-116) Total Creatine Kinase 25 U/L (26-308) Creatine Kinase MB < 0.5 NG/ML (0.0-3.6) Creatine Kinase MB Relative Index 2.0 Troponin I 0.014 ng/mL (0.000-0.056) Pro-B-Type Natriuretic Peptide 2333 pg/mL (0-125) Total Protein 4.8 G/DL (6.4-8.2) Albumin 1.6 G/DL (3.4-5.0) Globulin 3.2 g/dL Albumin/Globulin Ratio 0.5 (1.0-2.7) Lipase 35 U/L (73-393) Arterial Blood pH 7.310 (7.350-7.450) Arterial Blood Partial Pressure CO2 61.0 mmHg (35.0-45.0) Arterial Blood Partial Pressure O2 58.9 mmHg (75.0-100.0) Arterial Blood HCO3 30.0 mmol/L (22.0-26.0) Arterial Blood Oxygen Saturation 86.6 % (92.0-98.0) Arterial Blood Base Excess 2.7 Arnold Test Positive EKG Diagnostic Results Rate: tachycardiac Rhythm: NSR ST Segments: no acute changes Rhythm Strip Diag. Results EP Interpretation: yes Rate: 108 Rhythm: NSR, no PVC's, no ectopy Chest X-Ray Diagnostic Results Chest X-Ray Diagnostic Results : Chest X-Ray Ordered: Yes # of Views/Limited/Complete: 1 View Indication: Shortness of Breath EP Interpretation: Yes Interpretation: no effusion, no pneumothorax, other - left side infiltrate Impression: Other - pneumonia Electronically Signed by: Electronically signed by Brittany Amador MD Last Vital Signs Date Time Temp Pulse Resp B/P (MAP) Pulse Ox O2 Delivery O2 Flow Rate FiO2 08/30/17 18:41 97.5 113 24 88/62 89 Nasal Cannula 3.0 Status: improved Disposition: ADMITTED INPATIENT Condition: Serious BRITTANY AMADOR M.D. Aug 30, 2017 19:05
[2017-08-30 19:10] VITALS: BP 96/60
[2017-08-30] MEDS: Ipratropium 0.02% Inh Soln 2.5ml UD HHN SCH ×3 (19:20→19:26)
[2017-08-30] MEDS ORDERED: NICODERM CQ1 EAC1 TD (19:47)
[2017-08-30] MEDS ORDERED: ACETAMINOPHEN325 M1 ORAL (19:51)
[2017-08-30] MEDS ORDERED: TYLENOL EXTRA500 MG ORAL (19:51)
[2017-08-30 19:59] LABS: HEMATOCRIT 32.9 % (37.0-47.0); HEMOGLOBIN 10.4 G/DL (12.0-16.0); MEAN CORPUSCULAR VOLUME 110 FL (80-99); PLATELET COUNT 310 K/UL (150-450); RED CELL DISTRIBUTION WIDTH 15.5 % (11.6-14.8); WHITE BLOOD COUNT 11.9 K/UL (4.8-10.8)
[2017-08-30 20:02] LABS: APPEARANCE,URINE SLIGHTLY CLOUDY; BILIRUBIN, URINE 2+ (NEGATIVE); COLOR,URINE BROWN; GLUCOSE, URINE (UA) NEGATIVE (NEGATIVE); KETONES,URINE 1+ (NEGATIVE); LEUKOCYTE ESTERASE ,URINE 3+ (NEGATIVE); NITRITE,URINE NEGATIVE (NEGATIVE); PH,URINE 9 (4.5-8.0); PROTEIN,URINE 3+ (NEGATIVE); UROBILINOGEN,URINE 4 MG/DL (0.0-1.0)
[2017-08-30 20:16] LABS: ALANINE AMINOTRANSFERASE 21 U/L (12-78); ALBUMIN 1.6 G/DL (3.4-5.0); ALBUMIN/GLOBULIN RATIO 0.5 (1.0-2.7); ALKALINE PHOSPHATASE 136 U/L (46-116); ANION GAP 8 mmol/L (5-15); ASPARTATE AMINO TRANSFERASE 17 U/L (15-37); BILIRUBIN,TOTAL 0.7 MG/DL (0.2-1.0); BLOOD UREA NITROGEN 21 mg/dL (7-18); CALCIUM 8.4 MG/DL (8.5-10.1); CARBON DIOXIDE 30 MMOL/L (21-32); CHLORIDE 105 MMOL/L (98-107); CREATININE 0.4 MG/DL (0.55-1.30); SODIUM 143 MMOL/L (136-145)
[2017-08-30 20:24] LABS: CKMB < 0.5 NG/ML (0.0-3.6); CREATINE KINASE 25 U/L (26-308)
[2017-08-30] MEDS ORDERED: Zosyn 3.375gm inj ONE (20:42)
[2017-08-30] MEDS ORDERED: Piperacillin/Tazobactam 3.375 GM in NS 110 ML IVPB ONE (20:45)
[2017-08-30] MEDS ORDERED: Azithromycin 500 MG in D5W 275 ML IVPB ONE (20:45)
[2017-08-30] MEDS ORDERED: Azithromycin 500mg Inj IV ONE (22:06)
[2017-08-30] MEDS ORDERED: Promethazine/Codeine 5ml UD ORAL PRN (22:45)
[2017-08-30] MEDS ORDERED: Miralax 17gm pkt ORAL PRN (22:45)
[2017-08-30] MEDS ORDERED: Morphine Sulfate 10mg/5ml Oral Soln ud ORAL PRN (22:45)
[2017-08-30] MEDS ORDERED: Mylanta II UD 30ml ORAL PRN (22:45)
[2017-08-30] MEDS ORDERED: Nitroglycerin Subl 0.4mg tab SL PRN (22:45)
[2017-08-30 22:54] VITALS: BP 80/61
[2017-08-31] VITALS: BP 88/49
[2017-08-31] MEDS ORDERED: Vancomycin 1gm inj IVPB ONE (01:01)
[2017-08-31] MEDS: Vancomycin 1gm in D5W 275ml IVPB SCH ×2 (01:14→23:58)
[2017-08-31 03:47] LABS: HEMATOCRIT 28.3 % (37.0-47.0); HEMOGLOBIN 9.1 G/DL (12.0-16.0); MEAN CORPUSCULAR VOLUME 110 FL (80-99); PLATELET COUNT 299 K/UL (150-450); RED BLOOD COUNT 2.58 M/UL (4.20-5.40); RED CELL DISTRIBUTION WIDTH 15.4 % (11.6-14.8); WHITE BLOOD COUNT 12.7 K/UL (4.8-10.8)
[2017-08-31 03:53] LABS: ALBUMIN 1.4 G/DL (3.4-5.0); ANION GAP 7 mmol/L (5-15); BLOOD UREA NITROGEN 20 mg/dL (7-18); CARBON DIOXIDE 30 MMOL/L (21-32); CHLORIDE 104 MMOL/L (98-107); CREATININE 0.3 MG/DL (0.55-1.30); PHOSPHORUS 3.3 MG/DL (2.5-4.9); SODIUM 141 MMOL/L (136-145)
[2017-08-31 04:00] VITALS: BP 90/50
[2017-08-31 08:00] VITALS: BP 114/68
[2017-08-31] MEDS: BusPIRone 10mg Tab ORAL SCH ×3 (09:00→18:00)
[2017-08-31] MEDS: Sennosides 8.6mg ORAL SCH (09:00)
[2017-08-31] MEDS ORDERED: Sucralfate 1gm tab GT SCH (09:00)
[2017-08-31] MEDS ORDERED: Cefepime HCl 1 GM in D5W 55 ML IV SCH (09:00)
[2017-08-31] MEDS: Heparin 5000 units/ml inj SUBQ SCH ×2 (09:31→20:25)
--- NOTE | 2017-08-31 10:04 | Diagnostic Imaging Report ---
Indication: Cough Technique: One view of the chest Comparison: 08/20/2017 Findings: Interim development of moderate to large left pleural effusion, small right pleural effusion. Hyperinflation of the lungs and right upper and midlung bullous changes are again noted. Chronic appearing interstitial prominence and bronchial wall thickening is again demonstrated. Surgical randall are seen in the epigastric region Impression: New increased large left, new small right pleural effusions, since 08/20/2017 COPD changes Arteries ER preliminary
[2017-08-31 12:00] VITALS: BP 125/77
--- NOTE | 2017-08-31 12:24 | Wound Care Consultation ---
Wound Assessment Wound Assessment #1: Wound Number: 1 Wound Present on Admission: Yes New Wound: No Status Change of Wound: No Wound Location Body Site Modif: mid, upper Wound Location Body Site: back Wound Type: pressure ulcer Reina Test: Does not Reina Pressure Ulcer Stage: Deep Tissue Injury Wound Thickness: Full Thickness Wound Length: 2.5 Wound Width: 1.5 Wound Depth: utd Percent of Wound Purple/Maroon: 100 Wound Drainage Amount: None Wound Drainage Odor: None/Absent Tissue Surrounding Wound: Erythemic Wound General Appearance: Reddened - purple Wound Assessment #2: Wound Number: 2 Wound Present on Admission: Yes New Wound: No Status Change of Wound: No Wound Location Body Site Modif: left, lateral Wound Location Body Site: knee Wound Type: pressure ulcer Reina Test: Does not Reina Pressure Ulcer Stage: Deep Tissue Injury Wound Thickness: Full Thickness Wound Length: 2.5 Wound Width: 2.5 Wound Depth: utd Percent of Wound Purple/Maroon: 100 Wound Drainage Amount: None Wound Drainage Odor: None/Absent Tissue Surrounding Wound: Erythemic Wound General Appearance: Reddened - purple Wound Assessment #3: Wound Number: 3 Wound Present on Admission: Yes New Wound: No Status Change of Wound: No Wound Location Body Site Modif: right, lateral Wound Location Body Site: malleolus/ankle Wound Type: pressure ulcer Reina Test: Does not Reina Pressure Ulcer Stage: Deep Tissue Injury Wound Thickness: Full Thickness Wound Length: 2.5 Wound Width: 2.5 Wound Depth: utd Percent of Wound Purple/Maroon: 100 Wound Drainage Amount: None Wound Drainage Odor: None/Absent Tissue Surrounding Wound: Erythemic Wound General Appearance: Reddened - purple Wound Assessment #4: Wound Number: 4 Wound Present on Admission: Yes New Wound: No Status Change of Wound: No Wound Location Body Site Modif: right, mid, lateral Wound Location Body Site: foot Wound Type: pressure ulcer Reina Test: Does not Reina Pressure Ulcer Stage: Deep Tissue Injury Wound Thickness: Full Thickness Wound Length: 1.5 Wound Width: 1.5 Wound Depth: utd Percent of Wound Purple/Maroon: 100 Wound Drainage Amount: None Wound Drainage Odor: None/Absent Tissue Surrounding Wound: Erythemic Wound General Appearance: Reddened - purple Wound Assessment #5: Wound Number: 5 Wound Present on Admission: Yes New Wound: No Status Change of Wound: No Wound Location Body Site Modif: left, medial Wound Location Body Site: malleolus/ankle Wound Type: pressure ulcer Reina Test: Does not Reina Pressure Ulcer Stage: Deep Tissue Injury Wound Thickness: Full Thickness Wound Length: 2.5 Wound Width: 2.5 Wound Depth: utd Percent of Wound Purple/Maroon: 100 Wound Drainage Amount: None Wound Drainage Odor: None/Absent Tissue Surrounding Wound: Erythemic Wound General Appearance: Reddened - purple Wound Assessment #6: Wound Number: 6 Wound Present on Admission: Yes New Wound: No Status Change of Wound: No Wound Location Body Site Modif: left Wound Location Body Site: heel Wound Type: pressure ulcer Reina Test: Does not Reina Pressure Ulcer Stage: Deep Tissue Injury Wound Thickness: Full Thickness Wound Length: 3.5 Wound Width: 4.0 Wound Depth: utd Percent of Wound Purple/Maroon: 100 Wound Drainage Amount: None Wound Drainage Odor: None/Absent Tissue Surrounding Wound: Erythemic Wound General Appearance: Reddened - purple Wound Assessment #7: Wound Number: 7 Wound Present on Admission: Yes New Wound: No Status Change of Wound: No Wound Location Body Site Modif: right Wound Location Body Site: heel Wound Type: pressure ulcer Reina Test: Does not Reina Pressure Ulcer Stage: Deep Tissue Injury Wound Thickness: Full Thickness Wound Length: 3.5 Wound Width: 3.5 Wound Depth: utd Percent of Wound Purple/Maroon: 100 Wound Drainage Amount: None Wound Drainage Odor: None/Absent Tissue Surrounding Wound: Erythemic Wound General Appearance: Reddened - purple Wound Assessment #8: Wound Number: 8 Wound Present on Admission: Yes New Wound: No Status Change of Wound: No Wound Location Body Site Modif: right, lateral Wound Location Body Site: knee Wound Type: pressure ulcer Reina Test: Does not Reina Pressure Ulcer Stage: Deep Tissue Injury Wound Thickness: Full Thickness Wound Length: 1.0 Wound Width: 2.5 Wound Depth: utd Percent of Wound Purple/Maroon: 100 Wound Drainage Amount: None Wound Drainage Odor: None/Absent Tissue Surrounding Wound: Intact Wound General Appearance: Reddened - purple Wound Assessment #9: Wound Number: 9 Wound Present on Admission: Yes New Wound: No Status Change of Wound: No Wound Location Body Site Modif: right, lower, lateral Wound Location Body Site: leg Wound Type: pressure ulcer Reina Test: Does not Reina Pressure Ulcer Stage: Deep Tissue Injury Wound Thickness: Full Thickness Wound Length: 3.5 Wound Width: 2.0 Wound Depth: utd Percent of Wound Purple/Maroon: 100 Wound Drainage Amount: None Wound Drainage Odor: None/Absent Tissue Surrounding Wound: Erythemic Wound General Appearance: Reddened - purple Wound Assessment #10: Wound Number: 10 Wound Present on Admission: Yes New Wound: No Status Change of Wound: No Wound Location Body Site Modif: mid Wound Location Body Site: other - sacrococcygeal Wound Type: pressure ulcer Reina Test: Does not Reina Pressure Ulcer Stage: Unstageable Wound Thickness: Full Thickness Wound Length: 9.0 Wound Width: 8.0 Wound Depth: utd Percent of Wound [place]/Red: 10 Percent of Wound Bed Yellow/Wh: 20 Percent of Wound Black/Brown: 60 Percent of Wound Purple/Maroon: 10 Wound Drainage Description: Serosanguineous Wound Drainage Amount: Moderate Wound Drainage Odor: None/Absent Tissue Surrounding Wound: Macerated Wound General Appearance: Reddened, Draining, Necrotic Wound Assessment #11: Wound Number: 11 Wound Present on Admission: Yes New Wound: No Status Change of Wound: No Wound Location Body Site Modif: left Wound Location Body Site: ischial tuberosity Wound Type: pressure ulcer Reina Test: Does not Reina Pressure Ulcer Stage: Deep Tissue Injury Wound Thickness: Full Thickness Wound Length: 3.5 Wound Width: 4.0 Wound Depth: utd Percent of Wound Purple/Maroon: 100 Wound Drainage Amount: None Wound Drainage Odor: None/Absent Tissue Surrounding Wound: Erythemic Wound General Appearance: Reddened - purple Wound Assessment #12: Wound Number: 12 Wound Present on Admission: Yes New Wound: No Status Change of Wound: No Wound Location Body Site Modif: right Wound Location Body Site: ischial tuberosity Wound Type: pressure ulcer Reina Test: Does not Reina Pressure Ulcer Stage: Deep Tissue Injury Wound Thickness: Full Thickness Wound Length: 3.5 Wound Width: 3.5 Wound Depth: utd Percent of Wound Purple/Maroon: 100 Wound Drainage Amount: None Wound Drainage Odor: None/Absent Tissue Surrounding Wound: Erythemic Wound General Appearance: Reddened - purple Wound Assessment #13: Wound Number: 13 Wound Present on Admission: Yes New Wound: No Status Change of Wound: No Wound Location Body Site: perineal area Wound Type: chemical burn Reina Test: Does not Reina Percent of Wound [place]/Red: 100 Wound Drainage Amount: None Wound Drainage Odor: None/Absent Tissue Surrounding Wound: Intact Wound General Appearance: Reddened Wound Comment #1 Upper back are DTI pressure ulcer #2 Left lateral knee DTI pressure ulcer #3 Right lateral malleolus DTI pressure ulcer #4 Right mid lateral foot DTI pressure ulcer #5 Left medial malleolus DTI pressure ulcer #6 Left heel DTI pressure ulcer #7 Right heel DTI pressure ulcer #8 Right lateral knee DTI pressure ulcer #9 Right lateral lower leg DTI pressure ulcer #10 Sacrococcygeal unstageable pressure ulcer #11 Left ischial tuberosity DTI pressure ulcer #12 Right ischial tuberosity DTI pressure ulcer #13 Chemical burn on perineal area Recommendation -Sacrococcygeal unstageable pressure ulcer, Cleanse with saline, pat dry, apply Therhoney gel to wound bed, apply Triad cream to maco wound area, cover with Biatain silicone daily and PRN soiled/ dislodged -Local wound care per protocol for DTI pressure ulcers -Keep clean and dry -P200 Low air loss mattress -Offload both heels -Heel protector on both heels -Optimize nutrition -Turn and reposition -Consult with Dr Meier for possible debridement on sacrococcygeal unstageable pressure ulcer -Assess and f/u accordingly for any changes APOORVA WARNER RN Aug 31, 2017 12:24
--- NOTE | 2017-08-31 12:27 | Consultation ---
Consult Note Consult Note ID DIC # [id number] JACQUI PANDEY M.D. Aug 31, 2017 12:27
--- NOTE | 2017-08-31 12:27 | Consultation ---
Consult Note Consult Note ID DIC # [id number] JACQUI PANDEY M.D. Aug 31, 2017 12:27
--- NOTE | 2017-08-31 12:27 | Consultation ---
Consult Note Consult Note ID DIC # [id number] JACQUI PANDEY M.D. Aug 31, 2017 12:27
--- NOTE | 2017-08-31 12:34 | History and Physical ---
History of Present Illness General Date patient seen: Aug 30, 2017 Reason for Hospitalization: Dyspnea/Respdistress Present Illness HPI 72 year old female with hx of end stage COPD, with hx of previous Trach and PEG , just recently transferred to [facility] for increased weakness and debility. She couldn't eat and got weaker, she agreed to get a PEG meanwhile she started complaining abotu acute onset shortness of breath. Patient presented to emergency department today with worsening shortness of breath. Her saturation was noted to be in the 70s at the detention. Patient was visibly short of breath. She was in respiratory failure and is admitted to [facility] for further evaluation. Allergies: Coded Allergies: ADHESIVE (Unverified Allergy, Severe, 08/16/13) ADHESIVE TAPE (Verified Allergy, Unknown, SURGICAL TAPE - RASH, 07/28/11) ALBUTEROL (Verified Adverse Reaction, Unknown, ANXIETY, 07/28/11) Uncoded Allergies: METAL (Allergy, Unknown, 08/30/17) METAL (?) (Allergy, Unknown, RASH, 07/28/11) metal (Allergy, Unknown, 03/30/15) Medication History Scheduled Atorvastatin Calcium* (Lipitor*), 10 MG ORAL BEDTIME Buspirone Hcl* (Buspar*), 5 MG ORAL THREE TIMES A DAY, (Reported) Docusate Sodium* (Colace*), 100 MG ORAL THREE TIMES A DAY, (Reported) Escitalopram Oxalate* (Lexapro*), 10 MG ORAL DAILY, (Reported) Fluticasone/Salmeterol (Advair 500-50 Diskus), 1 PUFF INH Q12H, (Reported) Folic Acid* (Folic Acid*), 1 MG ORAL DAILY, (Reported) Ipratropium/Albuterol Sulfate (DuoNeb 0.5-3(2.5)mg/3ml), 3 ML HHN Q4HR, ( Reported) Lactulose (Lactulose*), 45 ML ORAL THREE TIMES A DAY, (Reported) Multivitamin With Minerals (Multivitamins With Minerals*), 1 EACH PO DAILY, ( Reported) Nicotine 14MG Patch* (Nicoderm Cq 14MG*), 1 EACH TD DAILY, (Reported) Pantoprazole* (Protonix*), 40 MG ORAL Q12HR, (Reported) Polyethylene Glycol 3350* (Miralax*), 17 GM ORAL DAILY, (Reported) Sennosides* (Sennosides*), 8.6 MG ORAL DAILY, (Reported) Sucralfate* (Carafate*), 1 GM GT FOUR TIMES A DAY, (Reported) Thiamine Hcl* (Vitamin B-1*), 100 MG ORAL DAILY, (Reported) Tiotropium [place]* (Spiriva*), 1 PUFF INH DAILY, (Reported) Scheduled PRN Acetaminophen* (Acetaminophen 325MG Tablet*), 650 MG ORAL Q6HR PRN for For Pain, (Reported) Acetaminophen* (Tylenol Extra Strength*), 500 MG ORAL Q6HR PRN for For Pain Level <=5, (Reported) Acetaminophen* (Tylenol Extra Strength*), 1,000 MG ORAL Q6HR PRN for For Pain, ( Reported) Diazepam* (Valium*), 10 MG ORAL Q3HR PRN for For Anxiety, (Reported) Morphine 10mg/5ml Oral Soln* (Morphine 10mg/5ml Oral Soln*), 3 MG ORAL Q4HR PRN for For Pain, (Reported) Discontinued Medications Alendronate Sodium* (Fosamax*), 70 MG ORAL QWEEK Discontinued Reason: Pt stopped taking med Codeine/Promethazine Hcl* (Promethazine-Codeine Syrup*), 5 ML ORAL EVERY 6 HOURS PRN for cough Discontinued Reason: Therapy completed Ergocalciferol (Vitamin D2)* (Vitamin D*), 50,000 UNIT GT ONCE A WEEK, (Reported ) Discontinued Reason: Therapy completed Ertapenem Sodium* (INVanz*), 1 GM IVPB Q24H Discontinued Reason: Therapy completed Fluticasone/Salmeterol (Advair 250-50 Diskus), 1 PUFF INH EVERY 12 HOURS, ( Reported) Discontinued Reason: Medication dose changed Heparin Sodium,Porcine/Pf (Heparin Sod 5,000 Unit/0.5 ml), 5,000 UNIT SQ BID, ( Reported) Discontinued Reason: Therapy completed Levalbuterol HCl (Xopenex Concentrate), 1.25 MG HHN TIDRT Discontinued Reason: Pt stopped taking med Levalbuterol Hcl (Xopenex*), 1.25 MG HHN Q4H, (Reported) Discontinued Reason: Pt stopped taking med Linaclotide (Linzess), 145 MCG PO for Constipation, (Reported) Discontinued Reason: MD discontinued med Lisinopril* (Zestril*), 20 MG ORAL DAILY, (Reported) Discontinued Reason: MD discontinued med Loratadine (Claritin), 10 MG ORAL DAILY, (Reported) Discontinued Reason: Pt stopped taking med Lorazepam* (Ativan*), 0.5 MG ORAL THREE TIMES A DAY PRN for For Anxiety, ( Reported) Discontinued Reason: MD discontinued med Tramadol Hcl* (Ultram*), 50 MG GT Q6H PRN for For Pain, (Reported) Discontinued Reason: MD discontinued med Patient History Healthcare decision maker Resuscitation status Full Code Advanced Directive on File Yes Past Medical/Surgical History Past Medical/Surgical History: (1) Nicotine addiction (2) Depression Review of Systems Constitutional: Reports: malaise, weakness Respiratory: Reports: shortness of breath, CUEVAS Physical Exam General Appearance: cachetic Lines, tubes and drains: peripheral, central line HEENT: normocephalic, atraumatic Neck: non-tender, normal alignment, supple Respiratory/Chest: chest wall non-tender, rhonchi - left, rhonchi - right Cardiovascular/Chest: normal peripheral pulses, normal rate Abdomen: normal bowel sounds, non tender, hyperactive bowel sounds Genitourinary/Rectal: normal genital exam, normal rectal exam, normal prostate exam Extremities: normal range of motion, non-tender 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 grossly normal, abnormal gait Lymphatic: anterior cervical, posterior cervical (R) Musculoskeletal: no effusion Last 24 Hour Vital Signs Date Time Temp Pulse Resp B/P (MAP) Pulse Ox O2 Delivery O2 Flow Rate FiO2 08/31/17 12:00 97.5 83 16 125/77 94 Nasal Cannula 3.0 08/31/17 10:02 83 18 91 Nasal Cannula 3.0 32 08/31/17 09:59 88 18 92 Nasal Cannula 3.0 32 08/31/17 08:00 98.1 81 16 114/68 98 Nasal Cannula 3.0 08/31/17 07:33 Nasal Cannula 2.0 28 08/31/17 07:32 94 Nasal Cannula 3.0 32 08/31/17 07:30 84 08/31/17 04:00 89 08/31/17 04:00 97.0 89 16 90/50 98 Nasal Cannula 3.0 08/31/17 00:00 96.1 89 16 88/49 98 Nasal Cannula 3.0 08/30/17 23:58 99 08/30/17 23:49 96 Nasal Cannula 2.0 28 08/30/17 23:49 Nasal Cannula 2.0 28 08/30/17 23:40 103 17 85/64 94 Nasal Cannula 4.0 08/30/17 22:54 97.7 103 17 80/61 94 Nasal Cannula 4.0 08/30/17 19:40 102 24 100 Nasal Cannula 2.0 28 08/30/17 19:29 108 25 100 Nasal Cannula 2.0 28 08/30/17 19:29 108 25 100 Nasal Cannula 2.0 28 08/30/17 19:19 104 24 100 Nasal Cannula 2.0 28 08/30/17 19:19 108 26 100 Nasal Cannula 2.0 28 08/30/17 19:10 110 26 Nasal Cannula 2.0 28 08/30/17 19:10 97.5 110 26 96/60 93 Nasal Cannula 2.0 28 08/30/17 19:08 108 26 93 Nasal Cannula 2.0 28 08/30/17 19:07 108 26 Nasal Cannula 2.0 28 08/30/17 18:41 97.5 113 24 88/62 89 Nasal Cannula 3.0 Laboratory Tests Test 08/30/17 19:35 08/30/17 20:38 08/31/17 03:15 White Blood Count 11.9 K/UL (4.8-10.8) H 12.7 K/UL (4.8-10.8) H Red Blood Count 3.00 M/UL (4.20-5.40) L 2.58 M/UL (4.20-5.40) L Hemoglobin 10.4 G/DL (12.0-16.0) L 9.1 G/DL (12.0-16.0) L Hematocrit 32.9 % (37.0-47.0) L 28.3 % (37.0-47.0) L Mean Corpuscular Volume 110 FL (80-99) H 110 FL (80-99) H Mean Corpuscular Hemoglobin 34.6 PG (27.0-31.0) H 35.2 PG (27.0-31.0) H Mean Corpuscular Hemoglobin Concent 31.5 G/DL (32.0-36.0) L 32.0 G/DL (32.0-36.0) Red Cell Distribution Width 15.5 % (11.6-14.8) H 15.4 % (11.6-14.8) H Platelet Count 310 K/UL (150-450) 299 K/UL (150-450) Mean Platelet Volume 7.3 FL (6.5-10.1) 7.5 FL (6.5-10.1) Neutrophils (%) (Auto) % (45.0-75.0) % (45.0-75.0) Lymphocytes (%) (Auto) % (20.0-45.0) % (20.0-45.0) Monocytes (%) (Auto) % (1.0-10.0) % (1.0-10.0) Eosinophils (%) (Auto) % (0.0-3.0) % (0.0-3.0) Basophils (%) (Auto) % (0.0-2.0) % (0.0-2.0) Differential Total Cells Counted 100 Neutrophils % (Manual) 87 % (45-75) H Lymphocytes % (Manual) 9 % (20-45) L Monocytes % (Manual) 3 % (1-10) Eosinophils % (Manual) 0 % (0-3) Basophils % (Manual) 0 % (0-2) Band Neutrophils 1 % (0-8) Platelet Estimate Adequate Platelet Morphology Normal Hypochromasia 1+ Anisocytosis 1+ Macrocytosis 1+ Prothrombin Time 10.4 SEC (9.30-11.50) Prothromb Time International Ratio 1.0 (0.9-1.1) Activated Partial Thromboplast Time 30 SEC (23-33) Urine Color Brown Urine Appearance Slightly cloudy Urine pH 9 (4.5-8.0) Urine Specific [place] 1.015 (1.005-1.035) Urine Protein 3+ (NEGATIVE) H Urine Glucose (UA) Negative (NEGATIVE) Urine Ketones 1+ (NEGATIVE) H Urine Occult Blood 5+ (NEGATIVE) H Urine Nitrite Negative (NEGATIVE) Urine Bilirubin 2+ (NEGATIVE) H Urine Ictotest Negative Urine Urobilinogen 4 MG/DL (0.0-1.0) H Urine Leukocyte Esterase 3+ (NEGATIVE) H Urine RBC 10-15 /HPF (0 - 2) H Urine WBC 5-10 /HPF (0 - 2) H Urine Squamous Epithelial Cells Few /LPF (NONE/OCC) Urine Amorphous Sediment Few /LPF (NONE) H Urine Bacteria Many /HPF (NONE) H Sodium Level 143 MMOL/L (136-145) 141 MMOL/L (136-145) Potassium Level 4.0 MMOL/L (3.5-5.1) 4.0 MMOL/L (3.5-5.1) Chloride Level 105 MMOL/L (98-107) 104 MMOL/L (98-107) Carbon Dioxide Level 30 MMOL/L (21-32) 30 MMOL/L (21-32) Anion Gap 8 mmol/L (5-15) 7 mmol/L (5-15) Blood Urea Nitrogen 21 mg/dL (7-18) H 20 mg/dL (7-18) H Creatinine 0.4 MG/DL (0.55-1.30) L 0.3 MG/DL (0.55-1.30) L Estimat Glomerular Filtration Rate mL/min (>60) mL/min (>60) Glucose Level 120 MG/DL (74-106) H 194 MG/DL (74-106) H Lactic Acid Level 1.30 mmol/L (0.66-2.22) Calcium Level 8.4 MG/DL (8.5-10.1) L 8.0 MG/DL (8.5-10.1) L Total Bilirubin 0.7 MG/DL (0.2-1.0) Aspartate Amino Transf (AST/SGOT) 17 U/L (15-37) Alanine Aminotransferase (ALT/SGPT) 21 U/L (12-78) Alkaline Phosphatase 136 U/L (46-116) H Total Creatine Kinase 25 U/L (26-308) L Creatine Kinase MB < 0.5 NG/ML (0.0-3.6) Creatine Kinase MB Relative Index 2.0 Troponin I 0.014 ng/mL (0.000-0.056) Pro-B-Type Natriuretic Peptide 2333 pg/mL (0-125) H Total Protein 4.8 G/DL (6.4-8.2) L Albumin 1.6 G/DL (3.4-5.0) L 1.4 G/DL (3.4-5.0) L Globulin 3.2 g/dL Albumin/Globulin Ratio 0.5 (1.0-2.7) L Lipase 35 U/L (73-393) L Arterial Blood pH 7.310 (7.350-7.450) Arterial Blood Partial Pressure CO2 61.0 mmHg (35.0-45.0) *H Arterial Blood Partial Pressure O2 58.9 mmHg (75.0-100.0) L Arterial Blood HCO3 30.0 mmol/L (22.0-26.0) H Arterial Blood Oxygen Saturation 86.6 % (92.0-98.0) L Arterial Blood Base Excess 2.7 Arnold Test Positive Phosphorus Level 3.3 MG/DL (2.5-4.9) Microbiology Date/Time Source Procedure Growth Status 08/30/17 20:55 Nasal Nares Influenza Types A,B Antigen (ELIESER) - Final Complete 08/30/17 19:35 Urine,Clean Catch Urine Culture - Preliminary Resulted Height (Feet): 5 Height (Inches): 3.00 Weight (Pounds): 122 Medications Current Medications Medications (Trade) Dose Ordered Sig/Nahum Route PRN Reason Start Time Stop Time Status Last Admin Dose Admin Acetaminophen (Tylenol) 650 mg Q4H PRN ORAL fever 08/30/17 22:45 09/29/17 22:44 Al Hydroxide/Mg Hydroxide (Mylanta II) 30 ml Q6H PRN ORAL dyspepsia 08/30/17 22:45 09/29/17 22:44 Buspirone HCl (Buspar) 5 mg THREE TIMES A DAY ORAL 08/31/17 09:00 09/30/17 08:59 Cefepime HCl 1 gm/ Dextrose 55 ml @ 110 mls/hr EVERY 12 HOURS IV 08/31/17 09:00 09/07/17 08:59 08/31/17 09:32 Escitalopram Oxalate (Lexapro) 10 mg DAILY ORAL 08/31/17 09:00 09/30/17 08:59 Heparin Sodium (Porcine) (Heparin 5000 units/ml) 5,000 units EVERY 12 HOURS SUBQ 08/31/17 09:00 09/30/17 08:59 08/31/17 09:31 Morphine Sulfate (Morphine 10mg/ 5ml Oral Soln) 3 mg Q4HR PRN ORAL For Pain 08/30/17 22:45 09/06/17 22:44 Nitroglycerin (Ntg) 0.4 mg Q5M PRN SL Prn Chest Pain 08/30/17 22:45 09/29/17 22:44 Ondansetron HCl (Zofran) 4 mg Q6H PRN IVP Nausea & Vomiting 08/30/17 22:45 09/29/17 22:44 Polyethylene Glycol (Miralax) 17 gm DAILYPRN PRN ORAL Constipation 08/30/17 22:45 09/29/17 22:44 Promethazine HCl/ Codeine (Phenergan with Codeine) 5 ml Q4H PRN ORAL For Cough 08/30/17 22:45 09/29/17 22:44 Sennosides (Senokot) 8.6 mg DAILY ORAL 08/31/17 09:00 09/30/17 08:59 Sucralfate (Carafate) 1 gm FOUR TIMES A DAY GT 08/31/17 09:00 09/30/17 08:59 UNV Temazepam (Restoril) 15 mg HSPRN PRN ORAL Insomnia 08/30/17 22:45 09/06/17 22:44 Tiotropium [place] (Spiriva Inhaler) 1 puff DAILY INH 08/31/17 09:00 09/30/17 08:59 08/31/17 09:58 Vancomycin HCl (Vanco rx to dose) 1 ea DAILY PRN MISC Per rx protocol 08/30/17 22:45 09/29/17 22:44 Vancomycin HCl 1 gm/Dextrose 275 ml @ 183.708 mls/hr Q24H IVPB 08/31/17 00:00 09/05/17 00:00 08/31/17 01:14 Assessment/Plan Problem List: (1) Acute respiratory failure ICD Codes: J96.00 - Acute respiratory failure, unspecified whether with hypoxia or hypercapnia SNOMED: 87616326 (2) Sepsis ICD Codes: A41.9 - Sepsis SNOMED: 30057984 (3) Pneumonia ICD Codes: J18.9 - Pneumonia, unspecified organism SNOMED: 764736243 (4) Severe protein-calorie malnutrition ICD Codes: E43 - Unspecified severe protein-calorie malnutrition SNOMED: 368812633 (5) Emphysema of lung ICD Codes: J43.9 - Emphysema, unspecified SNOMED: 43288875 Assessment/Plan respiratory treatment IV fluids check sputum GI evaluation for feeding tube placement, she agreed in detention YNES BREWSTER Aug 31, 2017 12:34
--- NOTE | 2017-08-31 12:37 | Pulmonology Progress Note ---
Assessment/Plan Problems: (1) Acute respiratory failure (2) Sepsis (3) Pneumonia (4) Severe protein-calorie malnutrition (5) Emphysema of lung Assessment/Plan iv abx respiratory treatment chest PT d/w Dr. kim about PEG titrate fio2 Subjective ROS Limited/Unobtainable: Yes Interval Events: less short of breath, more comfortable Allergies: Coded Allergies: ADHESIVE (Unverified Allergy, Severe, 08/16/13) ADHESIVE TAPE (Verified Allergy, Unknown, SURGICAL TAPE - RASH, 07/28/11) ALBUTEROL (Verified Adverse Reaction, Unknown, ANXIETY, 07/28/11) Uncoded Allergies: METAL (Allergy, Unknown, 08/30/17) METAL (?) (Allergy, Unknown, RASH, 07/28/11) metal (Allergy, Unknown, 03/30/15) Objective Last 24 Hour Vital Signs Date Time Temp Pulse Resp B/P (MAP) Pulse Ox O2 Delivery O2 Flow Rate FiO2 08/31/17 12:00 97.5 83 16 125/77 94 Nasal Cannula 3.0 08/31/17 10:02 83 18 91 Nasal Cannula 3.0 32 08/31/17 09:59 88 18 92 Nasal Cannula 3.0 32 08/31/17 08:00 98.1 81 16 114/68 98 Nasal Cannula 3.0 08/31/17 07:33 Nasal Cannula 2.0 28 08/31/17 07:32 94 Nasal Cannula 3.0 32 08/31/17 07:30 84 08/31/17 04:00 89 08/31/17 04:00 97.0 89 16 90/50 98 Nasal Cannula 3.0 08/31/17 00:00 96.1 89 16 88/49 98 Nasal Cannula 3.0 08/30/17 23:58 99 08/30/17 23:49 96 Nasal Cannula 2.0 28 08/30/17 23:49 Nasal Cannula 2.0 28 08/30/17 23:40 103 17 85/64 94 Nasal Cannula 4.0 08/30/17 22:54 97.7 103 17 80/61 94 Nasal Cannula 4.0 08/30/17 19:40 102 24 100 Nasal Cannula 2.0 28 08/30/17 19:29 108 25 100 Nasal Cannula 2.0 28 08/30/17 19:29 108 25 100 Nasal Cannula 2.0 28 08/30/17 19:19 104 24 100 Nasal Cannula 2.0 28 08/30/17 19:19 108 26 100 Nasal Cannula 2.0 28 08/30/17 19:10 110 26 Nasal Cannula 2.0 28 08/30/17 19:10 97.5 110 26 96/60 93 Nasal Cannula 2.0 28 08/30/17 19:08 108 26 93 Nasal Cannula 2.0 28 08/30/17 19:07 108 26 Nasal Cannula 2.0 28 08/30/17 18:41 97.5 113 24 88/62 89 Nasal Cannula 3.0 General Appearance: cachetic HEENT: normocephalic, atraumatic Respiratory/Chest: chest wall non-tender, lungs clear Breasts: no masses Cardiovascular: normal peripheral pulses Abdomen: normal bowel sounds, soft, non tender, no scars Extremities: no cyanosis Skin: no rash Microbiology Date/Time Source Procedure Growth Status 08/30/17 20:55 Nasal Nares Influenza Types A,B Antigen (ELIESER) - Final Complete 08/30/17 19:35 Urine,Clean Catch Urine Culture - Preliminary Resulted Laboratory Tests 08/30/17 19:35: White Blood Count 11.9H, Red Blood Count 3.00L, Hemoglobin 10.4L, Hematocrit 32.9L, Mean Corpuscular Volume 110H, Mean Corpuscular Hemoglobin 34.6H, Mean Corpuscular Hemoglobin Concent 31.5L, Red Cell Distribution Width 15.5H, Platelet Count 310, Mean Platelet Volume 7.3, Neutrophils (%) (Auto) , Lymphocytes (%) (Auto) , Monocytes (%) (Auto) , Eosinophils (%) (Auto) , Basophils (%) (Auto) , Differential Total Cells Counted 100, Neutrophils % ( Manual) 87H, Lymphocytes % (Manual) 9L, Monocytes % (Manual) 3, Eosinophils % ( Manual) 0, Basophils % (Manual) 0, Band Neutrophils 1, Platelet Estimate Adequate, Platelet Morphology Normal, Hypochromasia 1+, Anisocytosis 1+, Macrocytosis 1+, Prothrombin Time 10.4, Prothromb Time International Ratio 1.0, Activated Partial Thromboplast Time 30, Urine Color Brown, Urine Appearance Slightly cloudy, Urine pH 9, Urine Specific [place] 1.015, Urine Protein 3+H, Urine Glucose (UA) Negative, Urine Ketones 1+H, Urine Occult Blood 5+H, Urine Nitrite Negative, Urine Bilirubin 2+H, Urine Ictotest Negative, Urine Urobilinogen 4H, Urine Leukocyte Esterase 3+H, Urine RBC 10-15H, Urine WBC 5-10H , Urine Squamous Epithelial Cells Few, Urine Amorphous Sediment FewH, Urine Bacteria ManyH, Sodium Level 143, Potassium Level 4.0, Chloride Level 105, Carbon Dioxide Level 30, Anion Gap 8, Blood Urea Nitrogen 21H, Creatinine 0.4L, Estimat Glomerular Filtration Rate , Glucose Level 120H, Lactic Acid Level 1.30 , Calcium Level 8.4L, Total Bilirubin 0.7, Aspartate Amino Transf (AST/SGOT) 17 , Alanine Aminotransferase (ALT/SGPT) 21, Alkaline Phosphatase 136H, Total Creatine Kinase 25L, Creatine Kinase MB < 0.5, Creatine Kinase MB Relative Index 2.0, Troponin I 0.014, Pro-B-Type Natriuretic Peptide 2333H, Total Protein 4.8L, Albumin 1.6L, Globulin 3.2, Albumin/Globulin Ratio 0.5L, Lipase 35L 08/30/17 20:38: Arterial Blood pH 7.310L, Arterial Blood Partial Pressure CO2 61.0*H, Arterial Blood Partial Pressure O2 58.9L, Arterial Blood HCO3 30.0H, Arterial Blood Oxygen Saturation 86.6L, Arterial Blood Base Excess 2.7, Arnold Test Positive 08/31/17 03:15: White Blood Count 12.7H, Red Blood Count 2.58L, Hemoglobin 9.1L, Hematocrit 28.3L, Mean Corpuscular Volume 110H, Mean Corpuscular Hemoglobin 35.2H, Mean Corpuscular Hemoglobin Concent 32.0, Red Cell Distribution Width 15.4H, Platelet Count 299, Mean Platelet Volume 7.5, Neutrophils (%) (Auto) , Lymphocytes (%) (Auto) , Monocytes (%) (Auto) , Eosinophils (%) (Auto) , Basophils (%) (Auto) , Sodium Level 141, Potassium Level 4.0, Chloride Level 104 , Carbon Dioxide Level 30, Anion Gap 7, Blood Urea Nitrogen 20H, Creatinine 0.3L , Estimat Glomerular Filtration Rate , Glucose Level 194H, Calcium Level 8.0L, Albumin 1.4L, Phosphorus Level 3.3 Current Medications Medications (Trade) Dose Ordered Sig/Nahum Route PRN Reason Start Time Stop Time Status Last Admin Dose Admin Acetaminophen (Tylenol) 650 mg Q4H PRN ORAL fever 08/30/17 22:45 09/29/17 22:44 Al Hydroxide/Mg Hydroxide (Mylanta II) 30 ml Q6H PRN ORAL dyspepsia 08/30/17 22:45 09/29/17 22:44 Buspirone HCl (Buspar) 5 mg THREE TIMES A DAY ORAL 08/31/17 09:00 09/30/17 08:59 Cefepime HCl 1 gm/ Dextrose 55 ml @ 110 mls/hr EVERY 12 HOURS IV 08/31/17 09:00 09/07/17 08:59 08/31/17 09:32 Escitalopram Oxalate (Lexapro) 10 mg DAILY ORAL 08/31/17 09:00 09/30/17 08:59 Heparin Sodium (Porcine) (Heparin 5000 units/ml) 5,000 units EVERY 12 HOURS SUBQ 08/31/17 09:00 09/30/17 08:59 08/31/17 09:31 Morphine Sulfate (Morphine 10mg/ 5ml Oral Soln) 3 mg Q4HR PRN ORAL For Pain 08/30/17 22:45 09/06/17 22:44 Nitroglycerin (Ntg) 0.4 mg Q5M PRN SL Prn Chest Pain 08/30/17 22:45 09/29/17 22:44 Ondansetron HCl (Zofran) 4 mg Q6H PRN IVP Nausea & Vomiting 08/30/17 22:45 09/29/17 22:44 Polyethylene Glycol (Miralax) 17 gm DAILYPRN PRN ORAL Constipation 08/30/17 22:45 09/29/17 22:44 Promethazine HCl/ Codeine (Phenergan with Codeine) 5 ml Q4H PRN ORAL For Cough 08/30/17 22:45 09/29/17 22:44 Sennosides (Senokot) 8.6 mg DAILY ORAL 08/31/17 09:00 09/30/17 08:59 Sucralfate (Carafate) 1 gm FOUR TIMES A DAY GT 08/31/17 09:00 09/30/17 08:59 UNV Temazepam (Restoril) 15 mg HSPRN PRN ORAL Insomnia 08/30/17 22:45 09/06/17 22:44 Tiotropium [place] (Spiriva Inhaler) 1 puff DAILY INH 08/31/17 09:00 09/30/17 08:59 08/31/17 09:58 Vancomycin HCl (Vanco rx to dose) 1 ea DAILY PRN MISC Per rx protocol 08/30/17 22:45 09/29/17 22:44 Vancomycin HCl 1 gm/Dextrose 275 ml @ 183.708 mls/hr Q24H IVPB 08/31/17 00:00 09/05/17 00:00 08/31/17 01:14 YNES BREWSTER Aug 31, 2017 12:37
--- NOTE | 2017-08-31 12:48 | GI Initial Consult Note ---
Regan,Dai Rodrigo N.PMere 08/31/17 1248: History of Present Illness General Date patient seen: Aug 31, 2017 Time patient seen: 12:37 Reason for Hospitalization: Dyspnea/Respdistress Referring physician: YNES BREWSTER Reason for Consultation: PEG EVALUATION Present Illness HPI Patient presents emergency department today complaining acute onset shortness of breath. Patient states that she has a history alcohol abuse. Review medical record show that in the past was admitted for alcohol withdrawal. Patient also has significant COPD. Patient presents emergency department today with worsening shortness of breath of saturation was noted to be in the 70s at the intermediate. Patient was visibly short of breath. Symptoms noted to be severe.No other modifying factors. No other associated signs and symptoms. No other complaints were noted. GI consulted for PEG evaluation. HPI as noted above. Pt known to us prior for possible PEG placement, but has refused multiple times this past month. Pt seen on floor, awake A&Ox4 NAD with no active s/sx of N/V/D. Pt is able to tolerate diet, but recently has expressed she has had poor PO intake and wants a GT placed for supplemental nutrition. She presents today with mild leukocytosis and anemia. Home Meds Active Scripts Atorvastatin Calcium* (LIPITOR*) 10 Mg Tablet, 10 MG ORAL BEDTIME, #30 TAB Prov:Ramon (Haylie Grant CORE WINDER MACHINE OPERATOR 02/29/16 Reported Medications Acetaminophen* (TYLENOL EXTRA STRENGTH*) 500 Mg Tablet, 1000 MG ORAL Q6HR Y for For Pain, #30 TAB 0 Refills 08/30/17 Acetaminophen* (TYLENOL EXTRA STRENGTH*) 500 Mg Tablet, 500 MG ORAL Q6HR Y for For Pain Level <=5, #30 TAB 0 Refills 08/30/17 Acetaminophen* (ACETAMINOPHEN 325MG TABLET*) 325 Mg Tablet, 650 MG ORAL Q6HR Y for For Pain, TAB 08/30/17 Nicotine 14MG Patch* (NICODERM CQ 14MG*) 1 Each Patch.td24, 1 EACH TD DAILY, EA 08/30/17 Morphine 10mg/5ml Oral Soln* (Morphine 10mg/5ml Oral Soln*) 10 Mg/5 Ml Solution , 3 MG ORAL Q4HR Y for For Pain, ML 0 Refills 08/25/17 Polyethylene Glycol 3350* (MIRALAX*) 17 Gm Powd.pack, 17 GM ORAL DAILY, PACKET 08/25/17 Ipratropium/Albuterol Sulfate (DuoNeb 0.5-3(2.5)mg/3ml) 3 Ml Ampul.neb, 3 ML HHN Q4HR, EA 08/25/17 Sennosides* (SENNOSIDES*) 8.6 Mg Tablet, 8.6 MG ORAL DAILY, TAB 08/25/17 Lactulose (LACTULOSE*) 20 Gm/30 Ml Solution, 45 ML ORAL THREE TIMES A DAY, ML 0 Refills 08/25/17 Docusate Sodium* (COLACE*) 100 Mg Capsule, 100 MG ORAL THREE TIMES A DAY, CAP 08/25/17 Thiamine Hcl* (VITAMIN B-1*) 100 Mg Tablet, 100 MG ORAL DAILY, #30 TAB 0 Refills 08/25/17 Diazepam* (VALIUM*) 10 Mg Tablet, 10 MG ORAL Q3HR Y for For Anxiety, #30 TAB 0 Refills 08/25/17 Buspirone Hcl* (BUSPAR*) 10 Mg Tablet, 5 MG ORAL THREE TIMES A DAY, #15 TAB 0 Refills 08/25/17 Escitalopram Oxalate* (LEXAPRO*) 10 Mg Tablet, 10 MG ORAL DAILY, TAB 08/25/17 Tiotropium [place]* (SPIRIVA*) 18 Mcg Cap.w.dev, 1 PUFF INH DAILY, EA 02/26/16 Sucralfate* (CARAFATE*) 1 Gm Tablet, 1 GM GT FOUR TIMES A DAY 08/16/13 Pantoprazole* (PROTONIX*) 40 Mg Tablet.dr, 40 MG ORAL Q12HR, #30 TAB 0 Refills 08/16/13 Folic Acid* (FOLIC ACID*) 1 Mg Tablet, 1 MG ORAL DAILY, TAB 08/16/13 Fluticasone/Salmeterol (Advair 500-50 Diskus) 1 Each Disk.w.dev, 1 PUFF INH Q12H 12/01/12 Multivitamin With Minerals (MULTIVITAMINS WITH MINERALS*) 1 Each Tablet, 1 EACH PO DAILY, TAB 10/24/12 Discontinued Reported Medications Loratadine (CLARITIN) 10 Mg Capsule, 10 MG ORAL DAILY, CAP 05/23/17 Linaclotide (LINZESS) 145 Mcg Capsule, 145 MCG PO Y for Constipation, CAP 06/30/16 Levalbuterol Hcl (XOPENEX*) 1.25 Mg/3 Ml Vial.neb, 1.25 MG HHN Q4H for 30 Days, VIAL 02/26/16 Fluticasone/Salmeterol (Advair 250-50 Diskus) 1 Puffs Puffs, 1 PUFF INH EVERY 12 HOURS, EA 02/26/16 Ergocalciferol (Vitamin D2)* (VITAMIN D*) 50,000 Unit Capsule, 52805 UNIT GT ONCE A WEEK, CAP 06/16/15 Tramadol Hcl* (ULTRAM*) 50 Mg Tablet, 50 MG GT Q6H Y for For Pain, #30 TAB 0 Refills 05/12/15 Lorazepam* (ATIVAN*) 0.5 Mg Tablet, 0.5 MG ORAL THREE TIMES A DAY Y for For Anxiety, TAB 05/12/15 Heparin Sodium,Porcine/Pf (Heparin Sod 5,000 Unit/0.5 ml) 5,000 Unit/0.5 Ml Disp.syrin, 5000 UNIT SQ BID 08/16/13 Lisinopril* (ZESTRIL*) 20 Mg Tablet, 20 MG ORAL DAILY, #10 TAB Take 1 tablet by mouth every day. 10/24/12 Discontinued Scripts Codeine/Promethazine Hcl* (PROMETHAZINE-CODEINE SYRUP*) 118 Ml Syrup, 5 ML ORAL EVERY 6 HOURS Y for cough, #15 OZ Prov:Haylie Navarro NP (Vanchtein) 02/29/16 Ertapenem Sodium* (INVanz*) 1 Gm Vial.port, 1 GM IVPB Q24H, #10 VIAL Prov:Haylie Navarro NP (Vanchtein) 05/26/15 Levalbuterol HCl (Xopenex Concentrate) 0.5 Mg Inha, 1.25 MG HHN TIDRT, #30 UNIT Prov:Haylie Navarro NP (Vanchtein) 05/26/15 Alendronate Sodium* (FOSAMAX*) 70 Mg Tab, 70 MG ORAL QWEEK, #4 TAB Prov:Haylie Navarro NP (Vanchtein) 05/26/15 Med list reviewed/reconciled: Yes Allergies: Coded Allergies: ADHESIVE (Unverified Allergy, Severe, 08/16/13) ADHESIVE TAPE (Verified Allergy, Unknown, SURGICAL TAPE - RASH, 07/28/11) ALBUTEROL (Verified Adverse Reaction, Unknown, ANXIETY, 07/28/11) Uncoded Allergies: METAL (Allergy, Unknown, 08/30/17) METAL (?) (Allergy, Unknown, RASH, 07/28/11) metal (Allergy, Unknown, 03/30/15) Patient History History Provided By: Patient, Medical Record PMH Narrative Past Medical History: asthma, COPD Past Surgical History: none Pertinent Family History: none Social History: Reports: smoking, alcohol use Reviewed Nursing Documentation: PMH: Agreed, PSxH: Agreed Nursing Documentation-PMH Hx Cardiac Problems: No Hx Hypertension: No Hx Pacemaker: No Hx Asthma: Yes Hx COPD: Yes Hx Diabetes: No Hx Cancer: No Hx Gastrointestinal Problems: Yes Hx Dialysis: No Hx Neurological Problems: Yes Hx Cerebrovascular Accident: No Hx Seizures: No Hx Tremors: Yes Hx Vertigo: Yes Hx Dizziness: Yes Hx Syncope: Yes Hx Weakness: Yes Hx Fatigue: Yes Review of Systems All Other Systems: negative except mentioned in HPI Physical Exam Vital Signs Date Time Temp Pulse Resp B/P (MAP) Pulse Ox O2 Delivery O2 Flow Rate FiO2 08/30/17 18:41 97.5 113 24 88/62 89 Nasal Cannula 3.0 08/30/17 19:07 28 Sp02 EP Interpretation: reviewed, normal Labs Laboratory Tests Test 08/30/17 19:35 08/30/17 20:38 08/31/17 03:15 White Blood Count 11.9 K/UL (4.8-10.8) H 12.7 K/UL (4.8-10.8) H Red Blood Count 3.00 M/UL (4.20-5.40) L 2.58 M/UL (4.20-5.40) L Hemoglobin 10.4 G/DL (12.0-16.0) L 9.1 G/DL (12.0-16.0) L Hematocrit 32.9 % (37.0-47.0) L 28.3 % (37.0-47.0) L Mean Corpuscular Volume 110 FL (80-99) H 110 FL (80-99) H Mean Corpuscular Hemoglobin 34.6 PG (27.0-31.0) H 35.2 PG (27.0-31.0) H Mean Corpuscular Hemoglobin Concent 31.5 G/DL (32.0-36.0) L 32.0 G/DL (32.0-36.0) Red Cell Distribution Width 15.5 % (11.6-14.8) H 15.4 % (11.6-14.8) H Platelet Count 310 K/UL (150-450) 299 K/UL (150-450) Mean Platelet Volume 7.3 FL (6.5-10.1) 7.5 FL (6.5-10.1) Neutrophils (%) (Auto) % (45.0-75.0) % (45.0-75.0) Lymphocytes (%) (Auto) % (20.0-45.0) % (20.0-45.0) Monocytes (%) (Auto) % (1.0-10.0) % (1.0-10.0) Eosinophils (%) (Auto) % (0.0-3.0) % (0.0-3.0) Basophils (%) (Auto) % (0.0-2.0) % (0.0-2.0) Differential Total Cells Counted 100 Neutrophils % (Manual) 87 % (45-75) H Lymphocytes % (Manual) 9 % (20-45) L Monocytes % (Manual) 3 % (1-10) Eosinophils % (Manual) 0 % (0-3) Basophils % (Manual) 0 % (0-2) Band Neutrophils 1 % (0-8) Platelet Estimate Adequate Platelet Morphology Normal Hypochromasia 1+ Anisocytosis 1+ Macrocytosis 1+ Prothrombin Time 10.4 SEC (9.30-11.50) Prothromb Time International Ratio 1.0 (0.9-1.1) Activated Partial Thromboplast Time 30 SEC (23-33) Urine Color Brown Urine Appearance Slightly cloudy Urine pH 9 (4.5-8.0) Urine Specific [place] 1.015 (1.005-1.035) Urine Protein 3+ (NEGATIVE) H Urine Glucose (UA) Negative (NEGATIVE) Urine Ketones 1+ (NEGATIVE) H Urine Occult Blood 5+ (NEGATIVE) H Urine Nitrite Negative (NEGATIVE) Urine Bilirubin 2+ (NEGATIVE) H Urine Ictotest Negative Urine Urobilinogen 4 MG/DL (0.0-1.0) H Urine Leukocyte Esterase 3+ (NEGATIVE) H Urine RBC 10-15 /HPF (0 - 2) H Urine WBC 5-10 /HPF (0 - 2) H Urine Squamous Epithelial Cells Few /LPF (NONE/OCC) Urine Amorphous Sediment Few /LPF (NONE) H Urine Bacteria Many /HPF (NONE) H Sodium Level 143 MMOL/L (136-145) 141 MMOL/L (136-145) Potassium Level 4.0 MMOL/L (3.5-5.1) 4.0 MMOL/L (3.5-5.1) Chloride Level 105 MMOL/L (98-107) 104 MMOL/L (98-107) Carbon Dioxide Level 30 MMOL/L (21-32) 30 MMOL/L (21-32) Anion Gap 8 mmol/L (5-15) 7 mmol/L (5-15) Blood Urea Nitrogen 21 mg/dL (7-18) H 20 mg/dL (7-18) H Creatinine 0.4 MG/DL (0.55-1.30) L 0.3 MG/DL (0.55-1.30) L Estimat Glomerular Filtration Rate mL/min (>60) mL/min (>60) Glucose Level 120 MG/DL (74-106) H 194 MG/DL (74-106) H Lactic Acid Level 1.30 mmol/L (0.66-2.22) Calcium Level 8.4 MG/DL (8.5-10.1) L 8.0 MG/DL (8.5-10.1) L Total Bilirubin 0.7 MG/DL (0.2-1.0) Aspartate Amino Transf (AST/SGOT) 17 U/L (15-37) Alanine Aminotransferase (ALT/SGPT) 21 U/L (12-78) Alkaline Phosphatase 136 U/L (46-116) H Total Creatine Kinase 25 U/L (26-308) L Creatine Kinase MB < 0.5 NG/ML (0.0-3.6) Creatine Kinase MB Relative Index 2.0 Troponin I 0.014 ng/mL (0.000-0.056) Pro-B-Type Natriuretic Peptide 2333 pg/mL (0-125) H Total Protein 4.8 G/DL (6.4-8.2) L Albumin 1.6 G/DL (3.4-5.0) L 1.4 G/DL (3.4-5.0) L Globulin 3.2 g/dL Albumin/Globulin Ratio 0.5 (1.0-2.7) L Lipase 35 U/L (73-393) L Arterial Blood pH 7.310 (7.350-7.450) Arterial Blood Partial Pressure CO2 61.0 mmHg (35.0-45.0) *H Arterial Blood Partial Pressure O2 58.9 mmHg (75.0-100.0) L Arterial Blood HCO3 30.0 mmol/L (22.0-26.0) H Arterial Blood Oxygen Saturation 86.6 % (92.0-98.0) L Arterial Blood Base Excess 2.7 Arnold Test Positive Phosphorus Level 3.3 MG/DL (2.5-4.9) General Appearance: well appearing, no apparent distress, alert, thin Head: normocephalic EENT: PERRL/EOMI, normal ENT inspection Neck: supple Respiratory: normal breath sounds, no respiratory distress, other - NC Cardiovascular: normal rate Gastrointestinal: normal inspection, non tender, soft, normal bowel sounds, non -distended Rectal: deferred Genitourinary: no CVA tenderness Musculoskeletal: other - generalized weakness Neurologic: normal inspection, alert, oriented x3, responsive Psychiatric: normal inspection, judgement/insight normal, memory normal Skin: normal inspection, normal color, no rash, warm/dry, palpation normal, well hydrated Lymphatic: normal inspection, no adenopathy Current Medications Current Medications Medications (Trade) Dose Ordered Sig/Nahum Route PRN Reason Start Time Stop Time Status Last Admin Dose Admin Acetaminophen (Tylenol) 650 mg Q4H PRN ORAL fever 08/30/17 22:45 09/29/17 22:44 Al Hydroxide/Mg Hydroxide (Mylanta II) 30 ml Q6H PRN ORAL dyspepsia 08/30/17 22:45 09/29/17 22:44 Buspirone HCl (Buspar) 5 mg THREE TIMES A DAY ORAL 08/31/17 09:00 09/30/17 08:59 Cefepime HCl 1 gm/ Dextrose 55 ml @ 110 mls/hr EVERY 12 HOURS IV 08/31/17 09:00 09/07/17 08:59 08/31/17 09:32 Escitalopram Oxalate (Lexapro) 10 mg DAILY ORAL 08/31/17 09:00 09/30/17 08:59 Heparin Sodium (Porcine) (Heparin 5000 units/ml) 5,000 units EVERY 12 HOURS SUBQ 08/31/17 09:00 09/30/17 08:59 08/31/17 09:31 Morphine Sulfate (Morphine 10mg/ 5ml Oral Soln) 3 mg Q4HR PRN ORAL For Pain 08/30/17 22:45 09/06/17 22:44 Nitroglycerin (Ntg) 0.4 mg Q5M PRN SL Prn Chest Pain 08/30/17 22:45 09/29/17 22:44 Ondansetron HCl (Zofran) 4 mg Q6H PRN IVP Nausea & Vomiting 08/30/17 22:45 09/29/17 22:44 Polyethylene Glycol (Miralax) 17 gm DAILYPRN PRN ORAL Constipation 08/30/17 22:45 09/29/17 22:44 Promethazine HCl/ Codeine (Phenergan with Codeine) 5 ml Q4H PRN ORAL For Cough 08/30/17 22:45 09/29/17 22:44 Sennosides (Senokot) 8.6 mg DAILY ORAL 08/31/17 09:00 09/30/17 08:59 Sucralfate (Carafate) 1 gm FOUR TIMES A DAY GT 08/31/17 09:00 09/30/17 08:59 UNV Temazepam (Restoril) 15 mg HSPRN PRN ORAL Insomnia 08/30/17 22:45 09/06/17 22:44 Tiotropium [place] (Spiriva Inhaler) 1 puff DAILY INH 08/31/17 09:00 09/30/17 08:59 08/31/17 09:58 Vancomycin HCl (Vanco rx to dose) 1 ea DAILY PRN MISC Per rx protocol 08/30/17 22:45 09/29/17 22:44 Vancomycin HCl 1 gm/Dextrose 275 ml @ 183.708 mls/hr Q24H IVPB 08/31/17 00:00 09/05/17 00:00 08/31/17 01:14 GI: Plan Problems: (1) Severe protein-calorie malnutrition (2) Hypoalbuminemia (3) Dysphagia (4) Anemia (5) COPD exacerbation Plan ST evaluation reviewed >> recommend PEG PLACEMENT PRIMARY SOURCE OF NUTRITION /HYDRATION with oral grat. PEG scheduled for sunday. - NPO @ AL day prior to procedure. - hold all blood thinners okay for regular soft diet after imaging studies NGT placement >> patient refusing monitor H&H, prn transfusions bowel regime cont ppi, dc carafate fu labs Discussed with Dr. Reddy. Thank you for this patient referral, we will follow. FRANCY REDDY 09/03/17 0922: History of Present Illness General Reason for Hospitalization: Dyspnea/Respdistress Present Illness Home Meds Active Scripts Atorvastatin Calcium* (LIPITOR*) 10 Mg Tablet, 10 MG ORAL BEDTIME, #30 TAB Prov:Ramon (Sparkle)Haylie CORE WINDER MACHINE OPERATOR 02/29/16 Reported Medications Acetaminophen* (TYLENOL EXTRA STRENGTH*) 500 Mg Tablet, 1000 MG ORAL Q6HR Y for For Pain, #30 TAB 0 Refills 08/30/17 Acetaminophen* (TYLENOL EXTRA STRENGTH*) 500 Mg Tablet, 500 MG ORAL Q6HR Y for For Pain Level <=5, #30 TAB 0 Refills 08/30/17 Acetaminophen* (ACETAMINOPHEN 325MG TABLET*) 325 Mg Tablet, 650 MG ORAL Q6HR Y for For Pain, TAB 08/30/17 Nicotine 14MG Patch* (NICODERM CQ 14MG*) 1 Each Patch.td24, 1 EACH TD DAILY, EA 08/30/17 Morphine 10mg/5ml Oral Soln* (Morphine 10mg/5ml Oral Soln*) 10 Mg/5 Ml Solution , 3 MG ORAL Q4HR Y for For Pain, ML 0 Refills 08/25/17 Polyethylene Glycol 3350* (MIRALAX*) 17 Gm Powd.pack, 17 GM ORAL DAILY, PACKET 08/25/17 Ipratropium/Albuterol Sulfate (DuoNeb 0.5-3(2.5)mg/3ml) 3 Ml Ampul.neb, 3 ML HHN Q4HR, EA 08/25/17 Sennosides* (SENNOSIDES*) 8.6 Mg Tablet, 8.6 MG ORAL DAILY, TAB 08/25/17 Lactulose (LACTULOSE*) 20 Gm/30 Ml Solution, 45 ML ORAL THREE TIMES A DAY, ML 0 Refills 08/25/17 Docusate Sodium* (COLACE*) 100 Mg Capsule, 100 MG ORAL THREE TIMES A DAY, CAP 08/25/17 Thiamine Hcl* (VITAMIN B-1*) 100 Mg Tablet, 100 MG ORAL DAILY, #30 TAB 0 Refills 08/25/17 Diazepam* (VALIUM*) 10 Mg Tablet, 10 MG ORAL Q3HR Y for For Anxiety, #30 TAB 0 Refills 08/25/17 Buspirone Hcl* (BUSPAR*) 10 Mg Tablet, 5 MG ORAL THREE TIMES A DAY, #15 TAB 0 Refills 08/25/17 Escitalopram Oxalate* (LEXAPRO*) 10 Mg Tablet, 10 MG ORAL DAILY, TAB 08/25/17 Tiotropium [place]* (SPIRIVA*) 18 Mcg Cap.w.dev, 1 PUFF INH DAILY, EA 02/26/16 Sucralfate* (CARAFATE*) 1 Gm Tablet, 1 GM GT FOUR TIMES A DAY 08/16/13 Pantoprazole* (PROTONIX*) 40 Mg Tablet.dr, 40 MG ORAL Q12HR, #30 TAB 0 Refills 08/16/13 Folic Acid* (FOLIC ACID*) 1 Mg Tablet, 1 MG ORAL DAILY, TAB 08/16/13 Fluticasone/Salmeterol (Advair 500-50 Diskus) 1 Each Disk.w.dev, 1 PUFF INH Q12H 12/01/12 Multivitamin With Minerals (MULTIVITAMINS WITH MINERALS*) 1 Each Tablet, 1 EACH PO DAILY, TAB 10/24/12 Discontinued Reported Medications Loratadine (CLARITIN) 10 Mg Capsule, 10 MG ORAL DAILY, CAP 05/23/17 Linaclotide (LINZESS) 145 Mcg Capsule, 145 MCG PO Y for Constipation, CAP 06/30/16 Levalbuterol Hcl (XOPENEX*) 1.25 Mg/3 Ml Vial.neb, 1.25 MG HHN Q4H for 30 Days, VIAL 02/26/16 Fluticasone/Salmeterol (Advair 250-50 Diskus) 1 Puffs Puffs, 1 PUFF INH EVERY 12 HOURS, EA 02/26/16 Ergocalciferol (Vitamin D2)* (VITAMIN D*) 50,000 Unit Capsule, 04668 UNIT GT ONCE A WEEK, CAP 06/16/15 Tramadol Hcl* (ULTRAM*) 50 Mg Tablet, 50 MG GT Q6H Y for For Pain, #30 TAB 0 Refills 05/12/15 Lorazepam* (ATIVAN*) 0.5 Mg Tablet, 0.5 MG ORAL THREE TIMES A DAY Y for For Anxiety, TAB 05/12/15 Heparin Sodium,Porcine/Pf (Heparin Sod 5,000 Unit/0.5 ml) 5,000 Unit/0.5 Ml Disp.syrin, 5000 UNIT SQ BID 08/16/13 Lisinopril* (ZESTRIL*) 20 Mg Tablet, 20 MG ORAL DAILY, #10 TAB Take 1 tablet by mouth every day. 10/24/12 Discontinued Scripts Codeine/Promethazine Hcl* (PROMETHAZINE-CODEINE SYRUP*) 118 Ml Syrup, 5 ML ORAL EVERY 6 HOURS Y for cough, #15 OZ Prov:Ramon [facility]denhoboken university medical centerHaylie Russell NP 02/29/16 Ertapenem Sodium* (INVanz*) 1 Gm Vial.port, 1 GM IVPB Q24H, #10 VIAL Prov:Ramon HaydenHaylie adamson NP 05/26/15 Levalbuterol HCl (Xopenex Concentrate) 0.5 Mg Inha, 1.25 MG HHN TIDRT, #30 UNIT Prov:Ramon HaydenHaylie adamson NP 05/26/15 Alendronate Sodium* (FOSAMAX*) 70 Mg Tab, 70 MG ORAL QWEEK, #4 TAB Prov:Ramon CastroRockefeller War Demonstration HospitalHaylie adamson NP 05/26/15 Allergies: Coded Allergies: ADHESIVE (Unverified Allergy, Severe, 08/16/13) ADHESIVE TAPE (Verified Allergy, Unknown, SURGICAL TAPE - RASH, 07/28/11) ALBUTEROL (Verified Adverse Reaction, Unknown, ANXIETY, 07/28/11) Uncoded Allergies: METAL (Allergy, Unknown, 08/30/17) METAL (?) (Allergy, Unknown, RASH, 07/28/11) metal (Allergy, Unknown, 03/30/15) GI: Plan Plan The patient was seen and examined at bedside and all new and available data was reviewed in the patients chart. I agree with the above findings, impression and plan. (Patient seen earlier today. Signature stamp does not reflect patient encounter time.). - MD Shereen Flaherty,[facility] Rodrigo N.PMere Aug 31, 2017 12:48 FRANCY REDDY Sep 03, 2017 09:22
[2017-08-31] MEDS ORDERED: Tubing IV Secondary IV ONE (15:39)
[2017-08-31] MEDS ORDERED: NS 275ml ONE ×2 (15:39)
[2017-08-31 16:00] VITALS: BP 122/88
--- NOTE | 2017-08-31 18:38 | Cardiology Progress Note ---
Assessment/Plan Assessment/Plan [id number] copd pleureal effusion heart failure tobacco and etoh abuse hs hhn diuretic echo trop Objective Last 24 Hour Vital Signs Date Time Temp Pulse Resp B/P (MAP) Pulse Ox O2 Delivery O2 Flow Rate FiO2 08/31/17 16:00 97.2 80 19 122/88 92 Nasal Cannula 2.0 08/31/17 15:34 84 08/31/17 12:00 97.5 83 16 125/77 94 Nasal Cannula 3.0 08/31/17 11:52 84 08/31/17 10:02 83 18 91 Nasal Cannula 3.0 32 08/31/17 09:59 88 18 92 Nasal Cannula 3.0 32 08/31/17 08:00 98.1 81 16 114/68 98 Nasal Cannula 3.0 08/31/17 07:33 Nasal Cannula 2.0 28 08/31/17 07:32 94 Nasal Cannula 3.0 32 08/31/17 07:30 84 08/31/17 04:00 89 08/31/17 04:00 97.0 89 16 90/50 98 Nasal Cannula 3.0 08/31/17 00:00 96.1 89 16 88/49 98 Nasal Cannula 3.0 08/30/17 23:58 99 08/30/17 23:49 96 Nasal Cannula 2.0 28 08/30/17 23:49 Nasal Cannula 2.0 28 08/30/17 23:40 103 17 85/64 94 Nasal Cannula 4.0 08/30/17 22:54 97.7 103 17 80/61 94 Nasal Cannula 4.0 08/30/17 19:40 102 24 100 Nasal Cannula 2.0 28 08/30/17 19:29 108 25 100 Nasal Cannula 2.0 28 08/30/17 19:29 108 25 100 Nasal Cannula 2.0 28 08/30/17 19:19 104 24 100 Nasal Cannula 2.0 28 08/30/17 19:19 108 26 100 Nasal Cannula 2.0 28 08/30/17 19:10 110 26 Nasal Cannula 2.0 28 08/30/17 19:10 97.5 110 26 96/60 93 Nasal Cannula 2.0 28 08/30/17 19:08 108 26 93 Nasal Cannula 2.0 28 08/30/17 19:07 108 26 Nasal Cannula 2.0 28 08/30/17 18:41 97.5 113 24 88/62 89 Nasal Cannula 3.0 Intake and Output 08/31/17 09/01/17 19:00 07:00 Intake Total 55 ml Output Total 350 ml Balance -295 ml Intake IV Total 55 ml Output Urine Total 350 ml # Bowel Movements 2 Laboratory Tests Test 08/30/17 19:35 08/30/17 20:38 08/31/17 03:15 White Blood Count 11.9 K/UL (4.8-10.8) H 12.7 K/UL (4.8-10.8) H Red Blood Count 3.00 M/UL (4.20-5.40) L 2.58 M/UL (4.20-5.40) L Hemoglobin 10.4 G/DL (12.0-16.0) L 9.1 G/DL (12.0-16.0) L Hematocrit 32.9 % (37.0-47.0) L 28.3 % (37.0-47.0) L Mean Corpuscular Volume 110 FL (80-99) H 110 FL (80-99) H Mean Corpuscular Hemoglobin 34.6 PG (27.0-31.0) H 35.2 PG (27.0-31.0) H Mean Corpuscular Hemoglobin Concent 31.5 G/DL (32.0-36.0) L 32.0 G/DL (32.0-36.0) Red Cell Distribution Width 15.5 % (11.6-14.8) H 15.4 % (11.6-14.8) H Platelet Count 310 K/UL (150-450) 299 K/UL (150-450) Mean Platelet Volume 7.3 FL (6.5-10.1) 7.5 FL (6.5-10.1) Neutrophils (%) (Auto) % (45.0-75.0) % (45.0-75.0) Lymphocytes (%) (Auto) % (20.0-45.0) % (20.0-45.0) Monocytes (%) (Auto) % (1.0-10.0) % (1.0-10.0) Eosinophils (%) (Auto) % (0.0-3.0) % (0.0-3.0) Basophils (%) (Auto) % (0.0-2.0) % (0.0-2.0) Differential Total Cells Counted 100 Neutrophils % (Manual) 87 % (45-75) H Lymphocytes % (Manual) 9 % (20-45) L Monocytes % (Manual) 3 % (1-10) Eosinophils % (Manual) 0 % (0-3) Basophils % (Manual) 0 % (0-2) Band Neutrophils 1 % (0-8) Platelet Estimate Adequate Platelet Morphology Normal Hypochromasia 1+ Anisocytosis 1+ Macrocytosis 1+ Prothrombin Time 10.4 SEC (9.30-11.50) Prothromb Time International Ratio 1.0 (0.9-1.1) Activated Partial Thromboplast Time 30 SEC (23-33) Urine Color Brown Urine Appearance Slightly cloudy Urine pH 9 (4.5-8.0) Urine Specific [place] 1.015 (1.005-1.035) Urine Protein 3+ (NEGATIVE) H Urine Glucose (UA) Negative (NEGATIVE) Urine Ketones 1+ (NEGATIVE) H Urine Occult Blood 5+ (NEGATIVE) H Urine Nitrite Negative (NEGATIVE) Urine Bilirubin 2+ (NEGATIVE) H Urine Ictotest Negative Urine Urobilinogen 4 MG/DL (0.0-1.0) H Urine Leukocyte Esterase 3+ (NEGATIVE) H Urine RBC 10-15 /HPF (0 - 2) H Urine WBC 5-10 /HPF (0 - 2) H Urine Squamous Epithelial Cells Few /LPF (NONE/OCC) Urine Amorphous Sediment Few /LPF (NONE) H Urine Bacteria Many /HPF (NONE) H Sodium Level 143 MMOL/L (136-145) 141 MMOL/L (136-145) Potassium Level 4.0 MMOL/L (3.5-5.1) 4.0 MMOL/L (3.5-5.1) Chloride Level 105 MMOL/L (98-107) 104 MMOL/L (98-107) Carbon Dioxide Level 30 MMOL/L (21-32) 30 MMOL/L (21-32) Anion Gap 8 mmol/L (5-15) 7 mmol/L (5-15) Blood Urea Nitrogen 21 mg/dL (7-18) H 20 mg/dL (7-18) H Creatinine 0.4 MG/DL (0.55-1.30) L 0.3 MG/DL (0.55-1.30) L Estimat Glomerular Filtration Rate mL/min (>60) mL/min (>60) Glucose Level 120 MG/DL (74-106) H 194 MG/DL (74-106) H Lactic Acid Level 1.30 mmol/L (0.66-2.22) Calcium Level 8.4 MG/DL (8.5-10.1) L 8.0 MG/DL (8.5-10.1) L Total Bilirubin 0.7 MG/DL (0.2-1.0) Aspartate Amino Transf (AST/SGOT) 17 U/L (15-37) Alanine Aminotransferase (ALT/SGPT) 21 U/L (12-78) Alkaline Phosphatase 136 U/L (46-116) H Total Creatine Kinase 25 U/L (26-308) L Creatine Kinase MB < 0.5 NG/ML (0.0-3.6) Creatine Kinase MB Relative Index 2.0 Troponin I 0.014 ng/mL (0.000-0.056) Pro-B-Type Natriuretic Peptide 2333 pg/mL (0-125) H Total Protein 4.8 G/DL (6.4-8.2) L Albumin 1.6 G/DL (3.4-5.0) L 1.4 G/DL (3.4-5.0) L Globulin 3.2 g/dL Albumin/Globulin Ratio 0.5 (1.0-2.7) L Lipase 35 U/L (73-393) L Arterial Blood pH 7.310 (7.350-7.450) Arterial Blood Partial Pressure CO2 61.0 mmHg (35.0-45.0) *H Arterial Blood Partial Pressure O2 58.9 mmHg (75.0-100.0) L Arterial Blood HCO3 30.0 mmol/L (22.0-26.0) H Arterial Blood Oxygen Saturation 86.6 % (92.0-98.0) L Arterial Blood Base Excess 2.7 Arnold Test Positive Phosphorus Level 3.3 MG/DL (2.5-4.9) Microbiology Date/Time Source Procedure Growth Status 08/30/17 20:55 Nasal Nares Influenza Types A,B Antigen ([facility]IES[facility]) - Final Complete 08/30/17 19:35 Urine,Clean Catch Urine Culture - Preliminary Resulted 08/31/17 01:30 Sacral Wound Gram Stain - Final Resulted 08/31/17 01:30 Sacral Wound Wound Culture Pending Resulted DARLYN SALVADOR Aug 31, 2017 18:38
[2017-08-31] MEDS: Levalbuterol Inh UD 1.25mg/0.5ml HHN PRN (19:00)
--- NOTE | 2017-08-31 19:45 | Consultation ---
DATE OF CONSULTATION: 08/31/2017 INFECTIOUS DISEASE CONSULTATION CONSULTING PHYSICIAN: Julio Shaikh M.D. REQUESTING PHYSICIAN: Robbie Bianchi M.D. REASON FOR CONSULTATION: Evaluation of the patient for possible sepsis, pneumonia, and antibiotic management. HISTORY OF PRESENT ILLNESS: The patient is a 72-year-old female, who was brought to this medical center due to the shortness of breath. Chest x-ray shows a large left pleural effusion. Leukocytosis. Infectious Disease consultation has been requested for further evaluation of the patient and antibiotic management. PAST MEDICAL HISTORY: 1. Vertigo. 2. COPD. 3. Asthma. 4. Failure to thrive. 5. History of DVT. 6. History of hiatal hernia. 7. GERD. MEDICATIONS: IV vancomycin and cefepime. ALLERGIES: No allergies to antibiotics. FAMILY HISTORY: Noncontributory. REVIEW OF SYSTEMS: Unobtainable. The patient is not able to provide information. PHYSICAL EXAMINATION: VITAL SIGNS: Temperature 97.1, blood pressure 125/77, pulse 86, and respiratory rate 18. HEENT: Mild pale conjunctivae. No icterus. NECK: No lymphadenopathy. CHEST: Decreased breath sounds on the left base. HEART: S1 and S2. ABDOMEN: Soft and nontender. EXTREMITIES: No cyanosis. NEUROLOGIC: Nonverbal. LABORATORY DATA: White blood cells 12.7, hemoglobin 9.1, and platelets 299,000. UA, 5 to 10 white blood cells and 10 to 15 red blood cells. BUN 20 and creatinine 0.3. ALT and AST are unremarkable. Alkaline phosphatase 136. Blood culture is pending. Urine culture is pending. ASSESSMENT: 1. Leukocytosis due to possible sepsis. 2. Probable underlying healthcare-associated pneumonia. 3. Bilateral effusion, left more than right. 4. Elevated alkaline phosphatase, rule out biliary disease. 5. Afebrile. PLAN: 1. We will continue the patient on vancomycin and cefepime for now. 2. Monitor CBC. 3. Monitor BMP. 4. Monitor cultures (blood, urine, and sputum). 5. Ultrasound of the abdomen. 6. Monitor chest x-ray. 7. Based on the patient's clinical course and labs, we will do further recommendation. Thank you, Dr. Bianchi, for allowing me to participate in the care of this patient. I will follow the patient with you during this hospitalization. Julio Shaikh M.D. DR: DAWNA JOB#: [id number] CC:
[2017-08-31 20:00] VITALS: BP 126/88
[2017-09-01] VITALS: BP 144/85
[2017-09-01 04:00] VITALS: BP 129/75
[2017-09-01 05:31] LABS: HEMOGLOBIN 9.4 G/DL (12.0-16.0); MEAN CORPUSCULAR VOLUME 110 FL (80-99); PLATELET COUNT 303 K/UL (150-450); RED BLOOD COUNT 2.74 M/UL (4.20-5.40); RED CELL DISTRIBUTION WIDTH 15.5 % (11.6-14.8); WHITE BLOOD COUNT 16.6 K/UL (4.8-10.8)
[2017-09-01 05:48] LABS: ALANINE AMINOTRANSFERASE 20 U/L (12-78); ALBUMIN 1.4 G/DL (3.4-5.0); ALBUMIN/GLOBULIN RATIO 0.5 (1.0-2.7); ALKALINE PHOSPHATASE 122 U/L (46-116); ANION GAP 5 mmol/L (5-15); ASPARTATE AMINO TRANSFERASE 15 U/L (15-37); BILIRUBIN,TOTAL 0.3 MG/DL (0.2-1.0); BLOOD UREA NITROGEN 23 mg/dL (7-18); CALCIUM 8.2 MG/DL (8.5-10.1); CARBON DIOXIDE 32 MMOL/L (21-32); CHLORIDE 105 MMOL/L (98-107); CREATININE 0.6 MG/DL (0.55-1.30); PHOSPHORUS 3.2 MG/DL (2.5-4.9); POTASSIUM 3.4 MMOL/L (3.5-5.1); SODIUM 142 MMOL/L (136-145)
--- NOTE | 2017-09-01 07:15 | Consultation ---
DATE OF CONSULTATION: 08/31/2017 CARDIOLOGY CONSULTATION CONSULTING PHYSICIAN: Devin Lomax M.D. REFERRING PHYSICIAN: Robbie Bianchi M.D. REASON FOR REFERRAL: Shortness of breath. HISTORY OF PRESENT ILLNESS: This is a 72-year-old female, who has been admitted through the emergency room at [facility]. Apparently, the patient was just recently here. She comes in because of increasing shortness of breath and decreased oxygen saturation. She denies any chest pain. She does admit to having the cough, congestion, and shortness of breath at this time. There is no PND. No palpitations according to the patient herself. PAST MEDICAL HISTORY: Positive for history of acute on COPD exacerbation, end-stage COPD, history of chronic hypoxic respiratory failure, alcohol abuse and dependency history, delirium tremens resolved, history of chronic anemia of chronic disease, nicotine dependence and withdrawal, major depression, severe protein calorie malnutrition, and sacral decubitus ulcers. ALLERGIES: She is allergic to albuterol and metal tape. SOCIAL HISTORY: She resides at convalescent facility. She currently actively smoke. REVIEW OF SYSTEMS: GASTROINTESTINAL: She denies any nausea, vomiting, or diarrhea. GENITOURINARY: She denies discomfort on urination. PULMONARY: Positive for cough and congestion. CARDIAC: No chest pain. No PND. No palpitations. PHYSICAL EXAMINATION: GENERAL: Shows an elderly female, in no respiratory distress, lying approximately 30 degrees head of bed elevation. VITAL SIGNS: Blood pressure 122/80 with heart rate of 80 and temperature 97.2 degrees. NECK: Supple. No jugular venous distention. LUNGS: Decreased breath sounds noted bilaterally. CARDIOVASCULAR: Regular rate and rhythm. No heaves, thrills, or gallops noted. ABDOMEN: Soft and nontender. Positive bowel sounds. EXTREMITIES: There is no clubbing, cyanosis, nor is there any edema. NEUROLOGIC: She is awake, alert, responsive, and communicative. LABORATORY VALUES: Electrocardiogram shows sinus rhythm with delay in R-wave progression and low voltage QRS complexes. Blood test, white count 12.7, hemoglobin 9.1, and platelet count of 299,000. A pH is 7.3, pCO2 of 61, pO2 of 59, and bicarbonate of 30. Sodium 141, potassium 4.0, chloride 104, bicarbonate 30, BUN 20, creatinine 0.3, glucose of 194, and calcium is 8.0. Albumin is 1.4. Coags, INR 1, PTT of 30. Chest x-ray is showing new increase right pleural effusion, small left pleural effusion. ASSESSMENT: 1. Shortness of breath. 2. Chronic obstructive pulmonary disease with exacerbation. 3. Pleural effusions, bilaterally. 4. History of alcohol and tobacco use. Dr. Bianchi, this patient was seen in cardiac consultation. The patient will need an echocardiogram to evaluate left ventricular systolic function with administered diuretics, low dose to help with a significant pleural effusion. Recently, she is on empiric antibiotics. Diet to be continued and she is receiving breathing treatments for chronic obstructive pulmonary disease with exacerbation, but I favor administration of low-dose of antibiotic. Devin Lomax M.D. DR: Mendy JOB#: [id number] CC:
[2017-09-01] MEDS ORDERED: KCl 10% 20 mEq/15ml liquid NG ONE (07:30)
--- NOTE | 2017-09-01 07:31 | Pulmonology Progress Note ---
Assessment/Plan Assessment/Plan ASSESSMENT acute hypoxemic hypercapnic respiratory failure, requiring Venturi mask likely sepsis probably HCAP UTI bilateral effusions ( left > right) severe protein calorie malnutrition emphysema end stage COPD heart failure anemia elevated alkaline phosphatase, r/o biliary disease tobacco abuse ETOH dependency depression multiple DTI POS sacrococcyx un-stageable POA PLAN OF CARE FLEX O2 to keep sat above 92% pulmonary toilet sputum cx , urine cx + GNR abx ID follows fup with CXR get CT chest a/tussive prn venous Duplex BLE DVT prophylaxis GI eval re GT , patient agreed now swallow eval noted, recommended PEG as a primary source of nutrition, and oral intake for gratification only PEG planned for Sunday unable to place NGT ( few attempts), hold start IVF until GT will be placed bowel regimen abdominal US GI prophylaxis cardio follows troponin negative ECHO with pEF 60 and RVSP of 32 trend pro BNP fup with further recommendations from cardio give additional K wound care as per wound nurse recommendations consider plastic surgery eval continue Lexapro and Buspar as d previously prescribed by psychiatrist DNR/DNI status prognosis poor case discussed and evaluated by supervising physician Subjective Allergies: Coded Allergies: ADHESIVE (Unverified Allergy, Severe, 08/16/13) ADHESIVE TAPE (Verified Allergy, Unknown, SURGICAL TAPE - RASH, 07/28/11) ALBUTEROL (Verified Adverse Reaction, Unknown, ANXIETY, 07/28/11) Uncoded Allergies: METAL (Allergy, Unknown, 08/30/17) METAL (?) (Allergy, Unknown, RASH, 07/28/11) metal (Allergy, Unknown, 03/30/15) Subjective leukocytosis trending up, afebrile weak PEG planned for Sunday Objective Last 24 Hour Vital Signs Date Time Temp Pulse Resp B/P (MAP) Pulse Ox O2 Delivery O2 Flow Rate FiO2 09/01/17 04:00 97.9 101 22 129/75 98 Venturi Mask 15.0 09/01/17 03:51 103 09/01/17 00:00 97.6 109 22 144/85 98 Venturi Mask 15.0 08/31/17 23:40 117 08/31/17 20:00 97.0 100 19 126/88 98 Venturi Mask 15.0 08/31/17 19:26 110 08/31/17 19:04 104 20 93 Venturi Mask 14.0 55 08/31/17 18:55 102 20 85 Nasal Cannula 4.0 36 08/31/17 18:55 Venturi Mask 14.0 55 08/31/17 18:55 92 Venturi Mask 14.0 55 08/31/17 16:00 97.2 80 19 122/88 92 Nasal Cannula 2.0 08/31/17 15:34 84 08/31/17 12:00 97.5 83 16 125/77 94 Nasal Cannula 3.0 08/31/17 11:52 84 08/31/17 10:02 83 18 91 Nasal Cannula 3.0 32 08/31/17 09:59 88 18 92 Nasal Cannula 3.0 32 08/31/17 08:00 98.1 81 16 114/68 98 Nasal Cannula 3.0 08/31/17 07:33 Nasal Cannula 2.0 28 08/31/17 07:32 94 Nasal Cannula 3.0 32 08/31/17 07:30 84 General Appearance: cachetic, other - weak, open eyes, poorly but responive HEENT: normocephalic, atraumatic, other - VM Respiratory/Chest: decreased breath sounds Cardiovascular: normal peripheral pulses, regular rhythm, no JVD, tachycardia Abdomen: normal bowel sounds, soft, non tender Extremities: other - UE + 2 weeping edema Skin: other - sacrococcyx unstageable , multiple DTI Neurologic/Psychiatric: abnormal gait, other - open eyes spontaneously, poorly but responsive, no gross focal Musculoskeletal: atrophy - BLE Microbiology Date/Time Source Procedure Growth Status 08/30/17 19:35 Blood Blood Culture - Preliminary NO GROWTH AFTER 24 HOURS Resulted 08/30/17 19:20 Blood Blood Culture - Preliminary NO GROWTH AFTER 24 HOURS Resulted 08/31/17 16:43 Sputum Gram Stain - Final Resulted 08/31/17 16:43 Sputum Sputum Culture Pending Resulted 08/30/17 20:55 Nasal Nares Influenza Types A,B Antigen (ELIESER) - Final Complete 08/30/17 19:35 Urine,Clean Catch Urine Culture - Preliminary Gram Negative Moi Resulted 08/31/17 01:30 Sacral Wound Gram Stain - Final Resulted 08/31/17 01:30 Sacral Wound Wound Culture Pending Resulted Laboratory Tests 09/01/17 04:00: White Blood Count 16.6H, Red Blood Count 2.74L, Hemoglobin 9.4L, Hematocrit 30.0L, Mean Corpuscular Volume 110H, Mean Corpuscular Hemoglobin 34.5H, Mean Corpuscular Hemoglobin Concent 31.4L, Red Cell Distribution Width 15.5H, Platelet Count 303, Mean Platelet Volume 7.2, Neutrophils (%) (Auto) , Lymphocytes (%) (Auto) , Monocytes (%) (Auto) , Eosinophils (%) (Auto) , Basophils (%) (Auto) , Neutrophils % (Manual) [Pending], Lymphocytes % (Manual) [Pending], Platelet Estimate [Pending], Platelet Morphology [Pending], Sodium Level 142, Potassium Level 3.4L, Chloride Level 105, Carbon Dioxide Level 32, Anion Gap 5, Blood Urea Nitrogen 23H, Creatinine 0.6#, Estimat Glomerular Filtration Rate , Glucose Level 133H, Calcium Level 8.2L, Phosphorus Level 3.2, Magnesium Level 1.0L, Total Bilirubin 0.3, Aspartate Amino Transf (AST/SGOT) 15 , Alanine Aminotransferase (ALT/SGPT) 20, Alkaline Phosphatase 122H, Pro-B-Type Natriuretic Peptide 2434H, Total Protein 4.3L, Albumin 1.4L, Globulin 2.9, Albumin/Globulin Ratio 0.5L Current Medications Medications (Trade) Dose Ordered Sig/Nahum Route PRN Reason Start Time Stop Time Status Last Admin Dose Admin Acetaminophen (Tylenol) 650 mg Q4H PRN ORAL fever 08/30/17 22:45 09/29/17 22:44 Al Hydroxide/Mg Hydroxide (Mylanta II) 30 ml Q6H PRN ORAL dyspepsia 08/30/17 22:45 09/29/17 22:44 Buspirone HCl (Buspar) 5 mg THREE TIMES A DAY ORAL 08/31/17 09:00 09/30/17 08:59 Cefepime HCl 1 gm/ Dextrose 55 ml @ 110 mls/hr DAILY IV 09/01/17 09:00 09/08/17 08:59 Escitalopram Oxalate (Lexapro) 10 mg DAILY ORAL 08/31/17 09:00 09/30/17 08:59 Heparin Sodium (Porcine) (Heparin 5000 units/ml) 5,000 units EVERY 12 HOURS SUBQ 08/31/17 09:00 09/30/17 08:59 08/31/17 20:25 Levalbuterol HCl (Xopenex) 1.25 mg Q4H PRN HHN Shortness of Breath 08/31/17 18:45 09/05/17 18:44 08/31/17 19:00 Morphine Sulfate (Morphine 10mg/ 5ml Oral Soln) 3 mg Q4HR PRN ORAL For Pain 08/30/17 22:45 09/06/17 22:44 Nitroglycerin (Ntg) 0.4 mg Q5M PRN SL Prn Chest Pain 08/30/17 22:45 09/29/17 22:44 Ondansetron HCl (Zofran) 4 mg Q6H PRN IVP Nausea & Vomiting 08/30/17 22:45 09/29/17 22:44 Pantoprazole (Protonix) 40 mg DAILY IVP 09/01/17 09:00 10/01/17 08:59 Polyethylene Glycol (Miralax) 17 gm DAILYPRN PRN ORAL Constipation 08/30/17 22:45 09/29/17 22:44 Promethazine HCl/ Codeine (Phenergan with Codeine) 5 ml Q4H PRN ORAL For Cough 08/30/17 22:45 09/29/17 22:44 Sennosides (Senokot) 8.6 mg DAILY ORAL 08/31/17 09:00 09/30/17 08:59 Temazepam (Restoril) 15 mg HSPRN PRN ORAL Insomnia 08/30/17 22:45 09/06/17 22:44 Tiot[address] [place] (Spiriva Inhaler) 1 puff DAILY INH 08/31/17 09:00 09/30/17 08:59 08/31/17 09:58 Vancomycin HCl (Vanco rx to dose) 1 ea DAILY PRN MISC Per rx protocol 08/30/17 22:45 09/29/17 22:44 Vancomycin HCl 1 gm/Dextrose 275 ml @ 183.708 mls/hr Q24H IVPB 08/31/17 00:00 09/05/17 00:00 08/31/17 23:58 Haylie Navarro NP (Vanchtein) Sep 01, 2017 07:31
[2017-09-01 08:00] VITALS: BP 107/58
--- NOTE | 2017-09-01 08:48 | Diagnostic Imaging Report ---
Indication: Abnormal liver function tests Technique: Ultrasound of the abdomen. Comparison: None Findings: Liver: Is increased echogenicity of the liver diffusely. No definite focal abnormalities demonstrated. Gallbladder: Echogenic foci are noted in the gallbladder with shadowing. There is also echogenic sludge in the gallbladder. [Batista sign is reported as negative. Common bile duct: Normal in size. Pancreas: The visualized portion of pancreas is normal in echogenicity. There are no masses. Kidneys: The kidneys are normal in size and echogenicity. There is no hydronephrosis. There is a small anechoic mass in the lower pole left kidney measuring 9 mm. Spleen: Obscured Aorta: Dictation is no evidence aortic wall. IVC: The demonstrated portion of the inferior vena cava is normal. There is a right pleural effusion. Impression: Fatty liver. Cholelithiasis with sludge in the gallbladder. Right pleural effusion. Small left renal cyst.
[2017-09-01] MEDS: Sennosides 8.6mg ORAL SCH (09:00)
[2017-09-01] MEDS ORDERED: Cefepime HCl 1 GM in D5W 55 ML IV SCH (09:00)
[2017-09-01] MEDS: BusPIRone 10mg Tab ORAL SCH ×3 (09:00→18:00)
--- NOTE | 2017-09-01 09:01 | Diagnostic Imaging Report ---
Indication: NG tube placement Technique: XRAY ABDOMEN 1VIEW/KUB Comparison: None. Findings: Single view of the upper abdomen and lower chest demonstrates a nasogastric tube in the right lower lobe bronchus. Embolization coils are noted in the abdomen. There is a left pleural effusion. Volume loss in left lower lobe or infiltrate is noted. Remainder the abdomen has been cut off the study. Impression: Nasogastric tube in the right lower lobe bronchus. This was called to the emergency room by [facility] preliminary reading. Left pleural effusion with underlying atelectasis or infiltrate. Evidence of previous embolization the abdomen. The above report is concordant with preliminary reading by [facility] .
[2017-09-01] MEDS ORDERED: Potassium Chloride 10 MEQ in NS 110 ML IV SCH (09:30)
[2017-09-01] MEDS: Pantoprazole Inj IVP SCH (09:33)
[2017-09-01] MEDS: Heparin 5000 units/ml inj SUBQ SCH ×2 (09:34→21:49)
--- NOTE | 2017-09-01 11:00 | Consultation ---
History of Present Illness General Date patient seen: Sep 01, 2017 Time patient seen: 10:55 Chief Complaint: Dyspnea/Respdistress Referring physician: YNES BREWSTER Reason for Consultation: Sacral ulcer Present Illness HPI Asked top evaluate this 72 yof with sacral pressure ulcer. She was admitted from a SNF with the ulcer. It is unlcear how long she has had it and what the treatment was at the SNF. She is not able to give history but up to recently was communicative per records. Allergies: Coded Allergies: ADHESIVE (Unverified Allergy, Severe, 08/16/13) ADHESIVE TAPE (Verified Allergy, Unknown, SURGICAL TAPE - RASH, 07/28/11) ALBUTEROL (Verified Adverse Reaction, Unknown, ANXIETY, 07/28/11) Uncoded Allergies: METAL (Allergy, Unknown, 08/30/17) METAL (?) (Allergy, Unknown, RASH, 07/28/11) metal (Allergy, Unknown, 03/30/15) Medication History Scheduled Atorvastatin Calcium* (Lipitor*), 10 MG ORAL BEDTIME Buspirone Hcl* (Buspar*), 5 MG ORAL THREE TIMES A DAY, (Reported) Docusate Sodium* (Colace*), 100 MG ORAL THREE TIMES A DAY, (Reported) Escitalopram Oxalate* (Lexapro*), 10 MG ORAL DAILY, (Reported) Fluticasone/Salmeterol (Advair 500-50 Diskus), 1 PUFF INH Q12H, (Reported) Folic Acid* (Folic Acid*), 1 MG ORAL DAILY, (Reported) Ipratropium/Albuterol Sulfate (DuoNeb 0.5-3(2.5)mg/3ml), 3 ML HHN Q4HR, ( Reported) Lactulose (Lactulose*), 45 ML ORAL THREE TIMES A DAY, (Reported) Multivitamin With Minerals (Multivitamins With Minerals*), 1 EACH PO DAILY, ( Reported) Nicotine 14MG Patch* (Nicoderm Cq 14MG*), 1 EACH TD DAILY, (Reported) Pantoprazole* (Protonix*), 40 MG ORAL Q12HR, (Reported) Polyethylene Glycol 3350* (Miralax*), 17 GM ORAL DAILY, (Reported) Sennosides* (Sennosides*), 8.6 MG ORAL DAILY, (Reported) Sucralfate* (Carafate*), 1 GM GT FOUR TIMES A DAY, (Reported) Thiamine Hcl* (Vitamin B-1*), 100 MG ORAL DAILY, (Reported) Tiotropium [place]* (Spiriva*), 1 PUFF INH DAILY, (Reported) Scheduled PRN Acetaminophen* (Acetaminophen 325MG Tablet*), 650 MG ORAL Q6HR PRN for For Pain, (Reported) Acetaminophen* (Tylenol Extra Strength*), 500 MG ORAL Q6HR PRN for For Pain Level <=5, (Reported) Acetaminophen* (Tylenol Extra Strength*), 1,000 MG ORAL Q6HR PRN for For Pain, ( Reported) Diazepam* (Valium*), 10 MG ORAL Q3HR PRN for For Anxiety, (Reported) Morphine 10mg/5ml Oral Soln* (Morphine 10mg/5ml Oral Soln*), 3 MG ORAL Q4HR PRN for For Pain, (Reported) Discontinued Medications Alendronate Sodium* (Fosamax*), 70 MG ORAL QWEEK Discontinued Reason: Pt stopped taking med Codeine/Promethazine Hcl* (Promethazine-Codeine Syrup*), 5 ML ORAL EVERY 6 HOURS PRN for cough Discontinued Reason: Therapy completed Ergocalciferol (Vitamin D2)* (Vitamin D*), 50,000 UNIT GT ONCE A WEEK, (Reported ) Discontinued Reason: Therapy completed Ertapenem Sodium* (INVanz*), 1 GM IVPB Q24H Discontinued Reason: Therapy completed Fluticasone/Salmeterol (Advair 250-50 Diskus), 1 PUFF INH EVERY 12 HOURS, ( Reported) Discontinued Reason: Medication dose changed Heparin Sodium,Porcine/Pf (Heparin Sod 5,000 Unit/0.5 ml), 5,000 UNIT SQ BID, ( Reported) Discontinued Reason: Therapy completed Levalbuterol HCl (Xopenex Concentrate), 1.25 MG HHN TIDRT Discontinued Reason: Pt stopped taking med Levalbuterol Hcl (Xopenex*), 1.25 MG HHN Q4H, (Reported) Discontinued Reason: Pt stopped taking med Linaclotide (Linzess), 145 MCG PO for Constipation, (Reported) Discontinued Reason: discontinued med Lisinopril* (Zestril*), 20 MG ORAL DAILY, (Reported) Discontinued Reason: MD discontinued med Loratadine (Claritin), 10 MG ORAL DAILY, (Reported) Discontinued Reason: Pt stopped taking med Lorazepam* (Ativan*), 0.5 MG ORAL THREE TIMES A DAY PRN for For Anxiety, ( Reported) Discontinued Reason: MD discontinued med Tramadol Hcl* (Ultram*), 50 MG GT Q6H PRN for For Pain, (Reported) Discontinued Reason: MD discontinued med Patient History Limited by: medical condition History Provided By: Medical Record Healthcare decision maker Resuscitation status Full Code Advanced Directive on File Yes Physical Exam General Appearance: no apparent distress Lines, tubes and drains: peripheral, antonio cath Abdomen: soft Extremities: moderate edema Skin Exam: other - Unstageable sacrococcyx ulcer with loosened eschar at the base. Bone palpable under the eschar. No drainage expressable and no fluctuance noted. No erythema or warmth. Periskin with irritation. Musculoskeletal: atrophy Last 24 Hour Vital Signs Date Time Temp Pulse Resp B/P (MAP) Pulse Ox O2 Delivery O2 Flow Rate FiO2 09/01/17 08:00 107 09/01/17 08:00 94.0 101 18 107/58 96 Venturi Mask 55 09/01/17 07:10 Venturi Mask 14.0 55 09/01/17 07:10 92 Venturi Mask 14.0 55 09/01/17 04:00 97.9 101 22 129/75 98 Venturi Mask 15.0 09/01/17 03:51 103 09/01/17 00:00 97.6 109 22 144/85 98 Venturi Mask 15.0 08/31/17 23:40 117 08/31/17 20:00 97.0 100 19 126/88 98 Venturi Mask 15.0 08/31/17 19:26 110 08/31/17 19:04 104 20 93 Venturi Mask 14.0 55 08/31/17 18:55 102 20 85 Nasal Cannula 4.0 36 08/31/17 18:55 Venturi Mask 14.0 55 08/31/17 18:55 92 Venturi Mask 14.0 55 08/31/17 16:00 97.2 80 19 122/88 92 Nasal Cannula 2.0 08/31/17 15:34 84 08/31/17 12:00 97.5 83 16 125/77 94 Nasal Cannula 3.0 08/31/17 11:52 84 Intake and Output 09/01/17 09/02/17 19:00 07:00 Intake Total 55 ml Balance 55 ml Intake IV Total 55 ml Laboratory Tests Test 09/01/17 04:00 White Blood Count 16.6 K/UL (4.8-10.8) H Red Blood Count 2.74 M/UL (4.20-5.40) L Hemoglobin 9.4 G/DL (12.0-16.0) L Hematocrit 30.0 % (37.0-47.0) L Mean Corpuscular Volume 110 FL (80-99) H Mean Corpuscular Hemoglobin 34.5 PG (27.0-31.0) H Mean Corpuscular Hemoglobin Concent 31.4 G/DL (32.0-36.0) L Red Cell Distribution Width 15.5 % (11.6-14.8) H Platelet Count 303 K/UL (150-450) Mean Platelet Volume 7.2 FL (6.5-10.1) Neutrophils (%) (Auto) % (45.0-75.0) Lymphocytes (%) (Auto) % (20.0-45.0) Monocytes (%) (Auto) % (1.0-10.0) Eosinophils (%) (Auto) % (0.0-3.0) Basophils (%) (Auto) % (0.0-2.0) Differential Total Cells Counted 100 Neutrophils % (Manual) 93 % (45-75) H Lymphocytes % (Manual) 2 % (20-45) L Monocytes % (Manual) 5 % (1-10) Eosinophils % (Manual) 0 % (0-3) Basophils % (Manual) 0 % (0-2) Band Neutrophils 0 % (0-8) Platelet Estimate Adequate Platelet Morphology Normal Hypochromasia 2+ Anisocytosis 1+ Sodium Level 142 MMOL/L (136-145) Potassium Level 3.4 MMOL/L (3.5-5.1) L Chloride Level 105 MMOL/L (98-107) Carbon Dioxide Level 32 MMOL/L (21-32) Anion Gap 5 mmol/L (5-15) Blood Urea Nitrogen 23 mg/dL (7-18) H Creatinine 0.6 MG/DL (0.55-1.30) # Estimat Glomerular Filtration Rate mL/min (>60) Glucose Level 133 MG/DL (74-106) H Calcium Level 8.2 MG/DL (8.5-10.1) L Phosphorus Level 3.2 MG/DL (2.5-4.9) Magnesium Level 1.0 MG/DL (1.8-2.4) L Total Bilirubin 0.3 MG/DL (0.2-1.0) Aspartate Amino Transf (AST/SGOT) 15 U/L (15-37) Alanine Aminotransferase (ALT/SGPT) 20 U/L (12-78) Alkaline Phosphatase 122 U/L (46-116) H Pro-B-Type Natriuretic Peptide 2434 pg/mL (0-125) H Total Protein 4.3 G/DL (6.4-8.2) L Albumin 1.4 G/DL (3.4-5.0) L Globulin 2.9 g/dL Albumin/Globulin Ratio 0.5 (1.0-2.7) L Microbiology Date/Time Source Procedure Growth Status 08/31/17 16:43 Sputum Gram Stain - Final Resulted 08/31/17 16:43 Sputum Sputum Culture Pending Resulted Height (Feet): 5 Height (Inches): 3.00 Weight (Pounds): 122 Medications Current Medications Medications (Trade) Dose Ordered Sig/Nahum Route PRN Reason Start Time Stop Time Status Last Admin Dose Admin Acetaminophen (Tylenol) 650 mg Q4H PRN ORAL fever 08/30/17 22:45 09/29/17 22:44 Al Hydroxide/Mg Hydroxide (Mylanta II) 30 ml Q6H PRN ORAL dyspepsia 08/30/17 22:45 09/29/17 22:44 Buspirone HCl (Buspar) 5 mg THREE TIMES A DAY ORAL 08/31/17 09:00 09/30/17 08:59 Cefepime HCl 1 gm/ Dextrose 55 ml @ 110 mls/hr DAILY IV 09/01/17 09:00 09/08/17 08:59 09/01/17 08:17 Escitalopram Oxalate (Lexapro) 10 mg DAILY ORAL 08/31/17 09:00 09/30/17 08:59 Heparin Sodium (Porcine) (Heparin 5000 units/ml) 5,000 units EVERY 12 HOURS SUBQ 08/31/17 09:00 09/30/17 08:59 09/01/17 09:34 Levalbuterol HCl (Xopenex) 1.25 mg Q4H PRN HHN Shortness of Breath 08/31/17 18:45 09/05/17 18:44 08/31/17 19:00 Morphine Sulfate (Morphine 10mg/ 5ml Oral Soln) 3 mg Q4HR PRN ORAL For Pain 08/30/17 22:45 09/06/17 22:44 Nitroglycerin (Ntg) 0.4 mg Q5M PRN SL Prn Chest Pain 08/30/17 22:45 09/29/17 22:44 Ondansetron HCl (Zofran) 4 mg Q6H PRN IVP Nausea & Vomiting 08/30/17 22:45 09/29/17 22:44 Pantoprazole (Protonix) 40 mg DAILY IVP 09/01/17 09:00 10/01/17 08:59 09/01/17 09:33 Polyethylene Glycol (Miralax) 17 gm DAILYPRN PRN ORAL Constipation 08/30/17 22:45 09/29/17 22:44 Potassium Chloride 10 meq/ Sodium Chloride 115 ml @ 115 mls/hr ONCE IV 09/01/17 09:30 10/01/17 09:29 09/01/17 09:33 Promethazine HCl/ Codeine (Phenergan with Codeine) 5 ml Q4H PRN ORAL For Cough 08/30/17 22:45 09/29/17 22:44 Sennosides (Senokot) 8.6 mg DAILY ORAL 08/31/17 09:00 09/30/17 08:59 Temazepam (Restoril) 15 mg HSPRN PRN ORAL Insomnia 08/30/17 22:45 09/06/17 22:44 Tiotropium [place] (Spiriva Inhaler) 1 puff DAILY INH 08/31/17 09:00 09/30/17 08:59 09/01/17 10:49 Vancomycin HCl (Vanco rx to dose) 1 ea DAILY PRN MISC Per rx protocol 08/30/17 22:45 09/29/17 22:44 Vancomycin HCl 1 gm/Dextrose 275 ml @ 183.708 mls/hr Q24H IVPB 08/31/17 00:00 09/05/17 00:00 08/31/17 23:58 Assessment/Plan Status: stable Assessment/Plan Patient with unstageable sacrococcyx ulcer. Thought the ulcer would benefit from bedside debridement, do not feel it is the cause of her leukocytosis. Will need to obtain consent for bedside debridement which may involve bone biopsyfor diagnosis of osteomyelitis. Need to keep off loaded. She is scheduled to undergo placement of PEG tube which will help bolster her nutrition status as well. DALE HERNDON Sep 01, 2017 11:00
[2017-09-01 12:00] VITALS: BP 113/58
[2017-09-01] MEDS ORDERED: Cefepime HCl 1 GM in D5W 55 ML IV ONE (13:00)
--- NOTE | 2017-09-01 13:20 | Infectious Diseases Prog Note ---
Assessment/Plan Assessment/Plan ASSESSMENT: Leukocytosis, increased sepsis. Probable underlying healthcare-associated pneumonia. Xray : New increased large left, new small right pleural effusions, since08/20 COPD Bilateral effusion, left more than right. Ro Empyema CT of Chest : P Elevated alkaline phosphatase US: NO evid of biliary obst. Afebrile Vertigo COPD Asthma Failure to thrive History of DVT History of hiatal hernia GERD PLAN: Cont pt on vancomycin and cefepime d# 2 Monitor CBC Monitor BMP. Monitor cultures (blood, urine, and sputum). Chest CT: P Monitor chest x-ray. Subjective Allergies: Coded Allergies: ADHESIVE (Unverified Allergy, Severe, 08/16/13) ADHESIVE TAPE (Verified Allergy, Unknown, SURGICAL TAPE - RASH, 07/28/11) ALBUTEROL (Verified Adverse Reaction, Unknown, ANXIETY, 07/28/11) Uncoded Allergies: METAL (Allergy, Unknown, 08/30/17) METAL (?) (Allergy, Unknown, RASH, 07/28/11) metal (Allergy, Unknown, 03/30/15) Subjective afebrile Objective Vital Signs Last 24 Hour Vital Signs Date Time Temp Pulse Resp B/P (MAP) Pulse Ox O2 Delivery O2 Flow Rate FiO2 09/01/17 12:16 107 09/01/17 12:00 95.5 102 18 113/58 97 Venturi Mask 50 09/01/17 08:00 107 09/01/17 08:00 94.0 101 18 107/58 96 Venturi Mask 55 09/01/17 07:10 Venturi Mask 14.0 55 09/01/17 07:10 92 Venturi Mask 14.0 55 09/01/17 04:00 97.9 101 22 129/75 98 Venturi Mask 15.0 09/01/17 03:51 103 09/01/17 00:00 97.6 109 22 144/85 98 Venturi Mask 15.0 08/31/17 23:40 117 08/31/17 20:00 97.0 100 19 126/88 98 Venturi Mask 15.0 08/31/17 19:26 110 08/31/17 19:04 104 20 93 Venturi Mask 14.0 55 08/31/17 18:55 102 20 85 Nasal Cannula 4.0 36 08/31/17 18:55 Venturi Mask 14.0 55 08/31/17 18:55 92 Venturi Mask 14.0 55 08/31/17 16:00 97.2 80 19 122/88 92 Nasal Cannula 2.0 08/31/17 15:34 84 Height (Feet): 5 Height (Inches): 3.00 Weight (Pounds): 122 HEENT: anicteric Respiratory/Chest: normal breath sounds Cardiovascular: regular rhythm Abdomen: no organomegaly Microbiology Date/Time Source Procedure Growth Status 08/30/17 19:35 Blood Blood Culture - Preliminary NO GROWTH AFTER 24 HOURS Resulted 08/30/17 19:20 Blood Blood Culture - Preliminary NO GROWTH AFTER 24 HOURS Resulted 08/31/17 16:43 Sputum Gram Stain - Final Resulted 08/31/17 16:43 Sputum Sputum Culture Pending Resulted 08/30/17 20:55 Nasal Nares Influenza Types A,B Antigen (ELIESER) - Final Complete 08/30/17 19:35 Urine,Clean Catch Urine Culture - Preliminary Gram Negative Moi Resulted 08/31/17 01:30 Sacral Wound Gram Stain - Final Resulted 08/31/17 01:30 Wound Culture - Preliminary Gram Negative Bacillus 1 Resulted Laboratory Tests Test 09/01/17 04:00 White Blood Count 16.6 K/UL (4.8-10.8) H Red Blood Count 2.74 M/UL (4.20-5.40) L Hemoglobin 9.4 G/DL (12.0-16.0) L Hematocrit 30.0 % (37.0-47.0) L Mean Corpuscular Volume 110 FL (80-99) H Mean Corpuscular Hemoglobin 34.5 PG (27.0-31.0) H Mean Corpuscular Hemoglobin Concent 31.4 G/DL (32.0-36.0) L Red Cell Distribution Width 15.5 % (11.6-14.8) H Platelet Count 303 K/UL (150-450) Mean Platelet Volume 7.2 FL (6.5-10.1) Neutrophils (%) (Auto) % (45.0-75.0) Lymphocytes (%) (Auto) % (20.0-45.0) Monocytes (%) (Auto) % (1.0-10.0) Eosinophils (%) (Auto) % (0.0-3.0) Basophils (%) (Auto) % (0.0-2.0) Differential Total Cells Counted 100 Neutrophils % (Manual) 93 % (45-75) H Lymphocytes % (Manual) 2 % (20-45) L Monocytes % (Manual) 5 % (1-10) Eosinophils % (Manual) 0 % (0-3) Basophils % (Manual) 0 % (0-2) Band Neutrophils 0 % (0-8) Platelet Estimate Adequate Platelet Morphology Normal Hypochromasia 2+ Anisocytosis 1+ Sodium Level 142 MMOL/L (136-145) Potassium Level 3.4 MMOL/L (3.5-5.1) L Chloride Level 105 MMOL/L (98-107) Carbon Dioxide Level 32 MMOL/L (21-32) Anion Gap 5 mmol/L (5-15) Blood Urea Nitrogen 23 mg/dL (7-18) H Creatinine 0.6 MG/DL (0.55-1.30) # Estimat Glomerular Filtration Rate mL/min (>60) Glucose Level 133 MG/DL (74-106) H Calcium Level 8.2 MG/DL (8.5-10.1) L Phosphorus Level 3.2 MG/DL (2.5-4.9) Magnesium Level 1.0 MG/DL (1.8-2.4) L Total Bilirubin 0.3 MG/DL (0.2-1.0) Aspartate Amino Transf (AST/SGOT) 15 U/L (15-37) Alanine Aminotransferase (ALT/SGPT) 20 U/L (12-78) Alkaline Phosphatase 122 U/L (46-116) H Pro-B-Type Natriuretic Peptide 2434 pg/mL (0-125) H Total Protein 4.3 G/DL (6.4-8.2) L Albumin 1.4 G/DL (3.4-5.0) L Globulin 2.9 g/dL Albumin/Globulin Ratio 0.5 (1.0-2.7) L Current Medications Medications (Trade) Dose Ordered Sig/Nahum Route PRN Reason Start Time Stop Time Status Last Admin Dose Admin Acetaminophen (Tylenol) 650 mg Q4H PRN ORAL fever 08/30/17 22:45 09/29/17 22:44 Al Hydroxide/Mg Hydroxide (Mylanta II) 30 ml Q6H PRN ORAL dyspepsia 08/30/17 22:45 09/29/17 22:44 Buspirone HCl (Buspar) 5 mg THREE TIMES A DAY ORAL 08/31/17 09:00 09/30/17 08:59 Cefepime HCl 1 gm/ Dextrose 55 ml @ 110 mls/hr ONCE ONCE IV 09/01/17 13:00 09/01/17 13:29 Cefepime HCl 2 gm/ Dextrose 110 ml @ 220 mls/hr Q24H IVPB 09/02/17 09:00 09/09/17 08:59 Escitalopram Oxalate (Lexapro) 10 mg DAILY ORAL 08/31/17 09:00 09/30/17 08:59 Heparin Sodium (Porcine) (Heparin 5000 units/ml) 5,000 units EVERY 12 HOURS SUBQ 08/31/17 09:00 09/30/17 08:59 09/01/17 09:34 Levalbuterol HCl (Xopenex) 1.25 mg Q4H PRN HHN Shortness of Breath 08/31/17 18:45 09/05/17 18:44 08/31/17 19:00 Morphine Sulfate (Morphine 10mg/ 5ml Oral Soln) 3 mg Q4HR PRN ORAL For Pain 08/30/17 22:45 09/06/17 22:44 Nitroglycerin (Ntg) 0.4 mg Q5M PRN SL Prn Chest Pain 08/30/17 22:45 09/29/17 22:44 Ondansetron HCl (Zofran) 4 mg Q6H PRN IVP Nausea & Vomiting 08/30/17 22:45 09/29/17 22:44 Pantoprazole (Protonix) 40 mg DAILY IVP 09/01/17 09:00 10/01/17 08:59 09/01/17 09:33 Polyethylene Glycol (Miralax) 17 gm DAILYPRN PRN ORAL Constipation 08/30/17 22:45 09/29/17 22:44 Potassium Chloride 10 meq/ Sodium Chloride 115 ml @ 115 mls/hr ONCE IV 09/01/17 09:30 10/01/17 09:29 09/01/17 09:33 Promethazine HCl/ Codeine (Phenergan with Codeine) 5 ml Q4H PRN ORAL For Cough 08/30/17 22:45 09/29/17 22:44 Sennosides (Senokot) 8.6 mg DAILY ORAL 08/31/17 09:00 09/30/17 08:59 Temazepam (Restoril) 15 mg HSPRN PRN ORAL Insomnia 08/30/17 22:45 09/06/17 22:44 Tiotropium [place] (Spiriva Inhaler) 1 puff DAILY INH 08/31/17 09:00 09/30/17 08:59 09/01/17 10:49 Vancomycin HCl (Vanco rx to dose) 1 ea DAILY PRN MISC Per rx protocol 08/30/17 22:45 09/29/17 22:44 Vancomycin HCl 1 gm/Dextrose 275 ml @ 183.708 mls/hr Q24H IVPB 08/31/17 00:00 09/05/17 00:00 08/31/17 23:58 JACQUI PANDEY M.D. Sep 01, 2017 13:20
--- NOTE | 2017-09-01 14:46 | Cardiology Report ---
APPROVED REPORT EKG Measurement Heart [id number] 156P80 [id number] Sinus tachycardia Left axis deviation Low voltage QRS Inferior infarct, age undetermined Cannot rule out Anterior infarct, age undetermined Abnormal ECG
--- NOTE | 2017-09-01 14:46 | Cardiology Report ---
APPROVED REPORT EKG Measurement Heart [id number] 156P80 [id number] Sinus tachycardia Left axis deviation Low voltage QRS Inferior infarct, age undetermined Cannot rule out Anterior infarct, age undetermined Abnormal ECG
--- NOTE | 2017-09-01 14:46 | Cardiology Report ---
APPROVED REPORT EKG Measurement Heart [id number] [place] 156P80 [id number] Sinus tachycardia Left axis deviation Low voltage QRS Inferior infarct, age undetermined Cannot rule out Anterior infarct, age undetermined Abnormal ECG
--- NOTE | 2017-09-01 15:37 | General Progress Note ---
Assessment/Plan Assessment/Plan Assessment (1) Severe protein-calorie malnutrition (2) Hypoalbuminemia (3) Dysphagia (4) Anemia (5) COPD exacerbation Plan PEG scheduled for sunday. - NPO @ MS day prior to procedure. - hold all blood thinners okay for regular soft diet after imaging studies monitor H&H, prn transfusions bowel regime cont ppi, dc carafate fu labs Subjective Allergies: Coded Allergies: ADHESIVE (Unverified Allergy, Severe, 08/16/13) ADHESIVE TAPE (Verified Allergy, Unknown, SURGICAL TAPE - RASH, 07/28/11) ALBUTEROL (Verified Adverse Reaction, Unknown, ANXIETY, 07/28/11) Uncoded Allergies: METAL (Allergy, Unknown, 08/30/17) METAL (?) (Allergy, Unknown, RASH, 07/28/11) metal (Allergy, Unknown, 03/30/15) Subjective Debilitated minimally verbal d/w RN - failed NGT placement x 3 for PEG Sunday Objective Last 24 Hour Vital Signs Date Time Temp Pulse Resp B/P (MAP) Pulse Ox O2 Delivery O2 Flow Rate FiO2 09/01/17 12:16 107 09/01/17 12:00 95.5 102 18 113/58 97 Venturi Mask 50 09/01/17 10:36 101 20 100 Venturi Mask 14.0 50 09/01/17 10:35 100 20 97 Venturi Mask 14.0 50 09/01/17 08:00 107 09/01/17 08:00 94.0 101 18 107/58 96 Venturi Mask 55 09/01/17 07:10 Venturi Mask 14.0 55 09/01/17 07:10 92 Venturi Mask 14.0 55 09/01/17 04:00 97.9 101 22 129/75 98 Venturi Mask 15.0 09/01/17 03:51 103 09/01/17 00:00 97.6 109 22 144/85 98 Venturi Mask 15.0 08/31/17 23:40 117 08/31/17 20:00 97.0 100 19 126/88 98 Venturi Mask 15.0 08/31/17 19:26 110 08/31/17 19:04 104 20 93 Venturi Mask 14.0 55 08/31/17 18:55 102 20 85 Nasal Cannula 4.0 36 08/31/17 18:55 Venturi Mask 14.0 55 08/31/17 18:55 92 Venturi Mask 14.0 55 08/31/17 16:00 97.2 80 19 122/88 92 Nasal Cannula 2.0 Intake and Output 09/01/17 09/02/17 19:00 07:00 Intake Total 170 ml Balance 170 ml Intake IV Total 170 ml Laboratory Tests 09/01/17 04:00: White Blood Count 16.6H, Red Blood Count 2.74L, Hemoglobin 9.4L, Hematocrit 30.0L, Mean Corpuscular Volume 110H, Mean Corpuscular Hemoglobin 34.5H, Mean Corpuscular Hemoglobin Concent 31.4L, Red Cell Distribution Width 15.5H, Platelet Count 303, Mean Platelet Volume 7.2, Neutrophils (%) (Auto) , Lymphocytes (%) (Auto) , Monocytes (%) (Auto) , Eosinophils (%) (Auto) , Basophils (%) (Auto) , Differential Total Cells Counted 100, Neutrophils % ( Manual) 93H, Lymphocytes % (Manual) 2L, Monocytes % (Manual) 5, Eosinophils % ( Manual) 0, Basophils % (Manual) 0, Band Neutrophils 0, Platelet Estimate Adequate, Platelet Morphology Normal, Hypochromasia 2+, Anisocytosis 1+, Sodium Level 142, Potassium Level 3.4L, Chloride Level 105, Carbon Dioxide Level 32, Anion Gap 5, Blood Urea Nitrogen 23H, Creatinine 0.6#, Estimat Glomerular Filtration Rate , Glucose Level 133H, Calcium Level 8.2L, Phosphorus Level 3.2, Magnesium Level 1.0L, Total Bilirubin 0.3, Aspartate Amino Transf (AST/SGOT) 15 , Alanine Aminotransferase (ALT/SGPT) 20, Alkaline Phosphatase 122H, Pro-B-Type Natriuretic Peptide 2434H, Total Protein 4.3L, Albumin 1.4L, Globulin 2.9, Albumin/Globulin Ratio 0.5L Height (Feet): 5 Height (Inches): 3.00 Weight (Pounds): 122 Objective WDWN NCAT supple CTA RRR Soft No edema confused KATCHELSEY Sep 01, 2017 15:37
[2017-09-01] MEDS: D5 1/2NS 1,000 ML IV SCH (15:45)
[2017-09-01 16:00] VITALS: BP 106/58
[2017-09-01] MEDS ORDERED: Tubing IV Secondary IV ONE (17:46)
[2017-09-01] MEDS ORDERED: D5 1/2NS 1000ml IV ONE (17:46)
[2017-09-01] MEDS ORDERED: NS 275ml ONE (17:46)
[2017-09-01 20:00] VITALS: BP 100/58
[2017-09-02] VITALS: BP 119/58
[2017-09-02] MEDS: Vancomycin 1gm in D5W 275ml IVPB SCH (00:39)
[2017-09-02 04:00] VITALS: BP 105/60
[2017-09-02] MEDS: D5 1/2NS 1,000 ML IV SCH ×2 (04:01→18:14)
--- NOTE | 2017-09-02 07:17 | Infectious Diseases Prog Note ---
Assessment/Plan Assessment/Plan A: pneumonia Bacteriuria/ UTI Pleural effusion COPD FTT Anemia Fatty liver P: Continue pt on vancomycin and cefepime d# 3 will f/u cultures waiting for PEG placement Subjective ROS Limited/Unobtainable: Yes Constitutional: Reports: other Respiratory: Reports: productive cough Gastrointestinal/Abdominal: Reports: no symptoms Allergies: Coded Allergies: ADHESIVE (Unverified Allergy, Severe, 08/16/13) ADHESIVE TAPE (Verified Allergy, Unknown, SURGICAL TAPE - RASH, 07/28/11) ALBUTEROL (Verified Adverse Reaction, Unknown, ANXIETY, 07/28/11) Uncoded Allergies: METAL (Allergy, Unknown, 08/30/17) METAL (?) (Allergy, Unknown, RASH, 07/28/11) metal (Allergy, Unknown, 03/30/15) Objective Vital Signs Last 24 Hour Vital Signs Date Time Temp Pulse Resp B/P (MAP) Pulse Ox O2 Delivery O2 Flow Rate FiO2 09/02/17 04:00 96.3 76 16 105/60 100 Venturi Mask 55 09/02/17 03:35 75 09/02/17 00:00 96.0 78 16 119/58 100 Venturi Mask 55 09/01/17 23:43 78 09/01/17 20:00 97.8 77 16 100/58 100 Venturi Mask 55 09/01/17 19:55 Venturi Mask 14.0 55 09/01/17 19:55 99 Venturi Mask 14.0 55 09/01/17 19:28 80 09/01/17 16:00 97.0 94 17 106/58 98 Venturi Mask 55 09/01/17 15:47 93 09/01/17 12:16 107 09/01/17 12:00 95.5 102 18 113/58 97 Venturi Mask 50 09/01/17 10:36 101 20 100 Venturi Mask 14.0 50 09/01/17 10:35 100 20 97 Venturi Mask 14.0 50 09/01/17 08:00 107 09/01/17 08:00 94.0 101 18 107/58 96 Venturi Mask 55 Height (Feet): 5 Height (Inches): 3.00 Weight (Pounds): 122 General Appearance: no acute distress HEENT: mucous membranes moist Respiratory/Chest: decreased breath sounds, other - O@ by mask Cardiovascular: normal rate Abdomen: soft, non tender Extremities: other - edema of upper extremities Neurologic/Psychiatric: alert, responsive Microbiology Date/Time Source Procedure Growth Status 08/30/17 19:35 Blood Blood Culture - Preliminary NO GROWTH AFTER 48 HOURS Resulted 08/30/17 19:20 Blood Blood Culture - Preliminary NO GROWTH AFTER 48 HOURS Resulted 08/31/17 16:43 Sputum Gram Stain - Final Resulted 08/31/17 16:43 Sputum Sputum Culture Pending Resulted 08/30/17 20:55 Nasal Nares Influenza Types A,B Antigen (ELIESER) - Final Complete 08/30/17 19:35 Urine,Clean Catch Urine Culture - Preliminary Gram Negative Moi Resulted 08/31/17 01:30 Sacral Wound Gram Stain - Final Resulted 08/31/17 01:30 Wound Culture - Preliminary Gram Negative Bacillus 1 Resulted Current Medications Medications (Trade) Dose Ordered Sig/Nahum Route PRN Reason Start Time Stop Time Status Last Admin Dose Admin Acetaminophen (Tylenol) 650 mg Q4H PRN ORAL fever 08/30/17 22:45 09/29/17 22:44 Al Hydroxide/Mg Hydroxide (Mylanta II) 30 ml Q6H PRN ORAL dyspepsia 08/30/17 22:45 09/29/17 22:44 Buspirone HCl (Buspar) 5 mg THREE TIMES A DAY ORAL 08/31/17 09:00 09/30/17 08:59 Cefepime HCl 2 gm/ Dextrose 110 ml @ 220 mls/hr Q24H IVPB 09/02/17 09:00 09/09/17 08:59 Dextrose/Sodium Chloride 1,000 ml @ 75 mls/hr [id number] IV 09/01/17 16:30 10/01/17 16:29 09/02/17 04:01 Escitalopram Oxalate (Lexapro) 10 mg DAILY ORAL 08/31/17 09:00 09/30/17 08:59 Heparin Sodium (Porcine) (Heparin 5000 units/ml) 5,000 units EVERY 12 HOURS SUBQ 08/31/17 09:00 09/30/17 08:59 09/01/17 21:49 Levalbuterol HCl (Xopenex) 1.25 mg Q4H PRN HHN Shortness of Breath 08/31/17 18:45 09/05/17 18:44 08/31/17 19:00 Morphine Sulfate (Morphine 10mg/ 5ml Oral Soln) 3 mg Q4HR PRN ORAL For Pain 08/30/17 22:45 09/06/17 22:44 Nitroglycerin (Ntg) 0.4 mg Q5M PRN SL Prn Chest Pain 08/30/17 22:45 09/29/17 22:44 Ondansetron HCl (Zofran) 4 mg Q6H PRN IVP Nausea & Vomiting 08/30/17 22:45 09/29/17 22:44 Pantoprazole (Protonix) 40 mg DAILY IVP 09/01/17 09:00 10/01/17 08:59 09/01/17 09:33 Polyethylene Glycol (Miralax) 17 gm DAILYPRN PRN ORAL Constipation 08/30/17 22:45 09/29/17 22:44 Promethazine HCl/ Codeine (Phenergan with Codeine) 5 ml Q4H PRN ORAL For Cough 08/30/17 22:45 09/29/17 22:44 Sennosides (Senokot) 8.6 mg DAILY ORAL 08/31/17 09:00 09/30/17 08:59 Temazepam (Restoril) 15 mg HSPRN PRN ORAL Insomnia 08/30/17 22:45 09/06/17 22:44 Tiotropium [place] (Spiriva Inhaler) 1 puff DAILY INH 08/31/17 09:00 09/30/17 08:59 09/02/17 07:08 Vancomycin HCl (Vanco rx to dose) 1 ea DAILY PRN MISC Per rx protocol 08/30/17 22:45 09/29/17 22:44 Vancomycin HCl 1 gm/Dextrose 275 ml @ 183.708 mls/hr Q24H IVPB 08/31/17 00:00 09/05/17 00:00 09/02/17 00:39 LISA MARCUS Sep 02, 2017 07:17
[2017-09-02 08:00] VITALS: BP 112/61
--- NOTE | 2017-09-02 08:08 | Pulmonology Progress Note ---
Assessment/Plan Assessment/Plan ASSESSMENT acute hypoxemic hypercapnic respiratory failure, requiring Venturi mask likely sepsis probably HCAP bacteriuria/ UTI bilateral effusions ( left > right) severe protein calorie malnutrition emphysema end stage COPD heart failure anemia elevated alkaline phosphatase, r/o biliary disease tobacco abuse ETOH dependency depression multiple DTI POS sacrococcyx un-stageable POA PLAN OF CARE FLEX gentle IVF while NPO and awaiting for G tube, O2 , currently on VM 55% titrate to keep sat above 92% pulmonary toilet sputum cx + Strep gr B, Kelsy , urine cx + GNR abx ID follows fup with CXR in am get CT chest a/tussive prn venous Duplex BLE DVT prophylaxis replace Mg, check level in am hypo Mg likely due to ETOH dependency add Thiamine GI follows GT , patient agreed now swallow eval noted, recommended PEG as a primary source of nutrition, and oral intake for gratification only PEG planned for Sunday unable to place NGT ( few attempts), hold start IVF until GT will be placed bowel regimen abdominal US GI prophylaxis cardio follows troponin negative ECHO with pEF 60 and RVSP of 32 trend pro BNP fup with further recommendations from cardio wound care as per wound nurse recommendations consider plastic surgery eval continue Lexapro and Buspar as d previously prescribed by psychiatrist DNR/DNI status overall prognosis poor case discussed and evaluated by supervising physician Subjective Allergies: Coded Allergies: ADHESIVE (Unverified Allergy, Severe, 08/16/13) ADHESIVE TAPE (Verified Allergy, Unknown, SURGICAL TAPE - RASH, 07/28/11) ALBUTEROL (Verified Adverse Reaction, Unknown, ANXIETY, 07/28/11) Uncoded Allergies: METAL (Allergy, Unknown, 08/30/17) METAL (?) (Allergy, Unknown, RASH, 07/28/11) metal (Allergy, Unknown, 03/30/15) Subjective leukocytosis resolved, afebrile more awake PEG planned for am Mg-1.0 Objective Last 24 Hour Vital Signs Date Time Temp Pulse Resp B/P (MAP) Pulse Ox O2 Delivery O2 Flow Rate FiO2 09/02/17 07:13 Venturi Mask 14.0 55 09/02/17 07:13 100 Venturi Mask 14.0 55 09/02/17 07:12 75 20 100 Venturi Mask 14.0 55 09/02/17 07:10 75 20 100 Venturi Mask 14.0 55 09/02/17 04:00 96.3 76 16 105/60 100 Venturi Mask 55 09/02/17 03:35 75 09/02/17 00:00 96.0 78 16 119/58 100 Venturi Mask 55 09/01/17 23:43 78 09/01/17 20:00 97.8 77 16 100/58 100 Venturi Mask 55 09/01/17 19:55 Venturi Mask 14.0 55 09/01/17 19:55 99 Venturi Mask 14.0 55 09/01/17 19:28 80 09/01/17 16:00 97.0 94 17 106/58 98 Venturi Mask 55 09/01/17 15:47 93 09/01/17 12:16 107 09/01/17 12:00 95.5 102 18 113/58 97 Venturi Mask 50 09/01/17 10:36 101 20 100 Venturi Mask 14.0 50 09/01/17 10:35 100 20 97 Venturi Mask 14.0 50 Objective General Appearance: cachetic, weak, more awake and responsive HEENT: normocephalic, atraumatic, VM 55% Respiratory/Chest: decreased breath sounds Cardiovascular: normal peripheral pulses, regular rate and rhythm, no JVD, Abdomen: normal bowel sounds, soft, non tender Extremities: UE + 2 weeping edema Skin: sacrococcyx un-stageable , multiple DTI Neurologic/Psychiatric: abnormal gait, more awake and responsive , no gross focal Musculoskeletal: atrophy BLE Microbiology Date/Time Source Procedure Growth Status 08/30/17 19:35 Blood Blood Culture - Preliminary NO GROWTH AFTER 48 HOURS Resulted 08/30/17 19:20 Blood Blood Culture - Preliminary NO GROWTH AFTER 48 HOURS Resulted 08/31/17 16:43 Sputum Gram Stain - Final Resulted 08/31/17 16:43 Sputum Culture - Preliminary Streptococcus Group B Kelsy Albicans Resulted 08/30/17 20:55 Nasal Nares Influenza Types A,B Antigen (ELIESER) - Final Complete 08/30/17 19:35 Urine,Clean Catch Urine Culture - Preliminary Gram Negative Moi Resulted 08/31/17 01:30 Sacral Wound Gram Stain - Final Resulted 08/31/17 01:30 Wound Culture - Preliminary Gram Negative Bacillus 1 Resulted Current Medications Medications (Trade) Dose Ordered Sig/Nahum Route PRN Reason Start Time Stop Time Status Last Admin Dose Admin Acetaminophen (Tylenol) 650 mg Q4H PRN ORAL fever 08/30/17 22:45 09/29/17 22:44 Al Hydroxide/Mg Hydroxide (Mylanta II) 30 ml Q6H PRN ORAL dyspepsia 08/30/17 22:45 09/29/17 22:44 Buspirone HCl (Buspar) 5 mg THREE TIMES A DAY ORAL 08/31/17 09:00 09/30/17 08:59 Cefepime HCl 2 gm/ Dextrose 110 ml @ 220 mls/hr Q24H IVPB 09/02/17 09:00 09/09/17 08:59 Dextrose/Sodium Chloride 1,000 ml @ 75 mls/hr [id number] IV 09/01/17 16:30 10/01/17 16:29 09/02/17 04:01 Escitalopram Oxalate (Lexapro) 10 mg DAILY ORAL 08/31/17 09:00 09/30/17 08:59 Heparin Sodium (Porcine) (Heparin 5000 units/ml) 5,000 units EVERY 12 HOURS SUBQ 08/31/17 09:00 09/30/17 08:59 09/01/17 21:49 Levalbuterol HCl (Xopenex) 1.25 mg Q4H PRN HHN Shortness of Breath 08/31/17 18:45 09/05/17 18:44 08/31/17 19:00 Morphine Sulfate (Morphine 10mg/ 5ml Oral Soln) 3 mg Q4HR PRN ORAL For Pain 08/30/17 22:45 09/06/17 22:44 Nitroglycerin (Ntg) 0.4 mg Q5M PRN SL Prn Chest Pain 08/30/17 22:45 09/29/17 22:44 Ondansetron HCl (Zofran) 4 mg Q6H PRN IVP Nausea & Vomiting 08/30/17 22:45 09/29/17 22:44 Pantoprazole (Protonix) 40 mg DAILY IVP 09/01/17 09:00 10/01/17 08:59 09/01/17 09:33 Polyethylene Glycol (Miralax) 17 gm DAILYPRN PRN ORAL Constipation 08/30/17 22:45 09/29/17 22:44 Promethazine HCl/ Codeine (Phenergan with Codeine) 5 ml Q4H PRN ORAL For Cough 08/30/17 22:45 09/29/17 22:44 Sennosides (Senokot) 8.6 mg DAILY ORAL 08/31/17 09:00 09/30/17 08:59 Temazepam (Restoril) 15 mg HSPRN PRN ORAL Insomnia 08/30/17 22:45 09/06/17 22:44 Tiotropium [place] (Spiriva Inhaler) 1 puff DAILY INH 08/31/17 09:00 09/30/17 08:59 09/02/17 07:08 Vancomycin HCl (Vanco rx to dose) 1 ea DAILY PRN MISC Per rx protocol 08/30/17 22:45 09/29/17 22:44 Vancomycin HCl 1 gm/Dextrose 275 ml @ 183.708 mls/hr Q24H IVPB 08/31/17 00:00 09/05/17 00:00 09/02/17 00:39 Haylie Navarro NP ([facility]) Sep 02, 2017 08:08
[2017-09-02] MEDS: Heparin 5000 units/ml inj SUBQ SCH ×2 (08:56→20:48)
[2017-09-02] MEDS: Pantoprazole Inj IVP SCH (08:59)
[2017-09-02] MEDS: Cefepime 2gm in D5W 110ml IVPB SCH (08:59)
[2017-09-02] MEDS: Sennosides 8.6mg ORAL SCH (09:00)
[2017-09-02] MEDS: BusPIRone 10mg Tab ORAL SCH ×3 (09:00→18:00)
[2017-09-02 09:39] LABS: HEMATOCRIT 34.4 % (37.0-47.0); HEMOGLOBIN 10.9 G/DL (12.0-16.0); MEAN CORPUSCULAR VOLUME 112 FL (80-99); PLATELET COUNT 161 K/UL (150-450); RED BLOOD COUNT 3.09 M/UL (4.20-5.40); RED CELL DISTRIBUTION WIDTH 15.4 % (11.6-14.8); WHITE BLOOD COUNT 9.7 K/UL (4.8-10.8)
[2017-09-02 09:46] LABS: ANION GAP 3 mmol/L (5-15); BLOOD UREA NITROGEN 27 mg/dL (7-18); CALCIUM 8.2 MG/DL (8.5-10.1); CARBON DIOXIDE 30 MMOL/L (21-32); CHLORIDE 107 MMOL/L (98-107); CREATININE 0.7 MG/DL (0.55-1.30); POTASSIUM 3.5 MMOL/L (3.5-5.1); SODIUM 140 MMOL/L (136-145)
[2017-09-02] MEDS: Thiamine 100mg tab ORAL SCH (11:43)
[2017-09-02 12:00] VITALS: BP 114/70
[2017-09-02 16:09] VITALS: BP 118/65
--- NOTE | 2017-09-02 16:43 | General Progress Note ---
Assessment/Plan Assessment/Plan Assessment (1) Severe protein-calorie malnutrition (2) Hypoalbuminemia (3) Dysphagia (4) Anemia (5) COPD exacerbation Plan PEG scheduled for sunday. - NPO @ [place] day prior to procedure. - hold all blood thinners okay for regular soft diet after imaging studies monitor H&H, prn transfusions bowel regime cont ppi, dc carafate fu labs Subjective Allergies: Coded Allergies: ADHESIVE (Unverified Allergy, Severe, 08/16/13) ADHESIVE TAPE (Verified Allergy, Unknown, SURGICAL TAPE - RASH, 07/28/11) ALBUTEROL (Verified Adverse Reaction, Unknown, ANXIETY, 07/28/11) Uncoded Allergies: METAL (Allergy, Unknown, 08/30/17) METAL (?) (Allergy, Unknown, RASH, 07/28/11) metal (Allergy, Unknown, 03/30/15) Subjective Debilitated minimally verbal for PEG Sunday Objective Last 24 Hour Vital Signs Date Time Temp Pulse Resp B/P (MAP) Pulse Ox O2 Delivery O2 Flow Rate FiO2 09/02/17 16:09 97.8 75 18 118/65 100 Venturi Mask 55 09/02/17 12:00 95.0 78 19 114/70 100 Venturi Mask 55 09/02/17 11:51 75 09/02/17 08:01 75 09/02/17 08:00 74 18 112/61 99 Venturi Mask 55 09/02/17 07:13 Venturi Mask 14.0 55 09/02/17 07:13 100 Venturi Mask 14.0 55 09/02/17 07:12 75 20 100 Venturi Mask 14.0 55 09/02/17 07:10 75 20 100 Venturi Mask 14.0 55 09/02/17 04:00 96.3 76 16 105/60 100 Venturi Mask 55 09/02/17 03:35 75 09/02/17 00:00 96.0 78 16 119/58 100 Venturi Mask 55 09/01/17 23:43 78 09/01/17 20:00 97.8 77 16 100/58 100 Venturi Mask 55 09/01/17 19:55 Venturi Mask 14.0 55 09/01/17 19:55 99 Venturi Mask 14.0 55 09/01/17 19:28 80 Intake and Output 09/02/17 09/03/17 19:00 07:00 Intake Total 1185 ml Balance 1185 ml Intake IV Total 1185 ml Laboratory Tests 09/02/17 09:15: White Blood Count 9.7, Red Blood Count 3.09L, Hemoglobin 10.9L, Hematocrit 34.4L , Mean Corpuscular Volume 112H, Mean Corpuscular Hemoglobin 35.2H, Mean Corpuscular Hemoglobin Concent 31.6L, Red Cell Distribution Width 15.4H, Platelet Count 161, Mean Platelet Volume 7.1, Neutrophils (%) (Auto) , Lymphocytes (%) (Auto) , Monocytes (%) (Auto) , Eosinophils (%) (Auto) , Basophils (%) (Auto) , Differential Total Cells Counted 100, Neutrophils % ( Manual) 81H, Lymphocytes % (Manual) 8L, Monocytes % (Manual) 5, Eosinophils % ( Manual) 0, Basophils % (Manual) 0, Band Neutrophils 6, Platelet Estimate Adequate, Platelet Morphology Normal, Giant Platelets , Hypochromasia 1+, Anisocytosis 1+, Macrocytosis 1+, Sodium Level 140, Potassium Level 3.5, Chloride Level 107, Carbon Dioxide Level 30, Anion Gap 3L, Blood Urea Nitrogen 27H, Creatinine 0.7, Estimat Glomerular Filtration Rate , Glucose Level 123H, Calcium Level 8.2L Height (Feet): 5 Height (Inches): 3.00 Weight (Pounds): 122 Objective WDWN NCAT supple CTA RRR Soft No edema CHELSEY Duke Sep 02, 2017 16:43
[2017-09-02 20:00] VITALS: BP 100/56
[2017-09-03] VITALS: BP 107/58
[2017-09-03] MEDS: Vancomycin 1gm in D5W 275ml IVPB SCH (00:21)
[2017-09-03 04:00] VITALS: BP 110/63
[2017-09-03] MEDS: D5 1/2NS 1,000 ML IV SCH ×2 (06:01→14:52)
[2017-09-03 08:00] VITALS: BP 99/68
--- NOTE | 2017-09-03 08:34 | Brief Operative Note ---
Immediate Post Operative Note Operative Note Pre-op Diagnosis: Unstageable sacral pressure ulcer Procedure: Sharp excisional debridement of sacral pressure ulcer down to bone Post-op Diagnosis: Stage 4 sacral pressure ulcer Surgeon: Hardeep Anesthesia: local - 10cc 1% lidocaine Specimen: none Complications: none Condition: stable Fluids: None Estimated Blood Loss: none Drains: none Implant(s) used?: No DALE HERNDON Sep 03, 2017 08:34
[2017-09-03] MEDS: BusPIRone 10mg Tab ORAL SCH ×3 (09:00→18:00)
[2017-09-03] MEDS: Heparin 5000 units/ml inj SUBQ SCH ×2 (09:00→22:17)
[2017-09-03] MEDS: Thiamine 100mg tab ORAL SCH (09:00)
[2017-09-03] MEDS: Sennosides 8.6mg ORAL SCH (09:00)
[2017-09-03] MEDS: Pantoprazole Inj IVP SCH (09:06)
[2017-09-03] MEDS: Cefepime 2gm in D5W 110ml IVPB SCH (09:06)
--- NOTE | 2017-09-03 10:22 | Infectious Diseases Prog Note ---
Assessment/Plan Assessment/Plan ASSESSMENT: Probable UTI : UCx : GNR Leukocytosis, iSP Probable underlying healthcare-associated pneumonia. Scx: Strp Grp B and ( Kelsy : Colonizer ) Xray : New increased large left, new small right pleural effusions, since08/20 COPD Bilateral effusion, left more than right. Ro Empyema CT of Chest : P Elevated alkaline phosphatase US: NO evid of biliary obst. Afebrile Sacral wound : no evid of infection SP Sharp excisional debridement of sacral pressure ulcer down to bone Wnd Cx: ESBL E Coli , PSA , Kleb ( Colonizer ) Vertigo COPD Asthma Failure to thrive History of DVT History of hiatal hernia GERD PLAN: Cont pt on cefepime d# 4 /7 DC vancomycin d# 4 Monitor CBC Monitor BMP. Monitor cultures (blood, urine, and sputum). Chest CT: P Monitor chest x-ray PEG . Subjective Allergies: Coded Allergies: ADHESIVE (Unverified Allergy, Severe, 08/16/13) ADHESIVE TAPE (Verified Allergy, Unknown, SURGICAL TAPE - RASH, 07/28/11) ALBUTEROL (Verified Adverse Reaction, Unknown, ANXIETY, 07/28/11) Uncoded Allergies: METAL (Allergy, Unknown, 08/30/17) METAL (?) (Allergy, Unknown, RASH, 07/28/11) metal (Allergy, Unknown, 03/30/15) Subjective afebrile Objective Vital Signs Last 24 Hour Vital Signs Date Time Temp Pulse Resp B/P (MAP) Pulse Ox O2 Delivery O2 Flow Rate FiO2 09/03/17 08:57 76 18 100 Venturi Mask 14.0 55 09/03/17 08:57 76 18 100 Venturi Mask 14.0 55 09/03/17 08:00 71 22 99/68 92 Venturi Mask 55 09/03/17 07:30 99 Venturi Mask 14.0 55 09/03/17 07:30 Venturi Mask 14.0 55 09/03/17 04:58 78 09/03/17 04:00 96.0 81 18 110/63 100 Venturi Mask 55 09/03/17 00:00 97.0 83 16 107/58 97 Venturi Mask 55 09/02/17 23:53 84 09/02/17 20:00 97.0 82 18 100/56 97 Venturi Mask 55 09/02/17 19:56 98 Venturi Mask 14.0 55 09/02/17 19:56 Venturi Mask 14.0 55 09/02/17 19:37 81 09/02/17 16:09 97.8 75 18 118/65 100 Venturi Mask 55 09/02/17 15:24 78 09/02/17 12:00 95.0 78 19 114/70 100 Venturi Mask 55 09/02/17 11:51 75 Height (Feet): 5 Height (Inches): 2.99 Weight (Pounds): 121 HEENT: anicteric Respiratory/Chest: no accessory muscle use Cardiovascular: regularly irregular Abdomen: non distended Microbiology Date/Time Source Procedure Growth Status 08/31/17 16:43 Sputum Gram Stain - Final Complete 08/31/17 16:43 Sputum Culture - Final Streptococcus Group B Kelsy Albicans Complete Laboratory Tests Test 09/02/17 23:20 Vancomycin Level Trough 14.9 ug/mL (5.0-12.0) H Current Medications Medications (Trade) Dose Ordered Sig/Nahum Route PRN Reason Start Time Stop Time Status Last Admin Dose Admin Acetaminophen (Tylenol) 650 mg Q4H PRN ORAL fever 08/30/17 22:45 09/29/17 22:44 Al Hydroxide/Mg Hydroxide (Mylanta II) 30 ml Q6H PRN ORAL dyspepsia 08/30/17 22:45 09/29/17 22:44 Buspirone HCl (Buspar) 5 mg THREE TIMES A DAY ORAL 08/31/17 09:00 09/30/17 08:59 Cefepime HCl 2 gm/ Dextrose 110 ml @ 220 mls/hr Q24H IVPB 09/02/17 09:00 09/09/17 08:59 09/03/17 09:06 Dextrose/Sodium Chloride 1,000 ml @ 75 mls/hr [id number] IV 09/01/17 16:30 10/01/17 16:29 09/03/17 06:01 Escitalopram Oxalate (Lexapro) 10 mg DAILY ORAL 08/31/17 09:00 09/30/17 08:59 Heparin Sodium (Porcine) (Heparin 5000 units/ml) 5,000 units EVERY 12 HOURS SUBQ 08/31/17 09:00 09/30/17 08:59 09/02/17 20:48 Levalbuterol HCl (Xopenex) 1.25 mg Q4H PRN HHN Shortness of Breath 08/31/17 18:45 09/05/17 18:44 08/31/17 19:00 Morphine Sulfate (Morphine 10mg/ 5ml Oral Soln) 3 mg Q4HR PRN ORAL For Pain 08/30/17 22:45 09/06/17 22:44 Nitroglycerin (Ntg) 0.4 mg Q5M PRN SL Prn Chest Pain 08/30/17 22:45 09/29/17 22:44 Ondansetron HCl (Zofran) 4 mg Q6H PRN IVP Nausea & Vomiting 08/30/17 22:45 09/29/17 22:44 Pantoprazole (Protonix) 40 mg DAILY IVP 09/01/17 09:00 10/01/17 08:59 09/03/17 09:06 Polyethylene Glycol (Miralax) 17 gm DAILYPRN PRN ORAL Constipation 08/30/17 22:45 09/29/17 22:44 Promethazine HCl/ Codeine (Phenergan with Codeine) 5 ml Q4H PRN ORAL For Cough 08/30/17 22:45 09/29/17 22:44 Sennosides (Senokot) 8.6 mg DAILY ORAL 08/31/17 09:00 09/30/17 08:59 Temazepam (Restoril) 15 mg HSPRN PRN ORAL Insomnia 08/30/17 22:45 09/06/17 22:44 Thiamine HCl (Vitamin B1) 100 mg DAILY ORAL 09/02/17 11:00 10/02/17 10:59 Tiotropium [place] (Spiriva Inhaler) 1 puff DAILY INH 08/31/17 09:00 09/30/17 08:59 09/03/17 08:57 Vancomycin HCl (Vanco rx to dose) 1 ea DAILY PRN MISC Per rx protocol 08/30/17 22:45 09/29/17 22:44 Vancomycin HCl 1 gm/Dextrose 275 ml @ 183.708 mls/hr Q24H IVPB 08/31/17 00:00 09/05/17 00:00 09/03/17 00:21 JACQUI PANDEY M.D. Sep 03, 2017 10:22
[2017-09-03] MEDS ORDERED: D5 1/2NS 1000ml IV ONE (10:36)
--- NOTE | 2017-09-03 11:16 | GI Progress Note ---
Assessment/Plan Problems: (1) Protein-calorie malnutrition, severe ICD Codes: E43 - Unspecified severe protein-calorie malnutrition SNOMED: 543740139 (2) Generalized weakness ICD Codes: R53.1 - Weakness SNOMED: 81699666 (3) Encounter for PEG (percutaneous endoscopic gastrostomy) ICD Codes: Z43.1 - Encounter for attention to gastrostomy SNOMED: 535310695, 987455812 (4) Constipation ICD Codes: K59.00 - Constipation, unspecified SNOMED: 87856875 (5) Abdominal pain ICD Codes: R10.9 - Unspecified abdominal pain SNOMED: 09578665 (6) Hypoalbuminemia ICD Codes: E88.09 - Hypoalbuminemia SNOMED: 741181494 Status: not improved, unchanged Status Narrative Discussed with Dr. Sinha. Assessment/Plan PEG cancelled due to unstable respiratory status fu CXR >> thoracentesis if needed NGT was unable to be placed over weekend >> dobhoff to bedside for MD placement. monitor H&H, prn transfusions bowel regime cont ppi, dc carafate fu labs Subjective Subjective limited, generalized weakness Objective Last 24 Hour Vital Signs Date Time Temp Pulse Resp B/P (MAP) Pulse Ox O2 Delivery O2 Flow Rate FiO2 09/03/17 08:57 76 18 100 Venturi Mask 14.0 55 09/03/17 08:57 76 18 100 Venturi Mask 14.0 55 09/03/17 08:00 71 22 99/68 92 Venturi Mask 55 09/03/17 07:54 77 09/03/17 07:30 99 Venturi Mask 14.0 55 09/03/17 07:30 Venturi Mask 14.0 55 09/03/17 04:58 78 09/03/17 04:00 96.0 81 18 110/63 100 Venturi Mask 55 09/03/17 00:00 97.0 83 16 107/58 97 Venturi Mask 55 09/02/17 23:53 84 09/02/17 20:00 97.0 82 18 100/56 97 Venturi Mask 55 09/02/17 19:56 98 Venturi Mask 14.0 55 09/02/17 19:56 Venturi Mask 14.0 55 09/02/17 19:37 81 09/02/17 16:09 97.8 75 18 118/65 100 Venturi Mask 55 09/02/17 15:24 78 09/02/17 12:00 95.0 78 19 114/70 100 Venturi Mask 55 09/02/17 11:51 75 Intake and Output 09/03/17 09/04/17 19:00 07:00 # Bowel Movements 2 Laboratory Tests Test 09/02/17 23:20 Vancomycin Level Trough 14.9 ug/mL (5.0-12.0) H Height (Feet): 5 Height (Inches): 2.99 Weight (Pounds): 121 General Appearance: alert, thin Cardiovascular: normal rate Respiratory/Chest: other - venturi mask Abdominal Exam: soft Dai Regan NEnrique Sep 03, 2017 11:15
--- NOTE | 2017-09-03 11:16 | GI Progress Note ---
Assessment/Plan Problems: (1) Protein-calorie malnutrition, severe ICD Codes: E43 - Unspecified severe protein-calorie malnutrition SNOMED: 689109929 (2) Generalized weakness ICD Codes: R53.1 - Weakness SNOMED: 17523287 (3) Encounter for PEG (percutaneous endoscopic gastrostomy) ICD Codes: Z43.1 - Encounter for attention to gastrostomy SNOMED: 915295013, 582674209 (4) Constipation ICD Codes: K59.00 - Constipation, unspecified SNOMED: 17813317 (5) Abdominal pain ICD Codes: R10.9 - Unspecified abdominal pain SNOMED: 25687559 (6) Hypoalbuminemia ICD Codes: E88.09 - Hypoalbuminemia SNOMED: 226098034 Status: not improved, unchanged Status Narrative Discussed with Dr. Sinha. Assessment/Plan PEG cancelled due to unstable respiratory status fu CXR >> thoracentesis if needed NGT was unable to be placed over weekend >> dobhoff to bedside for MD placement. monitor H&H, prn transfusions bowel regime cont ppi, dc carafate fu labs Subjective Subjective limited, generalized weakness Objective Last 24 Hour Vital Signs Date Time Temp Pulse Resp B/P (MAP) Pulse Ox O2 Delivery O2 Flow Rate FiO2 09/03/17 08:57 76 18 100 Venturi Mask 14.0 55 09/03/17 08:57 76 18 100 Venturi Mask 14.0 55 09/03/17 08:00 71 22 99/68 92 Venturi Mask 55 09/03/17 07:54 77 09/03/17 07:30 99 Venturi Mask 14.0 55 09/03/17 07:30 Venturi Mask 14.0 55 09/03/17 04:58 78 09/03/17 04:00 96.0 81 18 110/63 100 Venturi Mask 55 09/03/17 00:00 97.0 83 16 107/58 97 Venturi Mask 55 09/02/17 23:53 84 09/02/17 20:00 97.0 82 18 100/56 97 Venturi Mask 55 09/02/17 19:56 98 Venturi Mask 14.0 55 09/02/17 19:56 Venturi Mask 14.0 55 09/02/17 19:37 81 09/02/17 16:09 97.8 75 18 118/65 100 Venturi Mask 55 09/02/17 15:24 78 09/02/17 12:00 95.0 78 19 114/70 100 Venturi Mask 55 09/02/17 11:51 75 Intake and Output 09/03/17 09/04/17 19:00 07:00 # Bowel Movements 2 Laboratory Tests Test 09/02/17 23:20 Vancomycin Level Trough 14.9 ug/mL (5.0-12.0) H Height (Feet): 5 Height (Inches): 2.99 Weight (Pounds): 121 General Appearance: alert, thin Cardiovascular: normal rate Respiratory/Chest: other - venturi mask Abdominal Exam: soft Dai Regan NEnrique Sep 03, 2017 11:15
--- NOTE | 2017-09-03 11:16 | GI Progress Note ---
Assessment/Plan Problems: (1) Protein-calorie malnutrition, severe ICD Codes: E43 - Unspecified severe protein-calorie malnutrition SNOMED: 442714315 (2) Generalized weakness ICD Codes: R53.1 - Weakness SNOMED: 21247439 (3) Encounter for PEG (percutaneous endoscopic gastrostomy) ICD Codes: Z43.1 - Encounter for attention to gastrostomy SNOMED: 072430734, 127052232 (4) Constipation ICD Codes: K59.00 - Constipation, unspecified SNOMED: 01832119 (5) Abdominal pain ICD Codes: R10.9 - Unspecified abdominal pain SNOMED: 09484060 (6) Hypoalbuminemia ICD Codes: E88.09 - Hypoalbuminemia SNOMED: 276925049 Status: not improved, unchanged Status Narrative Discussed with Dr. Sinha. Assessment/Plan PEG cancelled due to unstable respiratory status fu CXR >> thoracentesis if needed NGT was unable to be placed over weekend >> dobhoff to bedside for MD placement. monitor H&H, prn transfusions bowel regime cont ppi, dc carafate fu labs Subjective Subjective limited, generalized weakness Objective Last 24 Hour Vital Signs Date Time Temp Pulse Resp B/P (MAP) Pulse Ox O2 Delivery O2 Flow Rate FiO2 09/03/17 08:57 76 18 100 Venturi Mask 14.0 55 09/03/17 08:57 76 18 100 Venturi Mask 14.0 55 09/03/17 08:00 71 22 99/68 92 Venturi Mask 55 09/03/17 07:54 77 09/03/17 07:30 99 Venturi Mask 14.0 55 09/03/17 07:30 Venturi Mask 14.0 55 09/03/17 04:58 78 09/03/17 04:00 96.0 81 18 110/63 100 Venturi Mask 55 09/03/17 00:00 97.0 83 16 107/58 97 Venturi Mask 55 09/02/17 23:53 84 09/02/17 20:00 97.0 82 18 100/56 97 Venturi Mask 55 09/02/17 19:56 98 Venturi Mask 14.0 55 09/02/17 19:56 Venturi Mask 14.0 55 09/02/17 19:37 81 09/02/17 16:09 97.8 75 18 118/65 100 Venturi Mask 55 09/02/17 15:24 78 09/02/17 12:00 95.0 78 19 114/70 100 Venturi Mask 55 09/02/17 11:51 75 Intake and Output 09/03/17 09/04/17 19:00 07:00 # Bowel Movements 2 Laboratory Tests Test 09/02/17 23:20 Vancomycin Level Trough 14.9 ug/mL (5.0-12.0) H Height (Feet): 5 Height (Inches): 2.99 Weight (Pounds): 121 General Appearance: alert, thin Cardiovascular: normal rate Respiratory/Chest: other - venturi mask Abdominal Exam: soft Dai Regan NEnrique Sep 03, 2017 11:15
[2017-09-03 12:00] VITALS: BP 102/61
--- NOTE | 2017-09-03 12:48 | Pulmonology Progress Note ---
Assessment/Plan Problems: (1) Acute respiratory failure (2) Sepsis (3) Pneumonia (4) Severe protein-calorie malnutrition (5) Emphysema of lung Assessment/Plan cxr reviewed, Left effusion has increased, one dose of iv abx respiratory treatment chest PT She will get PEG as soon as she comes off the venturi mask Subjective ROS Limited/Unobtainable: No Interval Events: still on Venturi mask Constitutional: Reports: no symptoms HEENT: Repors: no symptoms Allergies: Coded Allergies: ADHESIVE (Unverified Allergy, Severe, 08/16/13) ADHESIVE TAPE (Verified Allergy, Unknown, SURGICAL TAPE - RASH, 07/28/11) ALBUTEROL (Verified Adverse Reaction, Unknown, ANXIETY, 07/28/11) Uncoded Allergies: METAL (Allergy, Unknown, 08/30/17) METAL (?) (Allergy, Unknown, RASH, 07/28/11) metal (Allergy, Unknown, 03/30/15) Objective Last 24 Hour Vital Signs Date Time Temp Pulse Resp B/P (MAP) Pulse Ox O2 Delivery O2 Flow Rate FiO2 09/03/17 12:00 96.0 79 16 102/61 98 Venturi Mask 55 09/03/17 08:57 76 18 100 Venturi Mask 14.0 55 09/03/17 08:57 76 18 100 Venturi Mask 14.0 55 09/03/17 08:00 71 22 99/68 92 Venturi Mask 55 09/03/17 07:54 77 09/03/17 07:30 99 Venturi Mask 14.0 55 09/03/17 07:30 Venturi Mask 14.0 55 09/03/17 04:58 78 09/03/17 04:00 96.0 81 18 110/63 100 Venturi Mask 55 09/03/17 00:00 97.0 83 16 107/58 97 Venturi Mask 55 09/02/17 23:53 84 09/02/17 20:00 97.0 82 18 100/56 97 Venturi Mask 55 09/02/17 19:56 98 Venturi Mask 14.0 55 09/02/17 19:56 Venturi Mask 14.0 55 09/02/17 19:37 81 09/02/17 16:09 97.8 75 18 118/65 100 Venturi Mask 55 09/02/17 15:24 78 Intake and Output 09/03/17 09/04/17 19:00 07:00 Intake Total 410 ml Balance 410 ml Intake IV Total 410 ml # Bowel Movements 3 General Appearance: cachetic HEENT: normocephalic, atraumatic Respiratory/Chest: chest wall non-tender, lungs clear Breasts: no masses Cardiovascular: normal peripheral pulses, normal rate Abdomen: normal bowel sounds, no organomegaly Genitourinary: normal external genitalia Extremities: no clubbing 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, alert Lymphatic: no neck adenopathy Microbiology Date/Time Source Procedure Growth Status 08/31/17 16:43 Sputum Gram Stain - Final Complete 08/31/17 16:43 Sputum Culture - Final Streptococcus Group B Kelsy Albicans Complete Laboratory Tests 09/02/17 23:20: Vancomycin Level Trough 14.9H Current Medications Medications (Trade) Dose Ordered Sig/Nahum Route PRN Reason Start Time Stop Time Status Last Admin Dose Admin Acetaminophen (Tylenol) 650 mg Q4H PRN ORAL fever 08/30/17 22:45 09/29/17 22:44 Al Hydroxide/Mg Hydroxide (Mylanta II) 30 ml Q6H PRN ORAL dyspepsia 08/30/17 22:45 09/29/17 22:44 Buspirone HCl (Buspar) 5 mg THREE TIMES A DAY ORAL 08/31/17 09:00 09/30/17 08:59 Cefepime HCl 2 gm/ Dextrose 110 ml @ 220 mls/hr Q24H IVPB 09/02/17 09:00 09/09/17 08:59 09/03/17 09:06 Dextrose/Sodium Chloride 1,000 ml @ 75 mls/hr [id number] IV 09/01/17 16:30 10/01/17 16:29 09/03/17 06:01 Escitalopram Oxalate (Lexapro) 10 mg DAILY ORAL 08/31/17 09:00 09/30/17 08:59 Heparin Sodium (Porcine) (Heparin 5000 units/ml) 5,000 units EVERY 12 HOURS SUBQ 08/31/17 09:00 09/30/17 08:59 09/02/17 20:48 Levalbuterol HCl (Xopenex) 1.25 mg Q4H PRN HHN Shortness of Breath 08/31/17 18:45 09/05/17 18:44 08/31/17 19:00 Morphine Sulfate (Morphine 10mg/ 5ml Oral Soln) 3 mg Q4HR PRN ORAL For Pain 08/30/17 22:45 09/06/17 22:44 Nitroglycerin (Ntg) 0.4 mg Q5M PRN SL Prn Chest Pain 08/30/17 22:45 09/29/17 22:44 Ondansetron HCl (Zofran) 4 mg Q6H PRN IVP Nausea & Vomiting 08/30/17 22:45 09/29/17 22:44 Pantoprazole (Protonix) 40 mg DAILY IVP 09/01/17 09:00 10/01/17 08:59 09/03/17 09:06 Polyethylene Glycol (Miralax) 17 gm DAILYPRN PRN ORAL Constipation 08/30/17 22:45 09/29/17 22:44 Promethazine HCl/ Codeine (Phenergan with Codeine) 5 ml Q4H PRN ORAL For Cough 08/30/17 22:45 09/29/17 22:44 Sennosides (Senokot) 8.6 mg DAILY ORAL 08/31/17 09:00 09/30/17 08:59 Temazepam (Restoril) 15 mg HSPRN PRN ORAL Insomnia 08/30/17 22:45 09/06/17 22:44 Thiamine HCl (Vitamin B1) 100 mg DAILY ORAL 09/02/17 11:00 10/02/17 10:59 Tiotropium [place] (Spiriva Inhaler) 1 puff DAILY INH 08/31/17 09:00 09/30/17 08:59 09/03/17 08:57 YNES BREWSTER Sep 03, 2017 12:48
--- NOTE | 2017-09-03 15:01 | Diagnostic Imaging Report ---
Indication: Dyspnea Comparison: August 30, 2017 A single view chest radiograph was obtained. Findings: There is interstitial edema present. There is a left pleural effusion. Small right pleural effusion is likely present. Bones are osteopenic. Impression: CHF/interstitial edema. Bilateral pleural effusions worse on the left
[2017-09-03 16:00] VITALS: BP 99/64
[2017-09-03] MEDS: Nystatin Susp 500,000 units/5ml ORAL SCH ×2 (18:00→22:16)
--- NOTE | 2017-09-03 18:29 | Cardiology Progress Note ---
Assessment/Plan Assessment/Plan 1. Shortness of breath. 2. Chronic obstructive pulmonary disease with exacerbation. 3. Pleural effusions, bilaterally. 4. History of alcohol and tobacco use seem comfortable lying falt echo good lv function midl diastolic dysfunction cxr noted may need thoracentesis if can be done under reasonable risk bp not allow diuretics off all antihypertensive tele [facility] ekg reviewed cxr reviewed . Subjective ROS Limited/Unobtainable: Yes Objective Last 24 Hour Vital Signs Date Time Temp Pulse Resp B/P (MAP) Pulse Ox O2 Delivery O2 Flow Rate FiO2 09/03/17 16:00 75 09/03/17 16:00 77 16 99/64 100 Venturi Mask 55 09/03/17 12:00 96.0 79 16 102/61 98 Venturi Mask 55 09/03/17 11:33 78 09/03/17 08:57 76 18 100 Venturi Mask 14.0 55 09/03/17 08:57 76 18 100 Venturi Mask 14.0 55 09/03/17 08:00 71 22 99/68 92 Venturi Mask 55 09/03/17 07:54 77 09/03/17 07:30 99 Venturi Mask 14.0 55 09/03/17 07:30 Venturi Mask 14.0 55 09/03/17 04:58 78 09/03/17 04:00 96.0 81 18 110/63 100 Venturi Mask 55 09/03/17 00:00 97.0 83 16 107/58 97 Venturi Mask 55 09/02/17 23:53 84 09/02/17 20:00 97.0 82 18 100/56 97 Venturi Mask 55 09/02/17 19:56 98 Venturi Mask 14.0 55 09/02/17 19:56 Venturi Mask 14.0 55 09/02/17 19:37 81 General Appearance: no apparent distress, alert Cardiovascular: normal rate, regular rhythm Respiratory/Chest: decreased breath sounds Abdomen: normal bowel sounds, non tender, soft Extremities: no swelling Intake and Output 09/03/17 09/04/17 19:00 07:00 Intake Total 563.33 ml Balance 563.33 ml Intake IV Total 563.33 ml # Bowel Movements 3 Laboratory Tests Test 09/02/17 23:20 Vancomycin Level Trough 14.9 ug/mL (5.0-12.0) H DARLYN SALVADOR Sep 03, 2017 18:29
[2017-09-03 20:00] VITALS: BP 106/65
--- NOTE | 2017-09-03 20:07 | Cardiology Report ---
APPROVED REPORT EXAM: Two-dimensional and M-mode echocardiogram with Doppler and color Doppler. INDICATION Congestive Heart Failure M-Mode DIMENSIONS IVSd1.0 (0.7-1.1cm)Left Atrium (MM)3.5 (1.6-4.0cm) LVDd3.6 (3.5-5.6cm)Aortic Root2.2 (2.0-3.7cm) PWd0.7 (0.7-1.1cm)Aortic Cusp Exc.1.0 (1.5-2.0cm) LVDs1.5 (2.5-4.0cm) PWs1.6 cm Technically difficult study due to poor parasternal acoustical windows. Study quality precludes accurate assessment of regional wall motion. Normal left ventricular chamber size, systolic function and wall motion. Left ventricular ejection fraction estimated to be 60 %. Mild right ventricular dilation with normal function. Large pleural effuson. All other cardiac chamber sizes are within normal limits. Heavy focal aortic valve sclerosis with adequate cusp excursion. Mildly thickened mitral valve leaflets with normal excursion. Heavy mitral annulus and aortic root calcification. Normal pulmonic valve structure. Normal tricuspid valve structure. IVC at normal size with physiologic collapse. A color flow and spectral Doppler study was performed and revealed: Mild aortic regurgitation. Trace mitral regurgitation. Mitral diastolic velocities suggest reduced left ventricular relaxation c/w mild LV diastolic dysfunction (Grade I ). Trace tricuspid regurgitation. Tricuspid systolic velocities suggests peak right ventricular systolic pressure of 32 mmHg. No pulmonic regurgitation present.
--- NOTE | 2017-09-03 23:38 | Consultation ---
History of Present Illness General Chief Complaint: Dyspnea/Respdistress Referring physician: YNES BREWSTER Reason for Consultation: Sacral ulcer Present Illness HPI 72-year-old female, who was brought to this medical center due to the shortness of breath. the pt has hx of alcohol and drug use. Im familiar with this pt since previous admission. and visited her in sniff. the pt is irritable at baseline. the pt is alert and oriented however she is irrational and is not able to understand and process in regards to info given to her Allergies: Coded Allergies: ADHESIVE (Unverified Allergy, Severe, 08/16/13) ADHESIVE TAPE (Verified Allergy, Unknown, SURGICAL TAPE - RASH, 07/28/11) ALBUTEROL (Verified Adverse Reaction, Unknown, ANXIETY, 07/28/11) Uncoded Allergies: METAL (Allergy, Unknown, 08/30/17) METAL (?) (Allergy, Unknown, RASH, 07/28/11) metal (Allergy, Unknown, 03/30/15) Medication History Scheduled Atorvastatin Calcium* (Lipitor*), 10 MG ORAL BEDTIME Buspirone Hcl* (Buspar*), 5 MG ORAL THREE TIMES A DAY, (Reported) Docusate Sodium* (Colace*), 100 MG ORAL THREE TIMES A DAY, (Reported) Escitalopram Oxalate* (Lexapro*), 10 MG ORAL DAILY, (Reported) Fluticasone/Salmeterol (Advair 500-50 Diskus), 1 PUFF INH Q12H, (Reported) Folic Acid* (Folic Acid*), 1 MG ORAL DAILY, (Reported) Ipratropium/Albuterol Sulfate (DuoNeb 0.5-3(2.5)mg/3ml), 3 ML HHN Q4HR, ( Reported) Lactulose (Lactulose*), 45 ML ORAL THREE TIMES A DAY, (Reported) Multivitamin With Minerals (Multivitamins With Minerals*), 1 EACH PO DAILY, ( Reported) Nicotine 14MG Patch* (Nicoderm Cq 14MG*), 1 EACH TD DAILY, (Reported) Pantoprazole* (Protonix*), 40 MG ORAL Q12HR, (Reported) Polyethylene Glycol 3350* (Miralax*), 17 GM ORAL DAILY, (Reported) Sennosides* (Sennosides*), 8.6 MG ORAL DAILY, (Reported) Sucralfate* (Carafate*), 1 GM GT FOUR TIMES A DAY, (Reported) Thiamine Hcl* (Vitamin B-1*), 100 MG ORAL DAILY, (Reported) Tiotropium [place]* (Spiriva*), 1 PUFF INH DAILY, (Reported) Scheduled PRN Acetaminophen* (Acetaminophen 325MG Tablet*), 650 MG ORAL Q6HR PRN for For Pain, (Reported) Acetaminophen* (Tylenol Extra Strength*), 500 MG ORAL Q6HR PRN for For Pain Level <=5, (Reported) Acetaminophen* (Tylenol Extra Strength*), 1,000 MG ORAL Q6HR PRN for For Pain, ( Reported) Diazepam* (Valium*), 10 MG ORAL Q3HR PRN for For Anxiety, (Reported) Morphine 10mg/5ml Oral Soln* (Morphine 10mg/5ml Oral Soln*), 3 MG ORAL Q4HR PRN for For Pain, (Reported) Discontinued Medications Alendronate Sodium* (Fosamax*), 70 MG ORAL QWEEK Discontinued Reason: Pt stopped taking med Codeine/Promethazine Hcl* (Promethazine-Codeine Syrup*), 5 ML ORAL EVERY 6 HOURS PRN for cough Discontinued Reason: Therapy completed Ergocalciferol (Vitamin D2)* (Vitamin D*), 50,000 UNIT GT ONCE A WEEK, (Reported ) Discontinued Reason: Therapy completed Ertapenem Sodium* (INVanz*), 1 GM IVPB Q24H Discontinued Reason: Therapy completed Fluticasone/Salmeterol (Advair 250-50 Diskus), 1 PUFF INH EVERY 12 HOURS, ( Reported) Discontinued Reason: Medication dose changed Heparin Sodium,Porcine/Pf (Heparin Sod 5,000 Unit/0.5 ml), 5,000 UNIT SQ BID, ( Reported) Discontinued Reason: Therapy completed Levalbuterol HCl (Xopenex Concentrate), 1.25 MG HHN TIDRT Discontinued Reason: Pt stopped taking med Levalbuterol Hcl (Xopenex*), 1.25 MG HHN Q4H, (Reported) Discontinued Reason: Pt stopped taking med Linaclotide (Linzess), 145 MCG PO for Constipation, (Reported) Discontinued Reason: MD discontinued med Lisinopril* (Zestril*), 20 MG ORAL DAILY, (Reported) Discontinued Reason: MD discontinued med Loratadine (Claritin), 10 MG ORAL DAILY, (Reported) Discontinued Reason: Pt stopped taking med Lorazepam* (Ativan*), 0.5 MG ORAL THREE TIMES A DAY PRN for For Anxiety, ( Reported) Discontinued Reason: discontinued med Tramadol Hcl* (Ultram*), 50 MG GT Q6H PRN for For Pain, (Reported) Discontinued Reason: MD discontinued med Patient History History Provided By: Patient, Medical Record, PMD Healthcare decision maker Resuscitation status Full Code Advanced Directive on File Yes Past Medical/Surgical History Past Medical/Surgical History: (1) pending DT (2) Status post tracheostomy (3) EtOH dependence (4) Tobacco abuse (5) A-fib (6) HTN (hypertension) (7) Hypovolemic shock (8) Cholelithiasis (9) Anemia (10) Cellulitis (11) Cellulitis (12) Dyspnea (13) Respiratory distress (14) Respiratory distress (15) Respiratory distress (16) Hyperglycemia (17) Ileus (18) Leukocytosis (19) Leukocytosis (20) Pleural effusion (21) Tachycardia (22) SBO (small bowel obstruction) (23) UGI bleed (24) Ventilator dependent (25) ACS (acute coronary syndrome) (26) COPD exacerbation (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 (28) Pelvic mass in female (29) On tube feeding diet (30) Abdominal pain (31) Abdominal pain (32) Constipation (33) acute lower urinary tract infection (34) Pneumonia (35) Depression (36) Nicotine addiction (37) Emphysema of lung (38) Sepsis (39) Severe protein-calorie malnutrition (40) Pneumonia (41) Acute respiratory failure (42) Anemia (43) Dysphagia (44) Hypoalbuminemia (45) COPD exacerbation (46) Constipation (47) Generalized weakness (48) Abdominal pain (49) Encounter for PEG (percutaneous endoscopic gastrostomy) (50) Protein-calorie malnutrition, severe Review of Systems Psychiatric: Reports: prior hx, anxiety, depressed feelings, emotional problems Physical Exam General Appearance: no apparent distress, alert, cachetic Neurologic: alert, oriented x 3, responsive, normal mood/affect Last 24 Hour Vital Signs Date Time Temp Pulse Resp B/P (MAP) Pulse Ox O2 Delivery O2 Flow Rate FiO2 09/03/17 20:00 96.0 78 20 106/65 100 Venturi Mask 09/03/17 20:00 80 09/03/17 19:42 Venturi Mask 14.0 55 09/03/17 19:42 99 Venturi Mask 14.0 55 09/03/17 16:00 75 09/03/17 16:00 77 16 99/64 100 Venturi Mask 55 09/03/17 12:00 96.0 79 16 102/61 98 Venturi Mask 55 09/03/17 11:33 78 09/03/17 08:57 76 18 100 Venturi Mask 14.0 55 09/03/17 08:57 76 18 100 Venturi Mask 14.0 55 09/03/17 08:00 71 22 99/68 92 Venturi Mask 55 09/03/17 07:54 77 09/03/17 07:30 99 Venturi Mask 14.0 55 09/03/17 07:30 Venturi Mask 14.0 55 09/03/17 04:58 78 09/03/17 04:00 96.0 81 18 110/63 100 Venturi Mask 55 09/03/17 00:00 97.0 83 16 107/58 97 Venturi Mask 55 09/02/17 23:53 84 Intake and Output 09/03/17 09/04/17 19:00 07:00 Intake Total 563.33 ml Balance 563.33 ml Intake IV Total 563.33 ml # Voids 2 # Bowel Movements 5 Height (Feet): 5 Height (Inches): 2.99 Weight (Pounds): 121 Medications Current Medications Medications (Trade) Dose Ordered Sig/Nahum Route PRN Reason Start Time Stop Time Status Last Admin Dose Admin Acetaminophen (Tylenol) 650 mg Q4H PRN ORAL fever 08/30/17 22:45 09/29/17 22:44 Al Hydroxide/Mg Hydroxide (Mylanta II) 30 ml Q6H PRN ORAL dyspepsia 08/30/17 22:45 09/29/17 22:44 Buspirone HCl (Buspar) 5 mg THREE TIMES A DAY ORAL 08/31/17 09:00 09/30/17 08:59 Cefepime HCl 2 gm/ Dextrose 110 ml @ 220 mls/hr Q24H IVPB 09/02/17 09:00 09/09/17 08:59 09/03/17 09:06 Dextrose/Sodium Chloride 1,000 ml @ 25 mls/hr Q24H IV 09/03/17 15:00 10/03/17 14:59 09/03/17 14:52 Escitalopram Oxalate (Lexapro) 10 mg DAILY ORAL 08/31/17 09:00 09/30/17 08:59 Heparin Sodium (Porcine) (Heparin 5000 units/ml) 5,000 units EVERY 12 HOURS SUBQ 08/31/17 09:00 09/30/17 08:59 09/03/17 22:17 Levalbuterol HCl (Xopenex) 1.25 mg Q4H PRN HHN Shortness of Breath 08/31/17 18:45 09/05/17 18:44 08/31/17 19:00 Morphine Sulfate (Morphine 10mg/ 5ml Oral Soln) 3 mg Q4HR PRN ORAL For Pain 08/30/17 22:45 09/06/17 22:44 Nitroglycerin (Ntg) 0.4 mg Q5M PRN SL Prn Chest Pain 08/30/17 22:45 09/29/17 22:44 Nystatin (Nystatin) 5 ml QID ORAL 09/03/17 18:00 09/10/17 17:59 09/03/17 22:16 Ondansetron HCl (Zofran) 4 mg Q6H PRN IVP Nausea & Vomiting 08/30/17 22:45 09/29/17 22:44 Pantoprazole (Protonix) 40 mg DAILY IVP 09/01/17 09:00 10/01/17 08:59 09/03/17 09:06 Polyethylene Glycol (Miralax) 17 gm DAILYPRN PRN ORAL Constipation 08/30/17 22:45 09/29/17 22:44 Promethazine HCl/ Codeine (Phenergan with Codeine) 5 ml Q4H PRN ORAL For Cough 08/30/17 22:45 09/29/17 22:44 Sennosides (Senokot) 8.6 mg DAILY ORAL 08/31/17 09:00 09/30/17 08:59 Temazepam (Restoril) 15 mg HSPRN PRN ORAL Insomnia 08/30/17 22:45 09/06/17 22:44 Thiamine HCl (Vitamin B1) 100 mg DAILY ORAL 09/02/17 11:00 10/02/17 10:59 Tiotropium [place] (Spiriva Inhaler) 1 puff DAILY INH 08/31/17 09:00 09/30/17 08:59 09/03/17 08:57 Assessment/Plan Status: stable Assessment/Plan the pt lacks capacity to make decision. will resume her psychotropics Juvenal Alvarado M.D. Sep 03, 2017 23:37
[2017-09-04] VITALS: BP 112/59
[2017-09-04 04:00] VITALS: BP 98/49
[2017-09-04 05:25] LABS: BASOPHILS % (AUTO) 0.5 % (0.0-2.0); EOSINOPHILS % (AUTO) 0.7 % (0.0-3.0); HEMATOCRIT 30.4 % (37.0-47.0); HEMOGLOBIN 9.7 G/DL (12.0-16.0); LYMPHOCYTES % (AUTO) 10.9 % (20.0-45.0); MEAN CORPUSCULAR VOLUME 110 FL (80-99); MONOCYTES % (AUTO) 5.9 % (1.0-10.0); NEUTROPHILS % (AUTO) 82.1 % (45.0-75.0); PLATELET COUNT 243 K/UL (150-450); RED BLOOD COUNT 2.76 M/UL (4.20-5.40); RED CELL DISTRIBUTION WIDTH 15.1 % (11.6-14.8); WHITE BLOOD COUNT 9.1 K/UL (4.8-10.8)
[2017-09-04 06:11] LABS: ALANINE AMINOTRANSFERASE 20 U/L (12-78); ALBUMIN 1.2 G/DL (3.4-5.0); ALBUMIN/GLOBULIN RATIO 0.4 (1.0-2.7); ALKALINE PHOSPHATASE 118 U/L (46-116); ANION GAP 6 mmol/L (5-15); ASPARTATE AMINO TRANSFERASE 17 U/L (15-37); BILIRUBIN,TOTAL 0.2 MG/DL (0.2-1.0); BLOOD UREA NITROGEN 29 mg/dL (7-18); CALCIUM 8.3 MG/DL (8.5-10.1); CARBON DIOXIDE 28 MMOL/L (21-32); CHLORIDE 104 MMOL/L (98-107); CREATININE 0.9 MG/DL (0.55-1.30); POTASSIUM 2.9 MMOL/L (3.5-5.1); SODIUM 138 MMOL/L (136-145)
[2017-09-04 08:00] VITALS: BP 95/61
--- NOTE | 2017-09-04 08:12 | Pulmonology Progress Note ---
Assessment/Plan Problems: (1) Acute respiratory failure (2) Sepsis (3) Pneumonia (4) Severe protein-calorie malnutrition (5) Emphysema of lung Assessment/Plan one dose of iv abx again K supplement respiratory treatment chest PT Pt has ng tube now titrate fio2 She will get PEG as soon as she comes off the venturi mask Subjective ROS Limited/Unobtainable: No Interval Events: looks more comfortable Constitutional: Reports: no symptoms HEENT: Repors: no symptoms Respiratory: Reports: no symptoms Allergies: Coded Allergies: ADHESIVE (Unverified Allergy, Severe, 08/16/13) ADHESIVE TAPE (Verified Allergy, Unknown, SURGICAL TAPE - RASH, 07/28/11) ALBUTEROL (Verified Adverse Reaction, Unknown, ANXIETY, 07/28/11) Uncoded Allergies: METAL (Allergy, Unknown, 08/30/17) METAL (?) (Allergy, Unknown, RASH, 07/28/11) metal (Allergy, Unknown, 03/30/15) Objective Last 24 Hour Vital Signs Date Time Temp Pulse Resp B/P (MAP) Pulse Ox O2 Delivery O2 Flow Rate FiO2 09/04/17 04:18 91 09/04/17 04:00 97.1 87 20 98/49 100 Venturi Mask 55 09/04/17 00:00 81 20 112/59 100 Venturi Mask 55 09/04/17 00:00 80 09/03/17 20:00 96.0 78 20 106/65 100 Venturi Mask 09/03/17 20:00 80 09/03/17 19:42 Venturi Mask 14.0 55 09/03/17 19:42 99 Venturi Mask 14.0 55 09/03/17 16:00 75 09/03/17 16:00 77 16 99/64 100 Venturi Mask 55 09/03/17 12:00 96.0 79 16 102/61 98 Venturi Mask 55 09/03/17 11:33 78 09/03/17 08:57 76 18 100 Venturi Mask 14.0 55 09/03/17 08:57 76 18 100 Venturi Mask 14.0 55 General Appearance: no acute distress, cachetic HEENT: normocephalic Respiratory/Chest: chest wall non-tender, lungs clear Breasts: no masses Cardiovascular: normal peripheral pulses, normal rate Abdomen: normal bowel sounds, soft, non tender Genitourinary: normal external genitalia Extremities: no cyanosis, no clubbing Skin: no rash Neurologic/Psychiatric: 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 grossly normal, no motor/sensory deficits Lymphatic: no neck adenopathy Laboratory Tests 09/04/17 04:00: White Blood Count 9.1, Red Blood Count 2.76L, Hemoglobin 9.7L, Hematocrit 30.4L , Mean Corpuscular Volume 110H, Mean Corpuscular Hemoglobin 35.3H, Mean Corpuscular Hemoglobin Concent 32.1, Red Cell Distribution Width 15.1H, Platelet Count 243, Mean Platelet Volume 7.7, Neutrophils (%) (Auto) 82.1H, Lymphocytes (%) (Auto) 10.9L, Monocytes (%) (Auto) 5.9, Eosinophils (%) (Auto) 0.7, Basophils (%) (Auto) 0.5, Prothrombin Time 10.5, Prothromb Time International Ratio 1.0, Activated Partial Thromboplast Time 40H, Sodium Level 138, Potassium Level 2.9L, Chloride Level 104, Carbon Dioxide Level 28, Anion Gap 6, Blood Urea Nitrogen 29H, Creatinine 0.9, Estimat Glomerular Filtration Rate , Glucose Level 99, Calcium Level 8.3L, Total Bilirubin 0.2, Aspartate Amino Transf (AST/SGOT) 17, Alanine Aminotransferase (ALT/SGPT) 20, Alkaline Phosphatase 118H, Troponin I 0.010, Pro-B-Type Natriuretic Peptide 3190H, Total Protein 4.0L, Albumin 1.2L, Globulin 2.8, Albumin/Globulin Ratio 0.4L Current Medications Medications (Trade) Dose Ordered Sig/Nahum Route PRN Reason Start Time Stop Time Status Last Admin Dose Admin Acetaminophen (Tylenol) 650 mg Q4H PRN ORAL fever 08/30/17 22:45 09/29/17 22:44 Al Hydroxide/Mg Hydroxide (Mylanta II) 30 ml Q6H PRN ORAL dyspepsia 08/30/17 22:45 09/29/17 22:44 Buspirone HCl (Buspar) 5 mg THREE TIMES A DAY ORAL 08/31/17 09:00 09/30/17 08:59 Cefepime HCl 2 gm/ Dextrose 110 ml @ 220 mls/hr Q24H IVPB 09/02/17 09:00 09/09/17 08:59 09/03/17 09:06 Dextrose/Sodium Chloride 1,000 ml @ 25 mls/hr Q24H IV 09/03/17 15:00 10/03/17 14:59 09/03/17 14:52 Escitalopram Oxalate (Lexapro) 10 mg DAILY ORAL 08/31/17 09:00 09/30/17 08:59 Heparin Sodium (Porcine) (Heparin 5000 units/ml) 5,000 units EVERY 12 HOURS SUBQ 08/31/17 09:00 09/30/17 08:59 09/03/17 22:17 Levalbuterol HCl (Xopenex) 1.25 mg Q4H PRN HHN Shortness of Breath 08/31/17 18:45 09/05/17 18:44 08/31/17 19:00 Mirtazapine (Remeron) 7.5 mg BEDTIME ORAL 09/04/17 21:00 10/04/17 20:59 Morphine Sulfate (Morphine 10mg/ 5ml Oral Soln) 3 mg Q4HR PRN ORAL For Pain 08/30/17 22:45 09/06/17 22:44 Nitroglycerin (Ntg) 0.4 mg Q5M PRN SL Prn Chest Pain 08/30/17 22:45 09/29/17 22:44 Nystatin (Nystatin) 5 ml QID ORAL 09/03/17 18:00 09/10/17 17:59 09/03/17 22:16 Ondansetron HCl (Zofran) 4 mg Q6H PRN IVP Nausea & Vomiting 08/30/17 22:45 09/29/17 22:44 Pantoprazole (Protonix) 40 mg DAILY IVP 09/01/17 09:00 10/01/17 08:59 09/03/17 09:06 Polyethylene Glycol (Miralax) 17 gm DAILYPRN PRN ORAL Constipation 08/30/17 22:45 09/29/17 22:44 Potassium Chloride 40 meq/ Sodium Chloride 570 ml @ 142.5 mls/ hr Q4H IV 09/04/17 08:30 09/04/17 16:29 Promethazine HCl/ Codeine (Phenergan with Codeine) 5 ml Q4H PRN ORAL For Cough 08/30/17 22:45 09/29/17 22:44 Sennosides (Senokot) 8.6 mg DAILY ORAL 08/31/17 09:00 09/30/17 08:59 Temazepam (Restoril) 15 mg HSPRN PRN ORAL Insomnia 08/30/17 22:45 09/06/17 22:44 09/04/17 04:39 Thiamine HCl (Vitamin B1) 100 mg DAILY ORAL 09/02/17 11:00 10/02/17 10:59 Tiotropium [place] (Spiriva Inhaler) 1 puff DAILY INH 08/31/17 09:00 09/30/17 08:59 09/04/17 07:37 YNES BREWSTER Sep 04, 2017 08:12
[2017-09-04] MEDS: Thiamine 100mg tab ORAL SCH (08:39)
[2017-09-04] MEDS: Sennosides 8.6mg ORAL SCH (08:39)
[2017-09-04] MEDS: Potassium Chloride 40 MEQ in Sodium Chloride 500ML 550 ML IV SCH ×2 (08:39→12:32)
[2017-09-04] MEDS: Pantoprazole Inj IVP SCH (08:40)
[2017-09-04] MEDS: Nystatin Susp 500,000 units/5ml ORAL SCH ×5 (08:41→20:57)
[2017-09-04] MEDS: BusPIRone 10mg Tab ORAL SCH ×3 (08:41→17:54)
[2017-09-04] MEDS: Heparin 5000 units/ml inj SUBQ SCH ×2 (08:51→21:02)
[2017-09-04] MEDS: Cefepime 2gm in D5W 110ml IVPB SCH (08:57)
[2017-09-04] MEDS ORDERED: NS 275ml ONE (09:34)
[2017-09-04] MEDS ORDERED: D5 1/2NS 1000ml IV ONE (09:34)
[2017-09-04] MEDS ORDERED: Tubing IV Secondary IV ONE (09:34)
--- NOTE | 2017-09-04 10:30 | Diagnostic Imaging Report ---
Indication: Shortness of breath. Respiratory failure. Sepsis pneumonia emphysema Technique: Continuous helical transaxial imaging of the chest was obtained from the thoracic inlet to the upper abdomen. No intravenous contrast was administered. Coronal 2-D reformats were also obtained. Total Dose length Product (DLP): [address] Dose Index Volume (CTDIvol): 0.15, 12.15 mGy Comparison: 07/28/13 Findings: There are bilateral pleural effusions are demonstrated on the examination. The left pleural effusion appears worse and the effusions are moderate in size. There is near complete atelectasis of the left lower lobe and partial atelectasis of the left upper lobe. There is net volume loss with shifting of the heart and mediastinum toward the left side. To evaluate lung volumes because of the effusions but based on the configuration the lungs appear hyperexpanded consistent with COPD. There is a small pericardial effusion. There is mild subsegmental atelectasis at the posterior periphery of the lower lobe. There is a 2 mm nodule in the right lower lobe nonspecific. Aorta is moderately calcified and ectatic. There is generalized subcutaneous edema within the chest wall. Patient is cachectic. The visualized part of the upper abdomen shows gallstones and trace ascites. Surgical clips noted in the stomach the nature which is not known. The stomach is completely nondistended. The bones are osteopenic. Impression: Moderate bilateral pleural effusions left greater than right. Associated complete atelectasis of the left lower lobe and partial left upper lobe atelectasis. Minimal right basilar atelectasis noted. Small pericardial effusion Trace ascites Gallstone Atherosclerotic disease. COPD. Stomach surgery of unknown nature The CT scanner at [facility] is accredited by the [employer] and the scans are performed using dose optimization techniques as appropriate to a performed exam including Automatic Exposure control.
--- NOTE | 2017-09-04 10:57 | Diagnostic Imaging Report ---
Indication: Abdominal pain Comparison: None Single view of the abdomen obtained Findings: There is a weighted feeding tube within the stomach. The tip is in the upper part of the stomach. Bowel gas pattern is nonspecific. There is a left pleural effusion noted on this exam. Impression: Weighted feeding tube within the stomach.
--- NOTE | 2017-09-04 11:37 | Diagnostic Imaging Report ---
Indication: Dyspnea Comparison: 09/03/2017 A single view chest radiograph was obtained. Findings: A left pleural effusion demonstrated unchanged. Small right pleural effusion noted. A weighted feeding tube is been passed. The tip of the tube projects over the stomach. Heart size is grossly stable. Impression: Feeding tube noted. No change otherwise
--- NOTE | 2017-09-04 11:59 | Diagnostic Imaging Report ---
APPROVED REPORT CPT Code: 92344 Present Symptoms Upper Extremity Edema: Left Shortness of breath BILATERAL UPPER EXTREMITY: Imaging reveals patency of the internal jugular, subclavian, axillary and brachial veins. The basilic veins are also patent. Doppler indicates normal spontaneous flow within these venous segments, bilaterally. The right and left cephalic veins are occluded near fossa area. There is no evidence of acute deep vein thrombosis.
--- NOTE | 2017-09-04 11:59 | Diagnostic Imaging Report ---
APPROVED REPORT CPT Code: 79921 Present Symptoms Upper Extremity Edema: Left Shortness of breath BILATERAL UPPER EXTREMITY: Imaging reveals patency of the internal jugular, subclavian, axillary and brachial veins. The basilic veins are also patent. Doppler indicates normal spontaneous flow within these venous segments, bilaterally. The right and left cephalic veins are occluded near fossa area. There is no evidence of acute deep vein thrombosis.
--- NOTE | 2017-09-04 11:59 | Diagnostic Imaging Report ---
APPROVED REPORT CPT Code: 17193 Present Symptoms Lower Extremity Edema: Bilateral Shortness of breath BILATERAL: Imaging reveals a patent deep venous system bilaterally. There is no evidence of thrombus within the femoral, popliteal or tibial segments. The greater saphenous veins are also within normal limits. Doppler indicates normal spontaneous flow within these segments.
--- NOTE | 2017-09-04 11:59 | Diagnostic Imaging Report ---
APPROVED REPORT CPT Code: 66924 Present Symptoms Upper Extremity Edema: Left Shortness of breath BILATERAL UPPER EXTREMITY: Imaging reveals patency of the internal jugular, subclavian, axillary and brachial veins. The basilic veins are also patent. Doppler indicates normal spontaneous flow within these venous segments, bilaterally. The right and left cephalic veins are occluded near fossa area. There is no evidence of acute deep vein thrombosis.
--- NOTE | 2017-09-04 11:59 | Diagnostic Imaging Report ---
APPROVED REPORT CPT Code: 57622 Present Symptoms Lower Extremity Edema: Bilateral Shortness of breath BILATERAL: Imaging reveals a patent deep venous system bilaterally. There is no evidence of thrombus within the femoral, popliteal or tibial segments. The greater saphenous veins are also within normal limits. Doppler indicates normal spontaneous flow within these segments.
--- NOTE | 2017-09-04 11:59 | Diagnostic Imaging Report ---
APPROVED REPORT CPT Code: 06514 Present Symptoms Lower Extremity Edema: Bilateral Shortness of breath BILATERAL: Imaging reveals a patent deep venous system bilaterally. There is no evidence of thrombus within the femoral, popliteal or tibial segments. The greater saphenous veins are also within normal limits. Doppler indicates normal spontaneous flow within these segments.
[2017-09-04 12:27] VITALS: BP 90/56
--- NOTE | 2017-09-04 12:48 | GI Progress Note ---
Assessment/Plan Problems: (1) Protein-calorie malnutrition, severe ICD Codes: E43 - Unspecified severe protein-calorie malnutrition SNOMED: 838502588 (2) Generalized weakness ICD Codes: R53.1 - Weakness SNOMED: 16860515 (3) Encounter for PEG (percutaneous endoscopic gastrostomy) ICD Codes: Z43.1 - Encounter for attention to gastrostomy SNOMED: 515326990, 358386846 (4) Constipation ICD Codes: K59.00 - Constipation, unspecified SNOMED: 31791016 (5) Abdominal pain ICD Codes: R10.9 - Unspecified abdominal pain SNOMED: 94849989 (6) Hypoalbuminemia ICD Codes: E88.09 - Hypoalbuminemia SNOMED: 583869632 Status: unchanged Status Narrative Discussed with Dr. Sinha. Assessment/Plan PEG on hold due to unstable respiratory status dobhoff placement >> GTFs per dietary monitor H&H, prn transfusions bowel regime cont ppi, dc carafate fu labs Subjective Subjective limited, generalized weakness Objective Last 24 Hour Vital Signs Date Time Temp Pulse Resp B/P (MAP) Pulse Ox O2 Delivery O2 Flow Rate FiO2 09/04/17 12:27 96.3 95 17 90/56 99 Venturi Mask 55 09/04/17 12:01 92 09/04/17 10:13 89 18 100 Venturi Mask 14.0 55 09/04/17 10:12 89 18 100 Venturi Mask 14.0 55 09/04/17 08:00 96.3 92 20 95/61 100 Venturi Mask 55 09/04/17 08:00 92 09/04/17 07:39 100 Venturi Mask 14.0 55 09/04/17 07:39 Venturi Mask 14.0 55 09/04/17 04:18 91 09/04/17 04:00 97.1 87 20 98/49 100 Venturi Mask 55 09/04/17 00:00 81 20 112/59 100 Venturi Mask 55 09/04/17 00:00 80 09/03/17 20:00 96.0 78 20 106/65 100 Venturi Mask 09/03/17 20:00 80 09/03/17 19:42 Venturi Mask 14.0 55 09/03/17 19:42 99 Venturi Mask 14.0 55 09/03/17 16:00 75 09/03/17 16:00 77 16 99/64 100 Venturi Mask 55 Intake and Output 09/04/17 09/05/17 19:00 07:00 Intake Total 888.75 ml Balance 888.75 ml Intake Free Water 30 ml IV Total 708.75 ml Tube Feeding 90 ml Other 60 ml Laboratory Tests Test 09/04/17 04:00 White Blood Count 9.1 K/UL (4.8-10.8) Red Blood Count 2.76 M/UL (4.20-5.40) L Hemoglobin 9.7 G/DL (12.0-16.0) L Hematocrit 30.4 % (37.0-47.0) L Mean Corpuscular Volume 110 FL (80-99) H Mean Corpuscular Hemoglobin 35.3 PG (27.0-31.0) H Mean Corpuscular Hemoglobin Concent 32.1 G/DL (32.0-36.0) Red Cell Distribution Width 15.1 % (11.6-14.8) H Platelet Count 243 K/UL (150-450) Mean Platelet Volume 7.7 FL (6.5-10.1) Neutrophils (%) (Auto) 82.1 % (45.0-75.0) H Lymphocytes (%) (Auto) 10.9 % (20.0-45.0) L Monocytes (%) (Auto) 5.9 % (1.0-10.0) Eosinophils (%) (Auto) 0.7 % (0.0-3.0) Basophils (%) (Auto) 0.5 % (0.0-2.0) Prothrombin Time 10.5 SEC (9.30-11.50) Prothromb Time International Ratio 1.0 (0.9-1.1) Activated Partial Thromboplast Time 40 SEC (23-33) H Sodium Level 138 MMOL/L (136-145) Potassium Level 2.9 MMOL/L (3.5-5.1) L Chloride Level 104 MMOL/L (98-107) Carbon Dioxide Level 28 MMOL/L (21-32) Anion Gap 6 mmol/L (5-15) Blood Urea Nitrogen 29 mg/dL (7-18) H Creatinine 0.9 MG/DL (0.55-1.30) Estimat Glomerular Filtration Rate mL/min (>60) Glucose Level 99 MG/DL (74-106) Calcium Level 8.3 MG/DL (8.5-10.1) L Total Bilirubin 0.2 MG/DL (0.2-1.0) Aspartate Amino Transf (AST/SGOT) 17 U/L (15-37) Alanine Aminotransferase (ALT/SGPT) 20 U/L (12-78) Alkaline Phosphatase 118 U/L (46-116) H Troponin I 0.010 ng/mL (0.000-0.056) Pro-B-Type Natriuretic Peptide 3190 pg/mL (0-125) H Total Protein 4.0 G/DL (6.4-8.2) L Albumin 1.2 G/DL (3.4-5.0) L Globulin 2.8 g/dL Albumin/Globulin Ratio 0.4 (1.0-2.7) L Height (Feet): 5 Height (Inches): 2.99 Weight (Pounds): 121 General Appearance: WD/WN, no apparent distress, alert, thin Cardiovascular: normal rate Respiratory/Chest: normal breath sounds, no respiratory distress Abdominal Exam: normal bowel sounds, non tender, soft Extremities: non-tender Dai Regan NEnrique Sep 04, 2017 12:48
--- NOTE | 2017-09-04 12:48 | GI Progress Note ---
Assessment/Plan Problems: (1) Protein-calorie malnutrition, severe ICD Codes: E43 - Unspecified severe protein-calorie malnutrition SNOMED: 055901748 (2) Generalized weakness ICD Codes: R53.1 - Weakness SNOMED: 51919163 (3) Encounter for PEG (percutaneous endoscopic gastrostomy) ICD Codes: Z43.1 - Encounter for attention to gastrostomy SNOMED: 509890723, 554035722 (4) Constipation ICD Codes: K59.00 - Constipation, unspecified SNOMED: 19113996 (5) Abdominal pain ICD Codes: R10.9 - Unspecified abdominal pain SNOMED: 29001184 (6) Hypoalbuminemia ICD Codes: E88.09 - Hypoalbuminemia SNOMED: 917044371 Status: unchanged Status Narrative Discussed with Dr. Sinha. Assessment/Plan PEG on hold due to unstable respiratory status dobhoff placement >> GTFs per dietary monitor H&H, prn transfusions bowel regime cont ppi, dc carafate fu labs Subjective Subjective limited, generalized weakness Objective Last 24 Hour Vital Signs Date Time Temp Pulse Resp B/P (MAP) Pulse Ox O2 Delivery O2 Flow Rate FiO2 09/04/17 12:27 96.3 95 17 90/56 99 Venturi Mask 55 09/04/17 12:01 92 09/04/17 10:13 89 18 100 Venturi Mask 14.0 55 09/04/17 10:12 89 18 100 Venturi Mask 14.0 55 09/04/17 08:00 96.3 92 20 95/61 100 Venturi Mask 55 09/04/17 08:00 92 09/04/17 07:39 100 Venturi Mask 14.0 55 09/04/17 07:39 Venturi Mask 14.0 55 09/04/17 04:18 91 09/04/17 04:00 97.1 87 20 98/49 100 Venturi Mask 55 09/04/17 00:00 81 20 112/59 100 Venturi Mask 55 09/04/17 00:00 80 09/03/17 20:00 96.0 78 20 106/65 100 Venturi Mask 09/03/17 20:00 80 09/03/17 19:42 Venturi Mask 14.0 55 09/03/17 19:42 99 Venturi Mask 14.0 55 09/03/17 16:00 75 09/03/17 16:00 77 16 99/64 100 Venturi Mask 55 Intake and Output 09/04/17 09/05/17 19:00 07:00 Intake Total 888.75 ml Balance 888.75 ml Intake Free Water 30 ml IV Total 708.75 ml Tube Feeding 90 ml Other 60 ml Laboratory Tests Test 09/04/17 04:00 White Blood Count 9.1 K/UL (4.8-10.8) Red Blood Count 2.76 M/UL (4.20-5.40) L Hemoglobin 9.7 G/DL (12.0-16.0) L Hematocrit 30.4 % (37.0-47.0) L Mean Corpuscular Volume 110 FL (80-99) H Mean Corpuscular Hemoglobin 35.3 PG (27.0-31.0) H Mean Corpuscular Hemoglobin Concent 32.1 G/DL (32.0-36.0) Red Cell Distribution Width 15.1 % (11.6-14.8) H Platelet Count 243 K/UL (150-450) Mean Platelet Volume 7.7 FL (6.5-10.1) Neutrophils (%) (Auto) 82.1 % (45.0-75.0) H Lymphocytes (%) (Auto) 10.9 % (20.0-45.0) L Monocytes (%) (Auto) 5.9 % (1.0-10.0) Eosinophils (%) (Auto) 0.7 % (0.0-3.0) Basophils (%) (Auto) 0.5 % (0.0-2.0) Prothrombin Time 10.5 SEC (9.30-11.50) Prothromb Time International Ratio 1.0 (0.9-1.1) Activated Partial Thromboplast Time 40 SEC (23-33) H Sodium Level 138 MMOL/L (136-145) Potassium Level 2.9 MMOL/L (3.5-5.1) L Chloride Level 104 MMOL/L (98-107) Carbon Dioxide Level 28 MMOL/L (21-32) Anion Gap 6 mmol/L (5-15) Blood Urea Nitrogen 29 mg/dL (7-18) H Creatinine 0.9 MG/DL (0.55-1.30) Estimat Glomerular Filtration Rate mL/min (>60) Glucose Level 99 MG/DL (74-106) Calcium Level 8.3 MG/DL (8.5-10.1) L Total Bilirubin 0.2 MG/DL (0.2-1.0) Aspartate Amino Transf (AST/SGOT) 17 U/L (15-37) Alanine Aminotransferase (ALT/SGPT) 20 U/L (12-78) Alkaline Phosphatase 118 U/L (46-116) H Troponin I 0.010 ng/mL (0.000-0.056) Pro-B-Type Natriuretic Peptide 3190 pg/mL (0-125) H Total Protein 4.0 G/DL (6.4-8.2) L Albumin 1.2 G/DL (3.4-5.0) L Globulin 2.8 g/dL Albumin/Globulin Ratio 0.4 (1.0-2.7) L Height (Feet): 5 Height (Inches): 2.99 Weight (Pounds): 121 General Appearance: WD/WN, no apparent distress, alert, thin Cardiovascular: normal rate Respiratory/Chest: normal breath sounds, no respiratory distress Abdominal Exam: normal bowel sounds, non tender, soft Extremities: non-tender Dai Regan NEnrique Sep 04, 2017 12:48
--- NOTE | 2017-09-04 12:48 | GI Progress Note ---
Assessment/Plan Problems: (1) Protein-calorie malnutrition, severe ICD Codes: E43 - Unspecified severe protein-calorie malnutrition SNOMED: 482458661 (2) Generalized weakness ICD Codes: R53.1 - Weakness SNOMED: 08766582 (3) Encounter for PEG (percutaneous endoscopic gastrostomy) ICD Codes: Z43.1 - Encounter for attention to gastrostomy SNOMED: 029731013, 352613150 (4) Constipation ICD Codes: K59.00 - Constipation, unspecified SNOMED: 36658290 (5) Abdominal pain ICD Codes: R10.9 - Unspecified abdominal pain SNOMED: 19710234 (6) Hypoalbuminemia ICD Codes: E88.09 - Hypoalbuminemia SNOMED: 526228652 Status: unchanged Status Narrative Discussed with Dr. Sinha. Assessment/Plan PEG on hold due to unstable respiratory status dobhoff placement >> GTFs per dietary monitor H&H, prn transfusions bowel regime cont ppi, dc carafate fu labs Subjective Subjective limited, generalized weakness Objective Last 24 Hour Vital Signs Date Time Temp Pulse Resp B/P (MAP) Pulse Ox O2 Delivery O2 Flow Rate FiO2 09/04/17 12:27 96.3 95 17 90/56 99 Venturi Mask 55 09/04/17 12:01 92 09/04/17 10:13 89 18 100 Venturi Mask 14.0 55 09/04/17 10:12 89 18 100 Venturi Mask 14.0 55 09/04/17 08:00 96.3 92 20 95/61 100 Venturi Mask 55 09/04/17 08:00 92 09/04/17 07:39 100 Venturi Mask 14.0 55 09/04/17 07:39 Venturi Mask 14.0 55 09/04/17 04:18 91 09/04/17 04:00 97.1 87 20 98/49 100 Venturi Mask 55 09/04/17 00:00 81 20 112/59 100 Venturi Mask 55 09/04/17 00:00 80 09/03/17 20:00 96.0 78 20 106/65 100 Venturi Mask 09/03/17 20:00 80 09/03/17 19:42 Venturi Mask 14.0 55 09/03/17 19:42 99 Venturi Mask 14.0 55 09/03/17 16:00 75 09/03/17 16:00 77 16 99/64 100 Venturi Mask 55 Intake and Output 09/04/17 09/05/17 19:00 07:00 Intake Total 888.75 ml Balance 888.75 ml Intake Free Water 30 ml IV Total 708.75 ml Tube Feeding 90 ml Other 60 ml Laboratory Tests Test 09/04/17 04:00 White Blood Count 9.1 K/UL (4.8-10.8) Red Blood Count 2.76 M/UL (4.20-5.40) L Hemoglobin 9.7 G/DL (12.0-16.0) L Hematocrit 30.4 % (37.0-47.0) L Mean Corpuscular Volume 110 FL (80-99) H Mean Corpuscular Hemoglobin 35.3 PG (27.0-31.0) H Mean Corpuscular Hemoglobin Concent 32.1 G/DL (32.0-36.0) Red Cell Distribution Width 15.1 % (11.6-14.8) H Platelet Count 243 K/UL (150-450) Mean Platelet Volume 7.7 FL (6.5-10.1) Neutrophils (%) (Auto) 82.1 % (45.0-75.0) H Lymphocytes (%) (Auto) 10.9 % (20.0-45.0) L Monocytes (%) (Auto) 5.9 % (1.0-10.0) Eosinophils (%) (Auto) 0.7 % (0.0-3.0) Basophils (%) (Auto) 0.5 % (0.0-2.0) Prothrombin Time 10.5 SEC (9.30-11.50) Prothromb Time International Ratio 1.0 (0.9-1.1) Activated Partial Thromboplast Time 40 SEC (23-33) H Sodium Level 138 MMOL/L (136-145) Potassium Level 2.9 MMOL/L (3.5-5.1) L Chloride Level 104 MMOL/L (98-107) Carbon Dioxide Level 28 MMOL/L (21-32) Anion Gap 6 mmol/L (5-15) Blood Urea Nitrogen 29 mg/dL (7-18) H Creatinine 0.9 MG/DL (0.55-1.30) Estimat Glomerular Filtration Rate mL/min (>60) Glucose Level 99 MG/DL (74-106) Calcium Level 8.3 MG/DL (8.5-10.1) L Total Bilirubin 0.2 MG/DL (0.2-1.0) Aspartate Amino Transf (AST/SGOT) 17 U/L (15-37) Alanine Aminotransferase (ALT/SGPT) 20 U/L (12-78) Alkaline Phosphatase 118 U/L (46-116) H Troponin I 0.010 ng/mL (0.000-0.056) Pro-B-Type Natriuretic Peptide 3190 pg/mL (0-125) H Total Protein 4.0 G/DL (6.4-8.2) L Albumin 1.2 G/DL (3.4-5.0) L Globulin 2.8 g/dL Albumin/Globulin Ratio 0.4 (1.0-2.7) L Height (Feet): 5 Height (Inches): 2.99 Weight (Pounds): 121 General Appearance: WD/WN, no apparent distress, alert, thin Cardiovascular: normal rate Respiratory/Chest: normal breath sounds, no respiratory distress Abdominal Exam: normal bowel sounds, non tender, soft Extremities: non-tender Dai Regan NEnrique Sep 04, 2017 12:48
[2017-09-04] MEDS: D5 1/2NS 1,000 ML IV SCH (14:31)
--- NOTE | 2017-09-04 15:35 | Cardiology Progress Note ---
Assessment/Plan Assessment/Plan 1. Shortness of breath. 2. Chronic obstructive pulmonary disease with exacerbation. 3. Pleural effusions, bilaterally. 4. History of alcohol and tobacco use 5. hypotension seem comfortable lying falt echo good lv function midl diastolic dysfunction cxr noted may need thoracentesis if can be done under reasonable risk bp not allow diuretics off all antihypertensive tele sin ekg reviewed cxr reviewed . Subjective Cardiovascular: Denies: chest pain Respiratory: Denies: shortness of breath Gastrointestinal/Abdominal: Denies: abdominal pain Genitourinary: Denies: burning Objective Last 24 Hour Vital Signs Date Time Temp Pulse Resp B/P (MAP) Pulse Ox O2 Delivery O2 Flow Rate FiO2 09/04/17 12:27 96.3 95 17 90/56 99 Venturi Mask 55 09/04/17 12:01 92 09/04/17 10:13 89 18 100 Venturi Mask 14.0 55 09/04/17 10:12 89 18 100 Venturi Mask 14.0 55 09/04/17 08:00 96.3 92 20 95/61 100 Venturi Mask 55 09/04/17 08:00 92 09/04/17 07:39 100 Venturi Mask 14.0 55 09/04/17 07:39 Venturi Mask 14.0 55 09/04/17 04:18 91 09/04/17 04:00 97.1 87 20 98/49 100 Venturi Mask 55 09/04/17 00:00 81 20 112/59 100 Venturi Mask 55 09/04/17 00:00 80 09/03/17 20:00 96.0 78 20 106/65 100 Venturi Mask 09/03/17 20:00 80 09/03/17 19:42 Venturi Mask 14.0 55 09/03/17 19:42 99 Venturi Mask 14.0 55 09/03/17 16:00 75 09/03/17 16:00 77 16 99/64 100 Venturi Mask 55 General Appearance: alert Neck: supple Cardiovascular: normal rate, regular rhythm Respiratory/Chest: lungs clear - ant Abdomen: non tender, soft Extremities: no swelling Intake and Output 09/04/17 09/05/17 19:00 07:00 Intake Total 1556.25 ml Balance 1556.25 ml Intake Free Water 30 ml IV Total 1186.25 ml Tube Feeding 250 ml Other 90 ml # Voids 1 # Bowel Movements 1 Laboratory Tests Test 09/04/17 04:00 White Blood Count 9.1 K/UL (4.8-10.8) Red Blood Count 2.76 M/UL (4.20-5.40) L Hemoglobin 9.7 G/DL (12.0-16.0) L Hematocrit 30.4 % (37.0-47.0) L Mean Corpuscular Volume 110 FL (80-99) H Mean Corpuscular Hemoglobin 35.3 PG (27.0-31.0) H Mean Corpuscular Hemoglobin Concent 32.1 G/DL (32.0-36.0) Red Cell Distribution Width 15.1 % (11.6-14.8) H Platelet Count 243 K/UL (150-450) Mean Platelet Volume 7.7 FL (6.5-10.1) Neutrophils (%) (Auto) 82.1 % (45.0-75.0) H Lymphocytes (%) (Auto) 10.9 % (20.0-45.0) L Monocytes (%) (Auto) 5.9 % (1.0-10.0) Eosinophils (%) (Auto) 0.7 % (0.0-3.0) Basophils (%) (Auto) 0.5 % (0.0-2.0) Prothrombin Time 10.5 SEC (9.30-11.50) Prothromb Time International Ratio 1.0 (0.9-1.1) Activated Partial Thromboplast Time 40 SEC (23-33) H Sodium Level 138 MMOL/L (136-145) Potassium Level 2.9 MMOL/L (3.5-5.1) L Chloride Level 104 MMOL/L (98-107) Carbon Dioxide Level 28 MMOL/L (21-32) Anion Gap 6 mmol/L (5-15) Blood Urea Nitrogen 29 mg/dL (7-18) H Creatinine 0.9 MG/DL (0.55-1.30) Estimat Glomerular Filtration Rate mL/min (>60) Glucose Level 99 MG/DL (74-106) Calcium Level 8.3 MG/DL (8.5-10.1) L Total Bilirubin 0.2 MG/DL (0.2-1.0) Aspartate Amino Transf (AST/SGOT) 17 U/L (15-37) Alanine Aminotransferase (ALT/SGPT) 20 U/L (12-78) Alkaline Phosphatase 118 U/L (46-116) H Troponin I 0.010 ng/mL (0.000-0.056) Pro-B-Type Natriuretic Peptide 3190 pg/mL (0-125) H Total Protein 4.0 G/DL (6.4-8.2) L Albumin 1.2 G/DL (3.4-5.0) L Globulin 2.8 g/dL Albumin/Globulin Ratio 0.4 (1.0-2.7) L Microbiology Date/Time Source Procedure Growth Status 09/03/17 08:30 Sacral Wound Gram Stain - Final Resulted 09/03/17 08:30 Wound Culture - Preliminary Gram Negative Bacillus 1 Resulted DARLYN SALVADOR Sep 04, 2017 15:35
[2017-09-04 16:36] VITALS: BP 105/66
--- NOTE | 2017-09-04 16:36 | Cardiology Report ---
APPROVED REPORT EKG Measurement Heart [id number] AR 144P97 [id number] Normal sinus rhythm Left axis deviation Low voltage QRS Inferior infarct, age undetermined Cannot rule out Anterior infarct, age undetermined Abnormal ECG
--- NOTE | 2017-09-04 16:36 | Cardiology Report ---
APPROVED REPORT EKG Measurement Heart [id number] DC 144P97 [id number] Normal sinus rhythm Left axis deviation Low voltage QRS Inferior infarct, age undetermined Cannot rule out Anterior infarct, age undetermined Abnormal ECG
--- NOTE | 2017-09-04 16:36 | Cardiology Report ---
APPROVED REPORT EKG Measurement Heart [id number] FL 144P97 [id number] Normal sinus rhythm Left axis deviation Low voltage QRS Inferior infarct, age undetermined Cannot rule out Anterior infarct, age undetermined Abnormal ECG
--- NOTE | 2017-09-04 16:54 | Infectious Diseases Prog Note ---
Assessment/Plan Assessment/Plan ASSESSMENT: Probable UTI : UCx : GNR Leukocytosis, iSP Probable underlying healthcare-associated pneumonia. Scx: Strp Grp B and ( Kelsy : Colonizer ) CT 09/03 : Moderate bilateral pleural effusions left greater than right. COPD Bilateral effusion, left more than right. Ro Empyema CT of Chest : P Elevated alkaline phosphatase US: NO evid of biliary obst. Afebrile Sacral wound : no evid of infection SP Sharp excisional debridement of sacral pressure ulcer down to bone Wnd Cx: ESBL E Coli , PSA , Kleb ( Colonizer ) Vertigo COPD Asthma Failure to thrive History of DVT History of hiatal hernia GERD PLAN: Cont pt on cefepime d# 5 /7 DC vancomycin d# 4 Monitor CBC Monitor BMP. Monitor cultures (blood, urine, and sputum). Monitor chest x-ray PEG : P . Subjective Allergies: Coded Allergies: ADHESIVE (Unverified Allergy, Severe, 08/16/13) ADHESIVE TAPE (Verified Allergy, Unknown, SURGICAL TAPE - RASH, 07/28/11) ALBUTEROL (Verified Adverse Reaction, Unknown, ANXIETY, 07/28/11) Uncoded Allergies: METAL (Allergy, Unknown, 08/30/17) METAL (?) (Allergy, Unknown, RASH, 07/28/11) metal (Allergy, Unknown, 03/30/15) Subjective afebrile Objective Vital Signs Last 24 Hour Vital Signs Date Time Temp Pulse Resp B/P (MAP) Pulse Ox O2 Delivery O2 Flow Rate FiO2 09/04/17 16:36 97.2 103 18 105/66 98 Venturi Mask 55 09/04/17 12:27 96.3 95 17 90/56 99 Venturi Mask 55 09/04/17 12:01 92 09/04/17 10:13 89 18 100 Venturi Mask 14.0 55 09/04/17 10:12 89 18 100 Venturi Mask 14.0 55 09/04/17 08:00 96.3 92 20 95/61 100 Venturi Mask 55 09/04/17 08:00 92 09/04/17 07:39 100 Venturi Mask 14.0 55 09/04/17 07:39 Venturi Mask 14.0 55 09/04/17 04:18 91 09/04/17 04:00 97.1 87 20 98/49 100 Venturi Mask 55 09/04/17 00:00 81 20 112/59 100 Venturi Mask 55 09/04/17 00:00 80 09/03/17 20:00 96.0 78 20 106/65 100 Venturi Mask 09/03/17 20:00 80 09/03/17 19:42 Venturi Mask 14.0 55 09/03/17 19:42 99 Venturi Mask 14.0 55 Height (Feet): 5 Height (Inches): 2.99 Weight (Pounds): 121 HEENT: anicteric Respiratory/Chest: no respiratory distress Cardiovascular: regularly irregular Abdomen: no mass Microbiology Date/Time Source Procedure Growth Status 09/03/17 08:30 Sacral Wound Gram Stain - Final Resulted 09/03/17 08:30 Wound Culture - Preliminary Gram Negative Bacillus 1 Resulted Laboratory Tests Test 09/04/17 04:00 White Blood Count 9.1 K/UL (4.8-10.8) Red Blood Count 2.76 M/UL (4.20-5.40) L Hemoglobin 9.7 G/DL (12.0-16.0) L Hematocrit 30.4 % (37.0-47.0) L Mean Corpuscular Volume 110 FL (80-99) H Mean Corpuscular Hemoglobin 35.3 PG (27.0-31.0) H Mean Corpuscular Hemoglobin Concent 32.1 G/DL (32.0-36.0) Red Cell Distribution Width 15.1 % (11.6-14.8) H Platelet Count 243 K/UL (150-450) Mean Platelet Volume 7.7 FL (6.5-10.1) Neutrophils (%) (Auto) 82.1 % (45.0-75.0) H Lymphocytes (%) (Auto) 10.9 % (20.0-45.0) L Monocytes (%) (Auto) 5.9 % (1.0-10.0) Eosinophils (%) (Auto) 0.7 % (0.0-3.0) Basophils (%) (Auto) 0.5 % (0.0-2.0) Prothrombin Time 10.5 SEC (9.30-11.50) Prothromb Time International Ratio 1.0 (0.9-1.1) Activated Partial Thromboplast Time 40 SEC (23-33) H Sodium Level 138 MMOL/L (136-145) Potassium Level 2.9 MMOL/L (3.5-5.1) L Chloride Level 104 MMOL/L (98-107) Carbon Dioxide Level 28 MMOL/L (21-32) Anion Gap 6 mmol/L (5-15) Blood Urea Nitrogen 29 mg/dL (7-18) H Creatinine 0.9 MG/DL (0.55-1.30) Estimat Glomerular Filtration Rate mL/min (>60) Glucose Level 99 MG/DL (74-106) Calcium Level 8.3 MG/DL (8.5-10.1) L Total Bilirubin 0.2 MG/DL (0.2-1.0) Aspartate Amino Transf (AST/SGOT) 17 U/L (15-37) Alanine Aminotransferase (ALT/SGPT) 20 U/L (12-78) Alkaline Phosphatase 118 U/L (46-116) H Troponin I 0.010 ng/mL (0.000-0.056) Pro-B-Type Natriuretic Peptide 3190 pg/mL (0-125) H Total Protein 4.0 G/DL (6.4-8.2) L Albumin 1.2 G/DL (3.4-5.0) L Globulin 2.8 g/dL Albumin/Globulin Ratio 0.4 (1.0-2.7) L Current Medications Medications (Trade) Dose Ordered Sig/Nahum Route PRN Reason Start Time Stop Time Status Last Admin Dose Admin Acetaminophen (Tylenol) 650 mg Q4H PRN ORAL fever 08/30/17 22:45 09/29/17 22:44 Al Hydroxide/Mg Hydroxide (Mylanta II) 30 ml Q6H PRN ORAL dyspepsia 08/30/17 22:45 09/29/17 22:44 Buspirone HCl (Buspar) 5 mg THREE TIMES A DAY ORAL 08/31/17 09:00 09/30/17 08:59 09/04/17 12:32 Cefepime HCl 2 gm/ Dextrose 110 ml @ 220 mls/hr Q24H IVPB 09/02/17 09:00 09/09/17 08:59 09/04/17 08:57 Dextrose/Sodium Chloride 1,000 ml @ 25 mls/hr Q24H IV 09/03/17 15:00 12/6/17 14:59 09/04/17 14:31 Escitalopram Oxalate (Lexapro) 10 mg DAILY ORAL 08/31/17 09:00 09/30/17 08:59 09/04/17 08:41 Heparin Sodium (Porcine) (Heparin 5000 units/ml) 5,000 units EVERY 12 HOURS SUBQ 08/31/17 09:00 09/30/17 08:59 09/04/17 08:51 Levalbuterol HCl (Xopenex) 1.25 mg Q4H PRN HHN Shortness of Breath 08/31/17 18:45 09/05/17 18:44 08/31/17 19:00 Mirtazapine (Remeron) 7.5 mg BEDTIME ORAL 09/04/17 21:00 10/04/17 20:59 Morphine Sulfate (Morphine 10mg/ 5ml Oral Soln) 3 mg Q4HR PRN ORAL For Pain 08/30/17 22:45 09/06/17 22:44 Nitroglycerin (Ntg) 0.4 mg Q5M PRN SL Prn Chest Pain 08/30/17 22:45 09/29/17 22:44 Nystatin (Nystatin) 5 ml QID ORAL 09/03/17 18:00 09/10/17 17:59 09/04/17 12:32 Ondansetron HCl (Zofran) 4 mg Q6H PRN IVP Nausea & Vomiting 08/30/17 22:45 09/29/17 22:44 Pantoprazole (Protonix) 40 mg DAILY IVP 09/01/17 09:00 10/01/17 08:59 09/04/17 08:40 Polyethylene Glycol (Miralax) 17 gm DAILYPRN PRN ORAL Constipation 08/30/17 22:45 09/29/17 22:44 Promethazine HCl/ Codeine (Phenergan with Codeine) 5 ml Q4H PRN ORAL For Cough 08/30/17 22:45 09/29/17 22:44 Sennosides (Senokot) 8.6 mg DAILY ORAL 08/31/17 09:00 09/30/17 08:59 09/04/17 08:39 Temazepam (Restoril) 15 mg HSPRN PRN ORAL Insomnia 08/30/17 22:45 09/06/17 22:44 09/04/17 04:39 Thiamine HCl (Vitamin B1) 100 mg DAILY ORAL 09/02/17 11:00 10/02/17 10:59 09/04/17 08:39 Tiotropium [place] (Spiriva Inhaler) 1 puff DAILY INH 08/31/17 09:00 09/30/17 08:59 09/04/17 07:37 JACQUI PANDEY M.D. Sep 04, 2017 16:54
[2017-09-04 20:00] VITALS: BP 121/67
[2017-09-05] VITALS: BP 101/80
--- NOTE | 2017-09-05 00:50 | General Progress Note ---
Assessment/Plan Status: stable, unchanged Subjective Date patient seen: Sep 04, 2017 Neurologic/Psychiatric: Reports: anxiety, depressed, emotional problems Allergies: Coded Allergies: ADHESIVE (Unverified Allergy, Severe, 08/16/13) ADHESIVE TAPE (Verified Allergy, Unknown, SURGICAL TAPE - RASH, 07/28/11) ALBUTEROL (Verified Adverse Reaction, Unknown, ANXIETY, 07/28/11) Uncoded Allergies: METAL (Allergy, Unknown, 08/30/17) METAL (?) (Allergy, Unknown, RASH, 07/28/11) metal (Allergy, Unknown, 03/30/15) Subjective the pt is the same depressed and irritable Objective Last 24 Hour Vital Signs Date Time Temp Pulse Resp B/P (MAP) Pulse Ox O2 Delivery O2 Flow Rate FiO2 09/04/17 20:00 97.1 98 18 121/67 98 Venturi Mask 55 09/04/17 19:47 98 09/04/17 19:30 Venturi Mask 14.0 55 09/04/17 19:30 100 Venturi Mask 14.0 55 09/04/17 16:36 97.2 103 18 105/66 98 Venturi Mask 55 09/04/17 16:00 101 09/04/17 12:27 96.3 95 17 90/56 99 Venturi Mask 55 09/04/17 12:01 92 09/04/17 10:13 89 18 100 Venturi Mask 14.0 55 09/04/17 10:12 89 18 100 Venturi Mask 14.0 55 09/04/17 08:00 96.3 92 20 95/61 100 Venturi Mask 55 09/04/17 08:00 92 09/04/17 07:39 100 Venturi Mask 14.0 55 09/04/17 07:39 Venturi Mask 14.0 55 09/04/17 04:18 91 09/04/17 04:00 97.1 87 20 98/49 100 Venturi Mask 55 Laboratory Tests 09/04/17 04:00: White Blood Count 9.1, Red Blood Count 2.76L, Hemoglobin 9.7L, Hematocrit 30.4L , Mean Corpuscular Volume 110H, Mean Corpuscular Hemoglobin 35.3H, Mean Corpuscular Hemoglobin Concent 32.1, Red Cell Distribution Width 15.1H, Platelet Count 243, Mean Platelet Volume 7.7, Neutrophils (%) (Auto) 82.1H, Lymphocytes (%) (Auto) 10.9L, Monocytes (%) (Auto) 5.9, Eosinophils (%) (Auto) 0.7, Basophils (%) (Auto) 0.5, Prothrombin Time 10.5, Prothromb Time International Ratio 1.0, Activated Partial Thromboplast Time 40H, Sodium Level 138, Potassium Level 2.9L, Chloride Level 104, Carbon Dioxide Level 28, Anion Gap 6, Blood Urea Nitrogen 29H, Creatinine 0.9, Estimat Glomerular Filtration Rate , Glucose Level 99, Calcium Level 8.3L, Total Bilirubin 0.2, Aspartate Amino Transf (AST/SGOT) 17, Alanine Aminotransferase (ALT/SGPT) 20, Alkaline Phosphatase 118H, Troponin I 0.010, Pro-B-Type Natriuretic Peptide 3190H, Total Protein 4.0L, Albumin 1.2L, Globulin 2.8, Albumin/Globulin Ratio 0.4L Height (Feet): 5 Height (Inches): 2.99 Weight (Pounds): 121 General Appearance: no apparent distress, alert, cachetic Neurologic: alert, oriented x 3, responsive Juvenal Alvarado M.D. Sep 05, 2017 00:50
[2017-09-05 04:00] VITALS: BP 98/53
[2017-09-05 05:25] LABS: BASOPHILS % (AUTO) 0.6 % (0.0-2.0); EOSINOPHILS % (AUTO) 0.6 % (0.0-3.0); HEMATOCRIT 29.4 % (37.0-47.0); HEMOGLOBIN 9.3 G/DL (12.0-16.0); LYMPHOCYTES % (AUTO) 10.4 % (20.0-45.0); MEAN CORPUSCULAR VOLUME 109 FL (80-99); MONOCYTES % (AUTO) 7.7 % (1.0-10.0); NEUTROPHILS % (AUTO) 80.7 % (45.0-75.0); PLATELET COUNT 242 K/UL (150-450); RED BLOOD COUNT 2.69 M/UL (4.20-5.40); RED CELL DISTRIBUTION WIDTH 15.3 % (11.6-14.8)
[2017-09-05 06:02] LABS: ALANINE AMINOTRANSFERASE 19 U/L (12-78); ALBUMIN 1.1 G/DL (3.4-5.0); ALBUMIN/GLOBULIN RATIO 0.4 (1.0-2.7); ALKALINE PHOSPHATASE 137 U/L (46-116); ANION GAP 4 mmol/L (5-15); ASPARTATE AMINO TRANSFERASE 13 U/L (15-37); BILIRUBIN,TOTAL 0.2 MG/DL (0.2-1.0); BLOOD UREA NITROGEN 35 mg/dL (7-18); CALCIUM 8.1 MG/DL (8.5-10.1); CARBON DIOXIDE 27 MMOL/L (21-32); CHLORIDE 106 MMOL/L (98-107); PHOSPHORUS 2.2 MG/DL (2.5-4.9); POTASSIUM 4.5 MMOL/L (3.5-5.1); SODIUM 137 MMOL/L (136-145)
[2017-09-05 08:00] VITALS: BP 104/55
[2017-09-05] MEDS: Cefepime 2gm in D5W 110ml IVPB SCH (09:56)
[2017-09-05] MEDS: Nystatin Susp 500,000 units/5ml ORAL SCH ×4 (09:56→20:43)
[2017-09-05] MEDS: Sennosides 8.6mg ORAL SCH (10:00)
[2017-09-05] MEDS: Pantoprazole Inj IVP SCH (10:00)
[2017-09-05] MEDS: BusPIRone 10mg Tab ORAL SCH ×3 (10:01→18:26)
[2017-09-05] MEDS: Thiamine 100mg tab ORAL SCH (10:01)
[2017-09-05] MEDS: Heparin 5000 units/ml inj SUBQ SCH ×2 (10:14→20:46)
--- NOTE | 2017-09-05 10:52 | Pulmonology Progress Note ---
Assessment/Plan Problems: (1) Acute respiratory failure (2) Sepsis (3) Pneumonia (4) Severe protein-calorie malnutrition (5) Emphysema of lung Assessment/Plan cxr reviewed, pleural effusion unchanged. will start on Lasix drip. get cxr in am respiratory treatment chest PT Pt has ng tube now titrate fio2 She will get PEG as soon as she comes off the venturi mask Subjective ROS Limited/Unobtainable: No Interval Events: still on face mask, look somnolent Allergies: Coded Allergies: ADHESIVE (Unverified Allergy, Severe, 08/16/13) ADHESIVE TAPE (Verified Allergy, Unknown, SURGICAL TAPE - RASH, 07/28/11) ALBUTEROL (Verified Adverse Reaction, Unknown, ANXIETY, 07/28/11) Uncoded Allergies: METAL (Allergy, Unknown, 08/30/17) METAL (?) (Allergy, Unknown, RASH, 07/28/11) metal (Allergy, Unknown, 03/30/15) Objective Last 24 Hour Vital Signs Date Time Temp Pulse Resp B/P (MAP) Pulse Ox O2 Delivery O2 Flow Rate FiO2 09/05/17 08:55 78 18 100 Venturi Mask 14.0 55 09/05/17 08:53 85 18 99 Venturi Mask 14.0 55 09/05/17 08:00 97.7 98 17 104/55 97 Venturi Mask 55 09/05/17 08:00 97 09/05/17 07:38 99 Venturi Mask 14.0 55 09/05/17 07:38 Venturi Mask 14.0 55 09/05/17 04:00 97.5 98 18 98/53 98 Venturi Mask 55 09/05/17 04:00 97 09/05/17 00:00 89.0 95 17 101/80 100 Venturi Mask 55 09/05/17 00:00 97 09/04/17 20:00 97.1 98 18 121/67 98 Venturi Mask 55 09/04/17 19:47 98 09/04/17 19:30 Venturi Mask 14.0 55 09/04/17 19:30 100 Venturi Mask 14.0 55 09/04/17 16:36 97.2 103 18 105/66 98 Venturi Mask 55 09/04/17 16:00 101 09/04/17 12:27 96.3 95 17 90/56 99 Venturi Mask 55 09/04/17 12:01 92 General Appearance: cachetic HEENT: normocephalic, atraumatic Respiratory/Chest: chest wall non-tender, lungs clear Breasts: no masses Cardiovascular: normal peripheral pulses, normal rate, regular rhythm Abdomen: normal bowel sounds, soft, non tender, no organomegaly Genitourinary: normal external genitalia Extremities: no cyanosis Skin: no rash 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, normal mood/affect Microbiology Date/Time Source Procedure Growth Status 09/03/17 08:30 Sacral Wound Gram Stain - Final Resulted 09/03/17 08:30 Wound Culture - Preliminary Escherichia Coli - Esbl Kelsy Albicans Resulted Laboratory Tests 09/05/17 04:15: White Blood Count 10.0, Red Blood Count 2.69L, Hemoglobin 9.3L, Hematocrit 29.4L , Mean Corpuscular Volume 109H, Mean Corpuscular Hemoglobin 34.6H, Mean Corpuscular Hemoglobin Concent 31.6L, Red Cell Distribution Width 15.3H, Platelet Count 242, Mean Platelet Volume 8.0, Neutrophils (%) (Auto) 80.7H, Lymphocytes (%) (Auto) 10.4L, Monocytes (%) (Auto) 7.7, Eosinophils (%) (Auto) 0.6, Basophils (%) (Auto) 0.6, Sodium Level 137, Potassium Level 4.5#, Chloride Level 106, Carbon Dioxide Level 27, Anion Gap 4L, Blood Urea Nitrogen 35H, Creatinine 1.0, Estimat Glomerular Filtration Rate , Glucose Level 207#H, Calcium Level 8.1L, Phosphorus Level 2.2L, Magnesium Level 1.7L, Total Bilirubin 0.2, Aspartate Amino Transf (AST/SGOT) 13L, Alanine Aminotransferase ( ALT/SGPT) 19, Alkaline Phosphatase 137H, Pro-B-Type Natriuretic Peptide 3233H, Total Protein 4.0L, Albumin 1.1L, Globulin 2.9, Albumin/Globulin Ratio 0.4L Current Medications Medications (Trade) Dose Ordered Sig/Nahum Route PRN Reason Start Time Stop Time Status Last Admin Dose Admin Acetaminophen (Tylenol) 650 mg Q4H PRN ORAL fever 08/30/17 22:45 09/29/17 22:44 Al Hydroxide/Mg Hydroxide (Mylanta II) 30 ml Q6H PRN ORAL dyspepsia 08/30/17 22:45 09/29/17 22:44 Buspirone HCl (Buspar) 5 mg THREE TIMES A DAY ORAL 08/31/17 09:00 09/30/17 08:59 09/05/17 10:01 Cefepime HCl 2 gm/ Dextrose 110 ml @ 220 mls/hr Q24H IVPB 09/02/17 09:00 09/09/17 08:59 09/05/17 09:56 Dextrose/Sodium Chloride 1,000 ml @ 25 mls/hr Q24H IV 09/03/17 15:00 10/03/17 14:59 09/04/17 14:31 Escitalopram Oxalate (Lexapro) 10 mg DAILY ORAL 08/31/17 09:00 09/30/17 08:59 09/05/17 10:01 Heparin Sodium (Porcine) (Heparin 5000 units/ml) 5,000 units EVERY 12 HOURS SUBQ 08/31/17 09:00 09/30/17 08:59 09/05/17 10:14 Levalbuterol HCl (Xopenex) 1.25 mg Q4H PRN HHN Shortness of Breath 08/31/17 18:45 09/05/17 18:44 08/31/17 19:00 Magnesium Sulfate 100 ml @ 100 mls/hr ONCE ONCE IVPB 09/05/17 10:30 09/05/17 11:29 Mirtazapine (Remeron) 7.5 mg BEDTIME ORAL 09/04/17 21:00 10/04/17 20:59 09/04/17 20:57 Morphine Sulfate (Morphine 10mg/ 5ml Oral Soln) 3 mg Q4HR PRN ORAL For Pain 08/30/17 22:45 09/06/17 22:44 Nitroglycerin (Ntg) 0.4 mg Q5M PRN SL Prn Chest Pain 08/30/17 22:45 09/29/17 22:44 Nystatin (Nystatin) 5 ml QID ORAL 09/03/17 18:00 09/10/17 17:59 09/05/17 09:56 Ondansetron HCl (Zofran) 4 mg Q6H PRN IVP Nausea & Vomiting 08/30/17 22:45 09/29/17 22:44 Pantoprazole (Protonix) 40 mg DAILY IVP 09/01/17 09:00 10/01/17 08:59 09/05/17 10:00 Polyethylene Glycol (Miralax) 17 gm DAILYPRN PRN ORAL Constipation 08/30/17 22:45 09/29/17 22:44 Promethazine HCl/ Codeine (Phenergan with Codeine) 5 ml Q4H PRN ORAL For Cough 08/30/17 22:45 09/29/17 22:44 Sennosides (Senokot) 8.6 mg DAILY ORAL 08/31/17 09:00 09/30/17 08:59 09/05/17 10:00 Sodium Phosphate 30 mm/Sodium Chloride 285 ml @ 47.5 mls/hr ONCE ONCE IVPB 09/05/17 11:00 09/05/17 16:59 Temazepam (Restoril) 15 mg HSPRN PRN ORAL Insomnia 08/30/17 22:45 09/06/17 22:44 09/04/17 04:39 Thiamine HCl (Vitamin B1) 100 mg DAILY ORAL 09/02/17 11:00 10/02/17 10:59 09/05/17 10:01 Tiotropium [place] (Spiriva Inhaler) 1 puff DAILY INH 08/31/17 09:00 09/30/17 08:59 09/04/17 07:37 YNES BREWSTER Sep 05, 2017 10:52
[2017-09-05] MEDS ORDERED: Sodium Phosphate 30 MM in NS 275 ML IVPB ONE (11:00)
--- NOTE | 2017-09-05 11:08 | GI Progress Note ---
Assessment/Plan Problems: (1) Protein-calorie malnutrition, severe ICD Codes: E43 - Unspecified severe protein-calorie malnutrition SNOMED: 929964773 (2) Generalized weakness ICD Codes: R53.1 - Weakness SNOMED: 76195895 (3) Encounter for PEG (percutaneous endoscopic gastrostomy) ICD Codes: Z43.1 - Encounter for attention to gastrostomy SNOMED: 379378514, 035522747 (4) Constipation ICD Codes: K59.00 - Constipation, unspecified SNOMED: 28365761 (5) Abdominal pain ICD Codes: R10.9 - Unspecified abdominal pain SNOMED: 07192658 (6) Hypoalbuminemia ICD Codes: E88.09 - Hypoalbuminemia SNOMED: 000379340 Status: stable Status Narrative Discussed with Dr. Sinha. Assessment/Plan PEG on hold due to unstable respiratory status, possible wean tomorrow. dobhoff placement >> GTFs per dietary monitor H&H, prn transfusions bowel regime cont ppi fu labs Subjective Subjective limited, generalized weakness Objective Last 24 Hour Vital Signs Date Time Temp Pulse Resp B/P (MAP) Pulse Ox O2 Delivery O2 Flow Rate FiO2 09/05/17 08:55 78 18 100 Venturi Mask 14.0 55 09/05/17 08:53 85 18 99 Venturi Mask 14.0 55 09/05/17 08:00 97.7 98 17 104/55 97 Venturi Mask 55 09/05/17 08:00 97 09/05/17 07:38 99 Venturi Mask 14.0 55 09/05/17 07:38 Venturi Mask 14.0 55 09/05/17 04:00 97.5 98 18 98/53 98 Venturi Mask 55 09/05/17 04:00 97 09/05/17 00:00 89.0 95 17 101/80 100 Venturi Mask 55 09/05/17 00:00 97 09/04/17 20:00 97.1 98 18 121/67 98 Venturi Mask 55 09/04/17 19:47 98 09/04/17 19:30 Venturi Mask 14.0 55 09/04/17 19:30 100 Venturi Mask 14.0 55 09/04/17 16:36 97.2 103 18 105/66 98 Venturi Mask 55 09/04/17 16:00 101 11/7/17 12:27 96.3 95 17 90/56 99 Venturi Mask 55 09/04/17 12:01 92 Laboratory Tests Test 09/05/17 04:15 White Blood Count 10.0 K/UL (4.8-10.8) Red Blood Count 2.69 M/UL (4.20-5.40) L Hemoglobin 9.3 G/DL (12.0-16.0) L Hematocrit 29.4 % (37.0-47.0) L Mean Corpuscular Volume 109 FL (80-99) H Mean Corpuscular Hemoglobin 34.6 PG (27.0-31.0) H Mean Corpuscular Hemoglobin Concent 31.6 G/DL (32.0-36.0) L Red Cell Distribution Width 15.3 % (11.6-14.8) H Platelet Count 242 K/UL (150-450) Mean Platelet Volume 8.0 FL (6.5-10.1) Neutrophils (%) (Auto) 80.7 % (45.0-75.0) H Lymphocytes (%) (Auto) 10.4 % (20.0-45.0) L Monocytes (%) (Auto) 7.7 % (1.0-10.0) Eosinophils (%) (Auto) 0.6 % (0.0-3.0) Basophils (%) (Auto) 0.6 % (0.0-2.0) Sodium Level 137 MMOL/L (136-145) Potassium Level 4.5 MMOL/L (3.5-5.1) # Chloride Level 106 MMOL/L (98-107) Carbon Dioxide Level 27 MMOL/L (21-32) Anion Gap 4 mmol/L (5-15) L Blood Urea Nitrogen 35 mg/dL (7-18) H Creatinine 1.0 MG/DL (0.55-1.30) Estimat Glomerular Filtration Rate mL/min (>60) Glucose Level 207 MG/DL (74-106) #H Calcium Level 8.1 MG/DL (8.5-10.1) L Phosphorus Level 2.2 MG/DL (2.5-4.9) L Magnesium Level 1.7 MG/DL (1.8-2.4) L Total Bilirubin 0.2 MG/DL (0.2-1.0) Aspartate Amino Transf (AST/SGOT) 13 U/L (15-37) L Alanine Aminotransferase (ALT/SGPT) 19 U/L (12-78) Alkaline Phosphatase 137 U/L (46-116) H Pro-B-Type Natriuretic Peptide 3233 pg/mL (0-125) H Total Protein 4.0 G/DL (6.4-8.2) L Albumin 1.1 G/DL (3.4-5.0) L Globulin 2.9 g/dL Albumin/Globulin Ratio 0.4 (1.0-2.7) L Height (Feet): 5 Height (Inches): 2.99 Weight (Pounds): 121 General Appearance: no apparent distress, alert, thin Cardiovascular: normal rate Respiratory/Chest: no respiratory distress, other - venturi mask Abdominal Exam: normal bowel sounds, non tender, soft, other - dobhoff Extremities: normal range of motion, non-tender Dai Regan NEnrique Sep 05, 2017 11:08
--- NOTE | 2017-09-05 11:08 | GI Progress Note ---
Assessment/Plan Problems: (1) Protein-calorie malnutrition, severe ICD Codes: E43 - Unspecified severe protein-calorie malnutrition SNOMED: 940199086 (2) Generalized weakness ICD Codes: R53.1 - Weakness SNOMED: 00242117 (3) Encounter for PEG (percutaneous endoscopic gastrostomy) ICD Codes: Z43.1 - Encounter for attention to gastrostomy SNOMED: 547033510, 431641348 (4) Constipation ICD Codes: K59.00 - Constipation, unspecified SNOMED: 21876985 (5) Abdominal pain ICD Codes: R10.9 - Unspecified abdominal pain SNOMED: 30387770 (6) Hypoalbuminemia ICD Codes: E88.09 - Hypoalbuminemia SNOMED: 891663150 Status: stable Status Narrative Discussed with Dr. Sinha. Assessment/Plan PEG on hold due to unstable respiratory status, possible wean tomorrow. dobhoff placement >> GTFs per dietary monitor H&H, prn transfusions bowel regime cont ppi fu labs Subjective Subjective limited, generalized weakness Objective Last 24 Hour Vital Signs Date Time Temp Pulse Resp B/P (MAP) Pulse Ox O2 Delivery O2 Flow Rate FiO2 09/05/17 08:55 78 18 100 Venturi Mask 14.0 55 09/05/17 08:53 85 18 99 Venturi Mask 14.0 55 09/05/17 08:00 97.7 98 17 104/55 97 Venturi Mask 55 09/05/17 08:00 97 09/05/17 07:38 99 Venturi Mask 14.0 55 09/05/17 07:38 Venturi Mask 14.0 55 09/05/17 04:00 97.5 98 18 98/53 98 Venturi Mask 55 09/05/17 04:00 97 09/05/17 00:00 89.0 95 17 101/80 100 Venturi Mask 55 09/05/17 00:00 97 09/04/17 20:00 97.1 98 18 121/67 98 Venturi Mask 55 09/04/17 19:47 98 09/04/17 19:30 Venturi Mask 14.0 55 09/04/17 19:30 100 Venturi Mask 14.0 55 09/04/17 16:36 97.2 103 18 105/66 98 Venturi Mask 55 09/04/17 16:00 101 11/7/17 12:27 96.3 95 17 90/56 99 Venturi Mask 55 09/04/17 12:01 92 Laboratory Tests Test 09/05/17 04:15 White Blood Count 10.0 K/UL (4.8-10.8) Red Blood Count 2.69 M/UL (4.20-5.40) L Hemoglobin 9.3 G/DL (12.0-16.0) L Hematocrit 29.4 % (37.0-47.0) L Mean Corpuscular Volume 109 FL (80-99) H Mean Corpuscular Hemoglobin 34.6 PG (27.0-31.0) H Mean Corpuscular Hemoglobin Concent 31.6 G/DL (32.0-36.0) L Red Cell Distribution Width 15.3 % (11.6-14.8) H Platelet Count 242 K/UL (150-450) Mean Platelet Volume 8.0 FL (6.5-10.1) Neutrophils (%) (Auto) 80.7 % (45.0-75.0) H Lymphocytes (%) (Auto) 10.4 % (20.0-45.0) L Monocytes (%) (Auto) 7.7 % (1.0-10.0) Eosinophils (%) (Auto) 0.6 % (0.0-3.0) Basophils (%) (Auto) 0.6 % (0.0-2.0) Sodium Level 137 MMOL/L (136-145) Potassium Level 4.5 MMOL/L (3.5-5.1) # Chloride Level 106 MMOL/L (98-107) Carbon Dioxide Level 27 MMOL/L (21-32) Anion Gap 4 mmol/L (5-15) L Blood Urea Nitrogen 35 mg/dL (7-18) H Creatinine 1.0 MG/DL (0.55-1.30) Estimat Glomerular Filtration Rate mL/min (>60) Glucose Level 207 MG/DL (74-106) #H Calcium Level 8.1 MG/DL (8.5-10.1) L Phosphorus Level 2.2 MG/DL (2.5-4.9) L Magnesium Level 1.7 MG/DL (1.8-2.4) L Total Bilirubin 0.2 MG/DL (0.2-1.0) Aspartate Amino Transf (AST/SGOT) 13 U/L (15-37) L Alanine Aminotransferase (ALT/SGPT) 19 U/L (12-78) Alkaline Phosphatase 137 U/L (46-116) H Pro-B-Type Natriuretic Peptide 3233 pg/mL (0-125) H Total Protein 4.0 G/DL (6.4-8.2) L Albumin 1.1 G/DL (3.4-5.0) L Globulin 2.9 g/dL Albumin/Globulin Ratio 0.4 (1.0-2.7) L Height (Feet): 5 Height (Inches): 2.99 Weight (Pounds): 121 General Appearance: no apparent distress, alert, thin Cardiovascular: normal rate Respiratory/Chest: no respiratory distress, other - venturi mask Abdominal Exam: normal bowel sounds, non tender, soft, other - dobhoff Extremities: normal range of motion, non-tender Dai Regan NEnrique Sep 05, 2017 11:08
--- NOTE | 2017-09-05 11:08 | GI Progress Note ---
Assessment/Plan Problems: (1) Protein-calorie malnutrition, severe ICD Codes: E43 - Unspecified severe protein-calorie malnutrition SNOMED: 850131541 (2) Generalized weakness ICD Codes: R53.1 - Weakness SNOMED: 63226133 (3) Encounter for PEG (percutaneous endoscopic gastrostomy) ICD Codes: Z43.1 - Encounter for attention to gastrostomy SNOMED: 548138956, 086211746 (4) Constipation ICD Codes: K59.00 - Constipation, unspecified SNOMED: 69557885 (5) Abdominal pain ICD Codes: R10.9 - Unspecified abdominal pain SNOMED: 24336708 (6) Hypoalbuminemia ICD Codes: E88.09 - Hypoalbuminemia SNOMED: 737691320 Status: stable Status Narrative Discussed with Dr. Sinha. Assessment/Plan PEG on hold due to unstable respiratory status, possible wean tomorrow. dobhoff placement >> GTFs per dietary monitor H&H, prn transfusions bowel regime cont ppi fu labs Subjective Subjective limited, generalized weakness Objective Last 24 Hour Vital Signs Date Time Temp Pulse Resp B/P (MAP) Pulse Ox O2 Delivery O2 Flow Rate FiO2 09/05/17 08:55 78 18 100 Venturi Mask 14.0 55 09/05/17 08:53 85 18 99 Venturi Mask 14.0 55 09/05/17 08:00 97.7 98 17 104/55 97 Venturi Mask 55 09/05/17 08:00 97 09/05/17 07:38 99 Venturi Mask 14.0 55 09/05/17 07:38 Venturi Mask 14.0 55 09/05/17 04:00 97.5 98 18 98/53 98 Venturi Mask 55 09/05/17 04:00 97 09/05/17 00:00 89.0 95 17 101/80 100 Venturi Mask 55 09/05/17 00:00 97 09/04/17 20:00 97.1 98 18 121/67 98 Venturi Mask 55 09/04/17 19:47 98 09/04/17 19:30 Venturi Mask 14.0 55 09/04/17 19:30 100 Venturi Mask 14.0 55 09/04/17 16:36 97.2 103 18 105/66 98 Venturi Mask 55 09/04/17 16:00 101 11/7/17 12:27 96.3 95 17 90/56 99 Venturi Mask 55 09/04/17 12:01 92 Laboratory Tests Test 09/05/17 04:15 White Blood Count 10.0 K/UL (4.8-10.8) Red Blood Count 2.69 M/UL (4.20-5.40) L Hemoglobin 9.3 G/DL (12.0-16.0) L Hematocrit 29.4 % (37.0-47.0) L Mean Corpuscular Volume 109 FL (80-99) H Mean Corpuscular Hemoglobin 34.6 PG (27.0-31.0) H Mean Corpuscular Hemoglobin Concent 31.6 G/DL (32.0-36.0) L Red Cell Distribution Width 15.3 % (11.6-14.8) H Platelet Count 242 K/UL (150-450) Mean Platelet Volume 8.0 FL (6.5-10.1) Neutrophils (%) (Auto) 80.7 % (45.0-75.0) H Lymphocytes (%) (Auto) 10.4 % (20.0-45.0) L Monocytes (%) (Auto) 7.7 % (1.0-10.0) Eosinophils (%) (Auto) 0.6 % (0.0-3.0) Basophils (%) (Auto) 0.6 % (0.0-2.0) Sodium Level 137 MMOL/L (136-145) Potassium Level 4.5 MMOL/L (3.5-5.1) # Chloride Level 106 MMOL/L (98-107) Carbon Dioxide Level 27 MMOL/L (21-32) Anion Gap 4 mmol/L (5-15) L Blood Urea Nitrogen 35 mg/dL (7-18) H Creatinine 1.0 MG/DL (0.55-1.30) Estimat Glomerular Filtration Rate mL/min (>60) Glucose Level 207 MG/DL (74-106) #H Calcium Level 8.1 MG/DL (8.5-10.1) L Phosphorus Level 2.2 MG/DL (2.5-4.9) L Magnesium Level 1.7 MG/DL (1.8-2.4) L Total Bilirubin 0.2 MG/DL (0.2-1.0) Aspartate Amino Transf (AST/SGOT) 13 U/L (15-37) L Alanine Aminotransferase (ALT/SGPT) 19 U/L (12-78) Alkaline Phosphatase 137 U/L (46-116) H Pro-B-Type Natriuretic Peptide 3233 pg/mL (0-125) H Total Protein 4.0 G/DL (6.4-8.2) L Albumin 1.1 G/DL (3.4-5.0) L Globulin 2.9 g/dL Albumin/Globulin Ratio 0.4 (1.0-2.7) L Height (Feet): 5 Height (Inches): 2.99 Weight (Pounds): 121 General Appearance: no apparent distress, alert, thin Cardiovascular: normal rate Respiratory/Chest: no respiratory distress, other - venturi mask Abdominal Exam: normal bowel sounds, non tender, soft, other - dobhoff Extremities: normal range of motion, non-tender Dai Regan NEnrique Sep 05, 2017 11:08
[2017-09-05 12:00] VITALS: BP 108/59
[2017-09-05] MEDS ORDERED: Sodium Phosphate 20 MM in NS 275 ML IV ONE (12:00)
--- NOTE | 2017-09-05 12:38 | Infectious Diseases Prog Note ---
Assessment/Plan Assessment/Plan ASSESSMENT: Probable UTI : UCx : Kleb, P. mirabilis, Ecoli, GNR Leukocytosis, iSP Probable underlying healthcare-associated pneumonia. Scx: Strp Grp B and ( Kelsy : Colonizer ) CT 09/03 : Moderate bilateral pleural effusions left greater than right. COPD Bilateral effusion, left more than right. Elevated alkaline phosphatase US: NO evid of biliary obst. Afebrile Sacral wound : no evid of infection SP Sharp excisional debridement of sacral pressure ulcer down to bone Wnd Cx: ESBL E Coli , PSA , Kleb ( Colonizer ) Vertigo COPD Asthma Failure to thrive History of DVT History of hiatal hernia GERD PLAN: Cont pt on cefepime d# 6 /7 DC vancomycin d# 4 Monitor CBC Monitor BMP. Monitor chest x-ray PEG : P . Subjective Constitutional: Denies: no symptoms, fever, chills, fatigue, anorexia, drenching sweats, other Allergies: Coded Allergies: ADHESIVE (Unverified Allergy, Severe, 08/16/13) ADHESIVE TAPE (Verified Allergy, Unknown, SURGICAL TAPE - RASH, 07/28/11) ALBUTEROL (Verified Adverse Reaction, Unknown, ANXIETY, 07/28/11) Uncoded Allergies: METAL (Allergy, Unknown, 08/30/17) METAL (?) (Allergy, Unknown, RASH, 07/28/11) metal (Allergy, Unknown, 03/30/15) Subjective afebrile Objective Vital Signs Last 24 Hour Vital Signs Date Time Temp Pulse Resp B/P (MAP) Pulse Ox O2 Delivery O2 Flow Rate FiO2 09/05/17 11:07 Venturi Mask 10.0 45 09/05/17 11:07 97 Venturi Mask 10.0 45 09/05/17 08:55 78 18 100 Venturi Mask 14.0 55 09/05/17 08:53 85 18 99 Venturi Mask 14.0 55 09/05/17 08:00 97.7 98 17 104/55 97 Venturi Mask 55 09/05/17 08:00 97 09/05/17 07:38 99 Venturi Mask 14.0 55 09/05/17 07:38 Venturi Mask 14.0 55 09/05/17 04:00 97.5 98 18 98/53 98 Venturi Mask 55 09/05/17 04:00 97 09/05/17 00:00 89.0 95 17 101/80 100 Venturi Mask 55 09/05/17 00:00 97 09/04/17 20:00 97.1 98 18 121/67 98 Venturi Mask 55 09/04/17 19:47 98 09/04/17 19:30 Venturi Mask 14.0 55 09/04/17 19:30 100 Venturi Mask 14.0 55 09/04/17 16:36 97.2 103 18 105/66 98 Venturi Mask 55 09/04/17 16:00 101 Height (Feet): 5 Height (Inches): 2.99 Weight (Pounds): 121 HEENT: anicteric Respiratory/Chest: normal breath sounds Cardiovascular: regularly irregular Abdomen: non distended Microbiology Date/Time Source Procedure Growth Status 09/03/17 08:30 Sacral Wound Gram Stain - Final Resulted 09/03/17 08:30 Wound Culture - Preliminary Escherichia Coli - Esbl Kelsy Albicans Resulted Laboratory Tests Test 09/05/17 04:15 White Blood Count 10.0 K/UL (4.8-10.8) Red Blood Count 2.69 M/UL (4.20-5.40) L Hemoglobin 9.3 G/DL (12.0-16.0) L Hematocrit 29.4 % (37.0-47.0) L Mean Corpuscular Volume 109 FL (80-99) H Mean Corpuscular Hemoglobin 34.6 PG (27.0-31.0) H Mean Corpuscular Hemoglobin Concent 31.6 G/DL (32.0-36.0) L Red Cell Distribution Width 15.3 % (11.6-14.8) H Platelet Count 242 K/UL (150-450) Mean Platelet Volume 8.0 FL (6.5-10.1) Neutrophils (%) (Auto) 80.7 % (45.0-75.0) H Lymphocytes (%) (Auto) 10.4 % (20.0-45.0) L Monocytes (%) (Auto) 7.7 % (1.0-10.0) Eosinophils (%) (Auto) 0.6 % (0.0-3.0) Basophils (%) (Auto) 0.6 % (0.0-2.0) Sodium Level 137 MMOL/L (136-145) Potassium Level 4.5 MMOL/L (3.5-5.1) # Chloride Level 106 MMOL/L (98-107) Carbon Dioxide Level 27 MMOL/L (21-32) Anion Gap 4 mmol/L (5-15) L Blood Urea Nitrogen 35 mg/dL (7-18) H Creatinine 1.0 MG/DL (0.55-1.30) Estimat Glomerular Filtration Rate mL/min (>60) Glucose Level 207 MG/DL (74-106) #H Calcium Level 8.1 MG/DL (8.5-10.1) L Phosphorus Level 2.2 MG/DL (2.5-4.9) L Magnesium Level 1.7 MG/DL (1.8-2.4) L Total Bilirubin 0.2 MG/DL (0.2-1.0) Aspartate Amino Transf (AST/SGOT) 13 U/L (15-37) L Alanine Aminotransferase (ALT/SGPT) 19 U/L (12-78) Alkaline Phosphatase 137 U/L (46-116) H Pro-B-Type Natriuretic Peptide 3233 pg/mL (0-125) H Total Protein 4.0 G/DL (6.4-8.2) L Albumin 1.1 G/DL (3.4-5.0) L Globulin 2.9 g/dL Albumin/Globulin Ratio 0.4 (1.0-2.7) L Current Medications Medications (Trade) Dose Ordered Sig/Nahum Route PRN Reason Start Time Stop Time Status Last Admin Dose Admin Acetaminophen (Tylenol) 650 mg Q4H PRN ORAL fever 08/30/17 22:45 09/29/17 22:44 Al Hydroxide/Mg Hydroxide (Mylanta II) 30 ml Q6H PRN ORAL dyspepsia 08/30/17 22:45 09/29/17 22:44 Buspirone HCl (Buspar) 5 mg THREE TIMES A DAY ORAL 08/31/17 09:00 09/30/17 08:59 09/05/17 10:01 Cefepime HCl 2 gm/ Dextrose 110 ml @ 220 mls/hr Q24H IVPB 09/02/17 09:00 09/09/17 08:59 09/05/17 09:56 Dextrose/Sodium Chloride 1,000 ml @ 25 mls/hr Q24H IV 09/03/17 15:00 10/03/17 14:59 09/04/17 14:31 Escitalopram Oxalate (Lexapro) 10 mg DAILY ORAL 08/31/17 09:00 09/30/17 08:59 09/05/17 10:01 Furosemide 100 mg/ Dextrose 110 ml @ 11 mls/hr Q10H IV 09/05/17 12:00 10/05/17 11:59 Heparin Sodium (Porcine) (Heparin 5000 units/ml) 5,000 units EVERY 12 HOURS SUBQ 08/31/17 09:00 09/30/17 08:59 09/05/17 10:14 Levalbuterol HCl (Xopenex) 1.25 mg Q4H PRN HHN Shortness of Breath 08/31/17 18:45 09/05/17 18:44 08/31/17 19:00 Mirtazapine (Remeron) 7.5 mg BEDTIME ORAL 09/04/17 21:00 10/04/17 20:59 09/04/17 20:57 Morphine Sulfate (Morphine 10mg/ 5ml Oral Soln) 3 mg Q4HR PRN ORAL For Pain 08/30/17 22:45 09/06/17 22:44 Nitroglycerin (Ntg) 0.4 mg Q5M PRN SL Prn Chest Pain 08/30/17 22:45 09/29/17 22:44 Nystatin (Nystatin) 5 ml QID ORAL 09/03/17 18:00 09/10/17 17:59 09/05/17 09:56 Ondansetron HCl (Zofran) 4 mg Q6H PRN IVP Nausea & Vomiting 08/30/17 22:45 09/29/17 22:44 Pantoprazole (Protonix) 40 mg DAILY IVP 09/01/17 09:00 10/01/17 08:59 09/05/17 10:00 Polyethylene Glycol (Miralax) 17 gm DAILYPRN PRN ORAL Constipation 08/30/17 22:45 09/29/17 22:44 Promethazine HCl/ Codeine (Phenergan with Codeine) 5 ml Q4H PRN ORAL For Cough 08/30/17 22:45 09/29/17 22:44 Sennosides (Senokot) 8.6 mg DAILY ORAL 08/31/17 09:00 09/30/17 08:59 09/05/17 10:00 Sodium Phosphate 30 mm/Sodium Chloride 285 ml @ 47.5 mls/hr ONCE ONCE IVPB 09/05/17 11:00 09/05/17 16:59 Temazepam (Restoril) 15 mg HSPRN PRN ORAL Insomnia 08/30/17 22:45 09/06/17 22:44 09/04/17 04:39 Thiamine HCl (Vitamin B1) 100 mg DAILY ORAL 09/02/17 11:00 10/02/17 10:59 09/05/17 10:01 Tiotropium [place] (Spiriva Inhaler) 1 puff DAILY INH 08/31/17 09:00 09/30/17 08:59 09/04/17 07:37 JACQUI PANDEY M.D. Sep 05, 2017 12:38
[2017-09-05] MEDS: D5 1/2NS 1,000 ML IV SCH (13:49)
--- NOTE | 2017-09-05 14:52 | Diagnostic Imaging Report ---
Indication: Dyspnea Comparison: 09/04/17 A single view chest radiograph was obtained. Findings: Moderate left pleural effusion demonstrated. Heart size is stable. There is a probable small right pleural effusion. Feeding tube noted. Bones are osteopenic. Impression: No change from the prior day
[2017-09-05 16:00] VITALS: BP 118/61
[2017-09-05] MEDS ORDERED: Tubing Blood Filter IV ONE (16:45)
[2017-09-05] MEDS ORDERED: NS 275ml ONE (16:45)
[2017-09-05] MEDS ORDERED: Tubing IV Secondary IV ONE (16:45)
[2017-09-05] MEDS ORDERED: D5 1/2NS 1000ml IV ONE (16:45)
[2017-09-05] MEDS: Levalbuterol Inh UD 1.25mg/0.5ml HHN PRN (18:43)
[2017-09-05 19:53] VITALS: BP 85/59
[2017-09-06] VITALS: BP 91/58
[2017-09-06 04:00] VITALS: BP 92/61
[2017-09-06 05:31] LABS: HEMATOCRIT 31.3 % (37.0-47.0); HEMOGLOBIN 9.3 G/DL (12.0-16.0); MEAN CORPUSCULAR VOLUME 111 FL (80-99); PLATELET COUNT 213 K/UL (150-450); RED BLOOD COUNT 2.81 M/UL (4.20-5.40); RED CELL DISTRIBUTION WIDTH 14.7 % (11.6-14.8); WHITE BLOOD COUNT 10.9 K/UL (4.8-10.8)
[2017-09-06 06:02] LABS: PHOSPHORUS 4.1 MG/DL (2.5-4.9)
[2017-09-06 06:14] LABS: ALANINE AMINOTRANSFERASE 17 U/L (12-78); ALBUMIN 1.1 G/DL (3.4-5.0); ALBUMIN/GLOBULIN RATIO 0.4 (1.0-2.7); ALKALINE PHOSPHATASE 135 U/L (46-116); ANION GAP 5 mmol/L (5-15); ASPARTATE AMINO TRANSFERASE 11 U/L (15-37); BILIRUBIN,TOTAL 0.2 MG/DL (0.2-1.0); BLOOD UREA NITROGEN 40 mg/dL (7-18); CARBON DIOXIDE 29 MMOL/L (21-32); CHLORIDE 103 MMOL/L (98-107); CREATININE 1.2 MG/DL (0.55-1.30); POTASSIUM 4.5 MMOL/L (3.5-5.1); SODIUM 137 MMOL/L (136-145)
[2017-09-06 08:00] VITALS: BP 111/57
--- NOTE | 2017-09-06 08:54 | Diagnostic Imaging Report ---
Indication: Dyspnea Comparison: 09/05/17 A single view chest radiograph was obtained. Findings: There is complete opacification of the right hemithorax presumably on the basis of pleural effusion and atelectasis. There is a net volume loss with shifting of the heart and trachea to the right. Moderate left pleural effusion also noted. Feeding tube is present with the tip projected over the stomach. Impression: Development of complete atelectasis of the right lung with resultant volume loss. Bilateral pleural effusions again noted.
[2017-09-06] MEDS: Cefepime 2gm in D5W 110ml IVPB SCH (09:05)
[2017-09-06] MEDS: BusPIRone 10mg Tab ORAL SCH (09:09)
[2017-09-06] MEDS: Sennosides 8.6mg ORAL SCH (09:09)
[2017-09-06] MEDS: Thiamine 100mg tab ORAL SCH (09:10)
[2017-09-06] MEDS: Nystatin Susp 500,000 units/5ml ORAL SCH (09:10)
[2017-09-06] MEDS: Heparin 5000 units/ml inj SUBQ SCH (09:20)
--- NOTE | 2017-09-06 10:54 | GI Progress Note ---
Assessment/Plan Problems: (1) Protein-calorie malnutrition, severe ICD Codes: E43 - Unspecified severe protein-calorie malnutrition SNOMED: 652537899 (2) Generalized weakness ICD Codes: R53.1 - Weakness SNOMED: 49362341 (3) Encounter for PEG (percutaneous endoscopic gastrostomy) ICD Codes: Z43.1 - Encounter for attention to gastrostomy SNOMED: 107837080, 618304209 (4) Constipation ICD Codes: K59.00 - Constipation, unspecified SNOMED: 93455755 (5) Abdominal pain ICD Codes: R10.9 - Unspecified abdominal pain SNOMED: 46652574 (6) Hypoalbuminemia ICD Codes: E88.09 - Hypoalbuminemia SNOMED: 033494408 Status: not improved, unchanged Status Narrative Discussed with Dr. Sinha. Assessment/Plan PEG on hold due to unstable respiratory status, possible wean tomorrow. dobhoff placement >> GTFs per dietary monitor H&H, prn transfusions bowel regime cont ppi fu labs Subjective Subjective limited, generalized weakness Objective Last 24 Hour Vital Signs Date Time Temp Pulse Resp B/P (MAP) Pulse Ox O2 Delivery O2 Flow Rate FiO2 09/06/17 09:48 Non-Rebreather 09/06/17 09:48 Non-Rebreather 15.0 100 09/06/17 08:00 96.8 102 19 111/57 95 Non-Rebreather 100 09/06/17 08:00 104 09/06/17 06:41 92 Non-Rebreather 14.0 100 09/06/17 06:41 Non-Rebreather 14.0 100 09/06/17 04:00 97.8 107 19 92/61 94 Non-Rebreather 100 09/06/17 04:00 106 09/06/17 00:00 107 09/06/17 00:00 97.6 108 19 91/58 96 Non-Rebreather 100 09/05/17 20:00 125 09/05/17 19:53 97.9 142 24 85/59 78 Non-Rebreather 100 09/05/17 19:03 Non-Rebreather 14.0 100 09/05/17 19:03 Non-Rebreather 14.0 100 09/05/17 18:45 118 30 82 Venturi Mask 14.0 55 11/8/17 16:00 125 09/05/17 16:00 98.1 138 19 118/61 97 Venturi Mask 55 09/05/17 12:00 98.1 107 18 108/59 98 Venturi Mask 55 09/05/17 11:41 108 09/05/17 11:07 Venturi Mask 10.0 45 09/05/17 11:07 97 Venturi Mask 10.0 45 Laboratory Tests Test 09/05/17 18:42 09/06/17 04:05 Arterial Blood pH 7.292 (7.350-7.450) Arterial Blood Partial Pressure CO2 59.5 mmHg (35.0-45.0) *H Arterial Blood Partial Pressure O2 42.3 mmHg (75.0-100.0) Arterial Blood HCO3 28.1 mmol/L (22.0-26.0) H Arterial Blood Oxygen Saturation 76.2 % (92.0-98.0) L Arterial Blood Base Excess 0.7 Arnold Test Positive White Blood Count 10.9 K/UL (4.8-10.8) H Red Blood Count 2.81 M/UL (4.20-5.40) L Hemoglobin 9.3 G/DL (12.0-16.0) L Hematocrit 31.3 % (37.0-47.0) L Mean Corpuscular Volume 111 FL (80-99) H Mean Corpuscular Hemoglobin 33.0 PG (27.0-31.0) H Mean Corpuscular Hemoglobin Concent 29.7 G/DL (32.0-36.0) L Red Cell Distribution Width 14.7 % (11.6-14.8) Platelet Count 213 K/UL (150-450) Mean Platelet Volume 7.6 FL (6.5-10.1) Neutrophils (%) (Auto) % (45.0-75.0) Lymphocytes (%) (Auto) % (20.0-45.0) Monocytes (%) (Auto) % (1.0-10.0) Eosinophils (%) (Auto) % (0.0-3.0) Basophils (%) (Auto) % (0.0-2.0) Sodium Level 137 MMOL/L (136-145) Potassium Level 4.5 MMOL/L (3.5-5.1) Chloride Level 103 MMOL/L (98-107) Carbon Dioxide Level 29 MMOL/L (21-32) Anion Gap 5 mmol/L (5-15) Blood Urea Nitrogen 40 mg/dL (7-18) H Creatinine 1.2 MG/DL (0.55-1.30) Estimat Glomerular Filtration Rate mL/min (>60) Glucose Level 240 MG/DL (74-106) H Calcium Level 8.0 MG/DL (8.5-10.1) L Phosphorus Level 4.1 MG/DL (2.5-4.9) Magnesium Level 1.7 MG/DL (1.8-2.4) L Total Bilirubin 0.2 MG/DL (0.2-1.0) Aspartate Amino Transf (AST/SGOT) 11 U/L (15-37) L Alanine Aminotransferase (ALT/SGPT) 17 U/L (12-78) Alkaline Phosphatase 135 U/L (46-116) H Pro-B-Type Natriuretic Peptide 4699 pg/mL (0-125) H Total Protein 4.2 G/DL (6.4-8.2) L Albumin 1.1 G/DL (3.4-5.0) L Globulin 3.1 g/dL Albumin/Globulin Ratio 0.4 (1.0-2.7) L Height (Feet): 5 Height (Inches): 2.99 Weight (Pounds): 121 General Appearance: lethargic Cardiovascular: normal rate Respiratory/Chest: normal breath sounds, no respiratory distress, other - non rebreather Abdominal Exam: normal bowel sounds, non tender, soft, other - dobhoff Extremities: non-tender Dai Regan N.P. Sep 06, 2017 10:54
--- NOTE | 2017-09-06 10:54 | GI Progress Note ---
Assessment/Plan Problems: (1) Protein-calorie malnutrition, severe ICD Codes: E43 - Unspecified severe protein-calorie malnutrition SNOMED: 169916320 (2) Generalized weakness ICD Codes: R53.1 - Weakness SNOMED: 52778092 (3) Encounter for PEG (percutaneous endoscopic gastrostomy) ICD Codes: Z43.1 - Encounter for attention to gastrostomy SNOMED: 709984105, 623140496 (4) Constipation ICD Codes: K59.00 - Constipation, unspecified SNOMED: 46869894 (5) Abdominal pain ICD Codes: R10.9 - Unspecified abdominal pain SNOMED: 91145448 (6) Hypoalbuminemia ICD Codes: E88.09 - Hypoalbuminemia SNOMED: 573004852 Status: not improved, unchanged Status Narrative Discussed with Dr. Sinha. Assessment/Plan PEG on hold due to unstable respiratory status, possible wean tomorrow. dobhoff placement >> GTFs per dietary monitor H&H, prn transfusions bowel regime cont ppi fu labs Subjective Subjective limited, generalized weakness Objective Last 24 Hour Vital Signs Date Time Temp Pulse Resp B/P (MAP) Pulse Ox O2 Delivery O2 Flow Rate FiO2 09/06/17 09:48 Non-Rebreather 09/06/17 09:48 Non-Rebreather 15.0 100 09/06/17 08:00 96.8 102 19 111/57 95 Non-Rebreather 100 09/06/17 08:00 104 09/06/17 06:41 92 Non-Rebreather 14.0 100 09/06/17 06:41 Non-Rebreather 14.0 100 09/06/17 04:00 97.8 107 19 92/61 94 Non-Rebreather 100 09/06/17 04:00 106 09/06/17 00:00 107 09/06/17 00:00 97.6 108 19 91/58 96 Non-Rebreather 100 09/05/17 20:00 125 09/05/17 19:53 97.9 142 24 85/59 78 Non-Rebreather 100 09/05/17 19:03 Non-Rebreather 14.0 100 09/05/17 19:03 Non-Rebreather 14.0 100 09/05/17 18:45 118 30 82 Venturi Mask 14.0 55 11/8/17 16:00 125 09/05/17 16:00 98.1 138 19 118/61 97 Venturi Mask 55 09/05/17 12:00 98.1 107 18 108/59 98 Venturi Mask 55 09/05/17 11:41 108 09/05/17 11:07 Venturi Mask 10.0 45 09/05/17 11:07 97 Venturi Mask 10.0 45 Laboratory Tests Test 09/05/17 18:42 09/06/17 04:05 Arterial Blood pH 7.292 (7.350-7.450) Arterial Blood Partial Pressure CO2 59.5 mmHg (35.0-45.0) *H Arterial Blood Partial Pressure O2 42.3 mmHg (75.0-100.0) Arterial Blood HCO3 28.1 mmol/L (22.0-26.0) H Arterial Blood Oxygen Saturation 76.2 % (92.0-98.0) L Arterial Blood Base Excess 0.7 Arnold Test Positive White Blood Count 10.9 K/UL (4.8-10.8) H Red Blood Count 2.81 M/UL (4.20-5.40) L Hemoglobin 9.3 G/DL (12.0-16.0) L Hematocrit 31.3 % (37.0-47.0) L Mean Corpuscular Volume 111 FL (80-99) H Mean Corpuscular Hemoglobin 33.0 PG (27.0-31.0) H Mean Corpuscular Hemoglobin Concent 29.7 G/DL (32.0-36.0) L Red Cell Distribution Width 14.7 % (11.6-14.8) Platelet Count 213 K/UL (150-450) Mean Platelet Volume 7.6 FL (6.5-10.1) Neutrophils (%) (Auto) % (45.0-75.0) Lymphocytes (%) (Auto) % (20.0-45.0) Monocytes (%) (Auto) % (1.0-10.0) Eosinophils (%) (Auto) % (0.0-3.0) Basophils (%) (Auto) % (0.0-2.0) Sodium Level 137 MMOL/L (136-145) Potassium Level 4.5 MMOL/L (3.5-5.1) Chloride Level 103 MMOL/L (98-107) Carbon Dioxide Level 29 MMOL/L (21-32) Anion Gap 5 mmol/L (5-15) Blood Urea Nitrogen 40 mg/dL (7-18) H Creatinine 1.2 MG/DL (0.55-1.30) Estimat Glomerular Filtration Rate mL/min (>60) Glucose Level 240 MG/DL (74-106) H Calcium Level 8.0 MG/DL (8.5-10.1) L Phosphorus Level 4.1 MG/DL (2.5-4.9) Magnesium Level 1.7 MG/DL (1.8-2.4) L Total Bilirubin 0.2 MG/DL (0.2-1.0) Aspartate Amino Transf (AST/SGOT) 11 U/L (15-37) L Alanine Aminotransferase (ALT/SGPT) 17 U/L (12-78) Alkaline Phosphatase 135 U/L (46-116) H Pro-B-Type Natriuretic Peptide 4699 pg/mL (0-125) H Total Protein 4.2 G/DL (6.4-8.2) L Albumin 1.1 G/DL (3.4-5.0) L Globulin 3.1 g/dL Albumin/Globulin Ratio 0.4 (1.0-2.7) L Height (Feet): 5 Height (Inches): 2.99 Weight (Pounds): 121 General Appearance: lethargic Cardiovascular: normal rate Respiratory/Chest: normal breath sounds, no respiratory distress, other - non rebreather Abdominal Exam: normal bowel sounds, non tender, soft, other - dobhoff Extremities: non-tender Dai Regan N.P. Sep 06, 2017 10:54
--- NOTE | 2017-09-06 10:54 | GI Progress Note ---
Assessment/Plan Problems: (1) Protein-calorie malnutrition, severe ICD Codes: E43 - Unspecified severe protein-calorie malnutrition SNOMED: 915916617 (2) Generalized weakness ICD Codes: R53.1 - Weakness SNOMED: 02670042 (3) Encounter for PEG (percutaneous endoscopic gastrostomy) ICD Codes: Z43.1 - Encounter for attention to gastrostomy SNOMED: 944252634, 688720286 (4) Constipation ICD Codes: K59.00 - Constipation, unspecified SNOMED: 54536177 (5) Abdominal pain ICD Codes: R10.9 - Unspecified abdominal pain SNOMED: 14275363 (6) Hypoalbuminemia ICD Codes: E88.09 - Hypoalbuminemia SNOMED: 392791948 Status: not improved, unchanged Status Narrative Discussed with Dr. Sinha. Assessment/Plan PEG on hold due to unstable respiratory status, possible wean tomorrow. dobhoff placement >> GTFs per dietary monitor H&H, prn transfusions bowel regime cont ppi fu labs Subjective Subjective limited, generalized weakness Objective Last 24 Hour Vital Signs Date Time Temp Pulse Resp B/P (MAP) Pulse Ox O2 Delivery O2 Flow Rate FiO2 09/06/17 09:48 Non-Rebreather 09/06/17 09:48 Non-Rebreather 15.0 100 09/06/17 08:00 96.8 102 19 111/57 95 Non-Rebreather 100 09/06/17 08:00 104 09/06/17 06:41 92 Non-Rebreather 14.0 100 09/06/17 06:41 Non-Rebreather 14.0 100 09/06/17 04:00 97.8 107 19 92/61 94 Non-Rebreather 100 09/06/17 04:00 106 09/06/17 00:00 107 09/06/17 00:00 97.6 108 19 91/58 96 Non-Rebreather 100 09/05/17 20:00 125 09/05/17 19:53 97.9 142 24 85/59 78 Non-Rebreather 100 09/05/17 19:03 Non-Rebreather 14.0 100 09/05/17 19:03 Non-Rebreather 14.0 100 09/05/17 18:45 118 30 82 Venturi Mask 14.0 55 11/8/17 16:00 125 09/05/17 16:00 98.1 138 19 118/61 97 Venturi Mask 55 09/05/17 12:00 98.1 107 18 108/59 98 Venturi Mask 55 09/05/17 11:41 108 09/05/17 11:07 Venturi Mask 10.0 45 09/05/17 11:07 97 Venturi Mask 10.0 45 Laboratory Tests Test 09/05/17 18:42 09/06/17 04:05 Arterial Blood pH 7.292 (7.350-7.450) Arterial Blood Partial Pressure CO2 59.5 mmHg (35.0-45.0) *H Arterial Blood Partial Pressure O2 42.3 mmHg (75.0-100.0) Arterial Blood HCO3 28.1 mmol/L (22.0-26.0) H Arterial Blood Oxygen Saturation 76.2 % (92.0-98.0) L Arterial Blood Base Excess 0.7 Arnold Test Positive White Blood Count 10.9 K/UL (4.8-10.8) H Red Blood Count 2.81 M/UL (4.20-5.40) L Hemoglobin 9.3 G/DL (12.0-16.0) L Hematocrit 31.3 % (37.0-47.0) L Mean Corpuscular Volume 111 FL (80-99) H Mean Corpuscular Hemoglobin 33.0 PG (27.0-31.0) H Mean Corpuscular Hemoglobin Concent 29.7 G/DL (32.0-36.0) L Red Cell Distribution Width 14.7 % (11.6-14.8) Platelet Count 213 K/UL (150-450) Mean Platelet Volume 7.6 FL (6.5-10.1) Neutrophils (%) (Auto) % (45.0-75.0) Lymphocytes (%) (Auto) % (20.0-45.0) Monocytes (%) (Auto) % (1.0-10.0) Eosinophils (%) (Auto) % (0.0-3.0) Basophils (%) (Auto) % (0.0-2.0) Sodium Level 137 MMOL/L (136-145) Potassium Level 4.5 MMOL/L (3.5-5.1) Chloride Level 103 MMOL/L (98-107) Carbon Dioxide Level 29 MMOL/L (21-32) Anion Gap 5 mmol/L (5-15) Blood Urea Nitrogen 40 mg/dL (7-18) H Creatinine 1.2 MG/DL (0.55-1.30) Estimat Glomerular Filtration Rate mL/min (>60) Glucose Level 240 MG/DL (74-106) H Calcium Level 8.0 MG/DL (8.5-10.1) L Phosphorus Level 4.1 MG/DL (2.5-4.9) Magnesium Level 1.7 MG/DL (1.8-2.4) L Total Bilirubin 0.2 MG/DL (0.2-1.0) Aspartate Amino Transf (AST/SGOT) 11 U/L (15-37) L Alanine Aminotransferase (ALT/SGPT) 17 U/L (12-78) Alkaline Phosphatase 135 U/L (46-116) H Pro-B-Type Natriuretic Peptide 4699 pg/mL (0-125) H Total Protein 4.2 G/DL (6.4-8.2) L Albumin 1.1 G/DL (3.4-5.0) L Globulin 3.1 g/dL Albumin/Globulin Ratio 0.4 (1.0-2.7) L Height (Feet): 5 Height (Inches): 2.99 Weight (Pounds): 121 General Appearance: lethargic Cardiovascular: normal rate Respiratory/Chest: normal breath sounds, no respiratory distress, other - non rebreather Abdominal Exam: normal bowel sounds, non tender, soft, other - dobhoff Extremities: non-tender Dai Regan N.P. Sep 06, 2017 10:54
--- NOTE | 2017-09-06 11:28 | General Progress Note ---
Progress Note Progress Note Pt has agnoal breathing, eyes open but doens't seem to understand. on 100% NRM. Her CXR today showed total collpase of right lung. She chose to be DNR and DNI previously. I will respect her wishes and make sure that she has a comffortable passing. is imminent. YNES BREWSTER Sep 06, 2017 11:28
[2017-09-06] MEDS ORDERED: Rate Change Narcotic Drip MISC PRN (11:30)
[2017-09-06] MEDS ORDERED: Prochlorperazine 10mg tab ORAL PRN ×2 (11:30→12:30)
[2017-09-06] MEDS ORDERED: Glycopyrrolate 0.2mg/ml 1ml Vial IV PRN (11:30)
[2017-09-06] MEDS ORDERED: PCA Morphine 1mg/ml 30 ML IV PRN (11:30)
[2017-09-06] MEDS ORDERED: Artificial Tears 1.4% Op Soln BOTH EYES PRN (11:30)
[2017-09-06] MEDS ORDERED: Haloperidol 5mg/ml Inj IM PRN (11:30)
[2017-09-06 12:00] VITALS: BP 100/55
[2017-09-06] MEDS ORDERED: Tubing IV Secondary IV ONE (12:58)
[2017-09-06] MEDS ORDERED: NS 275ml ONE (12:58)
[2017-09-06] MEDS ORDERED: 1/2 NS 1000ml IV ONE (12:58)
[2017-09-06] MEDS ORDERED: Narcotic Shift Volume MISC SCH (15:00)
[2017-09-06] MEDS ORDERED: Morphine Sulfate 4mg/ml Inj SUBQ PRN (15:30)
--- NOTE | 2017-09-06 19:02 | General Progress Note ---
Assessment/Plan Status: unchanged Assessment/Plan mdd alcohol encephalopathy Subjective Date patient seen: Sep 05, 2017 Neurologic/Psychiatric: Reports: anxiety, depressed, emotional problems Allergies: Coded Allergies: ADHESIVE (Unverified Allergy, Severe, 08/16/13) ADHESIVE TAPE (Verified Allergy, Unknown, SURGICAL TAPE - RASH, 07/28/11) ALBUTEROL (Verified Adverse Reaction, Unknown, ANXIETY, 07/28/11) Uncoded Allergies: METAL (Allergy, Unknown, 08/30/17) METAL (?) (Allergy, Unknown, RASH, 07/28/11) metal (Allergy, Unknown, 03/30/15) Subjective the pt is the same Objective Last 24 Hour Vital Signs Date Time Temp Pulse Resp B/P (MAP) Pulse Ox O2 Delivery O2 Flow Rate FiO2 09/06/17 12:14 86 09/06/17 12:00 96.5 111 18 100/55 92 Non-Rebreather 09/06/17 09:48 Non-Rebreather 09/06/17 09:48 Non-Rebreather 15.0 100 09/06/17 08:00 96.8 102 19 111/57 95 Non-Rebreather 100 09/06/17 08:00 104 09/06/17 06:41 92 Non-Rebreather 14.0 100 09/06/17 06:41 Non-Rebreather 14.0 100 09/06/17 04:00 97.8 107 19 92/61 94 Non-Rebreather 100 09/06/17 04:00 106 09/06/17 00:00 107 09/06/17 00:00 97.6 108 19 91/58 96 Non-Rebreather 100 09/05/17 20:00 125 09/05/17 19:53 97.9 142 24 85/59 78 Non-Rebreather 100 09/05/17 19:03 Non-Rebreather 14.0 100 09/05/17 19:03 Non-Rebreather 14.0 100 Laboratory Tests 09/06/17 04:05: White Blood Count 10.9H, Red Blood Count 2.81L, Hemoglobin 9.3L, Hematocrit 31.3L, Mean Corpuscular Volume 111H, Mean Corpuscular Hemoglobin 33.0H, Mean Corpuscular Hemoglobin Concent 29.7L, Red Cell Distribution Width 14.7, Platelet Count 213, Mean Platelet Volume 7.6, Neutrophils (%) (Auto) , Lymphocytes (%) (Auto) , Monocytes (%) (Auto) , Eosinophils (%) (Auto) , Basophils (%) (Auto) , Sodium Level 137, Potassium Level 4.5, Chloride Level 103 , Carbon Dioxide Level 29, Anion Gap 5, Blood Urea Nitrogen 40H, Creatinine 1.2 , Estimat Glomerular Filtration Rate , Glucose Level 240H, Calcium Level 8.0L, Phosphorus Level 4.1, Magnesium Level 1.7L, Total Bilirubin 0.2, Aspartate Amino Transf (AST/SGOT) 11L, Alanine Aminotransferase (ALT/SGPT) 17, Alkaline Phosphatase 135H, Pro-B-Type Natriuretic Peptide 4699H, Total Protein 4.2L, Albumin 1.1L, Globulin 3.1, Albumin/Globulin Ratio 0.4L Height (Feet): 5 Height (Inches): 2.99 Weight (Pounds): 121 General Appearance: no apparent distress, lethargic, cachetic Neurologic: unresponsive, depressed affect Juvenal Alvarado M.D. Sep 06, 2017 19:02
--- NOTE | 2017-09-06 19:05 | Geriatric Progress Note ---
Assessment/Plan Assessment/Plan encephalopathy due to gmc not responding hx of agitation and mdd alcohol and drugs poor prognosis Subjective Functional Changes: 09/06/17 Psychiatric: Reports: other - the pt is lethargic. the pt had lung collapse Geriatric Geriatric Last 24 Hour Vital Signs Date Time Temp Pulse Resp B/P (MAP) Pulse Ox O2 Delivery O2 Flow Rate FiO2 09/06/17 12:14 86 09/06/17 12:00 96.5 111 18 100/55 92 Non-Rebreather 09/06/17 09:48 Non-Rebreather 09/06/17 09:48 Non-Rebreather 15.0 100 09/06/17 08:00 96.8 102 19 111/57 95 Non-Rebreather 100 09/06/17 08:00 104 09/06/17 06:41 92 Non-Rebreather 14.0 100 09/06/17 06:41 Non-Rebreather 14.0 100 09/06/17 04:00 97.8 107 19 92/61 94 Non-Rebreather 100 09/06/17 04:00 106 09/06/17 00:00 107 09/06/17 00:00 97.6 108 19 91/58 96 Non-Rebreather 100 09/05/17 20:00 125 09/05/17 19:53 97.9 142 24 85/59 78 Non-Rebreather 100 Laboratory Tests Test 09/06/17 04:05 White Blood Count 10.9 K/UL (4.8-10.8) H Red Blood Count 2.81 M/UL (4.20-5.40) L Hemoglobin 9.3 G/DL (12.0-16.0) L Hematocrit 31.3 % (37.0-47.0) L Mean Corpuscular Volume 111 FL (80-99) H Mean Corpuscular Hemoglobin 33.0 PG (27.0-31.0) H Mean Corpuscular Hemoglobin Concent 29.7 G/DL (32.0-36.0) L Red Cell Distribution Width 14.7 % (11.6-14.8) Platelet Count 213 K/UL (150-450) Mean Platelet Volume 7.6 FL (6.5-10.1) Neutrophils (%) (Auto) % (45.0-75.0) Lymphocytes (%) (Auto) % (20.0-45.0) Monocytes (%) (Auto) % (1.0-10.0) Eosinophils (%) (Auto) % (0.0-3.0) Basophils (%) (Auto) % (0.0-2.0) Sodium Level 137 MMOL/L (136-145) Potassium Level 4.5 MMOL/L (3.5-5.1) Chloride Level 103 MMOL/L (98-107) Carbon Dioxide Level 29 MMOL/L (21-32) Anion Gap 5 mmol/L (5-15) Blood Urea Nitrogen 40 mg/dL (7-18) H Creatinine 1.2 MG/DL (0.55-1.30) Estimat Glomerular Filtration Rate mL/min (>60) Glucose Level 240 MG/DL (74-106) H Calcium Level 8.0 MG/DL (8.5-10.1) L Phosphorus Level 4.1 MG/DL (2.5-4.9) Magnesium Level 1.7 MG/DL (1.8-2.4) L Total Bilirubin 0.2 MG/DL (0.2-1.0) Aspartate Amino Transf (AST/SGOT) 11 U/L (15-37) L Alanine Aminotransferase (ALT/SGPT) 17 U/L (12-78) Alkaline Phosphatase 135 U/L (46-116) H Pro-B-Type Natriuretic Peptide 4699 pg/mL (0-125) H Total Protein 4.2 G/DL (6.4-8.2) L Albumin 1.1 G/DL (3.4-5.0) L Globulin 3.1 g/dL Albumin/Globulin Ratio 0.4 (1.0-2.7) L Height (Feet): 5 Height (Inches): 2.99 Weight (Pounds): 121 General Appearance: cachetic, lethargic Psychiatric Orientation: disoriented Juvenal Alvarado M.D. Sep 06, 2017 19:05
--- NOTE | 2017-09-08 02:00 | Discharge Summary 2 SIG ---
DATE OF ADMISSION: 08/30/2017 DATE OF DISCHARGE: 09/06/2017 BRIEF SUMMARY: The patient is a 72-year-old female with history of end-stage COPD, history of previous trach and PEG and was recently transferred to [facility] for increased weakness and debility. She was taken to ED from long term due to acute onset of shortness of breath. O2 saturation was noted to be in the 70s at the SNF. She has history of COPD, alcohol abuse and dependency, history of chronic anemia, major depression, and severe protein-calorie malnutrition. On evaluation at ED, she was noted to be hypoxic. There was mild elevation in WBC count. She was given respiratory treatment. Chest x-ray showed increased large left and new small right pleural effusion with COPD changes. She was admitted to [facility] and was started on vancomycin and cefepime. She continued to be dyspneic and was placed on Venturi mask. She was given pulmonary toilet and antitussives. Venous duplex of lower and upper extremities were negative for DVT. She has history of CHF and had pleural effusion. Echocardiogram showed EF of 60% with RVSP 32. ProBNP was elevated. She was given IV Lasix for diuresis. She was placed on NPO and nurses were unable to insert NG tube. She came in with unstageable sacrococcygeal ulcer and on 09/03/2017, underwent sharp excisional debridement of the sacral pressure ulcer down to bone by Dr. Meier. She was planned for PEG tube placement. However, procedure was canceled due to unstable respiratory status. Dobhoff NG was then inserted. However, she continued to decline. She was given Lasix drip to help with diuresis, however, repeat chest x-ray showed development of complete atelectasis of the right lung. She was DNR and DNI and was imminent. She was placed on dying protocol for a comfortable passing. FINAL DIAGNOSES: 1. Cardiorespiratory arrest. 2. Acute respiratory failure. 3. Probable underlying healthcare associated pneumonia. 4. Probable urinary tract infection. 5. Bilateral effusion. 6. Chronic obstructive pulmonary disease. 7. Sacral wound unstageable, present on admission. 8. Status post sharp excisional debridement of the sacral pressure ulcer down to bone. 9. Severe protein-calorie malnutrition. 10. End-stage chronic obstructive pulmonary disease. 11. History of alcohol and tobacco use. 12. Major depressive disorder. 13. Encephalopathy due to general medical condition. 14. Sepsis. 15. Comfort care/ dying protocol. Robbie Bianchi M.D. I have been assigned to dictate discharge summary on this account and I was not involved in the patient's management. Eufemia Daily N.P. DR: Renato JOB#: [id number] CC: ZARIA
--- NOTE | 2017-09-18 17:48 | Operative Note - PDOC ---
Operative Note Operative Note Date of Operation/Procedure: Sep 03, 2017 Pre-op Diagnosis: Unstageable sacral pressure ulcer Procedure: Sharp excisional debridement of sacral pressure ulcer down to bone Post-op Diagnosis: Stage 4 sacral pressure ulcer Surgeon: Hardeep Anesthesia: local Specimen: none Complications: none Condition: stable Fluids: None Estimated Blood Loss: none Drains: none Implant(s) used?: No Indications for Procedure Unstageable pressure ulcer of sacrum. Description of Procedure Once consent was obtained, the operative area was prepped and draped. 10cc 1% lidocaine was injected to the area then using a #15 scalpel, sharp excisional debridement was performed to the level of bone. Hemostasis was obtained with pressure. Patient tolerated the procedure well. New dressings were reapplied. DALE HERNDON Sep 18, 2017 17:48
== END 2017-09-06 12:59 | disposition expired | DRG 853 ==
LOC: EDBD 18:51 → EMR 20:47 → 2W 20:49 → EDBEDREQ 21:05
PROC: 0QB10ZZ Excision of Sacrum, Open Approach (ICD-10-PCS; principal; 2017-08-30)
DX: A41.9 Sepsis, unspecified organism (principal); J18.9 Pneumonia, unspecified organism; J96.01 Acute respiratory failure with hypoxia; E43 Unspecified severe protein-calorie malnutrition; L89.150 Pressure ulcer of sacral region, unstageable; G93.40 Encephalopathy, unspecified; L89.100 Pressure ulcer of unspecified part of back, unstageable; L89.320 Pressure ulcer of left buttock, unstageable; L89.310 Pressure ulcer of right buttock, unstageable; J44.1 Chronic obstructive pulmonary disease with (acute) exacerbation; Z68.1 Body mass index [BMI] 19.9 or less, adult; Z51.5 Encounter for palliative care; D64.9 Anemia, unspecified; I50.9 Heart failure, unspecified; J43.9 Emphysema, unspecified; R13.10 Dysphagia, unspecified; Z88.8 Allergy status to other drugs, medicaments and biological substances; Z87.891 Personal history of nicotine dependence; F32.9 Major depressive disorder, single episode, unspecified; F10.21 Alcohol dependence, in remission; Z66 Do not resuscitate; Z86.718 Personal history of other venous thrombosis and embolism; K44.9 Diaphragmatic hernia without obstruction or gangrene; K21.9 Gastro-esophageal reflux disease without esophagitis; L89.890 Pressure ulcer of other site, unstageable; L89.520 Pressure ulcer of left ankle, unstageable; L89.510 Pressure ulcer of right ankle, unstageable; L89.620 Pressure ulcer of left heel, unstageable; L89.610 Pressure ulcer of right heel, unstageable
CPT/HCPCS: 36415; 36600; 71010; 71250; 74000; 76700; 80048; 80053; 80069; 80202; 81003; 82550; 82553; 82803; 83605; 83690; 83735; 83880; 84100; 84484; 85007; 85025; 85610; 85730; 86710; 87040; 87070; 87081; 87086; 87181; 87205; 93005; 93306; 93970; 94640; 94664; 94760